=== PATIENT | female | born 1945 | race Caucasian/White ===

== ENCOUNTER → 2020-01-23 07:47 | Outpatient (BNVA) | payer MEDICARE, BC, SELFPAY | PROVIDERS: Family Provider Nurse Practitioner; PCP Nurse Practitioner; Visit Provider Nurse Practitioner | DX: I48.91 Unspecified atrial fibrillation (principal); E11.42 Type 2 diabetes mellitus with diabetic polyneuropathy; I10 Essential (primary) hypertension | CPT/HCPCS: 80053; 80061; 84443; 85025 ==

== ENCOUNTER 2020-01-29 22:34 | Emergency (ER) | payer MEDICARE, BC, SELFPAY ==
--- NOTE | 2020-01-29 22:38 | XRR_ITS ---
PROCEDURE INFORMATION: Exam: XR Chest, 1 View Exam date and time: 01/29/2020 11:06 PM Age: 74 years old Clinical indication: Fever and shortness of breath; Prior surgery; Surgery type: Heart; Additional info: Shortness of breath x3 days/fever x 1 day TECHNIQUE: Imaging protocol: XR of the chest Views: 1 view. COMPARISON: CR Chest 1 [place] [id number] 09/05/2018 11:00 AM FINDINGS: Lungs: No lung consolidation or pulmonary edema. Pleural space: No pleural effusion or pneumothorax. Heart/Mediastinum: The cardiac silhouette is not enlarged. The mediastinal contours are normal. Bones/joints: Prior left rotator cuff surgery with humeral anchors present. XR/XR chest 1V portable [id number] IMPRESSION: No acute abnormality.
[2020-01-29 22:41] VITALS: BP 145/70; PULSE 113; RESP 21; TEMP 37.8; O2SAT 98; BMI 44.6
--- NOTE | 2020-01-29 22:47 | ECG_ITS ---
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 Measurements Intervals [place] Rate: 106 P: 39 MT: 204 QRS: -24 QRSD: 96 T: 66 QT: 342 QTc: 456 Interpretive Statements SINUS TACHYCARDIA BORDERLINE LEFT AXIS DEVIATION [QRS AXIS < -20] NONSPECIFIC T-WAVE ABNORMALITY Compared to ECG 09/05/2018 10:36:27 T-wave abnormality now present Sinus rhythm no longer present Incomplete right bundle-branch block no longer present Electronically Signed On 01-30-2020 13:20:17 CDT by Gurwinder Higgins M.D. [id number]
--- NOTE | 2020-01-29 22:48 | ED_ITS ---
HPI - SOB/Dyspnea General: Chief Complaint: Shortness of Breath/Dyspnea Stated Complaint: SOB/FEVER Time Seen by Provider: 01/29/20 22:42 Source: patient Mode of arrival: ambulatory Limitations: no limitations History of Present Illness: HPI Narrative: Pauline is a nice 74-year-old female who comes in with a 3-day history of fever, cough, congestion and malaise. She states any type of exertion makes her symptoms worse. Rest does seem to make them better but they are present even at rest. Patient has nauseousness and vomiting but denies any diarrhea. Her temperature at home is been 101.1. She does not describe any urinary symptoms. Patient has no known ill exposures but COVID-19 is pandemic in the area currently. Patient states that she feels like she just cannot get enough air and that is why she is presented here to the ER. Associated symptoms: Reports fever(s); Deny abdominal pain, chest congestion, chest pain, diaphoresis, dizziness, extremity pain, hemoptysis, lightheadedness, orthopnea, palpitations or syncope Review of Systems Const: Reports: fever(s), chills, body aches, fatigue and malaise; Denies: diaphoresis Eyes: Denies: change in vision, blurry vision, photophobia, eye discomfort, eye discharge, eye redness or yellow eyes ENMT: Denies: throat pain, odynophagia, hoarseness, swelling of lips/tongue, ear or mastoid pain, ear discharge, change in hearing or nasal discharge Card: Denies: chest pain, palpitations, irregular heart rhythm, edema, lightheadedness, syncope, pre-syncope, dyspnea on exertion or orthopnea Resp: Denies: productive cough, wheezing, hemoptysis or chest congestion GI: Denies: abdominal pain, hematemesis, coffee ground emesis, heartburn, diarrhea, constipation, GI cramping, hematochezia or melena : Denies: flank pain, dysuria, urinary frequency, urinary urgency or hematuria Musc: Denies: neck pain, back pain, extremity pain, extremity swelling, joint pain, joint swelling, joint redness, joint warmth or joint stiffness Skin/Breast: Denies: rash, pruritus, erythema, skin pain or skin tenderness Neuro: Denies: headache(s), numbness in extremities, weakness in extremities, sensory changes, lack of coordination, difficulty walking, dizziness, vertigo, confusion, Slurred speech present or seizure-like activity Ruben/Lymph: Denies: easy bruising, easy bleeding, petechiae, purpura or enlarged lymph nodes All/Imm: Denies: urticaria, throat swelling, tongue swelling, facial swelling or acute wheezing PFSH ED PFSH: Medical History Asthma Atrial fibrillation Chronic kidney disease (CKD), stage II (mild) Controlled type 2 diabetes mellitus with hyperglycemia, with long-term current use of insulin History of CVA in adulthood HTN (hypertension) Type 2 diabetes mellitus with diabetic polyneuropathy Surgical History H/O angioplasty 5 stents H/O arthroscopic knee surgery Bilateral H/O parathyroidectomy H/O: hysterectomy History of appendectomy History of arthroscopic surgery of shoulder LEFT History of cholecystectomy History of tonsillectomy and adenoidectomy Family History Father Cancer Family/Other Cancer Mother Heart disease Stroke Dementia Denies family history of Diabetes CAD (coronary artery disease) Clotting disorder Hyperlipidemia Psychiatric illness Chronic kidney disease (CKD) Suicide Anesthesia complication Bleeding disorder Family history of premature coronary artery disease Lung disease Hypertension Social History Smoking and tobacco status: never smoked Second hand smoke exposure: No Smoking risk assessment/counseling performed?: No Alcohol intake: never Desire information about alcohol rehabilitation?: No Counseling given: No Desire information about substance/drug rehabilitation?: No Counseling given: No Adopted: No Caregiver/support person: Yes Lives independently: No Household members: family Housing: House Marital status: Single service: No Current occupational status: retired and disabled Pets and animals: Yes History of recent travel: No Current gender identity: Female Physical Exam Const: COMMON NORMALS: no acute distress, patient oriented x3, no limitations and alert GENERAL APPEARANCE: cooperative HENMT: COMMON NORMALS: normocephalic, atraumatic, external ears normal, EAC's normal and Normal external nose present HEAD & SCALP: normal to inspection, normocephalic and atraumatic FACE & SINUS: normal facial exam and face symmetric NOSE: Normal external nose present and Normal nares present EXTERNAL EAR: Yes external ears normal EXTERNAL AUDITORY CANAL: EAC's normal MOUTH: Normal oral and palatal mucosa present, lip normal and tongue normal Eye: COMMON NORMALS: Equal, round and reactive pupils present and conjunctivae normal GENERAL EYE: appearance normal, both eyes and all related structures ALIGNMENT: Yes alignment normal PERIORBITAL: periorbital findings normal EYELID: eyelids normal CONJUNCTIVA: Yes conjunctivae normal SCLERA: sclerae normal PUPIL: Yes Equal, round and reactive pupils present Neck/C-Spine: COMMON NORMALS: full ROM, no lymphadenopathy, supple, no meningeal signs and no JVD GENERAL: Yes normal visual inspection and Yes trachea midline Chest: COMMONS NORMALS: normal inspection of the chest and normal palpation of entire chest wall Resp: COMMON NORMALS: normal respiratory effort, No retractions, No use of accessory muscles and clear to auscultation bilaterally EFFORT & INSPECTION: Yes able to speak in complete sentences and Yes symmetric chest movement AUSCULTATION: clear to auscultation bilaterally, no crackles, no rales, no rhonchi and no wheezes Cardio: COMMON NORMALS: no JVD, regular rate, regular rhythm, S1 normal heart sound present and S2 normal heart sound present RATE: regular rate RHYTHM: regular rhythm HEART SOUNDS: S1 normal heart sound present, S2 normal heart sound present, no click, no gallops, no murmurs and no rubs GI: COMMON NORMALS: Soft to palpation and No hepatosplenomegaly present PALPATION: Yes Soft to palpation, No Tenderness to palpation present (GI), No Guarding due to palpation present (GI), No Rigid due to palpation, Yes No hepatosplenomegaly present, No Hernia present, No Palpable mass present and No Pulsatile mass present : COMMON NORMALS: Yes no CVA tenderness BLADDER/KIDNEY EXAM: Yes no CVA t enderness EXTERNAL FEMALE EXAM: No Hernia present Back/Pelvis: COMMON NORMALS: no CVA tenderness, thoracic and lumbar spine normal to inspection, no thoracic nor lumbar tenderness and thoraco-lumbar ROM normal Extremity: COMMON NORMALS: normal to inspection, full ROM, capillary refill normal, no joint enlargement, no clubbing, cyanosis or edema and no calf tenderness Neuro: COMMON NORMALS: patient oriented x3, CN's II-XII intact bilaterally, moves all extremities, no focal motor deficits and no sensory deficits noted SENSORIUM/ORIENTATION: Yes alert MENINGEAL SIGNS: Yes no meningeal signs SPEECH: speech normal Psych: COMMON NORMALS: mental status grossly normal, Normal thought process present, cooperative, normal affect, speech normal and activity/motor behavior normal SPEECH: Yes normal speech THOUGHT PROCESS: Normal thought process present Skin: COMMON NORMALS: no rashes or lesions noted, turgor normal, no jaundice, no petechiae and no mottling GENERAL SKIN EXAM: no rashes or lesions noted and turgor normal Course Vital Signs: Vital signs: Vital Signs Temperature 100.1 F H 01/29/20 22:41 Pulse Rate 68 01/30/20 05:00 Respiratory Rate 16 01/30/20 05:00 Blood Pressure 132/50 01/30/20 05:00 Pulse Oximetry 97 01/30/20 05:00 MDM - SOB/Dyspnea MDM Narrative: Medical decision making narrative: 0543 -patient is high risk now that she is requiring oxygen and is COVID positive. We will given looking for a inpatient bed for her. Lab Data: Labs: Lab Results 01/29/20 01/29/20 01/29/20 Range/Units 23:30 23:40 23:45 WBC 8.0 (4.0-10.0) 10^3/ uL RBC 4.09 L (4.1-5.3) 10^6/u L Hgb 12.5 (11.5-15.3) g/dL Hct 40.0 (37.0-47.0) % MCV 97.8 (81-99) fL MCH 30.6 (28.0-34.0) pg MCHC 31.3 (30.0-36.0) g/dL RDW 13.5 (12.1-15.1) % Plt Count 183 (130-400) 10^3/c mm MPV 12.1 H (7.4-10.4) fL Neut % (Auto) 79.7 % Lymph % (Auto) 10.0 % [place] % (Auto) 9.4 % Eos % (Auto) 0.1 % Baso % (Auto) 0.4 % Neut # (Auto) 6.35 (1.8-7.7) 10^3/u L Lymph # (Auto) 0.8 (0.8-4.8) 10^3/u L [place] # (Auto) 0.8 (0.2-0.9) 10^3/u L Eos # (Auto) 0.0 (0.0-0.8) 10^3/u L Baso # (Auto) 0.0 (0.0-0.1) 10^3/u L Nucleated RBC % (a uto) 0 % Nucleated RBCs # 0.0 /100WBC PT (12.1-14.9) SECO NDS INR (0.8-1.2) APTT (23.9-36.7) SECO NDS Fibrinogen (174-498) mg/dL D-Dimer (0-0.59) ug/mIFE U Specimen Type Arterial Sample Site Radial, left ABG pH 7.36 (7.35-7.45) ABG pCO2 48.0 H (35-45) mmHg ABG pO2 105.0 H (80.0-100.0) mmH g ABG HCO3 27.2 H (22-26) mmol/L ABG O2 Saturation 97.1 ABG Base Excess 1.1 (-2.0-2.0) mmol/ L Malachi Test Pos Hematocrit 38.1 (37-47) % Hgb O2 Saturation 95.8 (95-100) % Carboxyhemoglobin 0.4 (0.4-20.1) %THgb Methemoglobin 0.9 (0.4-1.5) % Total Hemoglobin 12.4 (12-16) g/dL Sodium 135.0 (131-143) mmol/L Potassium 4.6 (3.5-5.0) mmol/L Glucose 279.0 H (70-115) mg/dL Ionized Calcium 1.2 (1.1-1.4) mmol/L Margin Analyst ID ellpe Chloride (98-107) mmol/L Carbon Dioxide (22-29) mmol/L Anion Gap (5-19) BUN (8-23) mg/dL Creatinine (0.5-0.9) mg/dL GFR Calculation Calculated Osmolal ity (285-295) mOsm/k g Lactic Acid (0.5-2.2) mmol/L Calcium (8.5-10.5) mg/dL Magnesium (1.7-2.3) mg/dL Ferritin (15-150) ng/mL Total Bilirubin (0.15-1.2) mg/dL AST (0-32) U/L ALT (0-33) U/L Alkaline Phosphata se (35-105) IU/L Lactate Dehydrogen ase (135-214) U/L Troponin T Baselin e (0-10) ng/L Troponin T [address] [place] (0-10) ng/L Delta Troponin T (0-10) ABS# C-Reactive Protein (0.0-4.9) mg/L NT-Pro-B Natriuret Pep (0-125) pg/mL Total Protein (6.6-8.7) g/dL Albumin (3.5-5.2) g/dL Globulin (1.3-4.6) g/dL Lipase (13-60) U/L Procalcitonin (0-0.5) ng/mL Amorphous Sediment Influenza Type A A g Negative (Negative) Influenza Type B A g Negative (Negative) SARS-CoV-2 Ag (Rap id) (Negative) 01/29/20 01/29/20 01/29/20 Range/Units 23:45 23:45 23:45 WBC (4.0-10.0) 10^3/ uL RBC (4.1-5.3) 10^6/u L Hgb (11.5-15.3) g/dL Hct (37.0-47.0) % MCV (81-99) fL MCH (28.0-34.0) pg MCHC (30.0-36.0) g/dL RDW (12.1-15.1) % Plt Count (130-400) 10^3/c mm MPV (7.4-10.4) fL Neut % (Auto) % Lymph % (Auto) % [place] % (Auto) % Eos % (Auto) % Baso % (Auto) % Neut # (Auto) (1.8-7.7) 10^3/u L Lymph # (Auto) (0.8-4.8) 10^3/u L [place] # (Auto) (0.2-0.9) 10^3/u L Eos # (Auto) (0.0-0.8) 10^3/u L Baso # (Auto) (0.0-0.1) 10^3/u L Nucleated RBC % (a uto) % Nucleated RBCs # /100WBC PT 16.40 H (12.1-14.9) SECO NDS INR 1.28 H (0.8-1.2) APTT (23.9-36.7) SECO NDS Fibrinogen (174-498) mg/dL D-Dimer 3.06 H (0-0.59) ug/mIFE U Specimen Type Sample Site ABG pH (7.35-7.45) ABG pCO2 (35-45) mmHg ABG pO2 (80.0-100.0) mmH g ABG HCO3 (22-26) mmol/L ABG O2 Saturation ABG Base Excess (-2.0-2.0) mmol/ L Malachi Test Hematocrit (37-47) % Hgb O2 Saturation (95-100) % Carboxyhemoglobin (0.4-20.1) %THgb Methemoglobin (0.4-1.5) % Total Hemoglobin (12-16) g/dL Sodium 137 (131-143) mmol/L Potassium 4.9 (3.5-5.0) mmol/L Glucose 293 H (70-115) mg/dL Ionized Calcium (1.1-1.4) mmol/L Margin Analyst ID Chloride 99 (98-107) mmol/L Carbon Dioxide 25 (22-29) mmol/L Anion Gap 17.9 (5-19) BUN 25 H (8-23) mg/dL Creatinine 1.1 H (0.5-0.9) mg/dL GFR Calculation Not Reportable Calculated Osmolal ity 299 H (285-295) mOsm/k g Lactic Acid 1.4 (0.5-2.2) mmol/L Calcium 9.1 (8.5-10.5) mg/dL Magnesium 1.4 L (1.7-2.3) mg/dL Ferritin (15-150) ng/mL Total Bilirubin 0.3 (0.15-1.2) mg/dL AST 24 (0-32) U/L ALT 24 (0-33) U/L Alkaline Phosphata se 95 (35-105) IU/L Lactate Dehydrogen ase (135-214) U/L Troponin T Baselin e (0-10) ng/L Troponin T 120 Min [place] (0-10) ng/L Delta Troponin T (0-10) ABS# C-Reactive Protein (0.0-4.9) mg/L NT-Pro-B Natriuret Pep 424 H (0-125) pg/mL Total Protein 6.1 L (6.6-8.7) g/dL Albumin 3.8 (3.5-5.2) g/dL Globulin 2.3 (1.3-4.6) g/dL Lipase 45 (13-60) U/L Procalcitonin (0-0.5) ng/mL Amorphous Sediment Influenza Type A A g (Negative) Influenza Type B A g (Negative) SARS-CoV-2 Ag (Rap id) (Negative) 01/29/20 01/29/20 01/29/20 Range/Units 23:45 23:45 23:45 WBC (4.0-10.0) 10^3/ uL RBC (4.1-5.3) 10^6/u L Hgb (11.5-15.3) g/dL Hct (37.0-47.0) % MCV (81-99) fL MCH (28.0-34.0) pg MCHC (30.0-36.0) g/dL RDW (12.1-15.1) % Plt Count (130-400) 10^3/c mm MPV (7.4-10.4) fL Neut % (Auto) % Lymph % (Auto) % [place] % (Auto) % Eos % (Auto) % Baso % (Auto) % Neut # (Auto) (1.8-7.7) 10^3/u L Lymph # (Auto) (0.8-4.8) 10^3/u L [place] # (Auto) (0.2-0.9) 10^3/u L Eos # (Auto) (0.0-0.8) 10^3/u L Baso # (Auto) (0.0-0.1) 10^3/u L Nucleated RBC % (a uto) % Nucleated RBCs # /100WBC PT (12.1-14.9) SECO NDS INR (0.8-1.2) APTT (23.9-36.7) SECO NDS Fibrinogen (174-498) mg/dL D-Dimer (0-0.59) ug/mIFE U Specimen Type Sample Site ABG pH (7.35-7.45) ABG pCO2 (35-45) mmHg ABG pO2 (80.0-100.0) mmH g ABG HCO3 (22-26) mmol/L ABG O2 Saturation ABG Base Excess (-2.0-2.0) mmol/ L Malachi Test Hematocrit (37-47) % Hgb O2 Saturation (95-100) % Carboxyhemoglobin (0.4-20.1) %THgb Methemoglobin (0.4-1.5) % Total Hemoglobin (12-16) g/dL Sodium (131-143) mmol/L Potassium (3.5-5.0) mmol/L Glucose (70-115) mg/dL Ionized Calcium (1.1-1.4) mmol/L Margin Analyst ID Chloride (98-107) mmol/L Carbon Dioxide (22-29) mmol/L Anion Gap (5-19) BUN (8-23) mg/dL Creatinine (0.5-0.9) mg/dL GFR Calculation Calculated Osmolal ity (285-295) mOsm/k g Lactic Acid (0.5-2.2) mmol/L Calcium (8.5-10.5) mg/dL Magnesium (1.7-2.3) mg/dL Ferritin 179 H (15-150) ng/mL Total Bilirubin (0.15-1.2) mg/dL AST (0-32) U/L ALT (0-33) U/L Alkaline Phosphata se (35-105) IU/L Lactate Dehydrogen ase 184 (135-214) U/L Troponin T Baselin e 25 H (0-10) ng/L Troponin T [address] [place] (0-10) ng/L Delta Troponin T (0-10) ABS# C-Reactive Protein 22.6 H (0.0-4.9) mg/L NT-Pro-B Natriuret Pep (0-125) pg/mL Total Protein (6.6-8.7) g/dL Albumin (3.5-5.2) g/dL Globulin (1.3-4.6) g/dL Lipase (13-60) U/L Procalcitonin 0.15 (0-0.5) ng/mL Amorphous Sediment Influenza Type A A g (Negative) Influenza Type B A g (Negative) SARS-CoV-2 Ag (Rap id) Positive H (Negative) 01/30/20 01/30/20 01/30/20 Range/Units 02:00 02:00 05:00 WBC (4.0-10.0) 10^3/ uL RBC (4.1-5.3) 10^6/u L Hgb (11.5-15.3) g/dL Hct (37.0-47.0) % MCV (81-99) fL MCH (28.0-34.0) pg MCHC (30.0-36.0) g/dL RDW (12.1-15.1) % Plt Count (130-400) 10^3/c mm MPV (7.4-10.4) fL Neut % (Auto) % Lymph % (Auto) % [place] % (Auto) % Eos % (Auto) % Baso % (Auto) % Neut # (Auto) (1.8-7.7) 10^3/u L Lymph # (Auto) (0.8-4.8) 10^3/u L [place] # (Auto) (0.2-0.9) 10^3/u L Eos # (Auto) (0.0-0.8) 10^3/u L Baso # (Auto) (0.0-0.1) 10^3/u L Nucleated RBC % (a uto) % Nucleated RBCs # /100WBC PT 16.10 H (12.1-14.9) SECO NDS INR 1.25 H (0.8-1.2) APTT 36.6 (23.9-36.7) SECO NDS Fibrinogen 507 H (174-498) mg/dL D-Dimer (0-0.59) ug/mIFE U Specimen Type Sample Site ABG pH (7.35-7.45) ABG pCO2 (35-45) mmHg ABG pO2 (80.0-100.0) mmH g ABG HCO3 (22-26) mmol/L ABG O2 Saturation ABG Base Excess (-2.0-2.0) mmol/ L Malachi Test Hematocrit (37-47) % Hgb O2 Saturation (95-100) % Carboxyhemoglobin (0.4-20.1) %THgb Methemoglobin (0.4-1.5) % Total Hemoglobin (12-16) g/dL Sodium (131-143) mmol/L Potassium (3.5-5.0) mmol/L Glucose (70-115) mg/dL Ionized Calcium (1.1-1.4) mmol/L Margin Analyst ID Chloride (98-107) mmol/L Carbon Dioxide (22-29) mmol/L Anion Gap (5-19) BUN (8-23) mg/dL Creatinine (0.5-0.9) mg/dL GFR Calculation Calculated Osmolal ity (285-295) mOsm/k g Lactic Acid (0.5-2.2) mmol/L Calcium (8.5-10.5) mg/dL Magnesium (1.7-2.3) mg/dL Ferritin (15-150) ng/mL Total Bilirubin (0.15-1.2) mg/dL AST (0-32) U/L ALT (0-33) U/L Alkaline Phosphata se (35-105) IU/L Lactate Dehydrogen ase (135-214) U/L Troponin T Baselin e (0-10) ng/L Troponin T [address] [place] 23.54 H (0-10) ng/L Delta Troponin T -1.46 L (0-10) ABS# C-Reactive Protein (0.0-4.9) mg/L NT-Pro-B Natriuret Pep (0-125) pg/mL Total Protein (6.6-8.7) g/dL Albumin (3.5-5.2) g/dL Globulin (1.3-4.6) g/dL Lipase (13-60) U/L Procalcitonin (0-0.5) ng/mL Amorphous Sediment Not Reportable Influenza Type A A g (Negative) Influenza Type B A g (Negative) SARS-CoV-2 Ag (Rap id) (Negative) Imaging Data^: CXR: Attestation: I personally reviewed and interpreted this imaging study as follows: My impression: No acute cardiopulmonary findings. CT Chest: Radiologist's impression: [address] [address] [address] Scan Report Signed Patient: RamiroPauline wray Unit #: [id number] : 1945 Age/Sex: 74 / F ADM Date: 01/29/20 Loc: ER Room/Bed: Attending Dr: Ordering Provider/Ordering MD: Ashlyn Calvin DO Date of Service: 01/30/20 Procedure(s): CT angio chest PE protcl [id number] Accession Number(s): [id number] Report Number: [id number] PROCEDURE INFORMATION: Exam: CT Angiography Chest With Contrast Exam date and time: 01/30/2020 1:13 AM Age: 74 years old Clinical indication: Abnormal findings; Abnormal diagnostic tests; Elevated d-dimer; Dyspnea; Additional info: Dyspnea, tachycardia, positive d-dimer TECHNIQUE: Imaging protocol: Computed tomographic angiography of the chest with intravenous contrast. 3D rendering (Not supervised by radiologist): MIP and/or 3D reconstructed images were created by the technologist. Radiation optimization: All CT scans at this facility use at least one of these dose optimization techniques: automated exposure control; mA and/or kV adjustment per patient size (includes targeted exams where dose is matched to clinical indication); or iterative reconstruction. Contrast material: VISI; Contrast volume: 95 ml; Contrast route: INTRAVENOUS (IV); COMPARISON: CR XR chest 1V portable [id number] 01/29/2020 10:52 PM RADIATION DOSE METRICS: Total DLP (mGy-cm): 626.97 FINDINGS: Pulmonary arteries: Normal. No pulmonary emboli. Aorta: Unremarkable. No aortic aneurysm. No aortic dissection. Lungs: Unremarkable. No consolidation. No masses. Pleural space: Unremarkable. No pneumothorax. No pleural effusion. Heart: Unremarkable. No cardiomegaly. No pericardial effusion. Lymph nodes: Unremarkable. No enlarged lymph nodes. Bones/joints: Unremarkable. No acute fracture. Soft tissues: Unremarkable. CT/CT angio chest PE protcl [id number] IMPRESSION: No acute findings. Specifically negative for pulmonary embolism. Negative for aortic aneurysm or dissection. Radiation Dose CTDIVOL = (mGy): DLP = 626.97 (mGy-cm) Dictated By: Dominic Schmitz Signed By: Dominic Schmitz Signed Date/Time: 01/30/20422 DD/ 2 EKG Data^: EKG 1: Attestation: I personally reviewed and interpreted this EKG as follows: EKG Interpretation Date: 01/29/20 EKG interpretation time: 22:46 Interpretation: Normal sinus rhythm 106 beats a minute, left axis deviation, no blocks, normal intervals, nonspecific ST-T wave changes. EKG 2: Attestation: I personally reviewed and interpreted this EKG as follows: EKG Interpretation Date: 01/30/20 EKG interpretation time: 01:24 Interpretation: Normal sinus rhythm at 83 beats a minute, no blocks, normal intervals, left axis deviation, no acute ST-T wave changes. EKG 3: Attestation: I personally reviewed and interpreted this EKG as follows: EKG Interpretation Date: 01/30/20 EKG interpretation time: 05:22 Interpretation: Normal sinus rhythm at 76 beats a minute, no blocks, normal intervals, nonspecific ST-T wave changes. Discharge Plan Discharge Prescriptions: No Action insulin lispro SUBCUT RF: 0 Lantus Solostar U-100 Insulin 100 unit/mL (3 mL) insulin pen 32 unit SUBCUT BID RF: 0 guaifenesin [Mucinex] 600 mg tablet extended release 12hr 600 mg PO BID RF: 0 (DME) helium-oxygen 80-20 % kit See Rx Instructions .ROUTE .MEDSUPPLY Qty: 1 RF: 0 Symbicort 80-4.5 mcg/actuation HFA aerosol inhaler 2 puff INHALATION BID RF: 0 ascorbic acid (vitamin C) 500 mg capsule PO RF: 0 B Complex Plus Vitamin C [id number] mg capsule 1 cap PO QDAY RF: 0 acetaminophen PO RF: 0 metformin 500 mg tablet 500 mg PO BID RF: 0 albuterol sulfate 1.25 mg/3 mL solution for nebulization 1.25 mg INHALATION QID PRNRF: 0 albuterol sulfate [ProAir HFA] 90 mcg/actuation HFA aerosol inhaler 2 puff INHALATION Q6H PRNRF: 0 Eliquis 5 mg tablet 5 mg PO BID RF: 0 isosorbide dinitrate 30 mg tablet 30 mg PO DAILY RF: 0 duloxetine [Cymbalta] 30 mg capsule,delayed release(DR/EC) 30 mg PO BID Qty: 60 RF: 5 montelukast [Singulair] 10 mg tablet 10 mg PO QDAY Qty: 30 RF: 5 rosuvastatin [Crestor] 40 mg tablet 40 mg PO QDAY Qty: 30 RF: 5 prednisone 10 mg tablet 10 mg PO DAILY Qty: 10 RF: 0 sotalol 120 mg tablet 120 mg PO DAILY Qty: 30 RF: 5 Coding Level of Care Code 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
[2020-01-29 23:15] VITALS: BP 156/78; PULSE 78; RESP 20; O2SAT 94
[2020-01-29 23:30] VITALS: BP 146/72; PULSE 94; RESP 18; O2SAT 94
[2020-01-29] MEDS: ondansetron 2 mg/ML SDV 2 mL 4 MG IVP (23:30)
[2020-01-29] MEDS: acetaminophen 500 mg Tablet 1000 MG PO (23:30)
[2020-01-29 23:38] LABS: ABG PH Result 7.36 (7.35-7.45); Arterial Blood Gas Hematocrit 38.1 % (37-47); Base Excess ABG 1.1 mmol/L (-2.0-2.0); Blood Gas Allen Test Pos; Blood Gas Sample Site Radial, left; Blood Gas Sample Type Arterial; Carboxyhemoglobin 0.4 %THgb (0.4-20.1); HCO3 ABG 27.2 mmol/L (22-26); HGB O2 Sat 95.8 % (95-100); Ionized Calcium Level - ABG 1.2 mmol/L (1.1-1.4); Methemoglobin 0.9 % (0.4-1.5); Oxygen Saturation ABG 97.1; Potassium Level - ABG 4.6 mmol/L (3.5-5.0); Total Hemoglobin 12.4 g/dL (12-16)
[2020-01-30] VITALS (8 sets, daily range): BP systolic 116–169; BP diastolic 50–80; PULSE 68–99; RESP 16–18; O2SAT 93–99
[2020-01-30 00:14] LABS: Basophils % 0.4 %; Eosinophils % 0.1 %; Hemoglobin 12.5 g/dL (11.5-15.3); Lymphocytes # 0.8 10^3/uL (0.8-4.8); Mean Corpuscular HGB Conc 31.3 g/dL (30.0-36.0); Mean Corpuscular Hemoglobin 30.6 pg (28.0-34.0); Mean Corpuscular Volume 97.8 fL (81-99); Mean Platelet Volume 12.1 fL (7.4-10.4); Monocytes # 0.8 10^3/uL (0.2-0.9); Monocytes % 9.4 %; Neutrophils # 6.35 10^3/uL (1.8-7.7); Neutrophils % 79.7 %; Nucleated Red Blood Cells % 0 %; Platelet Count 183 10^3/cmm (130-400); Red Blood Count 4.09 10^6/uL (4.1-5.3); Red Cell Distribution Width 13.5 % (12.1-15.1)
[2020-01-30 00:17] LABS: INR 1.28 (0.8-1.2)
[2020-01-30 00:20] LABS: D Dimer 3.06 ug/mIFEU (0-0.59)
[2020-01-30 00:21] LABS: Lactic Sepsis W/Reflex 1.4 mmol/L (0.5-2.2)
[2020-01-30 00:23] LABS: Troponin(5th) Baseline 25 ng/L (0-10)
[2020-01-30 00:32] LABS: Alanine Aminotransferase 24 U/L (0-33); Albumin Level 3.8 g/dL (3.5-5.2); Alkaline Phosphatase 95 IU/L (35-105); Anion Gap 17.9 (5-19); Aspartate Amino Transferase 24 U/L (0-32); Blood Urea Nitrogen 25 mg/dL (8-23); Calcium 9.1 mg/dL (8.5-10.5); Carbon Dioxide 25 mmol/L (22-29); Chloride 99 mmol/L (98-107); Globulin 2.3 g/dL (1.3-4.6); Glucose 293 mg/dL (65-115); Lipase 45 U/L (13-60); Magnesium 1.4 mg/dL (1.7-2.3); NT Pro B Type Natriuretic Pept 424 pg/mL (0-125); Osmolality Calculated 299 mOsm/kg (285-295); Potassium 4.9 mmol/L (3.5-5.1); Sodium 137 mmol/L (136-145); Total Bilirubin 0.3 mg/dL (0.15-1.2); Total Protein 6.1 g/dL (6.6-8.7)
[2020-01-30] MEDS: sodium chloride 0.9% 1,000 ML 999 ML IV (00:40)
[2020-01-30 00:41] LABS: SARS Covid-2 Antigen Positive (Negative)
--- NOTE | 2020-01-30 00:53 | CTR_ITS ---
PROCEDURE INFORMATION: Exam: CT Angiography Chest With Contrast Exam date and time: 01/30/2020 1:13 AM Age: 74 years old Clinical indication: Abnormal findings; Abnormal diagnostic tests; Elevated d-dimer; Dyspnea; Additional info: Dyspnea, tachycardia, positive d-dimer TECHNIQUE: Imaging protocol: Computed tomographic angiography of the chest with intravenous contrast. 3D rendering (Not supervised by radiologist): MIP and/or 3D reconstructed images were created by the technologist. Radiation optimization: All CT scans at this facility use at least one of these dose optimization techniques: automated exposure control; mA and/or kV adjustment per patient size (includes targeted exams where dose is matched to clinical indication); or iterative reconstruction. Contrast material: VISI; Contrast volume: 95 ml; Contrast route: INTRAVENOUS (IV); COMPARISON: CR XR chest 1V portable [id number] 01/29/2020 10:52 PM RADIATION DOSE METRICS: Total DLP (mGy-cm): 626.97 FINDINGS: Pulmonary arteries: Normal. No pulmonary emboli. Aorta: Unremarkable. No aortic aneurysm. No aortic dissection. Lungs: Unremarkable. No consolidation. No masses. Pleural space: Unremarkable. No pneumothorax. No pleural effusion. Heart: Unremarkable. No cardiomegaly. No pericardial effusion. Lymph nodes: Unremarkable. No enlarged lymph nodes. Bones/joints: Unremarkable. No acute fracture. Soft tissues: Unremarkable. CT/CT angio chest PE protcl [id number] IMPRESSION: No acute findings. Specifically negative for pulmonary embolism. Negative for aortic aneurysm or dissection. Radiation Dose CTDIVOL = (mGy): DLP = 626.97 (mGy-cm)
[2020-01-30 00:58] LABS: Influenza A by IFA Negative (Negative); Influenza B by IFA Negative (Negative)
--- NOTE | 2020-01-30 02:16 | PC.NURSE ---
0200 assisted patient to [facility]- she became wedged in commode other Nurse Solomon came to assist pt assisted up to stand then she sat down on floor with assistance of 2 nurses- assist of 4 staff members patient lifted into bed positioned on back O2 at 2 L NC- UA to lab
[2020-01-30 02:37] LABS: Troponin 5 2HR 23.54 ng/L (0-10)
[2020-01-30 02:40] LABS: Troponin 5 2HR Delta -1.46 ABS# (0-10)
[2020-01-30] MEDS: magnesium sulfate premix 2 GM/50 ML PIGGYBACK IV (03:04)
[2020-01-30] MEDS: dexamethasone 10 mg/mL INJ IVP (03:04)
[2020-01-30] MEDS: iodixanol 320 mg/mL 100mL Btl IV (04:00)
[2020-01-30 05:21] LABS: Procalcitonin 0.15 ng/mL (0-0.5)
[2020-01-30 05:31] LABS: C Reactive Protein 22.6 mg/L (0.0-4.9); Ferritin 179 ng/mL (15-150); Lactate Dehydrogenase 184 U/L (135-214)
[2020-01-30 05:36] LABS: INR 1.25 (0.8-1.2)
[2020-01-30 05:37] LABS: Fibrinogen 507 mg/dL (174-498); Partial Thromboplastin Time 36.6 SECONDS (23.9-36.7)
[2020-01-30 05:43] LABS: Troponin 5 6HR 20.05 ng/L (0-10)
[2020-01-30 05:49] LABS: Troponin 5 6HR Delta -4.95 ng/L (0-12)
--- NOTE | 2020-01-30 06:46 | PC.NURSE ---
BERKLEY Warren started explained to patient with plan of care
--- NOTE | 2020-01-30 07:52 | PC.NURSE ---
Report called to [facility] at [phone] and given to Molina DAWSON
== END 2020-01-30 08:29 | disposition other institution (70) ==
PROVIDERS: Emergency Provider Emergency Medicine; Family Provider Nurse Practitioner; PCP Nurse Practitioner
DX: U07.1 COVID-19 (principal); Z79.01 Long term (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 of anticoagulants; Z79.4 Long term (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 of insulin; I48.91 Unspecified atrial fibrillation; I12.9 Hypertensive chronic kidney disease with stage 1 through stage 4 chronic kidney disease, or unspecified chronic kidney disease; E11.22 Type 2 diabetes mellitus with diabetic chronic kidney disease; N18.2 Chronic kidney disease, stage 2 (mild); E11.42 Type 2 diabetes mellitus with diabetic polyneuropathy; Z86.73 Personal history of transient ischemic attack (TIA), and cerebral infarction without residual deficits
CPT/HCPCS: 12345; 36600; 71045; 71275; 80051; 80053; 82728; 82810; 83605; 83615; 83690; 83735; 83880; 83986; 84145; 84484; 85025; 85378; 85384; 85610; 85730; 86140; 87040; 87426; 87635; 87804; 93005; 96365; 96367; 96375; 99284; J1100; J2405; J3475; J7030; Q9967

== ENCOUNTER → 2020-02-07 12:11 | Outpatient (BNVA) | payer MEDICARE, BC, SELFPAY | PROVIDERS: Family Provider Nurse Practitioner; PCP Nurse Practitioner; Visit Provider Nurse Practitioner | DX: E11.65 Type 2 diabetes mellitus with hyperglycemia (principal); Z79.4 Long term (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 of insulin | CPT/HCPCS: 85025 ==

== ENCOUNTER → 2020-02-29 07:53 | Outpatient (BNVA) | payer MEDICARE, BC, SELFPAY | PROVIDERS: Family Provider Nurse Practitioner; PCP Nurse Practitioner; Visit Provider Nurse Practitioner | DX: R30.0 Dysuria (principal) | CPT/HCPCS: 80053; 81003; 87077; 87086; 87184 ==

== ENCOUNTER → 2020-07-12 08:16 | Outpatient (BNVA) | payer MEDICARE, BC, SELFPAY | PROVIDERS: Family Provider Nurse Practitioner; PCP Nurse Practitioner; Visit Provider Nurse Practitioner | DX: E11.65 Type 2 diabetes mellitus with hyperglycemia (principal); I10 Essential (primary) hypertension; Z79.4 Long term (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 of insulin; E11.42 Type 2 diabetes mellitus with diabetic polyneuropathy | CPT/HCPCS: 80053; 80061; 81000; 83036; 84443; 85025 ==

== ENCOUNTER 2020-07-30 21:59 | Inpatient (IN) | payer MEDICARE, BC, SELFPAY ==
[2020-07-30 22:04] VITALS: BP 137/69; PULSE 118; RESP 19; TEMP 37.4; O2SAT 97; BMI 44.1
[2020-07-30 22:09] VITALS: BP 137/69; PULSE 131; RESP 23; O2SAT 97
--- NOTE | 2020-07-30 22:11 | XR_ITS ---
WS: [id number] Portable AP upright chest, 07/30/2020 Clinical Data: n/v Comparison: Portable chest, 01/29/2020. Findings: No nodules, masses or effusions are seen. The heart is normal. The aortic arch and descendi ng aorta show minimal calcification and tortuosity. The pulmonary vascularity is not increased. No pn eumonia or pneumothorax is seen. The right diaphragm is moderately elevated. There are monitor leads on the chest wall. There are orthopedic anchors in the left humeral head. XR/XR chest 1V portable [id number] Impression: Atherosclerosis.
--- NOTE | 2020-07-30 22:13 | ED_ITS ---
Documented by User: GABRIELLA Bianchi 07/30/20 23:05 HPI - Abdominal Pain General: Chief Complaint: Abdominal Pain Stated Complaint: N/V Time Seen by Provider: 07/30/20 22:08 History of Present Illness: HPI narrative: Patient is a 75-year-old female comes to the ED via EMS for nausea/vomiting, generalized weakness and near syncope. Past medical history of A. fib, type 2 diabetes, hypertension, asthma. Patient also has had Covid-19 in the past. Patient ambulates at home with a walker and wears 2 L of oxygen at home. Patient said approximately 2 days ago she started developing diarrhea, nausea and vomiting. She also endorses having low-grade fever for the past 2 days as well. She also endorses having some abdominal pain that is centrally located. She says today she has had increased generalized weakness. Patient endorses a very mild cough that is dry and nonproductive. Patient denies any current chest pain, shortness of breath, UTI symptoms. Patient did say that she has had some chest pain multiple times over the past week. One of patient's family members is present and she also lives with patient and helps take care of her. She says that tonight patient was complaining of being more weak than usual. She says that she got patient up out of bed to try to help her ambulate to the bathroom and patient had a near syncopal event and she was able to slowly lowered her down to the ground. She denies any head trauma or that patient lost consciousness. She noted that patient just seemed very lethargic at that time. She also says that patient has been having some on and off and chest pain for the past week and has been taking her nitro and it resolves. Patient has not been seen in any medical facility for chest pain for the past week since the nitro resolves that. Associated Symptoms: Reports diarrhea, fever(s), nausea and vomiting; Denies chills, constipation, dysuria, hematochezia and hematuria Review of Systems Const: Reports: fever(s); Denies: chills or fatigue Eyes: Denies: change in vision or eye discomfort ENMT: Denies: throat pain, odynophagia, nasal discharge or nasal congestion Card: Denies: chest pain, palpitations, edema, swelling of feet/ankles, dyspnea on exertion or orthopnea Resp: Reports: non-productive cough; Denies: dyspnea or productive cough GI: Reports: abdominal pain, nausea, vomiting and diarrhea; Denies: constipation or hematochezia : Denies: flank pain, dysuria or hematuria Musc: Denies: neck pain, back pain or extremity swelling Skin/Breast: Denies: rash or new lesions Neuro: Denies: headache(s), numbness in extremities or weakness in extremities PFSH ED 2 PFSH: Medical History Asthma Atrial fibrillation Chronic kidney disease (CKD), stage II (mild) Controlled type 2 diabetes mellitus with hyperglycemia, with long-term current use of insulin History of CVA in adulthood HTN (hypertension) Type 2 diabetes mellitus with diabetic polyneuropathy Surgical History H/O angioplasty 5 stents H/O arthroscopic knee surgery Bilateral H/O parathyroidectomy H/O: hysterectomy History of appendectomy History of arthroscopic surgery of shoulder LEFT History of cholecystectomy History of tonsillectomy and adenoidectomy Family History Father Cancer Family/Other Cancer Mother Heart disease Stroke Dementia Denies family history of Diabetes CAD (coronary artery disease) Clotting disorder Hyperlipidemia Psychiatric illness Chronic kidney disease (CKD) Suicide Anesthesia complication Bleeding disorder Family history of premature coronary artery disease Lung disease Hypertension Social History Smoking and tobacco status: never smoked Second hand smoke exposure: No Smoking risk assessment/counseling performed?: No Alcohol intake: never Desire information about alcohol rehabilitation?: No Counseling given: No Desire information about substance/drug rehabilitation?: No Counseling given: No Adopted: No Caregiver/support person: Yes Lives independently: No Household members: family Housing: House Marital status: Single service: No Current occupational status: retired and disabled Pets and animals: Yes History of recent travel: No Current gender identity: Female Physical Exam Const: COMMON NORMALS: patient oriented x3 and alert GENERAL APPEARANCE: cooperative, comfortable and diaphoretic NUTRITIONAL APPEARANCE: obese HENMT: COMMON NORMALS: normocephalic HEAD & SCALP: normocephalic MOUTH: moist mucous membranes abnormal Details: parched THROAT: posterior oropharynx normal and uvula midline Neck/C-Spine: COMMON NORMALS: supple GENERAL: Yes normal visual inspection Resp: COMMON NORMALS: normal respiratory effort, No retractions, No use of accessory muscles and clear to auscultation bilaterally EFFORT & INSPECTION: Yes able to speak in complete sentences and Yes tachypneic AUSCULTATION: clear to auscultation bilaterally Cardio: COMMON NORMALS: regular rhythm, S1 normal heart sound present, S2 normal heart sound present, No gallops present (Cardio), No clicks present (Cardio), No murmurs present (Cardio) and Peripheral pulses 2+ throughout RATE: tachycardic (Around 120 bpm) RHYTHM: regular rhythm HEART SOUNDS: S1 normal heart sound present and S2 normal heart sound present PERIPHERAL PULSES: Peripheral pulses 2+ throughout GI: COMMON NORMALS: Normal to inspection, nondistended, normoactive bowel sounds present, Soft to palpation, non-tender and no masses INSPECTION: Yes central obesity PALPATION: Yes Soft to palpation OTHER: Patient had no abdominal tenderness to light and deep palpation in all 4 quadrants of abdomen. : COMMON NORMALS: Yes no CVA tenderness BLADDER/KIDNEY EXAM: Yes no CVA tenderness Back/Pelvis: COMMON NORMALS: no CVA tenderness Extremity: GENERAL: Yes normal exam except as noted and Yes edema (Bilateral lower extremities trace edema present.) Neuro: COMMON NORMALS: patient oriented x3 SENSORIUM/ORIENTATION: Yes alert GAIT: Yes Normal gait present Skin: GENERAL SKIN EXAM: dry skin Course Vital Signs: Vital signs: Vital Signs Temperature 99.4 F 07/30/20 22:04 Pulse Rate 100 07/31/20 00:12 Respiratory Rate 16 07/31/20 00:12 Blood Pressure 155/88 07/31/20 00:12 Pulse Oximetry 99 07/31/20 00:12 MDM - Abdominal Pain MDM Narrative: Medical decision making narrative: Patient is a 75-year-old female comes to the ED with nausea/vomiting, diarrhea, generalized weakness and near syncope. Patient has past medical history of A. fib, hypertension, type 2 diabetes, asthma and is on 2 L O2 at home. Vitals BP 137/69, pulse 131, respirations 23, temp 99.4 and O2 97% on 2 L NC. Patient's first troponin level was 1088. I went discussed patient case with Dr. Chow and he will be taking over patient care. I performed the initial history, physical exam and work-up of patient. Due to patient's acuity I handed patient care off to Dr. Chow to further manage patient's care. Lab Data: Attestation: I reviewed the patient's lab results. Labs: Lab Results 07/30/20 07/30/20 07/30/20 Range/Units 22:20 22:20 22:20 WBC 12.8 H (4.0-10.0) 10^3/ uL RBC 4.07 L (4.1-5.3) 10^6/u L Hgb 12.5 (11.5-15.3) g/dL Hct 39.3 (37.0-47.0) % MCV 96.6 (81-99) fL MCH 30.7 (28.0-34.0) pg MCHC 31.8 (30.0-36.0) g/dL RDW 13.4 (12.1-15.1) % Plt Count 215 (130-400) 10^3/c mm MPV 12.2 H (7.4-10.4) fL Neut % (Auto) 75.5 % Lymph % (Auto) 11.4 % [place] % (Auto) 12.3 % Eos % (Auto) 0.3 % Baso % (Auto) 0.3 % Neut # (Auto) 9.68 H (1.8-7.7) 10^3/u L Lymph # (Auto) 1.5 (0.8-4.8) 10^3/u L [place] # (Auto) 1.6 H (0.2-0.9) 10^3/u L Eos # (Auto) 0.0 (0.0-0.8) 10^3/u L Baso # (Auto) 0.0 (0.0-0.1) 10^3/u L Nucleated RBC % (a uto) 0 % Nucleated RBCs # 0.0 /100WBC Sodium 139 (136-145) mmol/L Potassium 4.3 (3.5-5.1) mmol/L Chloride 99 (98-107) mmol/L Carbon Dioxide 28 (22-29) mmol/L Anion Gap 16.3 (5-19) BUN 20 (8-23) mg/dL Creatinine 0.8 (0.5-0.9) mg/dL GFR Calculation Not Reportable Glucose 190 H (65-115) mg/dL Calculated Osmolal ity 296 H (285-295) mOsm/k g Lactic Acid 2.6 H (0.5-2.2) mmol/L Calcium 8.5 (8.5-10.5) mg/dL Total Bilirubin 0.3 (0.15-1.2) mg/dL AST 83 H (0-32) U/L ALT 32 (0-33) U/L Alkaline Phosphata se 132 H (35-105) IU/L Troponin T Baselin e (0-10) ng/L NT-Pro-B Natriuret Pep (0-125) pg/mL Total Protein 6.9 (6.6-8.7) g/dL Albumin 3.8 (3.5-5.2) g/dL Globulin 3.1 (1.3-4.6) g/dL Lipase 7 L (13-60) U/L Urine Color (Yellow) Urine Appearance (CLEAR) Urine pH (5-7) Ur Specific Gravit y (1.005-1.030) Urine Protein (Negative) Urine Glucose (UA) (Normal) Urine Ketones (Negative) Urine Blood (Negative) Urine Nitrate (Negative) Urine Bilirubin (Negative) Urine Urobilinogen (Negative) mg/dL Ur Leukocyte Amanda ase (Negative) Urine RBC (0-2) /hpf Urine WBC (0-5) /hpf Ur Squamous Epith Cells (0-5) /hpf Amorphous Sediment /hpf Urine Bacteria (NONE) /hpf 07/30/20 07/30/20 07/30/20 Range/Units 22:20 22:20 22:54 WBC (4.0-10.0) 10^3/ uL RBC (4.1-5.3) 10^6/u L Hgb (11.5-15.3) g/dL Hct (37.0-47.0) % MCV (81-99) fL MCH (28.0-34.0) pg MCHC (30.0-36.0) g/dL RDW (12.1-15.1) % Plt Count (130-400) 10^3/c mm MPV (7.4-10.4) fL Neut % (Auto) % Lymph % (Auto) % [place] % (Auto) % Eos % (Auto) % Baso % (Auto) % Neut # (Auto) (1.8-7.7) 10^3/u L Lymph # (Auto) (0.8-4.8) 10^3/u L [place] # (Auto) (0.2-0.9) 10^3/u L Eos # (Auto) (0.0-0.8) 10^3/u L Baso # (Auto) (0.0-0.1) 10^3/u L Nucleated RBC % (a uto) % Nucleated RBCs # /100WBC Sodium (136-145) mmol/L Potassium (3.5-5.1) mmol/L Chloride (98-107) mmol/L Carbon Dioxide (22-29) mmol/L Anion Gap (5-19) BUN (8-23) mg/dL Creatinine (0.5-0.9) mg/dL GFR Calculation Glucose (65-115) mg/dL Calculated Osmolal ity (285-295) mOsm/k g Lactic Acid (0.5-2.2) mmol/L Calcium (8.5-10.5) mg/dL Total Bilirubin (0.15-1.2) mg/dL AST (0-32) U/L ALT (0-33) U/L Alkaline Phosphata se (35-105) IU/L Troponin T Baselin e 1088 H* (0-10) ng/L NT-Pro-B Natriuret Pep 9719 H (0-125) pg/mL Total Protein (6.6-8.7) g/dL Albumin (3.5-5.2) g/dL Globulin (1.3-4.6) g/dL Lipase (13-60) U/L Urine Color Yellow (Yellow) Urine Appearance Clear (CLEAR) Urine pH 5 (5-7) Ur Specific Gravit y 1.020 (1.005-1.030) Urine Protein 1+ H (Negative) Urine Glucose (UA) Norm (Normal) Urine Ketones 1+ H (Negative) Urine Blood Neg (Negative) Urine Nitrate Negative (Negative) Urine Bilirubin Neg (Negative) Urine Urobilinogen 1 H (Negative) mg/dL Ur Leukocyte Amanda ase Negative (Negative) Urine RBC 0-4 H (0-2) /hpf Urine WBC 0-4 H (0-5) /hpf Ur Squamous Epith Cells 0-4 H (0-5) /hpf Amorphous Sediment 4+ /hpf Urine Bacteria None (NONE) /hpf EKG Data ^: EKG 1: Attestation: I personally reviewed and interpreted this EKG as follows: EKG interpretation date: 07/30/20 Interpretation: Sinus tachycardia, [address] depression in lead V2. I informed Dr. Chow of patient and he looked at EKG as well. Discharge Plan Discharge Patient Disposition: Admitted As Inpatient Clinical Impression: Non-ST elevation PA (NSTEMI) Condition: Stable Coding Level of Care Code ED Audiology Assistant for Chg Fwd Exam Comprehensive Documented by User: Todd Chow MD 07/31/20 00:18 HPI - Abdominal Pain General: Chief Complaint: Abdominal Pain Stated Complaint: N/V Time Seen by Provider: 07/30/20 22:08 PFSH ED PFSH: Medical History Asthma Atrial fibrillation Chronic kidney disease (CKD), stage II (mild) Controlled type 2 diabetes mellitus with hyperglycemia, with long-term current use of insulin History of CVA in adulthood HTN (hypertension) Type 2 diabetes mellitus with diabetic polyneuropathy Surgical History H/O angioplasty 5 stents H/O arthroscopic knee surgery Bilateral H/O parathyroidectomy H/O: hysterectomy History of appendectomy History of arthroscopic surgery of shoulder LEFT History of cholecystectomy History of tonsillectomy and adenoidectomy Family History Father Cancer Family/Other Cancer Mother Heart disease Stroke Dementia Denies family history of Diabetes CAD (coronary artery disease) Clotting disorder Hyperlipidemia Psychiatric illness Chronic kidney disease (CKD) Suicide Anesthesia complication Bleeding disorder Family history of premature coronary artery disease Lung disease Hypertension Social History Smoking and tobacco status: never smoked Second hand smoke exposure: No Smoking risk assessment/counseling performed?: No Alcohol intake: never Desire information about alcohol rehabilitation?: No Counseling given: No Desire information about substance/drug rehabilitation?: No Counseling given: No Adopted: No Caregiver/support person: Yes Lives independently: No Household members: family Housing: House Marital status: Single service: No Current occupational status: retired and disabled Pets and animals: Yes History of recent travel: No Current gender identity: Female Physical Exam Const: COMMON NORMALS: no acute distress, patient oriented x3 and healthy appearing HENMT: COMMON NORMALS: normocephalic and atraumatic HEAD & SCALP: normocephalic and atraumatic Eye: COMMON NORMALS: Equal, round and reactive pupils present and EOMs intact bilaterally PUPIL: Yes Equal, round and reactive pupils present Neck/C-Spine: COMMON NORMALS: full ROM and supple Chest: COMMONS NORMALS: normal inspection of the chest and normal palpation of entire chest wall Resp: COMMON NORMALS: normal respiratory effort, No retractions, No use of accessory muscles and clear to auscultation bilaterally AUSCULTATION: clear to auscultation bilaterally Cardio: COMMON NORMALS: regular rate, regular rhythm and No murmurs present (Cardio) RATE: regular rate RHYTHM: regular rhythm GI: COMMON NORMALS: Normal to inspection, nondistended, normoactive bowel sounds present, Soft to palpation, non-tender and no masses PALPATION: Yes Soft to palpation Extremity: COMMON NORMALS: normal to inspection and full ROM Neuro: COMMON NORMALS: patient oriented x3, moves all extremities and no focal motor deficits Psych: COMMON NORMALS: mental status grossly normal, Normal thought process present and cooperative THOUGHT PROCESS: Normal thought process present Skin: COMMON NORMALS: no rashes or lesions noted and no wounds GENERAL SKIN EXAM: no rashes or lesions noted Course Vital Signs: Vital signs: Vital Signs Temperature 99.4 F 07/30/20 22:04 Pulse Rate 100 07/31/20 00:12 Respiratory Rate 16 07/31/20 00:12 Blood Pressure 155/88 07/31/20 00:12 Pulse Oximetry 99 07/31/20 00:12 MDM - Abdominal Pain MDM Narrative: Medical decision making narrative: Patient presents here with chest pain and abdominal pain over the last 2 days. States she has had intermittent pains and has been taking nitros. Patient is completely pain-free here and initial repeat EKGs did show sinus tachycardia. Her troponin is quite elevated consistent with an NSTEMI. CTA showed no signs of PE. I spoke to hospitalist will admit. I also spoke to [employer] Dr. Akhtar who is consulted. Lab Data: Labs: Lab Results 07/30/20 07/30/20 07/30/20 Range/Units 22:20 22:20 22:20 WBC 12.8 H (4.0-10.0) 10^3/ uL RBC 4.07 L (4.1-5.3) 10^6/u L Hgb 12.5 (11.5-15.3) g/dL Hct 39.3 (37.0-47.0) % MCV 96.6 (81-99) fL MCH 30.7 (28.0-34.0) pg MCHC 31.8 (30.0-36.0) g/dL RDW 13.4 (12.1-15.1) % Plt Count 215 (130-400) 10^3/c mm MPV 12.2 H (7.4-10.4) fL Neut % (Auto) 75.5 % Lymph % (Auto) 11.4 % [place] % (Auto) 12.3 % Eos % (Auto) 0.3 % Baso % (Auto) 0.3 % Neut # (Auto) 9.68 H (1.8-7.7) 10^3/u L Lymph # (Auto) 1.5 (0.8-4.8) 10^3/u L [place] # (Auto) 1.6 H (0.2-0.9) 10^3/u L Eos # (Auto) 0.0 (0.0-0.8) 10^3/u L Baso # (Auto) 0.0 (0.0-0.1) 10^3/u L Nucleated RBC % (a uto) 0 % Nucleated RBCs # 0.0 /100WBC Sodium 139 (136-145) mmol/L Potassium 4.3 (3.5-5.1) mmol/L Chloride 99 (98-107) mmol/L Carbon Dioxide 28 (22-29) mmol/L Anion Gap 16.3 (5-19) BUN 20 (8-23) mg/dL Creatinine 0.8 (0.5-0.9) mg/dL GFR Calculation Not Reportable Glucose 190 H (65-115) mg/dL Calculated Osmolal ity 296 H (285-295) mOsm/k g Lactic Acid 2.6 H (0.5-2.2) mmol/L Calcium 8.5 (8.5-10.5) mg/dL Total Bilirubin 0.3 (0.15-1.2) mg/dL AST 83 H (0-32) U/L ALT 32 (0-33) U/L Alkaline Phosphata se 132 H (35-105) IU/L Troponin T Baselin e (0-10) ng/L NT-Pro-B Natriuret Pep (0-125) pg/mL Total Protein 6.9 (6.6-8.7) g/dL Albumin 3.8 (3.5-5.2) g/dL Globulin 3.1 (1.3-4.6) g/dL Lipase 7 L (13-60) U/L Urine Color (Yellow) Urine Appearance (CLEAR) Urine pH (5-7) Ur Specific Gravit y (1.005-1.030) Urine Protein (Negative) Urine Glucose (UA) (Normal) Urine Ketones (Negative) Urine Blood (Negative) Urine Nitrate (Negative) Urine Bilirubin (Negative) Urine Urobilinogen (Negative) mg/dL Ur Leukocyte Amanda ase (Negative) Urine RBC (0-2) /hpf Urine WBC (0-5) /hpf Ur Squamous Epith Cells (0-5) /hpf Amorphous Sediment /hpf Urine Bacteria (NONE) /hpf 07/30/20 07/30/20 07/30/20 Range/Units 22:20 22:20 22:54 WBC (4.0-10.0) 10^3/ uL RBC (4.1-5.3) 10^6/u L Hgb (11.5-15.3) g/dL Hct (37.0-47.0) % MCV (81-99) fL MCH (28.0-34.0) pg MCHC (30.0-36.0) g/dL RDW (12.1-15.1) % Plt Count (130-400) 10^3/c mm MPV (7.4-10.4) fL Neut % (Auto) % Lymph % (Auto) % [place] % (Auto) % Eos % (Auto) % Baso % (Auto) % Neut # (Auto) (1.8-7.7) 10^3/u L Lymph # (Auto) (0.8-4.8) 10^3/u L [place] # (Auto) (0.2-0.9) 10^3/u L Eos # (Auto) (0.0-0.8) 10^3/u L Baso # (Auto) (0.0-0.1) 10^3/u L Nucleated RBC % (a uto) % Nucleated RBCs # /100WBC Sodium (136-145) mmol/L Potassium (3.5-5.1) mmol/L Chloride (98-107) mmol/L Carbon Dioxide (22-29) mmol/L Anion Gap (5-19) BUN (8-23) mg/dL Creatinine (0.5-0.9) mg/dL GFR Calculation Glucose (65-115) mg/dL Calculated Osmolal ity (285-295) mOsm/k g Lactic Acid (0.5-2.2) mmol/L Calcium (8.5-10.5) mg/dL Total Bilirubin (0.15-1.2) mg/dL AST (0-32) U/L ALT (0-33) U/L Alkaline Phosphata se (35-105) IU/L Troponin T Baselin e 1088 H* (0-10) ng/L NT-Pro-B Natriuret Pep 9719 H (0-125) pg/mL Total Protein (6.6-8.7) g/dL Albumin (3.5-5.2) g/dL Globulin (1.3-4.6) g/dL Lipase (13-60) U/L Urine Color Yellow (Yellow) Urine Appearance Clear (CLEAR) Urine pH 5 (5-7) Ur Specific Gravit y 1.020 (1.005-1.030) Urine Protein 1+ H (Negative) Urine Glucose (UA) Norm (Normal) Urine Ketones 1+ H (Negative) Urine Blood Neg (Negative) Urine Nitrate Negative (Negative) Urine Bilirubin Neg (Negative) Urine Urobilinogen 1 H (Negative) mg/dL Ur Leukocyte Amanda ase Negative (Negative) Urine RBC 0-4 H (0-2) /hpf Urine WBC 0-4 H (0-5) /hpf Ur Squamous Epith Cells 0-4 H (0-5) /hpf Amorphous Sediment 4+ /hpf Urine Bacteria None (NONE) /hpf Imaging Data ^: CT Chest: Attestation: I personally reviewed and interpreted this imaging study as follows: Radiologist's impression: [email or web address] [address] [address] Scan Report Signed Patient: Pauline Rubio Unit #: [id number] : 1945 Age/Sex: 75 / F ADM Date: 07/30/20 Loc: ER Room/Bed: Attending Dr: Ordering Provider/Ordering MD: Todd Chow MD Date of Service: 07/30/20 Procedure(s): CT angio chest w abd pel w con Accession Number(s): [id number] Report Number: [id number] PROCEDURE INFORMATION: Exam: CTA Chest With Contrast Exam date and time: 07/30/2020 10:50 PM Age: 75 years old Clinical indication: Nausea and vomiting; Other: High troponin; Prior surgery; Surgery type: Cardiac stents. Appy. Hysterectomy. Parathyroidectomy. ; Patient HX: N/v x 2 days. High baseline troponin with elevated lactic acid and wbc. ; Additional info: R/O pe TECHNIQUE: Imaging protocol: Computed tomographic angiography of the chest with contrast. 3D rendering (Not supervised by radiologist): MIP and/or 3D reconstructed images were created by the technologist. Radiation optimization: All CT scans at this facility use at least one of these dose optimization techniques: automated exposure control; mA and/or kV adjustment per patient size (includes targeted exams where dose is matched to clinical indication); or iterative reconstruction. Contrast material: OMNI 350; Contrast volume: 95 ml; Contrast route: INTRAVENOUS (IV); COMPARISON: CT angio chest PE protcl [id number] 01/30/2020 3:55 AM RADIATION DOSE METRICS: Total DLP (mGy-cm): 2548.21 FINDINGS: Pulmonary arteries: There is no evidence of filling defects within the pulmonary arterial circulation to suggest pulmonary embolism. Aorta: There is some mild atherosclerotic calcifications in the aortic arch and descending aorta.There is no thoracic aortic aneurysm or dissection. Lungs: There is minimal dependent atelectasis at the lung bases. Pleural spaces: Unremarkable. No pneumothorax. No pleural effusion. Heart: Coronary stents are noted. Lymph nodes: There is no evidence of lymphadenopathy. Bones/joints: Unremarkable. No acute fracture. Soft tissues: Unremarkable. IMPRESSION: 1. No evidence of pulmonary embolism. 2. No acute findings in the chest. PROCEDURE INFORMATION: Exam: CT Abdomen And Pelvis With Contrast Exam date and time: 07/30/2020 10:50 PM Age: 75 years old Clinical indication: Nausea and vomiting; Other: High troponin; Prior surgery; Surgery type: Cardiac stents. Appy. Hysterectomy. Parathyroidectomy. ; Patient HX: N/v x 2 days. High baseline troponin with elevated lactic acid and wbc. ; Additional info: R/O pe TECHNIQUE: Imaging protocol: Computed tomography of the abdomen and pelvis with contrast. Radiation optimization: All CT scans at this facility use at least one of these dose optimization techniques: automated exposure control; mA and/or kV adjustment per patient size (includes targeted exams where dose is matched to clinical indication); or iterative reconstruction. Contrast material: OMNI 350; Contrast volume: 95 ml; Contrast route: INTRAVENOUS (IV); COMPARISON: 1. CT angio chest PE protcl [id number] 01/30/2020 3:[address] abdomen pelvis w con* [id number] 06/18/2015 4:03:01 PM RADIATION DOSE METRICS: Total DLP (mGy-cm): 2548.21 FINDINGS: Liver: There is a diffuse decrease in hepatic parenchymal density, consistent with mild fatty infiltration. There is no focal abnormality within the liver. Gallbladder and bile ducts: There has been a cholecystectomy. Pancreas: The pancreas is normal. Spleen: The spleen is normal. Adrenal glands: The adrenal glands are normal. Kidneys and ureters: There are 2 small simple cysts in the left kidney. The right kidney is normal. There is no evidence of hydronephrosis. There is no evidence of renal or ureteral calcifications. Stomach and bowel: There is no evidence of colitis/diverticulitis. Appendix: Not identified Intraperitoneal space: Unremarkable. No free air. No significant fluid collection. Vasculature: The aorta demonstrates moderate atherosclerotic calcification. There is no evidence of an abdominal aortic aneurysm. Lymph nodes: There is no evidence of lymphadenopathy. Urinary bladder: Unremarkable as visualized. Reproductive: There has been a hysterectomy. Bones/joints: The lumbar spine demonstrates moderate degenerative changes at multiple levels. Soft tissues: Unremarkable. CT/CT angio chest w abd pel w con IMPRESSION: 1. No acute findings in the abdomen or pelvis. 2. Atherosclerotic vascular disease not significantly changed compared with 06/18/2015. COMMENTS: EKG Data ^: EKG 1: Attestation: I personally reviewed and interpreted this EKG as follows: EKG interpretation date: 07/31/20 EKG interpretation time: 00:06 Interpretation: sinus tach hr [address] or t wave abnormalities qrs 91 qtc 372 Discharge Plan Discharge Patient Disposition: Admitted As Inpatient Clinical Impression: Non-ST elevation PA (NSTEMI) Condition: Stable Coding Level of Care Code ED Audiology Assistant for Chg Fwd Exam Comprehensive
--- NOTE | 2020-07-30 22:26 | ECG_ITS ---
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 Measurements Intervals [place] Rate: 117 P: 95 [place]: 188 QRS: -12 QRSD: 99 T: 92 QT: 323 QTc: 451 Interpretive Statements SINUS TACHYCARDIA ST changes, suggestive of possible recent inferior wall MS NONSPECIFIC ST & T-WAVE ABNORMALITY Compared to ECG 01/29/2020 22:46:06 No significant changes Electronically Signed On 07-31-2020 7:42:09 CDT by Em Akhtar M.D. [email or web address]/[id number]
[2020-07-30 22:37] LABS: Basophils % 0.3 %; Eosinophils % 0.3 %; Hematocrit 39.3 % (37.0-47.0); Hemoglobin 12.5 g/dL (11.5-15.3); Lymphocytes # 1.5 10^3/uL (0.8-4.8); Lymphocytes % 11.4 %; Mean Corpuscular HGB Conc 31.8 g/dL (30.0-36.0); Mean Corpuscular Hemoglobin 30.7 pg (28.0-34.0); Mean Corpuscular Volume 96.6 fL (81-99); Mean Platelet Volume 12.2 fL (7.4-10.4); Monocytes # 1.6 10^3/uL (0.2-0.9); Monocytes % 12.3 %; Neutrophils # 9.68 10^3/uL (1.8-7.7); Neutrophils % 75.5 %; Nucleated Red Blood Cells % 0 %; Platelet Count 215 10^3/cmm (130-400); Red Blood Count 4.07 10^6/uL (4.1-5.3); Red Cell Distribution Width 13.4 % (12.1-15.1); White Blood Count 12.8 10^3/uL (4.0-10.0)
--- NOTE | 2020-07-30 22:43 | CTR_ITS ---
PROCEDURE INFORMATION: Exam: CTA Chest With Contrast Exam date and time: 07/30/2020 10:50 PM Age: 75 years old Clinical indication: Nausea and vomiting; Other: High troponin; Prior surgery; Surgery type: Cardiac stents. Appy. Hysterectomy. Parathyroidectomy. ; Patient HX: N/v x 2 days. High baseline troponin with elevated lactic acid and wbc. ; Additional info: R/O pe TECHNIQUE: Imaging protocol: Computed tomographic angiography of the chest with contrast. 3D rendering (Not supervised by radiologist): MIP and/or 3D reconstructed images were created by the technologist. Radiation optimization: All CT scans at this facility use at least one of these dose optimization techniques: automated exposure control; mA and/or kV adjustment per patient size (includes targeted exams where dose is matched to clinical indication); or iterative reconstruction. Contrast material: OMNI 350; Contrast volume: 95 ml; Contrast route: INTRAVENOUS (IV); COMPARISON: CT angio chest PE protcl [id number] 01/30/2020 3:55 AM RADIATION DOSE METRICS: Total DLP (mGy-cm): 2548.21 FINDINGS: Pulmonary arteries: There is no evidence of filling defects within the pulmonary arterial circulation to suggest pulmonary embolism. Aorta: There is some mild atherosclerotic calcifications in the aortic arch and descending aorta.There is no thoracic aortic aneurysm or dissection. Lungs: There is minimal dependent atelectasis at the lung bases. Pleural spaces: Unremarkable. No pneumothorax. No pleural effusion. Heart: Coronary stents are noted. Lymph nodes: There is no evidence of lymphadenopathy. Bones/joints: Unremarkable. No acute fracture. Soft tissues: Unremarkable. IMPRESSION: 1. No evidence of pulmonary embolism. 2. No acute findings in the chest. PROCEDURE INFORMATION: Exam: CT Abdomen And Pelvis With Contrast Exam date and time: 07/30/2020 10:50 PM Age: 75 years old Clinical indication: Nausea and vomiting; Other: High troponin; Prior surgery; Surgery type: Cardiac stents. Appy. Hysterectomy. Parathyroidectomy. ; Patient HX: N/v x 2 days. High baseline troponin with elevated lactic acid and wbc. ; Additional info: R/O pe TECHNIQUE: Imaging protocol: Computed tomography of the abdomen and pelvis with contrast. Radiation optimization: All CT scans at this facility use at least one of these dose optimization techniques: automated exposure control; mA and/or kV adjustment per patient size (includes targeted exams where dose is matched to clinical indication); or iterative reconstruction. Contrast material: OMNI 350; Contrast volume: 95 ml; Contrast route: INTRAVENOUS (IV); COMPARISON: 1. CT angio chest PE protcl [id number] 01/30/2020 3:[address] abdomen pelvis w con* [id number] 06/18/2015 4:03:01 PM RADIATION DOSE METRICS: Total DLP (mGy-cm): 2548.21 FINDINGS: Liver: There is a diffuse decrease in hepatic parenchymal density, consistent with mild fatty infiltration. There is no focal abnormality within the liver. Gallbladder and bile ducts: There has been a cholecystectomy. Pancreas: The pancreas is normal. Spleen: The spleen is normal. Adrenal glands: The adrenal glands are normal. Kidneys and ureters: There are 2 small simple cysts in the left kidney. The right kidney is normal. There is no evidence of hydronephrosis. There is no evidence of renal or ureteral calcifications. Stomach and bowel: There is no evidence of colitis/diverticulitis. Appendix: Not identified Intraperitoneal space: Unremarkable. No free air. No significant fluid collection. Vasculature: The aorta demonstrates moderate atherosclerotic calcification. There is no evidence of an abdominal aortic aneurysm. Lymph nodes: There is no evidence of lymphadenopathy. Urinary bladder: Unremarkable as visualized. Reproductive: There has been a hysterectomy. Bones/joints: The lumbar spine demonstrates moderate degenerative changes at multiple levels. Soft tissues: Unremarkable. CT/CT angio chest w abd pel w con IMPRESSION: 1. No acute findings in the abdomen or pelvis. 2. Atherosclerotic vascular disease not significantly changed compared with 06/18/2015. COMMENTS: Consistent with the [employer]'s Incidental Findings Committee white paper (J Am Perez Radiol 2018): Any incidental renal lesion less than 1 cm or classified as too small to characterize, or any incidental cystic renal lesion characterized as simple-appearing, is likely benign. No follow-up imaging is recommended for these lesions per consensus recommendations based on imaging criteria. Radiation Dose CTDIVOL = (mGy): DLP = 2548.21~2548.21 (mGy-cm)
[2020-07-30 22:45] LABS: Lactic Sepsis W/Reflex 2.6 mmol/L (0.5-2.2)
[2020-07-30 22:49] LABS: Troponin(5th) Baseline 1088 ng/L (0-10)
[2020-07-30 22:57] LABS: Albumin Level 3.8 g/dL (3.5-5.2); Chloride 99 mmol/L (98-107); Potassium 4.3 mmol/L (3.5-5.1); Sodium 139 mmol/L (136-145)
[2020-07-30] MEDS: iohexol 350 mg/mL 100 mL Btl IV (23:07)
[2020-07-30 23:11] LABS: Alanine Aminotransferase 32 U/L (0-33); Anion Gap 16.3 (5-19); Aspartate Amino Transferase 83 U/L (0-32); Blood Urea Nitrogen 20 mg/dL (8-23); Calcium 8.5 mg/dL (8.5-10.5); Carbon Dioxide 28 mmol/L (22-29); Globulin 3.1 g/dL (1.3-4.6); Glucose 190 mg/dL (65-115); Lipase 7 U/L (13-60); Osmolality Calculated 296 mOsm/kg (285-295); Total Bilirubin 0.3 mg/dL (0.15-1.2); Total Protein 6.9 g/dL (6.6-8.7)
[2020-07-30] MEDS: ondansetron 2 mg/ML SDV 2 mL 4 MG IVP (23:16)
[2020-07-30] MEDS: sodium chloride 0.9% 1,000 ML 999 ML IV (23:16)
[2020-07-30 23:18] LABS: Bilirubin Urine Neg (Negative); Blood Urine Neg (Negative); Glucose Urine UA Norm (Normal); Ketones Urine 1+ (Negative); Leukocyte Esterase Urine Negative (Negative); Nitrate Urine Negative (Negative); Protein Urine 1+ (Negative); Urine Appearance Clear (CLEAR); Urine Color Yellow (Yellow); Urobilinogen Urine 1 mg/dL (Negative); pH Urine 5 (5-7)
[2020-07-30 23:19] LABS: RBC Urine 0-4 /hpf (0-2); Squamous Epithelial Cell Urine 0-4 /hpf (0-5); WBC Urine 0-4 /hpf (0-5)
[2020-07-30 23:20] LABS: Add Urine Culture? No; Amorphous Sediment Urine 4+ /hpf
[2020-07-30] MEDS: enoxaparin 100 mg/mL Syringe SUBCUT (23:20)
[2020-07-30 23:25] LABS: NT Pro B Type Natriuretic Pept 9719 pg/mL (0-125)
[2020-07-30 23:37] LABS: Alkaline Phosphatase 132 IU/L (35-105)
[2020-07-30 23:40] VITALS: BP 137/66; PULSE 127; RESP 20; O2SAT 98
[2020-07-31] VITALS (39 sets, daily range): BP systolic 98–182; BP diastolic 54–96; PULSE 64–124; RESP 16–29; TEMP 36.4–36.9; O2SAT 92–100
[2020-07-31 00:11] LABS: Reflex Lactate Order REFLEX LACTIC ORDERD
--- NOTE | 2020-07-31 00:26 | ECG_ITS ---
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 Measurements Intervals [place] Rate: 101 P: 69 ND: 171 QRS: 11 QRSD: 91 T: 80 QT: 314 QTc: 409 Interpretive Statements SINUS TACHYCARDIA SEPTAL MYOCARDIAL INFARCTION , PROBABLY OLD [40+ ms Q WAVE IN V1/V2] Compared to ECG 07/30/2020 22:38:33 Myocardial infarct finding now present T-wave abnormality no longer present Electronically Signed On 07-31-2020 7:45:26 CDT by Em Akhtar M.D. [id number]
--- NOTE | 2020-07-31 00:37 | PC.NURSE ---
pt report called to Pato JOVEL in SBAR format.
[2020-07-31] MEDS: acetaminophen 500 mg Tablet 1000 MG PO (00:43)
[2020-07-31] MEDS: metoprolol tartrate 25 mg Tablet PO (00:44)
[2020-07-31] MEDS: aspirin 81 mg Chew Tablet 324 MG PO (00:45)
[2020-07-31 00:47] LABS: Lactic Acid level (Lactate) 2.1 mmol/L (0.5-2.2)
[2020-07-31 00:50] LABS: Troponin 5 2HR 994.4 ng/L (0-10)
--- NOTE | 2020-07-31 00:50 | P.HP_ITS ---
Providers/Chief Complaint Admitting Physician: Jerilyn Milligan MD Primary Care Provider: Anthony Mathew, ASH WORKER-Stacey Chief Complaint: N/V History of Present Illness Pauline Rubio is a 75 year old female who has extensive history of coronary disease, 5 stents, recent stent was placed in August [address] Quinn at [facility] presenting today with chief complaint of abdominal pain and emesis. Patient is stating that for last 1 week she has been having on and off chest discomfort with minimal exertion walking from one room to another, she would also get short of breath. She contracted COVID-04 February last year and recovered well. She uses 2 L of oxygen at baseline. 24 hours before her presentation to the hospital she started having emesis, she experienced 3 episodes of emesis associated nausea and chest discomfort. Her chest pain lasted until she took nitroglycerin, she describing the pain as pressure, it is similar to the previous chest pain when she had stent placement. She has not noticed any fever, dysuria or diarrhea. She takes Eliquis and last dose was l ast night along sotalol for atrial fibrillation. Diagnosis in the ER revealed troponin greater than 1000, she was hypertensive and tachycardic she was given metoprolol 25 mg p.o. 1 L normal saline th erapeutic dose of Lovenox and aspirin Patient was chest pain-free at the time my evaluation CT rule out PE CT abdomen unremarkable Dr. Akhtar reviewed EKG which was showing some concerning changes inferior and septal leads however he did not call STEMI alert Review of Systems Const: Reports: chills, body aches, change in appetite and fatigue; Denies: fever(s) Eyes: Denies: change in vision ENMT: Denies: throat pain Card: Reports: chest pain and dyspnea on exertion Resp: Reports: dyspnea GI: Reports: abdominal pain, nausea and vomiting : Denies: flank pain Musc: Reports: muscle cramps; Denies: neck pain Skin/Breast: Reports: lesions Neuro: Denies: headache(s) Psych: Denies: anxiety Endo: Denies: polyuria Ruben/Lymph: Denies: easy bruising All/Imm: Denies: urticaria Medications/Allergies Home Medications Medication Instructions Recorded Confirmed Last Taken Type acetaminophen PO 05/16/19 07/17/20 Unknown History albuterol sulfate 1.25 mg/3 mL 1.25 mg INHALATION QID PRN 05/16/19 07/17/20 Unknown History solution for nebulization albuterol sulfate 90 mcg/actuation 2 puff INHALATION Q6H PRN 05/16/19 07/17/20 Unknown History aerosol inhaler budesonide-formoterol HFA 80 2 puff INHALATION BID 05/16/19 07/17/20 Unknown History mcg-4.5 mcg/actuation aerosol inhaler helium-oxygen 80 %-20 % inhalation #1 05/16/19 07/17/20 Unknown History kit insulin glargine 100 unit/mL (3 32 unit SUBCUT BID ml 05/16/19 07/17/20 Unknown History mL) subcutaneous pen insulin lispro SUBCUT 05/16/19 07/17/20 Unknown History isosorbide dinitrate 30 mg tablet 30 mg PO DAILY tab 05/16/19 07/17/20 Unknown History metformin 500 mg tablet 500 mg PO BID 05/16/19 07/17/20 Unknown History vitamin B comp and C no.3 15 mg-10 1 cap PO QDAY 05/16/19 07/17/20 Unknown History mg-50 mg-5 mg-300 mg capsule guaifenesin 600 mg tablet, 600 mg PO BID #60 tab 02/26/20 07/17/20 Unknown Rx extended release 12 hr Lactobacillus 1 cap PO DAILY #60 cap 03/04/20 07/17/20 Unknown Rx acidophilus-Bifidobac.animalis 10 billion cell capsule montelukast 10 mg tablet 10 mg PO QDAY #30 tab 07/03/20 07/17/20 Unknown Rx rosuvastatin 40 mg tablet 40 mg PO QDAY #30 tab 07/03/20 07/17/20 Unknown Rx apixaban 5 mg tablet 5 mg PO BID #60 tab 07/12/20 07/17/20 Unknown Rx duloxetine 30 mg capsule,delayed 30 mg PO BID #60 cap 07/12/20 07/17/20 Unknown Rx release furosemide 40 mg tablet 40 mg PO .am tab 07/12/20 07/17/20 Unknown History nitrofurantoin 100 mg PO Q12H 7 Days #14 cap 07/12/20 07/17/20 Unknown Rx monohydrate/macrocrystals 100 mg capsule nitroglycerin 0.4 mg sublingual 0.4 mg SUBLINGUAL Q5M PRN tab 07/12/20 07/17/20 Unknown History tablet potassium chloride 20 mEq 20 meq PO DAILY tab 07/12/20 07/17/20 Unknown History tablet,extended release(part/cryst) sotalol 120 mg tablet 120 mg PO DAILY #30 tab 07/12/20 07/17/20 Unknown Rx Allergies Allergy/AdvReac Type Severity Reaction Status Date / Time hydrocodone Allergy Vomitting Verified 07/30/20 22:09 PFSH Acute PFSH: Medical History Asthma Atrial fibrillation Chronic kidney disease (CKD), stage II (mild) Controlled type 2 diabetes mellitus with hyperglycemia, with long-term current use of insulin History of CVA in adulthood HTN (hypertension) Type 2 diabetes mellitus with diabetic polyneuropathy Surgical History H/O angioplasty 5 stents H/O arthroscopic knee surgery Bilateral H/O parathyroidectomy H/O: hysterectomy History of appendectomy History of arthroscopic surgery of shoulder LEFT History of cholecystectomy History of tonsillectomy and adenoidectomy Family History Father Cancer Family/Other Cancer Mother Heart disease Stroke Dementia Denies family history of Diabetes CAD (coronary artery disease) Clotting disorder Hyperlipidemia Psychiatric illness Chronic kidney disease (CKD) Suicide Anesthesia complication Bleeding disorder Family history of premature coronary artery disease Lung disease Hypertension Social History Smoking and tobacco status: never smoked Second hand smoke exposure: No Smoking risk assessment/counseling performed?: No Alcohol intake: never Desire information about alcohol rehabilitation?: No Counseling given: No Desire information about substance/drug rehabilitation?: No Counseling given: No Adopted: No Caregiver/support person: Yes Lives independently: No Household members: family Housing: House Marital status: Single service: No Current occupational status: retired and disabled Pets and animals: Yes History of recent travel: No Current gender identity: Female Vitals/I&O/Wt Last Vital Signs Temp 99.4 F 07/30/20 22:04 Pulse 122 H 07/31/20 00:46 Resp 18 07/31/20 00:46 BP 155/88 07/31/20 00:46 Pulse Ox 97 07/31/20 00:46 07/30/20 07/30/20 07/31/20 14:59 22:59 06:59 Intake Total 1000 / 1000 Balance 1000 / 1000 Weight last 48 hrs Weight 139.706 kg Physical Exam Narrative: EXAM NARRATIVE: female currently in supine with 2 L nasal cannula saturating well, morbidly obese No active chest pain or shortness of breath, she saturating well on 2 L nasal cannula no abdominal pain Abdomen, distended, central obesity bowel sounds hyperactive nontender S1, S2 no murmur appreciated, heart rhythm is variable, mild signs of fluid overload Lower 71+ pitting edema with lacerations and dog scratch alicea No active sign of cellulitis Appropriate mood and affect EOMI, PERRLA no neurological deficits awake alert oriented x3 GCS 15 Bilateral breath sounds without adventitious rhonchi or crackles No joint swelling or signs of cellulitis Appropriate mood and affect Data : 07/30/20 22:20 07/30/20 22:20 Micro: Microbiology 07/31/20 00:24 Blood Culture - Preliminary Blood SPECIMEN COLLECTED 07/30/20 22:38 Blood Culture - Preliminary Blood SPECIMEN COLLECTED A&P Assessment and plan (1) Non-ST elevation [place] (NSTEMI): Status: Acute (2) HTN (hypertension): Status: Chronic (3) Atrial fibrillation: Status: Acute Additional A&P Information NSTEMI No active chest pain EKG showing Q waves in inferior lead with ST depression T wave inversion in septal leads, troponin greater than 1000, Dr. Akhtar reviewed EKG as well, did not call STEMI alert, We will manage her as NSTEMI for now start therapeutic dose of Lovenox hold Eliquis and sotalol, add Toprol lisinopril along aspirin Plavix Echo in the morning, She will need an angiogram, we will keep her n.p.o. overnight CTA rule out PE Requested records from [facility] Jackie reynoso RVR Patient takes Eliquis and sotalol last dose was last night Hold sotalol as I am initiating Toprol for NSTEMI Hold Eliquis and start therapeutic dose of Lovenox Hypertensive urgency: I will continue her Lasix, add metoprolol, use Imdur If her blood pressure stays above 140 will add Nitropaste Chronic hypoxia without acute exacerbation, currently saturating well on 2 L nasal cannula Chest x-ray unremarkable Fatigue and lethargy Contracted COVID-19 in January 2020, if she needs angiogram I would request COVID-19 antigen Type 2 diabetes: Hold Lantus and keep her on sliding scale for now Currently add Lantus if she is not going for angiogram today Grade 1 diastolic dysfunction heart failure without acute exacerbation: EF 70%, I will keep her on Lasix 40 mg mild signs of fluid overload N.p.o. DVT prophylaxis not needed currently on therapeutic anticoagulation Full code Attestations Medical Necessity Statement*: Anticipating stay in the hospital cross more than 2 midnights for management of NSTEMI Time Spent in Patient Care: (>than 50% of time spent in counselling and/or direct pt care on unit) . 40mins Coding Level of Care Code Acute Watch Dial Printer for Griselda Gomez Diagnoses Non-ST elevation [place] (NSTEMI) I21.4 HTN (hypertension) I10 Atrial fibrillation I48.91
--- NOTE | 2020-07-31 00:52 | PC.NURSE ---
report received from BECKA MOTLEY and care transferred to BECKA LEE
--- NOTE | 2020-07-31 01:27 | PC.NURSE ---
patient chux replaced and patient helped onto bedpan
--- NOTE | 2020-07-31 03:46 | PC.NURSE ---
Pt to room 111-1 via ed stretcher. Pt denies any acute complaints at this time. Pt placed on locomotive electrician and patient rolled off of her own home lift sling. Pt appears to have some darkened areas of non-blanchable erythema to the entire buttocks region. Pt is turned off of her buttocks using the hover mat and pillows. Pt continues to deny any complaints at this time.
--- NOTE | 2020-07-31 04:26 | ECG_ITS ---
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 Measurements Intervals [place] Rate: 74 P: 54 [place]: 180 QRS: -8 QRSD: 99 T: 77 QT: 400 QTc: 445 Interpretive Statements SINUS RHYTHM NONSPECIFIC T-WAVE ABNORMALITY Compared to ECG 07/31/2020 00:06:21 T-wave abnormality now present Sinus tachycardia no longer present Myocardial infarct finding no longer present Electronically Signed On 07-31-2020 7:45:36 CDT by Em Akhtar M.D. [id number]
[2020-07-31 05:00] LABS: SARS Covid-2 Antigen Negative (Negative)
[2020-07-31 05:10] LABS: Anion Gap 13.8 (5-19); Blood Urea Nitrogen 19 mg/dL (8-23); Calcium 7.8 mg/dL (8.5-10.5); Carbon Dioxide 27 mmol/L (22-29); Chloride 100 mmol/L (98-107); Glucose 154 mg/dL (65-115); Osmolality Calculated 289 mOsm/kg (285-295); Potassium 3.8 mmol/L (3.5-5.1); Sodium 137 mmol/L (136-145)
[2020-07-31 05:16] LABS: Troponin 5 6HR 1375 ng/L (0-10); Troponin 5 6HR Delta 287 ng/L (0-12)
--- NOTE | 2020-07-31 06:16 | USCV_ITS ---
Pauline Rubio Age: 75 Gender: F : 1945 Exam Date: 07/31/2020 06:13 Ordering Phys: Todd Chow MD Technologist: Paul Prabhakar Exam Location: [facility] [place] Indication: CP BP: 115 / 58 HR: 79 Rhythm: Sinus Technical Quality: Technically difficult study MEASUREMENTS (Male / Female) Normal Values 2D ECHO LVOT Diameter 2.0 cm LV Ejection Fraction MOD 2C 62.4 % LV Ejection Fraction 2C AL 62.2 % LA Diameter 3.9 cm LA Width 3.7 cm LA Height 3.5 cm RA Width 3.4 cm RA Height 3.8 cm Aorta at Sinotubular Diameter 2.8 cm M-MODE Aortic Annulus Diameter 4.2 cm LA Ao Ratio MM 1.0 MV E Point Septal Separation 2.1 cm DOPPLER AV Peak Velocity 162.0 cm/s LVOT Peak Velocity 96.0 cm/s AV Area Cont Eq vti 2.0 cm squared AV Area Cont Eq pk 2.0 cm squared MV Area PHT 5.0 cm squared Mitral E to A Ratio 0.9 MV E' Velocity 64.0 cm/s TR Peak Velocity 81.0 cm/s TR Peak Gradient 2.6 mmHg TV Peak E Velocity 63.0 cm/s Right Atrial Pressure 3.0 mmHg Pulmonary Artery Systolic Pressu 5.6 mmHg PV Peak Velocity 76.0 cm/s FINDINGS Left Ventricle Dyskinetic basal inferior wall segment. Normal LV size ejection fraction of 60%. Right Ventricle The right ventricle is normal in size and function. Right Atrium The right atrium is normal in size. Left Atrium The left atrium is normal in size. Mitral Valve Thickened mitral valve. Mild mitral valve regurgitation. Aortic Valve Thickened aortic valve. Tricuspid Valve No gross abnormalities noted Pulmonic Valve Not seen well Pericardium Normal pericardium without effusion. Aorta Normal ascending aorta dimension. CONCLUSIONS Normal LV size ejection fraction of 60%. Wall motion normalities as mentioned above. Second aortic and mitral valves. Mild mitral valve regurgitation. There is no pericardial effusion. There are no intracardiac masses. Technically difficult study because of the poor ultrasonic window. Dr Em Akhtar MD [facility] (Electronically Signed) Final Date: 31 July 2020 13:55 S
[2020-07-31] MEDS: FUROsemide 40 mg Tablet PO (06:34)
[2020-07-31 06:44] LABS: Glucose Point of Care 142 mg/dL (70-110)
[2020-07-31] MEDS: metoprolol succinate ER (24 HR) 50 mg Tablet PO (08:19)
[2020-07-31] MEDS: isosorbide dinitrate 20 mg Tablet 30 MG PO (08:19)
[2020-07-31] MEDS: lisinopril 10 mg Tablet PO (08:19)
[2020-07-31] MEDS: clopidogrel 75 mg Tablet PO (08:20)
[2020-07-31] MEDS: aspirin 81 mg EC Tablet PO (08:21)
--- NOTE | 2020-07-31 08:49 | P.CONIM_ITS ---
Providers/Reason For Consult Consulting Physican/Specialty*: Jackie Akhtar MD/cardiology Reason for Consult*: Patient with elevated troponin T and features of congestive heart failure Attending Physician: Mayra Jackson MD Primary Care Provider: PORTER Lindsay History of Present Illness History of Present Illness Pauline Rubio is a 75 year old female with a history of coronary disease, status post multiple PCI's, high blood pressure, type 2 diabetes and dyslipidemia, presenting with complaints of nausea vomiting and diarrhea for couple of days. She was found to have elevated troponin I. Cardiology consult is requested for further cardiac evaluation recommendations. Patient is known to have coronary disease and had a total of 5 stent placement. The last coronary intervention was in 2019 in [place]. Since then, patient has been doing okay for a while. For the last several months, she been having episodes of chest pain possibly once a week or so. For the last 5 to 10 days, she been having several episodes of chest pain per day. The chest pain subsided spontaneously or with the Tylenol and at times with the sublingual nitro. Usually these pains last for 2 to 5 minutes. She may end up in taking 1 or 2 sublingual nitro today. Wednesday morning she woke up with the nausea vomiting and diarrhea. It lasted for the whole day. Yesterday morning when she woke up, she was feeling nauseous and then weak. Had a weakness persisted and got worse to wards the evening. It was to the extent that she was unable to get up from bed. At that point, she decided to come to the hospital. She did not have any fever or chills. No cough. No other specific complaints. Has no orthopnea PND. No fever or chills. She may have some abdominal discomfort. No other specific complaints. She has been compliant with medications. She has a history of chronic intermittent atrial fibrillation. She is on long-term oral anticoagulation. Review of Systems Narrative: CONSTITUTIONAL: No fever or chills. EYES: No blurring of vision or other visual disturbances lately. ENT: No hoarseness of voice, auditory disturbances or sore throat. CARDIOVASCULAR: As mentioned above. RESPIRATORY: Progressive shortness of breath as mentioned above. GASTROINTESTINAL: Nausea, vomiting and diarrhea as mentioned above. GENITOURINARY: No dysuria or hematuria. INTEGUMENTARY: No skin rashes or history of skin cancer. NEURO: No transient ischemic attacks or amaurosis. PSYCHIATRIC: No history of psychosis or major depression. HEMATOLOGIC: No bleeding disorders or significant anemia. ENDOCRINE: No history of polyuria or polydipsia. MUSCULOSKELETAL: No recent joint pain or swelling. ALLERGY/IMMUNOLOGY: As mentioned above. Meds/Allergies Home Medications and Allergies Home Medications Medication Instructions Recorded Confirmed Last Taken Type albuterol sulfate 90 mcg/actuation 2 puff INHALATION Q6H PRN 05/16/19 07/31/20 Unknown History aerosol inhaler metformin 500 mg tablet 500 mg PO BID 05/16/19 07/31/20 Unknown History apixaban 5 mg tablet 5 mg PO BID #60 tab 07/12/20 07/31/20 Unknown Rx duloxetine 30 mg capsule,delayed 30 mg PO BID #60 cap 07/12/20 07/31/20 Unknown Rx release furosemide 40 mg tablet 40 mg PO QAM tab 07/12/20 07/31/20 Unknown History nitroglycerin 0.4 mg sublingual 0.4 mg SUBLINGUAL Q5M PRN tab 07/12/20 07/31/20 Unknown History tablet acetaminophen [Tylenol Arthritis 1,300 mg PO Q8H 07/31/20 07/31/20 Unknown Hist ory Pain] albuterol sulfate 2.5 mg INHALATION PRN 07/31/20 07/31/20 Unknown History aspirin [Aspir-81] 81 mg PO QAM 07/31/20 07/31/20 Unknown History budesonide-formoterol [Symbicort] 2 puff INHALATION BID 07/31/20 07/31/20 Unknown History guaifenesin 400 mg PO QAM 07/31/20 07/31/20 Unknown History insulin glargine [Lantus U-100 32 unit SUBCUT BID 07/31/20 07/31/20 Unknown History Insulin] insulin lispro [Humalog KwikPen See Rx Instructions .ROUTE .COMPLEX 07/31/20 07/31/20 Unknown History Insulin] isosorbide mononitrate 30 mg PO DAILY@12 07/31/20 07/31/20 Unknown History montelukast 10 mg PO BEDTIME 07/31/20 07/31/20 Unknown History rosuvastatin 40 mg PO BEDTIME 07/31/20 07/31/20 Unknown History sotalol 120 mg PO QAM 07/31/20 07/31/20 Unknown History Allergies Allergy/AdvReac Type Severity Reaction Status Date / Time hydrocodone Allergy Vomitting Verified 07/31/20 08:46 Current Medications Current Medications Generic Name Dose Route Start Last Admin Trade Name Freq PRN Reason Stop Dose Admin Aspirin 81 mg 07/31/20 09:00 07/31/20 08:21 Aspirin 81 Mg Ec Tablet PO 81 mg DAILY DIANA Administration Clopidogrel Bisulfate 75 mg 07/31/20 09:00 07/31/20 08:20 Clopidogrel 75 Mg Tablet PO 75 mg DAILY DIANA Administration Furosemide 40 mg 07/31/20 06:00 07/31/20 06:34 Furosemide 40 Mg Tablet PO 40 mg QAM DIANA Administration Insulin Aspart 0 unit 07/31/20 08:00 07/31/20 08:10 Insulin Aspart 100 Unit/1 Ml SUBCUT Not Given WM&BEDTIME [facility] Protocol Insulin Glargine 32 unit 07/31/20 09:00 07/31/20 08:11 Insulin Glargine 100 Units/1 Ml SUBCUT Not Given BID DIANA Isosorbide Dinitrate 30 mg 07/31/20 09:00 07/31/20 08:19 Isosorbide Dinitrate 20 Mg Tablet PO 30 mg DAILY DIANA Administration Lisinopril 10 mg 07/31/20 09:00 07/31/20 08:19 Lisinopril 10 Mg Tablet PO 10 mg DAILY DIANA Administration Metoprolol Succinate 50 mg 07/31/20 09:00 07/31/20 08:19 Metoprolol Succinate Er (24 Hr) 50 Mg Tablet PO 50 mg DAILY DIANA Administration PFSH Acute PFSH: Medical History (Updated 07/31/20 @ 22:09 by Mayra Jackson MD) Asthma Atrial fibrillation CAD (coronary artery disease) Chronic kidney disease (CKD), stage II (mild) Controlled type 2 diabetes mellitus with hyperglycemia, with long-term current use of insulin Diabetic peripheral neuropathy associated with type 2 diabetes mellitus Dyslipidemia History of CVA in adulthood History of severe acute respiratory syndrome coronavirus 2 (SARS-CoV-2) disease (~01/2020) February 05 HTN (hypertension) Surgical History H/O angioplasty 5 stents, last stent August 2019 H/O arthroscopic knee surgery Bilateral H/O parathyroidectomy H/O: hysterectomy History of appendectomy History of arthroscopic surgery of shoulder LEFT History of cholecystectomy History of tonsillectomy and adenoidectomy Family History Father Cancer Family/Other Cancer Mother Heart disease Stroke Dementia Denies family history of Diabetes CAD (coronary artery disease) Clotting disorder Hyperlipidemia Psychiatric illness Chronic kidney disease (CKD) Suicide Anesthesia complication Bleeding disorder Family history of premature coronary artery disease Lung disease Hypertension Social History Smoking and tobacco status: never smoked Second hand smoke exposure: No Smoking risk assessment/counseling performed?: No Alcohol intake: never Desire information about alcohol rehabilitation?: No Counseling given: No Desire information about substance/drug rehabilitation?: No Counseling given: No Adopted: No Caregiver/support person: Yes Lives independently: No Household members: family Housing: House Marital status: Single service: No Current occupational status: retired and disabled Pets and animals: Yes History of recent travel: No Current gender identity: Female Vitals/I&O/Wt Last Vital Signs Temp 97.5 F L 07/31/20 07:55 Pulse 82 07/31/20 07:55 Resp 18 07/31/20 07:55 BP 110/82 07/31/20 07:55 Pulse Ox 99 07/31/20 07:55 07/30/20 07/31/20 07/31/20 22:59 06:59 14:59 Intake Total 1000 / 1000 Output Total 150 / 150 Balance 1000 / 1000 -150 / -150 Weight last 48 hrs Weight 308 lb Physical Exam Narrative: EXAM NARRATIVE: GENERAL: The patient is alert and oriented times three. Not in any acute distress. Morbidly obese HEENT: No significant pallor, icterus or lymphadenopathy. The pupils are reactant to light. Oral cavity: There are no mucous membrane lesions. Fun duscopic examination: The fundus is not visualized NECK: Trachea appears to be central. No masses noted. No JVD or thyromegaly appreciated. No carotid bruit. RESPIRATORY: Chest is symmetrical. No intercostals muscle retraction or any accessory muscle activation. There is no chest wall tenderness. Breath sounds are heard bilaterally. No rales or rhonchi heard. No evidence of any consolidation. BREASTS: Deferred. HEART: The PMI could not be palpated. No other palpable precordial events. S1 and S2 are normal. No S3 or S4 heard. No pericardial rub or any click heard. ABDOMEN: Abdomen is obese. No vessel pulsations or distention. No tenderness. No organomegaly appreciated. No abdominal bruit. Bowel sounds are normally heard. : Deferred. RECTAL: Deferred. LYMPHATIC: No lymphadenopathy noted in the neck or groin. EXTREMITIES: 1-2+ edema both lower extremities. No cyanosis. Peripheral pulses are palpable but weak bilaterally. MUSCULOSKELETAL: No acute joint deformities or swelling. SKIN: There are no significant scars or skin rash noted. NEUROPSYCHIATRIC: The patient is alert and oriented x3. Appears to be in a good mood. The higher functions are grossly within normal limits. No tremors or rigidity noted. Data Labs: Other Labs: Laboratory Last Values WBC 12.8 10^3/uL (4.0 -10.0) H 07/30/20 22:20 RBC 4.07 10^6/uL (4.1 -5.3) L 07/30/20 22:20 Hgb 12.5 g/dL (11.5-1 5.3) 07/30/20 22:20 Hct 39.3 % (37.0-47.0 ) 07/30/20 22:20 MCV 96.6 fL (81-99) 07/30/20 22:20 MCH 30.7 pg (28.0-34. 0) 07/30/20 22:20 MCHC 31.8 g/dL (30.0-3 6.0) 07/30/20: RDW 13.4 % (12.1-15.1 ) 07/30/20 22:20 Plt Count 215 10^3/cmm (130 -400) 07/30/20 22:20 MPV 12.2 fL (7.4-10.4 ) H 07/30/20 22:20 Neut % (Auto) 75.5 % 07/30/20 22:20 Lymph % (Auto) 11.4 % 07/30/20 22:20 Pike % (Auto) 12.3 % 07/30/20 22:20 Eos % (Auto) 0.3 % 07/30/20 22:20 Baso % (Auto) 0.3 % 04/13/21 22:20 Neut # (Auto) 9.68 10^3/uL (1.8 -7.7) H 07/30/20 22:20 Lymph # (Auto) 1.5 10^3/uL (0.8- 4.8) 07/30/20 22:20 Pike # (Auto) 1.6 10^3/uL (0.2- 0.9) H 07/30/20 22:20 Eos # (Auto) 0.0 10^3/uL (0.0- 0.8) 07/30/20 22:20 Baso # (Auto) 0.0 10^3/uL (0.0- 0.1) 07/30/20 22:20 Nucleated RBC % (a uto) 0 % 07/30/20 22:20 Nucleated RBCs # 0.0 /100WBC 07/30/20 22:20 Sodium 137 mmol/L (136-1 45) 07/31/20 04:31 Potassium 3.8 mmol/L (3.5-5 .1) 07/31/20 04:31 Chloride 100 mmol/L (98-10 7) 07/31/20 04:31 Carbon Dioxide 27 mmol/L (22-29) 07/31/20 04:31 Anion Gap 13.8 (5-19) 07/31/20 04:31 BUN 19 mg/dL (8-23) 07/31/20 04:31 Creatinine 0.9 mg/dL (0.5-0. 9) 07/31/20 04:31 GFR Calculation Not Reportable 07/31/20 04:31 Glucose 154 mg/dL (65-115 ) H 07/31/20 04:31 POC Glucose 142 mg/dL (70-110 ) H 07/31/20 06:40 Calculated Osmolal ity 289 mOsm/kg (285- 295) 07/31/20 04:31 Lactic Acid 2.6 mmol/L (0.5-2 .2) H 07/30/20 22:20 Lactic Acid (Sepsi s) 2.1 mmol/L (0.5-2 .2) 07/31/20 00:24 Calcium 7.8 mg/dL (8.5-10 .5) L 07/31/20 04:31 Total Bilirubin 0.3 mg/dL (0.15-1 .2) 07/30/20 22:20 AST 83 U/L (0-32) H 07/30/20 22:20 ALT 32 U/L (0-33) 07/30/20 22:20 Alkaline Phosphata se 132 IU/L (35-105) H 07/30/20 22:20 Troponin T Baselin e 1088 ng/L (0-10) H* 07/30/20 22:20 Troponin T 120 Min [place] band 994.4 ng/L (0-10) H 07/31/20 00:24 Delta Troponin T -93.6 ABS# (0-10) L 07/31/20 00:24 Troponin T Hi Sens 6Hr 1375 ng/L (0-10) H 07/31/20 04:31 Troponin T Hi Sens 6Hr Delta 287 ng/L (0-12) H* 07/31/20 04:31 NT-Pro-B Natriuret Pep 9719 pg/mL (0-125 ) H 07/30/20 22:20 Total Protein 6.9 g/dL (6.6-8.7 ) 07/30/20 22:20 Albumin 3.8 g/dL (3.5-5.2 ) 07/30/20 22:20 Globulin 3.1 g/dL (1.3-4.6 ) 07/30/20 22:20 Lipase 7 U/L (13-60) L 07/30/20 22:20 Urine Color Yellow (Yellow) 07/30/20 22:54 Urine Appearance Clear (CLEAR) 07/30/20 22:54 Urine pH 5 (5-7) 07/30/20 22:54 Ur Specific Gravit y 1.020 (1.005-1.0 30) 07/30/20 22:54 Urine Protein 1+ (Negative) H 07/30/20 22:54 Urine Glucose (UA) Norm (Normal) 07/30/20 22:54 Urine Ketones 1+ (Negative) H 07/30/20 22:54 Urine Blood Neg (Negative) 07/30/20 22:54 Urine Nitrate Negative (Negati ve) 07/30/20 22:54 Urine Bilirubin Neg (Negative) 07/30/20 22:54 Urine Urobilinogen 1 mg/dL (Negative ) H 07/30/20 22:54 Ur Leukocyte Amanda ase Negative (Negati ve) 07/30/20 22:54 Urine RBC 0-4 /hpf (0-2) H 07/30/20 22:54 Urine WBC 0-4 /hpf (0-5) H 07/30/20 22:54 Ur Squamous Epith Cells 0-4 /hpf (0-5) H 07/30/20 22:54 Amorphous Sediment 4+ /hpf 07/30/20 22:54 Urine Bacteria None /hpf (NONE) 07/30/20 22:54 SARS-CoV-2 Ag (Rap id) Negative (Negati ve) 07/31/20 04:34 Micro: Micro: Microbiology 07/31/20 00:24 Blood Culture - Pr eliminary Blood [facility] 07/30/20 22:38 Blood Culture - Pr eliminary Blood [facility] A&P Assessment and plan (1) Non-ST elevation [place] (NSTEMI): Patient is currently stable. Clinically appears to be stable. She may be treated with a subcu Lovenox, p.o. aspirin, beta-angel and p.o. Plavix. An echocardiogram would be helpful to evaluate LV function and rule out any other pathology. Patient requires a cardiac catheterization to further evaluate the coronary status and decide on further management. Since she has been taking Eliquis, we may need to wait at least 48 hours after stopping the drug, to go ahead with the angiogram. Status: Acute (2) Controlled type 2 diabetes mellitus with hyperglycemia, with long-term current use of insulin: Aggressive management of the diabetes would be appropriate. Status: Chronic (3) Atrial fibrillation: Patient has been on Eliquis. This may be held at this point. She may continue on the subcu Lovenox. Currently she is in sinus rhythm. Status: Chronic Qualifiers: Atrial fibrillation type: persistent (not longstanding) Qualified Code(s): I48.19 - Other persistent atrial fibrillation (4) HTN (hypertension): The antihypertensive medication may be optimized. Status: Chronic Qualifiers: Hypertension type: essential hypertension Qualified Code(s): I10 - Essential (primary) hypertension (5) Dyslipidemia: May continue on the current statin drug. Status: Chronic Additional A&P Information After reviewing the above and also based on the patient's clinical progress, further recommendations will be made. Thank you for the opportunity to eval this patient make these recommendations Consult Attestations Medical Necessity Statement: Patient requires continued hospital stay for close monitoring and further management Coding Level of Care Code Acute Operations Research Analyst for [facility] Fwd History Detailed Exam Detailed Medical Decision Making High Complexity Diagnoses Non-ST elevation [place] (NSTEMI) I21.4 Controlled type 2 diabetes mellitus with hyperglycemia, with long-term current use of insulin E11.65; Z79.4 Atrial fibrillation I48.19 Atrial fibrillation type: persistent (not longstanding) HTN (hypertension) I10 Hypertension type: essential hypertension Dyslipidemia E78.5 Time Spent (min) 65
--- NOTE | 2020-07-31 09:28 | PC.CHAP ---
Pastoral Care Encounter/Spiritual Assessment Type of Contact [] Declined manager unit visit [] Patient/Family/Request visit [] Outpatient visit [] Follow-up visit [] Physician referral [] Code/Alert [x] Routine visit [] Staff referral [] Actively dying [] Patient sleeping [] Family support [] [] Out of room [] Palliative care [] [] Receiving care in room [] Pre-surgical visit [] Trauma [] Long length of stay [] ICU visit [] Other: Relational/Emotional Strength [] Patient feels connected with others/family/visitors/staff [] Distress [] Loneliness/isolation [] Abandonment Spirituality of Patient [] Person of Mariela [] Attends Buddhism of their Mariela [] Believes in Prayer [] Reads Bible or Restorationism materials [] There are Spiritual issues to be addressed Marine Services Technician Interventions [x] Prayer [x] Active listening [x] Non-anxious presence [x] Spiritual/emotional support [] Crisis/trauma care [] Spiritual counseling [] Bereavement support [] Provided bereavement packet [] Provided Bible/devotional materials [] Provided toy/stuffed animal, coloring book to patient or family member [] Provided Communion [] Anointing/[facility] [] Salvation [x] Completed spiritual assessment [] Other: Impact on Illness or Injury [] Angry [] Fearful [] Anxious [] Often cries [] Exhaustion [] Unable to work [] Unable to attend cheondoism [] Unable to walk/stand [] Unable to read [] Unable to drive [] Unable to eat/drink [] Unable to sleep [] Unable to be with family [] Patient intubated [] Other: Summary good spirits...looking for improved health Time spent with patient 10 min
--- NOTE | 2020-07-31 09:45 | PC.NURSE ---
Lovenox order clarified with Dr. Jackson. Order for Lovenox 40 mg q12 starting today and 100 mg q12 starting tomorrow. Physician instructed nurse to hold medication at this time for her review. No new orders received at this time. Nurse to continue to monitor.
--- NOTE | 2020-07-31 10:57 | PC.NUTR ---
NUTRITION WEIGHT ASSESSMENT: Ht. 70 inches. Wt. 308 pounds. BMI of 44.2 kg/m2 indicates Morbid Obesity.
[2020-07-31 11:24] LABS: Glucose Point of Care 151 mg/dL (70-110)
--- NOTE | 2020-07-31 12:10 | PC.NURSE ---
Plan of care discussed with Dr. Akhtar. Keep patient NPO at this time, plan for possible cath. Start 0.45NS @75 ml/hr. RBTO. Nurse to continue to monitor.
[2020-07-31] MEDS: sodium chloride 0.45% 1,000 ML 75 ML IV (12:18)
[2020-07-31] MEDS: morphine 4 mg/mL SDV 1 mL 2 MG IVP ×2 (12:25→23:00)
--- NOTE | 2020-07-31 15:20 | PC.NURSE ---
Telephone order from Dr. Akhtar to hold lovenox at this time for angiogram this afternoon. RBTO.
[2020-07-31 16:56] LABS: Glucose Point of Care 174 mg/dL (70-110)
[2020-07-31] MEDS: insulin glargine 100 units/1 mL 32 UNIT SUBCUT (17:32)
[2020-07-31] MEDS: nitroglycerin 0.4 mg sublingual Tablet SUBLINGUAL ×2 (18:57→19:21)
--- NOTE | 2020-07-31 18:58 | PC.NURSE ---
Patient reports chest pain to medial chest described as pressure, rating 6/10. Radiates to neck. Patient tachypniec. VS assessed, nitro administered. Nurse to continue to monitor.
--- NOTE | 2020-07-31 19:04 | PC.NURSE ---
CP reassessed. Patient reports pain at 4/10. Refuses second nitro at this time. VSS. Nurse to continue to monitor.
--- NOTE | 2020-07-31 19:21 | PC.NURSE ---
Patient reports CP is still 07/27. Requests nitro at this time. Medication administered. VSS. Nurse to continue to monitor.
[2020-07-31 20:15] LABS: Glucose Point of Care 245 mg/dL (70-110)
[2020-07-31] MEDS: acetaminophen 325 mg Tablet 650 MG PO (21:11)
[2020-07-31] MEDS: enoxaparin 40 mg/0.4 mL Syringe SUBCUT (21:32)
[2020-07-31] MEDS: atorvastatin 40 mg Tablet 80 MG PO (21:32)
--- NOTE | 2020-07-31 21:49 | PM.PN ---
Subjective Subjective: Interval history: Patient doing okay, denies acute chest pain or shortness of breath at rest, complains of some joint pains which are normal for her. Vitals/I&O/Wt Last Vital Signs Temp 98 F 07/31/20 20:00 Pulse 90 07/31/20 20:00 Resp 29 H 07/31/20 20:00 BP 109/56 07/31/20 20:00 Pulse Ox 97 07/31/20 20:00 07/31/20 07/31/20 07/31/20 06:59 14:59 22:59 Intake Total 1000 / 1000 673.75 / 673.75 Output Total 250 / 250 300 / 550 Balance 1000 / 1000 -250 / -250 373.75 / 123.75 Weight last 48 hrs Weight 139.706 kg Physical Exam Narrative: EXAM NARRATIVE: Awake, alert, lungs are currently clear, regular rhythm, abdomen is soft but obese, extremities Urinary Catheter Management^: Arzate Latex: Cath Placed During This Visit: yes Reason for Continuing Indwelling Catheter: Required Immobilization for Trauma or Surgery or Anesthesia Urinary Catheter Date of Insertion: 07/31/20 Urinary Catheter Time of Insertion: 10:30 Data : 07/30/20 22:20 07/31/20 04:31 Micro: Microbiology 07/31/20 00:24 Blood Culture - Preliminary Blood SPECIMEN COLLECTED 07/30/20 22:38 Blood Culture - Preliminary Blood SPECIMEN COLLECTED A&P Assessment and plan (1) Non-ST elevation [place] (NSTEMI): Status: Acute (2) Dyslipidemia: Status: Chronic (3) Type 2 diabetes mellitus with diabetic polyneuropathy: Status: Chronic Qualifiers: Diabetes mellitus predatory animal exterminator insulin use: with predatory animal exterminator use Qualified Code(s): E11.42 - Type 2 diabetes mellitus with diabetic polyneuropathy; Z79.4 - exterminator termite (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 of insulin (4) Atrial fibrillation: Status: Chronic Qualifiers: Atrial fibrillation type: persistent (not longstanding) Qualified Code(s): I48.19 - Other persistent atrial fibrillation (5) HTN (hypertension): Status: Chronic Qualifiers: Hypertension type: essential hypertension Qualified Code(s): I10 - Essential (primary) hypertension (6) Asthma: Status: Chronic (7) BMI 40.0-44.9, adult: Status: Chronic Additional A&P Information Appreciate Dr. Akhtar's assistance Plan is for cardiac catheterization on Wednesday Covid antigen is negative Romi has been held On treatment dose Lovenox Check hemoglobin A1c and lipid panel Was placed on metoprolol, aspirin, Plavix, statin and an NIRAJ inhibitor Continue on home isosorbide and diuretic therapy Need to clarify with cardiology tomorrow about sotalol which has been held Monitor need for potassium Currently on home insulin therapy, monitor blood sugars, anticipate need to make adjustments when n.p.o. for cardiac catheterization Add albuterol, formulary substitution for Symbicort, singular and guaifenesin Add Tylenol for pain control which she normally takes at home Arzate catheter was placed in the emergency room. Given extent of acute [place] and plan for cardiac catheterization, will continue for now to decrease risk of unnecessary cardiac strain and to be able to monitor renal function more closely under the circumstances Supportive care otherwise Currently treatment dose Lovenox provides VTE prophylaxis Plans were discussed with patient and she was given opportunity to ask questions Full code Attestations Medical Necessity Statement*: Requires ongoing inpatient stay secondary to acute non-ST elevation [place] necessitating further cardiac evaluation. Plans are as noted Coding Level of Care Code Acute High School Industrial Arts Teacher for [facility] Fwd Diagnoses Non-ST elevation [place] (NSTEMI) I21.4 Dyslipidemia E78.5 Type 2 diabetes mellitus with diabetic polyneuropathy E11.42; Z79.4 Diabetes mellitus predatory animal exterminator insulin use: with retirement use Atrial fibrillation I48.19 Atrial fibrillation type: persistent (not longstanding) HTN (hypertension) I10 Hypertension type: essential hypertension Asthma J45.909 BMI 40.0-44.9, adult Z68.41
[2020-07-31 22:33] LABS: Glucose Point of Care 217 mg/dL (70-110)
[2020-08-01] VITALS (14 sets, daily range): BP systolic 104–137; BP diastolic 52–71; PULSE 75–96; RESP 17–26; TEMP 36.6–37.3; O2SAT 93–98
[2020-08-01 05:38] LABS: Basophils % 0.2 %; Eosinophils # 0.1 10^3/uL (0.0-0.8); Eosinophils % 0.8 %; Hematocrit 36.8 % (37.0-47.0); Hemoglobin 11.1 g/dL (11.5-15.3); Lymphocytes # 2.2 10^3/uL (0.8-4.8); Lymphocytes % 15.2 %; Mean Corpuscular HGB Conc 30.2 g/dL (30.0-36.0); Mean Corpuscular Hemoglobin 29.9 pg (28.0-34.0); Mean Corpuscular Volume 99.2 fL (81-99); Mean Platelet Volume 12.5 fL (7.4-10.4); Monocytes # 2.1 10^3/uL (0.2-0.9); Monocytes % 14.5 %; Neutrophils # 9.72 10^3/uL (1.8-7.7); Neutrophils % 68.7 %; Nucleated Red Blood Cells % 0 %; Platelet Count 195 10^3/cmm (130-400); Red Blood Count 3.71 10^6/uL (4.1-5.3); Red Cell Distribution Width 13.6 % (12.1-15.1); White Blood Count 14.2 10^3/uL (4.0-10.0)
[2020-08-01 06:01] LABS: Alanine Aminotransferase 81 U/L (0-33); Albumin Level 3.1 g/dL (3.5-5.2); Alkaline Phosphatase 263 IU/L (35-105); Aspartate Amino Transferase 157 U/L (0-32); Blood Urea Nitrogen 24 mg/dL (8-23); Calcium 8.1 mg/dL (8.5-10.5); Carbon Dioxide 30 mmol/L (22-29); Chloride 97 mmol/L (98-107); Globulin 2.9 g/dL (1.3-4.6); Glucose 136 mg/dL (65-115); Magnesium 1.5 mg/dL (1.7-2.3); Osmolality Calculated 290 mOsm/kg (285-295); Sodium 137 mmol/L (136-145); Total Bilirubin 0.5 mg/dL (0.15-1.2)
[2020-08-01 06:02] LABS: Cholesterol 77 mg/dL (0-200); HDL Cholesterol 35 mg/dL (60-100); LDL Cholesterol Calculated 19 mg/dL (50-129); LDL HDL Ratio 0.54 RATIO (0.00-3.22); Triglycerides 114 mg/dL (0-150)
[2020-08-01 06:17] LABS: Estmated Average Glucose 197; Hemoglobin A1C 8.5 % (4.0-6.0)
[2020-08-01] MEDS: FUROsemide 40 mg Tablet PO (06:42)
[2020-08-01 07:02] LABS: Glucose Point of Care 179 mg/dL (70-110)
[2020-08-01] MEDS: clopidogrel 75 mg Tablet PO (08:37)
[2020-08-01] MEDS: metoprolol succinate ER (24 HR) 50 mg Tablet PO (08:38)
[2020-08-01] MEDS: duloxetine 30 mg Capsule PO ×2 (08:38→18:17)
[2020-08-01] MEDS: lisinopril 10 mg Tablet PO (08:38)
[2020-08-01] MEDS: aspirin 81 mg EC Tablet PO (08:38)
[2020-08-01] MEDS: isosorbide dinitrate 20 mg Tablet 30 MG PO (08:38)
[2020-08-01] MEDS: acetaminophen 325 mg Tablet 650 MG PO ×3 (08:39→20:57)
[2020-08-01] MEDS: enoxaparin 40 mg/0.4 mL Syringe SUBCUT ×2 (08:40→20:57)
[2020-08-01] MEDS: enoxaparin 100 mg/mL Syringe SUBCUT ×2 (08:40→20:57)
[2020-08-01] MEDS: insulin glargine 100 units/1 mL 32 UNIT SUBCUT ×2 (08:40→18:17)
--- NOTE | 2020-08-01 08:43 | ECG_ITS ---
[facility] Test Date: 2020-08-01 Pat Name: Pauline Rubio Department: Room: 111 Gender: Female Cutting Department Supervisor: : [id number] Requested By: Em Akhtar Order Number: [id number] Reading MD: NOHEMI GARNETT Measurements Intervals [place] Rate: 88 P: 41 DE: 184 QRS: -4 QRSD: 104 T: -44 QT: 392 QTc: 475 Interpretive Statements SINUS RHYTHM NONSPECIFIC ST & T-WAVE ABNORMALITY Compared to ECG 07/31/2020 05:38:05 No significant changes Electronically Signed On 08-01-2020 20:43:55 CDT by NOHEMI GARNETT [id number]
--- NOTE | 2020-08-01 10:56 | PC.CHAP ---
Pastoral Care Encounter/Spiritual Assessment Type of Contact [] Declined conference services manager visit [] Patient/Family/Request visit [] Outpatient visit [] Follow-up visit [] Physician referral [] Code/Alert [x] Routine visit [] Staff referral [] Actively dying [] Patient sleeping [] Family support [] [] Out of room [] Palliative care [] [] Receiving care in room [] Pre-surgical visit [] Trauma [x] Long length of stay [] ICU visit [] Other: Relational/Emotional Strength [x] Patient feels connected with others/family/visitors/staff [] Distress [] Loneliness/isolation [] Abandonment Spirituality of Patient [x] Person of Mariela [] Attends Nondenominational of their Mariela [x] Believes in Prayer [] Reads Bible or Christianity materials [] There are Spiritual issues to be addressed Bookseamer Blindstitch Interventions [x] Prayer [x] Active listening [x] Non-anxious presence [x] Spiritual/emotional support [] Crisis/trauma care [x] Spiritual counseling [] Bereavement support [] Provided bereavement packet [] Provided Bible/devotional materials [] Provided toy/stuffed animal, coloring book to patient or family member [] Provided Communion [] Anointing/[place] [] Salvation [x] Completed spiritual assessment [] Other: Impact on Illness or Injury [] Angry [] Fearful [x] Anxious [] Often cries [] Exhaustion [] Unable to work [] Unable to attend mandaen [] Unable to walk/stand [] Unable to read [] Unable to drive [] Unable to eat/drink [] Unable to sleep [] Unable to be with family [] Patient intubated [] Other: Summary Has tests and get a catsen tommorwaiting doctors reprot, hernández a good attitude, not sure when she can go home' Time spent with patient 10 mins
[2020-08-01 11:28] LABS: Glucose Point of Care 257 mg/dL (70-110)
--- NOTE | 2020-08-01 14:41 | P.PN_ITS ---
Subjective Subjective: Interval history: Required some nitroglycerin for chest pain overnight no new complaints. Medications: Reviewed: Yes Vitals/I&O/Wt Last Vital Signs Temp 98.4 F 08/01/20 10:54 Pulse 82 08/01/20 10:54 Resp 26 H 08/01/20 10:54 BP 109/55 08/01/20 10:54 Pulse Ox 97 08/01/20 10:54 07/31/20 08/01/20 08/01/20 22:59 06:59 14:59 Intake Total 673.75 / 673.75 120 / 793.75 600 / 600 Output Total 300 / 550 600 / 1150 Balance 373.75 / 123.75 -480 / -356.25 600 / 600 Weight last 48 hrs Weight 139.706 kg Physical Exam Narrative: EXAM NARRATIVE: Patient remains in bed. Awake and alert. Mild ill appearance. No accessory muscle use noted. Urinary Catheter Management^: Arzate Latex: Cath Placed During This Visit: yes Reason for Continuing Indwelling Catheter: Other Urinary Catheter Date of Insertion: 07/31/20 Urinary Catheter Time of Insertion: 10:30 Data : 08/01/20 04:27 08/01/20 04:27 Micro: Microbiology 07/31/20 00:24 Blood Culture - Preliminary Blood NEGATIVE TO DATE 07/30/20 22:38 Blood Culture - Preliminary Blood NEGATIVE TO DATE A&P Assessment and plan (1) Non-ST elevation VT (NSTEMI): With significant elevation in troponin Status: Acute (2) Dyslipidemia: Status: Chronic (3) Type 2 diabetes mellitus with diabetic polyneuropathy: Status: Chronic Qualifiers: Diabetes mellitus fpc insulin use: with fpc use Qualified Code(s): E11.42 - Type 2 diabetes mellitus with diabetic polyneuropathy; Z79.4 - lobsterman (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 of 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 (4) Atrial fibrillation: Status: Chronic Qualifiers: Atrial fibrillation type: persistent (not longstanding) Qualified Code(s): I48.19 - Other persistent atrial fibrillation (5) HTN (hypertension): Status: Chronic Qualifiers: Hypertension type: essential hypertension Qualified Code(s): I10 - Essential (primary) hypertension (6) Asthma: Status: Chronic (7) BMI 40.0-44.9, adult: Status: Chronic Additional A&P Information Plan for cardiac catheterization in the morning IV fluids were ordered for after midnight Covid antigen is negative Romi has been held On treatment dose Lovenox Check hemoglobin A1c and lipid panel On metoprolol, aspirin, Plavix, statin and an NIRAJ inhibitor Continue on home isosorbide and diuretic therapy As needed nitroglycerin sublingual Currently her home sotalol is held Long-acting and and sliding scale insulin Has albuterol, formulary substitution for Symbicort, singular and guaifenesin Tylenol for pain control which she normally takes at home Given extent of acute VT and plan for cardiac catheterization, will continue Arzate catheter presently to decrease risk of unnecessary cardiac strain and for monitoring of urine output Supportive care otherwise Currently treatment dose Lovenox provides VTE prophylaxis Full code Attestations Medical Necessity Statement*: Requires ongoing inpatient management for non-ST elevation VT with significant elevation in catheterization tomorrow and antici pated to have significant disease plans are as noted. 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
[2020-08-01 16:48] LABS: Glucose Point of Care 262 mg/dL (70-110)
--- NOTE | 2020-08-01 19:00 | PC.NURSE ---
Bedside report received from Sharri JOVEL. Patient is resting in bed. Patient has no C/O of pain or other needs at this time. Nurse will continue to monitor.
--- NOTE | 2020-08-01 20:33 | PM.PN ---
Subjective Subjective: Interval history: Patient is feeling okay. She has some amount of shortness of breath with activities. Also had an episode of chest pain early this morning. She responded to sublingual nitro. No fever or chills. No cough. Medications: Reviewed: Yes Medication Review Details: Current Medications Acetaminophen (Acetaminophen 325 Mg Tablet) 650 mg PO Q4H PRN PRN Reason: MILD PAIN Last Admin: 08/01/20 15:33 Dose: 650 mg Documented by: Albuterol Sulfate (Albuterol 2.5 Mg/0.5 Ml Neb) 2.5 mg INHALATION Q4H.RESPIRATORY PRN PRN Reason: SHORTNESS OF BREATH Aspirin (Aspirin 81 Mg Ec Tablet) 81 mg PO DAILY [facility] Last Admin: 08/01/20 08:38 Dose: 81 mg Documented by: Atorvastatin Calcium (Atorvastatin 40 Mg Tablet) 80 mg PO BEDTIME [facility] Last Admin: 07/31/20 21:32 Dose: 80 mg Documented by: Clopidogrel Bisulfate (Clopidogrel 75 Mg Tablet) 75 mg PO DAILY [facility] Last Admin: 08/01/20 08:37 Dose: 75 mg Documented by: Dextrose (Dextrose 50% Syringe 50 Ml) 25 ml IVP ONCE PRN; Protocol PRN Reason: hypoglycemia protocol Dextrose (Dextrose 50% Syringe 50 Ml) 50 ml IVP PRN PRN; Protocol PRN Reason: hypoglycemia protocol Diphenhydramine HCl (Diphenhydramine 50 Mg Capsule) 50 mg PO ONCE ONE Stop: 08/02/20 05:01 Duloxetine HCl (Duloxetine 30 Mg Capsule) 30 mg PO BID [facility] Last Admin: 08/01/20 18:17 Dose: 30 mg Documented by: Enoxaparin Sodium (Enoxaparin 100 Mg/Ml Syringe) 100 mg SUBCUT Q12H [facility] Last Admin: 08/01/20 08:40 Dose: 100 mg Documented by: Enoxaparin Sodium (Enoxaparin 40 Mg/0.4 Ml Syringe) 40 mg SUBCUT Q12H [facility] Last Admin: 08/01/20 08:40 Dose: 40 mg Documented by: Furosemide (Furosemide 40 Mg Tablet) 40 mg PO QAM [facility] Last Admin: 08/01/20 06:42 Dose: 40 mg Documented by: Glucagon (Glucagon 1 Mg/Ml Inj 1 Ml) 1 mg IM ONCE PRN; Protocol PRN Reason: Adult Acute Hypoglycemia Prot. Guaifenesin (Guaifenesin 100 Mg/5 Ml Udc 10 Ml) 400 mg PO Q4H PRN PRN Reason: COUGH Dextrose (D5w) 500 mls @ 100 mls/hr IV ONCE PRN; Protocol PRN Reason: Adult Acute Hypoglycemia Prot Sodium Chloride (Sodium Chloride 0.9%) 1,000 mls @ 50 mls/hr IV .Q20H ONE Stop: 08/03/20 00:59 Insulin Aspart (Insulin Aspart 100 Unit/1 Ml) 0 unit SUBCUT WM&BEDTIME [facility]IANA; Protocol Last Admin: 08/01/20 18:18 Dose: 10 unit Documented by: Insulin Glargine (Insulin Glargine 100 Units/1 Ml) 32 unit SUBCUT BID [facility]IA[facility] Last Admin: 08/01/20 18:17 Dose: 32 unit Documented by: Isosorbide Dinitrate (Isosorbide Dinitrate 20 Mg Tablet) 30 mg PO DAILY [facility] Last Admin: 08/01/20 08:38 Dose: 30 mg Documented by: Lisinopril (Lisinopril 10 Mg Tablet) 10 mg PO DAILY [facility] Last Admin: 08/01/20 08:38 Dose: 10 mg Documented by: Metoprolol Succinate (Metoprolol Succinate Er (24 Hr) 50 Mg Tablet) 50 mg PO DAILY [facility] Last Admin: 08/01/20 08:38 Dose: 50 mg Documented by: Montelukast Sodium (Montelukast Sodium 10 Mg Tablet) 10 mg PO BEDTIME [facility] Morphine Sulfate (Morphine 4 Mg/Ml Sdv 1 Ml) 2 mg IVP Q4H PRN PRN Reason: SEVERE PAIN Last Admin: 07/31/20 23:00 Dose: 2 mg Documented by: Nitroglycerin (Nitroglycerin 0.4 Mg Sublingual Tablet) 0.4 mg SUBLINGUAL Q5M PRN PRN Reason: CHEST PAIN Last Admin: 07/31/20 19:21 Dose: 0.4 mg Documented by: Fluticasone/Salmeterol (Fluticasone-Salmeterol 250-50 Diskus) 1 puff INHALATION BID.RESPIRATORY DIANA Last Admin: 08/01/20 09:52 Dose: 1 puff Documented by: Vitals/I&O/Wt Last Vital Signs Temp 99.0 F 08/01/20 19:07 Pulse 85 08/01/20 19:07 Resp 20 H 08/01/20 19:07 BP 112/57 08/01/20 19:07 Pulse Ox 95 08/01/20 19:07 08/01/20 08/01/20 08/01/20 06:59 14:59 22:59 Intake Total 120 / 793.75 600 / 600 240 / 840 Output Total 600 / 1150 700 / 700 Balance -480 / -356.25 600 / 600 -460 / 140 Weight last 48 hrs Weight 308 lb Physical Exam Narrative: EXAM NARRATIVE: GENERAL: The patient is alert and oriented times three. Not in any acute distress. Morbidly obese HEENT: No significant pallor, icterus or lymphadenopathy. The pupils are reactant to light. Oral cavity: There are no mucous membrane lesions. Funduscopic examination: The fundus is not visualized NECK: Trachea appears to be central. No masses noted. No JVD or thyromegaly appreciated. No carotid bruit. RESPIRATORY: Chest is symmetrical. No intercostals muscle retraction or any accessory muscle activation. There is no chest wall tenderness. Breath sounds are heard bilaterally. No rales or rhonchi heard. No evidence of any consolidation. BREASTS: Deferred. HEART: The PMI could not be palpated. No other palpable precordial events. S1 and S2 are normal. No S3 or S4 heard. No pericardial rub or any click heard. ABDOMEN: Abdomen is obese. No vessel pulsations or distention. No tenderness. No organomegaly appreciated. No abdominal bruit. Bowel sounds are normally heard. : Deferred. RECTAL: Deferred. LYMPHATIC: No lymphadenopathy noted in the neck or groin. EXTREMITIES: 1-2+ edema both lower extremities. No cyanosis. Peripheral pulses are palpable but weak bilaterally. MUSCULOSKELETAL: No acute joint deformities or swelling. SKIN: There are no significant scars or skin rash noted. NEUROPSYCHIATRIC: The patient is alert and oriented x3. Appears to be in a good mood. The higher functions are grossly within normal limits. No tremors or rigidity noted. Urinary Catheter Management^: Arzate Latex: Cath Placed During This Visit: yes Reason for Continuing Indwelling Catheter: Required Immobilization for Trauma or Surgery or Anesthesia Urinary Catheter Date of Insertion: 07/31/20 Urinary Catheter Time of Insertion: 10:30 Data : 08/01/20 04:27 08/01/20 04:27 Other Labs: Laboratory Last Values WBC 14.2 10^3/uL (4.0-10.0) H 08/01/20 04:27 RBC 3.71 10^6/uL (4.1-5.3) L 08/01/20 04:27 Hgb 11.1 g/dL (11.5-15.3) L 08/01/20 04:27 Hct 36.8 % (37.0-47.0) L 08/01/20 04:27 MCV 99.2 fL (81-99) H 08/01/20 04:27 MCH 29.9 pg (28.0-34.0) 08/01/20 04:27 MCHC 30.2 g/dL (30.0-36.0) 08/01/20 04:27 RDW 13.6 % (12.1-15.1) 08/01/20 04:27 Plt Count 195 10^3/cmm (130-400) 08/01/20 04:27 MPV 12.5 fL (7.4-10.4) H 08/01/20 04:27 Neut % (Auto) 68.7 % 08/01/20 04:27 Lymph % (Auto) 15.2 % 08/01/20 04:27 [place] % (Auto) 14.5 % 08/01/20 04:27 Eos % (Auto) 0.8 % 08/01/20 04:27 Baso % (Auto) 0.2 % 08/01/20 04:27 Neut # (Auto) 9.72 10^3/uL (1.8-7.7) H 08/01/20 04:27 Lymph # (Auto) 2.2 10^3/uL (0.8-4.8) 08/01/20 04:27 [place] # (Auto) 2.1 10^3/uL (0.2-0.9) H 08/01/20 04:27 Eos # (Auto) 0.1 10^3/uL (0.0-0.8) 08/01/20 04:27 Baso # (Auto) 0.0 10^3/uL (0.0-0.1) 08/01/20 04:27 Nucleated RBC % (auto) 0 % 08/01/20 04:27 Nucleated RBCs # 0.0 /100WBC 08/01/20 04:27 Sodium 137 mmol/L (136-145) 08/01/20 04:27 Potassium 4.0 mmol/L (3.5-5.1) 08/01/20 04:27 Chloride 97 mmol/L (98-107) L 08/01/20 04:27 Carbon Dioxide 30 mmol/L (22-29) H 08/01/20 04:27 Anion Gap 14.0 (5-19) 08/01/20 04:27 BUN 24 mg/dL (8-23) H 08/01/20 04:27 Creatinine 1.0 mg/dL (0.5-0.9) H 08/01/20 04:27 GFR Calculation Not Reportable 08/01/20 04:27 Glucose 136 mg/dL (65-115) H 08/01/20 04:27 POC Glucose 309 mg/dL (70-110) H 08/01/20 20:22 Estimat Average Glucose 197 08/01/20 04:27 Hemoglobin A1c 8.5 % (4.0-6.0) H 08/01/20 04:27 Calculated Osmolality 290 mOsm/kg (285-295) 08/01/20 04:27 Lactic Acid 2.6 mmol/L (0.5-2.2) H 07/30/20 22:20 Lactic Acid (Sepsis) 2.1 mmol/L (0.5-2.2) 07/31/20 00:24 Calcium 8.1 mg/dL (8.5-10.5) L 08/01/20 04:27 Magnesium 1.5 mg/dL (1.7-2.3) L 08/01/20 04:27 Total Bilirubin 0.5 mg/dL (0.15-1.2) 08/01/20 04:27 AST 157 U/L (0-32) H 08/01/20 04:27 ALT 81 U/L (0-33) H 08/01/20 04:27 Alkaline Phosphatase 263 IU/L (35-105) H 08/01/20 04:27 Troponin T Baseline 1088 ng/L (0-10) H* 07/30/20 22:20 Troponin T 120 Minute 994.4 ng/L (0-10) H 07/31/20 00:24 Delta Troponin T -93.6 ABS# (0-10) L 07/31/20 00:24 Troponin T Hi Sens 6Hr 1375 ng/L (0-10) H 07/31/20 04:31 Troponin T Hi Sens 6Hr Delta 287 ng/L (0-12) H* 07/31/20 04:31 NT-Pro-B Natriuret Pep 9719 pg/mL (0-125) H 07/30/20 22:20 Total Protein 6.0 g/dL (6.6-8.7) L 08/01/20 04:27 Albumin 3.1 g/dL (3.5-5.2) L 08/01/20 04:27 Globulin 2.9 g/dL (1.3-4.6) 08/01/20 04:27 Triglycerides 114 mg/dL (0-150) 08/01/20 04:27 Cholesterol 77 mg/dL (0-200) 08/01/20 04:27 LDL Cholesterol, Calc 19 mg/dL (50-129) L 08/01/20 04:27 HDL Cholesterol 35 mg/dL (60-100) L 08/01/20 04:27 LDL/HDL Ratio 0.54 RATIO (0.00-3.22) 08/01/20 04:27 Cholesterol/HDL Ratio 2.20 mg/dL (0.0-4.40) 08/01/20 04:27 Lipase 7 U/L (13-60) L 07/30/20 22:20 Urine Color Yellow (Yellow) 07/30/20 22:54 Urine Appearance Clear (CLEAR) 07/30/20 22:54 Urine pH 5 (5-7) 07/30/20 22:54 Ur Specific [place] 1.020 (1.005-1.030) 07/30/20 22:54 Urine Protein 1+ (Negative) H 07/30/20 22:54 Urine Glucose (UA) Norm (Normal) 07/30/20 22:54 Urine Ketones 1+ (Negative) H 07/30/20 22:54 Urine Blood Neg (Negative) 07/30/20 22:54 Urine Nitrate Negative (Negative) 07/30/20 22:54 Urine Bilirubin Neg (Negative) 07/30/20 22:54 Urine Urobilinogen 1 mg/dL (Negative) H 07/30/20 22:54 Ur Leukocyte Esterase Negative (Negative) 07/30/20 22:54 Urine RBC 0-4 /hpf (0-2) H 07/30/20 22:54 Urine WBC 0-4 /hpf (0-5) H 07/30/20 22:54 Ur Squamous Epith Cells 0-4 /hpf (0-5) H 07/30/20 22:54 Amorphous Sediment 4+ /hpf 07/30/20 22:54 Urine Bacteria None /hpf (NONE) 07/30/20 22:54 SARS-CoV-2 Ag (Rapid) Negative (Negative) 07/31/20 04:34 Micro: Microbiology 07/31/20 00:24 Blood Culture - Preliminary Blood NEGATIVE TO DATE 07/30/20 22:38 Blood Culture - Preliminary Blood NEGATIVE TO DATE Echo: My impression: Echocardiogram revealed Normal LV size ejection fraction of 60%. Wall motion normalities as mentioned above. Thickened aortic and mitral valves. Mild mitral valve regurgitation. There is no pericardial effusion. There are no intracardiac masses. Technically difficult study because of the poor ultrasonic window. EKG 2: My Interpretation: Sinus rhythm with diffuse nonspecific T wave changes. Features of recent inferior wall myocardial infarction. No new changes. A&P Assessment and plan (1) Non-ST elevation CA (NSTEMI): Patient is currently stable. Clinically appears to be stable. She may be treated with a subcu Lovenox, p.o. aspirin, beta-angel and p.o. Plavix. An echocardiogram would be helpful to evaluate LV function and rule out any other pathology. Patient requires a cardiac catheterization to further evaluate the coronary status and decide on further management. Since she has been taking Eliquis, we may need to wait at least 48 hours after stopping the drug, to go ahead with the angiogram. Patient is scheduled for the cardiac catheterization in the morning. She will be kept n.p.o. after midnight. Start IV hydration around midnight. Status: Acute (2) Acute diastolic heart failure: Heart failure is currently compensated. May continue the p.o. Lasix. Status: Acute (3) Controlled type 2 diabetes mellitus with hyperglycemia, with long-term current use of insulin: Aggressive management of the diabetes would be appropriate. Status: Chronic (4) Atrial fibrillation: The Eliquis is on hold. Status: Chronic Qualifiers: Atrial fibrillation type: persistent (not longstanding) Qualified Code(s): I48.19 - Other persistent atrial fibrillation (5) HTN (hypertension): Blood pressure is under control. We will continue on the current medications. Status: Chronic Qualifiers: Hypertension type: essential hypertension Qualified Code(s): I10 - Essential (primary) hypertension (6) Dyslipidemia: May continue on the current statin drug. Status: Chronic Additional A&P Information The need for the cardiac catheterization was discussed in detail with the patient. The risk of bleeding, hematoma, vascular injury, myocardial infarction, CVA, renal failure and other concomitant complications were explained in detail. She understood this well and consented to proceed. Based on the clinical progress and the results of the above, further recommendations will be made. 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
[2020-08-01 20:36] LABS: Glucose Point of Care 309 mg/dL (70-110)
[2020-08-01] MEDS: montelukast sodium 10 mg Tablet PO (20:56)
[2020-08-01] MEDS: atorvastatin 40 mg Tablet 80 MG PO (20:57)
[2020-08-02] VITALS (59 sets, daily range): BP systolic 82–131; BP diastolic 45–80; PULSE 78–115; RESP 15–27; TEMP 36.9–37.1; O2SAT 97–100
[2020-08-02 04:56] LABS: Basophils % 0.3 %; Eosinophils # 0.2 10^3/uL (0.0-0.8); Eosinophils % 1.4 %; Hemoglobin 10.8 g/dL (11.5-15.3); Lymphocytes % 15.8 %; Mean Corpuscular HGB Conc 30.9 g/dL (30.0-36.0); Mean Corpuscular Hemoglobin 30.2 pg (28.0-34.0); Mean Corpuscular Volume 97.8 fL (81-99); Mean Platelet Volume 12.4 fL (7.4-10.4); Monocytes # 1.7 10^3/uL (0.2-0.9); Monocytes % 13.3 %; Neutrophils # 8.57 10^3/uL (1.8-7.7); Nucleated Red Blood Cells % 0 %; Platelet Count 189 10^3/cmm (130-400); Red Blood Count 3.58 10^6/uL (4.1-5.3); Red Cell Distribution Width 13.4 % (12.1-15.1); White Blood Count 12.4 10^3/uL (4.0-10.0)
[2020-08-02] MEDS: sodium chloride 0.9% 1,000 ML 50 ML IV (05:12)
[2020-08-02] MEDS: FUROsemide 40 mg Tablet PO (05:18)
[2020-08-02] MEDS: diphenhydrAMINE 50 mg Capsule PO (05:19)
--- NOTE | 2020-08-02 05:58 | XACV_ITS ---
Exam Room: [facility] Ht: 178 cm Wt: 140 kg BSA: 2.69 m2 Gender: Female : 1945 Any Known Allergies: Other Exam Priority: Routine Procedure(s): Procedure Description: Diagnostic procedure Procedure Description: PCI procedure Procedure Description: Drug Eluting Coronary Stent Procedure Description: PTCA Procedure Description: Miscellaneous Procedure Description: ACT Procedure Description: Coronary Angiography Diagnostic Cath Status: Urgent Diagnostic Findings * No significant disease noted in the Left Main, LAD, Circumflex, or RCA coronary arteries. * Mid Left Anterior Descending Coronary Artery: has lesion. * Mid Right Coronary Artery: has lesion. * Coronary angiography shows right dominance. * The left main is a medium caliber vessel. The distal stented segment of the left main appears to be patent with around 20% in-stent narrowing. * The left anterior descending artery is a medium caliber vessel which was found to have long stented segment starting from the proximal to the mid LAD. Right after the first septal career specialist, the stented segment was found to have a high-grade in-stent stenosis of around 80 to 90%. The ostium of the first septal career specialist was found to have around 50% narrowing. The first 2 diagonal branches the likely large vessel which was found to have around 50 to 60% ostial narrowing. Mild diffuse disease was noted in the distal segment of the artery.. * The left circumflex artery appears to be totally occluded near the ostium. This is a chronic occlusion. Grade 2 left to left collaterals noted filling of the obtuse marginal branches. * The right coronary artery is the dominant vessel. The proximal stented segment appears to be widely patent. Right after the first RV branch, there was a high-grade lesion of around 80%. The PDA branch was found to be occluded. The PLV branches found to have mild to moderate diffuse disease.. Interventional Findings * Mid Left Anterior Descending Coronary Artery: treated with AB MINI TREK 1.50X6 RX BALLOON, AB MINI TREK 2.00X12 RX BALLOON, and MDT R DAVID 2.75X15 TRANG. * Mid Right Coronary Artery: treated with AB TREK 2.50X12 RX BALLOON, MDT R DAVID 3.0X34 TRANG, and MDT NC EUPHORA RX 3.78H93OD BALLOON. Conclusions 1. 75-year-old white female with history of atherosclerotic heart disease, diabetes, high blood pressure and dyslipidemia presents with features of non-ST elevation myocardial infarction and congestive heart failure. She had a previous stent placement in the left main ,left anterior descending artery and right coronary artery. In view of her complicated acute coronary syndrome, in order to further evaluate her coronary status, a cardiac catheterization was recommended. Patient underwent left heart catheterization with left and right coronary angiogram. The findings are as follows.. 2. Patent stent in the left main. High-grade in-stent stenosis in the mid LAD. 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 High-grade lesion in the right coronary artery. Elevated LVEDP of 27 mmHg. I reviewed and discussed the cardiac conization data with Dr. Stone. The study be appropriate to consider PCI of the LAD and the RCA lesions. Dr. Stone took over further management of this patient at this point .. Recommendations * Continue current medical management and risk factor modification. Diagnostic RX Recommendation: PCI w/o planned CABG LV EDP: 27 mmHg Left Ventriculography Findings: * LV gram was not performed because of the same about dye overload. The LVEDP was 27 mmHg. Pressures Phase:Rest AO : 118 / 56 ( 80 ) @ 1:29:00 AM 118 / 57 ( 81 ) @ 1:29:00 AM LV : 111 / 5 / @ 1:28:00 AM 112 / 1 / @ 1:28:00 AM 112 / 2 / @ 1:29:00 AM Valves Phase:DefaultPhase AV : 0.0 @ 8:03:06 AM AV Mean Gradient: 0.0 @ 8:03:06 AM Clinical Evaluation EBL: 5mL-10mL Procedural Details Pre-Procedure Time Out. Identified patient by full name and date of as verbalized by the patient/guarantor. Does the consent match the physician's order: Yes. Accurate & Complete Informed Consent: Yes. If H&P is completed, is and addenduem needed: N/A; If yes, is the addendum complete: N/A. Visualize and Verify Site with Patient/Guarantor: N/A. The risks, benefits, and alternatives of sedation and/or procedure were discussed by physician. The patient agrees to continue. Procedure started. Baseline sample Acquired. HR: 88 BPM. Physician notified. bilateral groins was prepped with chloroprep then draped in the usual sterile fashion. Oxygen started at 2liters/min via nasal canula. Physician arrived. Correct patient, site and procedure confirmed by cath team. Current diagnosis: NSTEMI. Procedure Consent Obtained. Physician scrubbed in. Immediate Pre-Procedure Time Out. Correct Patient: Yes; Correct Procedure: Yes; Correct Site: Yes; Correct Patient Position: Yes; Correct Supplies: Yes; Dried Flammable Prep: Yes; Blood Products Available: N/A. Lidocaine 1% infiltrated to the right groin. Arterial access obtained with micropuncture set. A 5 nauruan JL4 catheter in over wire. Multiple views taken of left coronary artery. Catheter out. A CRD 5F JR4 Diagnostic Catheter was advanced over the wire and used for Left coronary angiography. Dr. Stone arrived. Multiple views taken of right coronary artery. Catheter out. A 5 nauruan Angled Pig catheter in over wire. EDP Sample taken: LV 111/5,27; HR: 105 BPM; SpO2: 97%. Pullback taken: LV 112/2,26; AO 118/56(80); Mean: 0mmHg, Peak to Peak: 0mmHg, SEP: 22sec/min; HR: 106 BPM; SpO2: 96%. Dr. Akhtar scrubbed out. Attempted to call Dr. Ko, no answer and no voicemail set up. Physician scrubbed in. 6 nauruan JR 4 SH guide catheter was inserted over the wire. Clinton guidewire was advanced through the guide catheter to lesion in the mid RCA. Inflation number : 1 A AB TREK 2.50X12 RX BALLOON was prepped and advanced across the Mid RCA , then inflated to 18 KATYA for 0:20 seconds. Balloon out. Taj Henriquez was relieved by JENN Ramsey as monitoring person. Inflation Number : 2 A MDT R DAVID 3.0X34 TRANG -Lot Number# [id number] was prepped and advanced across the Mid RCA. The stent was deployed at 14 KATYA for 0:39 seconds. Stent expiration date: 12/23/2021. Inflation number : 3 A MDT NC EUPHORA RX [id number] BALLOON was prepped and advanced across the Mid RCA , then inflated to 18 KATYA for 0:07 seconds. Inflation number: 6 The MDT NC EUPHORA RX 3.52W99RY BALLOON was reinflated across the Mid RCA, to 18 KATYA for 0:09 seconds. Balloon and wire out. Guide catheter out. 6 nauruan XB 3.5 guide catheter was inserted over the wire. ACT drawn. Results 198 seconds. Therapeutic limits - pre-heparin administration 90-150 seconds and monitoring heparin during a vascular procedure >250 seconds. Guide catheter out. 6 nauruan JL 4 SH guide catheter was inserted over the wire. Clinton guidewire was advanced through the guide catheter to lesion in the mid LAD. Wire out. Runthrough guidewire was advanced through the guide catheter to lesion in the mid LAD. Inflation number : 1 A AB MINI TREK 1.50X6 RX BALLOON was prepped and advanced across the Mid LAD , then inflated to 18 KATYA for 0:05 seconds. Inflation number: 2 The AB MINI TREK 1.50X6 RX BALLOON was reinflated across the Mid LAD, to 18 KATYA for 0:10 seconds. Inflation number: 3 The AB MINI TREK 1.50X6 RX BALLOON was reinflated across the Mid LAD, to 18 KATYA for 0:14 seconds. Balloon out. Inflation number : 4 A AB MINI TREK 2.00X12 RX BALLOON was prepped and advanced across the Mid LAD , then inflated to 12 KATYA for 0:37 seconds. Inflation number: 5 The AB MINI TREK 2.00X12 RX BALLOON was reinflated across the Mid LAD, to 8 KATYA for 0:15 seconds. Inflation number: 6 The AB MINI TREK 2.00X12 RX BALLOON was reinflated across the Mid LAD, to 18 KATYA for 0:23 seconds. Inflation number: 7 The AB MINI TREK 2.00X12 RX BALLOON was reinflated across the Mid LAD, to 18 KATYA for 0:14 seconds. Balloon out. Inflation Number : 8 A MDT R DAVID 2.75X15 TRANG -Lot Number# [id number] was prepped and advanced across the Mid LAD. The stent was deployed at 12 KATYA for 0:25 seconds. Stent expiration date: 03/18/2022. Inflation number: 9 The AB MINI TREK 2.00X12 RX BALLOON was reinflated across the Mid LAD, to 4 KATYA for 0:18 seconds. Inflation number: 10 The AB MINI TREK 2.00X12 RX BALLOON was reinflated across the Mid LAD, to 4 KATYA for 0:28 seconds. Inflation number: 11 The AB MINI TREK 2.00X12 RX BALLOON was reinflated across the Mid LAD, to 6 KATYA for 0:23 seconds. Balloon out. Wire out. Guide catheter out. Groin shot taken. ACT drawn. Results 232 seconds. Therapeutic limits - pre-heparin administration 90-150 seconds and monitoring heparin during a vascular procedure >250 seconds. A Suture was successful obtaining hemostatsis at the Right Femoral artery insertion site. Sheath(s) sutured into position with 2-0 silk and sterile 4x4's and Op-site applied over the site. No oozing or signs and symptoms of hematoma noted. Arterial sheath flushed and connected to tranducer and pressure bag with heparinized saline. Post Procedure: Pulses reassessed and unchanged. PERRLA. Strong, equal hand price checker bilaterally. No VTE prophylaxis required. Medication's Wasted: Heparin = 3500 units. Medication's Wasted: Other = Cardene 24.5 mg. Medication's Wasted: Other = Fentanyl 25 mcg. Medication's Wasted: Nitro = 49.8 mg. Total IV fluids: 370 mL. Contrast type used: Omnipaque 300 mgI/mL, 500 mL bottle. PCI Indication: NSTE. Post-op diagnosis: Multivessel CAD. Complications: None. Estimated blood loss: 5mL-10mL. Procedure completed. Vital chart was stopped. Patient transferred by bed to 1st floor. Access Site Site: Right Femoral artery Sheath Size: 6 Fr Hemostasis Method: Suture Hemostasis Success: Successful Procedure Medications Start: 6:05 AM Stop: 6:05 AM Medication: Versed Amount: 1 mg Route: I.V. Start: 6:05 AM Stop: 6:05 AM Medication: Fentanyl Amount: 50 mcg Route: I.V. Start: 6:19 AM Stop: 6:19 AM Medication: Versed Amount: 1 mg Route: I.V. Start: 6:20 AM Stop: 6:20 AM Medication: 0.9% Saline Amount: 250 ml Route: I.V. bolus Start: 6:22 AM Stop: 6:22 AM Medication: Heparin Amount: 1500 units Route: I.V. Start: 6:29 AM Stop: 6:29 AM Medication: Fentanyl Amount: 25 mcg Route: I.V. Start: 6:32 AM Stop: 6:32 AM Medication: Versed Amount: 1 mg Route: I.V. Start: 6:39 AM Stop: 6:39 AM Medication: Fentanyl Amount: 25 mcg Route: I.V. Start: 6:46 AM Stop: 6:46 AM Medication: Versed Amount: 1 mg Route: I.V. Start: 6:50 AM Stop: 6:50 AM Medication: Heparin Amount: 7000 units Route: I.V. Start: 6:54 AM Stop: 6:54 AM Medication: Fentanyl Amount: 25 mcg Route: I.V. Start: 7:10 AM Stop: 7:10 AM Medication: Heparin Amount: 2000 units Route: I.V. Start: 7:10 AM Stop: 7:10 AM Medication: Versed Amount: 1 mg Route: I.V. Start: 7:12 AM Stop: 7:12 AM Medication: Fentanyl Amount: 25 mcg Route: I.V. Start: 7:24 AM Stop: 7:24 AM Medication: Fentanyl Amount: 25 mcg Route: I.V. Start: 7:27 AM Stop: 7:27 AM Medication: Nitrogylcerin Amount: 200 mcg Route: I.C. Start: 7:46 AM Stop: 7:46 AM Medication: Cardene Amount: 500 mcg Start: 7:53 AM Stop: 7:53 AM Medication: Plavix Amount: 300 mg Route: P.O. I, the attending physician, have reviewed and verified all procedure medications. Yes, all medications given per verbal order History/Risk Factors Hypertension: Yes Dyslipidemia: Yes Peripheral Arterial Disease (PAD): No Myocardial Infarction (AR): Yes Obesity: No Renal Disease: No Prior Interventions PCI: No CABG: No Valve Surgery: No Report Signatures Finalized by Dr Em Akhtar MD [facility] on 08/02/2020 03:44 PM
[2020-08-02 06:04] LABS: Anion Gap 10.7 (5-19); Blood Urea Nitrogen 23 mg/dL (8-23); Calcium 8.3 mg/dL (8.5-10.5); Carbon Dioxide 33 mmol/L (22-29); Chloride 98 mmol/L (98-107); Glucose 135 mg/dL (65-115); Osmolality Calculated 292 mOsm/kg (285-295); Potassium 3.7 mmol/L (3.5-5.1); Sodium 138 mmol/L (136-145)
--- NOTE | 2020-08-02 06:04 | W.PM.OPSUD ---
Surgery/Procedure H&P Update DATE OF PROCEDURE: August 02, 2020 DATE H&P PERFORMED: 07/31/20 H&P UPDATE INFORMATION: I have reviewed H&P completed within last 30 days, I have examined patient prior to procedure and No changes to prior documentation PREOP DIAGNOSIS: NSTEMI PRIMARY INDICATION FOR PROCEDURE: NSTEMI PLANNED PROCEDURE: Operation Date: 08/01/20 11:30 Proposed Procedures p Left Cardiac Catheterization(Left) - Em Akhtar MD Operation Date: 08/02/20 06:00 Proposed Procedures p Left Cardiac Catheterization(Left) - Em Akhtar MD PATIENT REASSESSED PRIOR TO SEDATION, WITH NO CHANGE NOTED: Yes PHYSICAL EXAM: alert, oriented x 3, clear to auscultation bilaterally and regular rate & rhythm AIRWAY EVAL/ANESTHESIA PLAN: normal airway, see other exam findings, ASA III, Monitored Anesthesia, Local Anesthesia, Risks, benefits & alternatives of sedation and/or procedure discussed and Patient agrees to continue as planned
--- NOTE | 2020-08-02 07:12 | PC.NURSE ---
off unitpr computer lab para professional
--- NOTE | 2020-08-02 07:30 | PC.NURSE ---
From lab scientist Back from lab scientist. 6 Fr sheath on right groin is attached to pressure bag. no hematoma, swelling or bleeding. Neurivascular checks and normal. Pt denies any pain. Pt stated she has chronic left knee pain. Activity restrictions discuss to pt on her right hip and right leg. Skin is warm. lower extr pulses are doppled and good flow. IVF running at 100 ml/hr as ordered. Call light provided to pt and within her reach. Will keep monitoring.
--- NOTE | 2020-08-02 08:15 | PC.NURSE ---
From carpenter labor supervisor via bed. asleep post sedation. Right groin 6 FR arterial sheath is attached to pressure bag. No bleeding, hematoma or swelling. Pulses are doppled. Acitivity restrictions discussed to pt. Pt verbalizes understanding. Call light provided to pt.
[2020-08-02] MEDS: sodium chloride 0.9% 1,000 ML 100 ML IV (10:22)
[2020-08-02] MEDS: isosorbide dinitrate 20 mg Tablet 30 MG PO (10:22)
[2020-08-02] MEDS: aspirin 81 mg EC Tablet PO (10:23)
[2020-08-02] MEDS: metoprolol succinate ER (24 HR) 50 mg Tablet PO (10:23)
[2020-08-02] MEDS: clopidogrel 75 mg Tablet PO (10:23)
[2020-08-02] MEDS: duloxetine 30 mg Capsule PO ×2 (10:23→18:12)
[2020-08-02] MEDS: lisinopril 10 mg Tablet PO (10:23)
[2020-08-02] MEDS: insulin glargine 100 units/1 mL 32 UNIT SUBCUT ×2 (10:24→18:13)
[2020-08-02] MEDS: acetaminophen 325 mg Tablet 650 MG PO ×2 (10:28→21:26)
[2020-08-02 10:43] LABS: Partial Thromboplastin Time 134.1 SECONDS (23.9-36.7)
[2020-08-02 12:02] LABS: Glucose Point of Care 199 mg/dL (70-110)
[2020-08-02 12:21] LABS: Partial Thromboplastin Time 82.7 SECONDS (23.9-36.7)
--- NOTE | 2020-08-02 13:57 | P.PN_ITS ---
Subjective Subjective: Interval history: Status post arteriogram today. Total mid LAD lesion and an ostial lesion both of which were stented. Doing well post procedure scurrently. Vitals/I&O/Wt Last Vital Signs Temp 98.8 F 08/02/20 04:35 Pulse 86 08/02/20 10:00 Resp 20 H 08/02/20 10:00 BP 107/64 08/02/20 10:00 Pulse Ox 98 08/02/20 10:00 08/01/20 08/02/20 08/02/20 22:59 06:59 14:59 Intake Total 240 / 840 360 / 360 Output Total 700 / 700 575 / 1275 1000 / 1000 Balance -460 / 140 -575 / -435 -640 / -640 Physical Exam Narrative: EXAM NARRATIVE: Patient sleeping, arouses but quick to go back to sleep. Color is improved. Lungs are clear to auscultation. No snoring is noted. Regular rate and rhythm. Abdomen is obese but soft. Right groin with sheath in place, dressing is currently clean dry and intact except for one small scant bit of bright red blood that actually looks like it is from original dressing placement rather than recent due to the location in the periphery of the dressing rather than near the puncture site. 1+ dorsalis pedis pulse with brisk capillary refill on the right Urinary Catheter Management^: Arzate Latex: Cath Placed During This Visit: yes Reason for Continuing Indwelling Catheter: Required Immobilization for Trauma or Surgery or Anesthesia Urinary Catheter Date of Insertion: 07/31/20 Urinary Catheter Time of Insertion: 10:30 Data : 08/02/20 04:17 08/02/20 04:17 A&P Assessment and plan (1) Non-ST elevation MD (NSTEMI): With significant elevation in troponin. Known history of coronary artery disease with notable prior interventions. Status: Acute (2) Dyslipidemia: Low HDL Status: Chronic (3) Type 2 diabetes mellitus with diabetic polyneuropathy: Hemoglobin A1c 8.5 Status: Chronic Qualifiers: Diabetes mellitus residential insulin use: with predatory animal exterminator use Qualified Code(s): E11.42 - Type 2 diabetes mellitus with diabetic polyneuropathy; Z79.4 - USP (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 of insulin (4) Atrial fibrillation: Status: Chronic Qualifiers: Atrial fibrillation type: persistent (not longstanding) Qualified Code(s): I48.19 - Other persistent atrial fibrillation (5) HTN (hypertension): Status: Chronic Qualifiers: Hypertension type: essential hypertension Qualified Code(s): I10 - Essential (primary) hypertension (6) Asthma: Status: Chronic (7) BMI 40.0-44.9, adult: Status: Chronic Additional A&P Information Anemia stable, may be due to delusional secondary to volume received periprocedure Leukocytosis improved felt to be reactive currently Routine post stent placement management Resume diet and medications Monitor need for diuresis Covid antigen is negative Plavix has been added to intended home medication regimen Remains on treatment dose Lovenox Anticipate eventual transition back to [facility] which was a home medication On metoprolol, statin, an NIRAJ inhibitor, isosorbide and diuretic therapy As needed nitroglycerin sublingual Currently her home sotalol is held -will need to address resumption with cardiology Long-acting and and sliding scale insulin Has albuterol, formulary substitution for Symbicort, singular and guaifenesin Tylenol for pain control which is what she normally takes at home Plan to discontinue Arzate catheter once getting up and around with cardiac rehab Supportive care otherwise Current tentative Full code Attestations Medical Necessity Statement*: Requires ongoing inpatient stay for usual post cardiac catheterization and stent placement management Coding Level of Care Code Acute Safety Manager for Griselda Gomez Diagnoses Non-ST elevation MD (NSTEMI) I21.4 Dyslipidemia E78.5 Type 2 diabetes mellitus with diabetic polyneuropathy E11.42; Z79.4 Diabetes mellitus predatory animal exterminator insulin use: with residential use Atrial fibrillation I48.19 Atrial fibrillation type: persistent (not longstanding) HTN (hypertension) I10 Hypertension type: essential hypertension Asthma J45.909 BMI 40.0-44.9, adult Z68.41
[2020-08-02 15:22] LABS: Partial Thromboplastin Time 53.1 SECONDS (23.9-36.7)
[2020-08-02 16:47] LABS: Partial Thromboplastin Time 43.8 SECONDS (23.9-36.7)
[2020-08-02] MEDS: fentaNYL 50 mcg/mL INJ 2mL 25 MCG IVP (17:00)
[2020-08-02 17:04] LABS: Glucose Point of Care 194 mg/dL (70-110)
[2020-08-02 20:15] LABS: Glucose Point of Care 205 mg/dL (70-110)
--- NOTE | 2020-08-02 20:54 | PC.NURSE ---
Sheath removal Explained procedure to pt. Pre-medicated pt with Fentanyl IVP as ordered. Right femoral artery felt palpable +3. 6 Fr sheath removed to right groin. Sheath catheter is intact. Firm Manual pressure held for 20 mins. Hemostasis achieved. No hematoma, swelling or bleeding noted. DP and PT pulses are diminished but dopplerable. right lower extr skin is warm. VS remain stable. Pt denies any pain on groin area. Pt does have a chronic left knee pain. Pt tolerated the procedure well. Activity restrictions discuss to pt such as bedrest 6 hrs and to let nurse know for any unusual pain, numbness or pressure and wetness to right groin area. Pt verbalizes understanding. Call light provided and within her reach.
[2020-08-02] MEDS: montelukast sodium 10 mg Tablet PO (21:19)
[2020-08-02] MEDS: atorvastatin 40 mg Tablet 80 MG PO (21:19)
[2020-08-02] MEDS: enoxaparin 100 mg/mL Syringe SUBCUT (21:19)
--- NOTE | 2020-08-02 22:15 | PC.NURSE ---
Bedside report received from Leo RN. Pt is resting in bed, A & O x4. Cath site has no redness, pain or hematoma present. Patient has no C/O of pain or other needs at this time. Nurse will continue to monitor.
[2020-08-03] VITALS (24 sets, daily range): BP systolic 100–140; BP diastolic 49–77; PULSE 77–122; RESP 17–30; TEMP 36.7–37.1; O2SAT 90–98
[2020-08-03] MEDS: FUROsemide 40 mg Tablet PO (05:35)
[2020-08-03] MEDS: acetaminophen 325 mg Tablet 650 MG PO ×3 (05:35→23:32)
[2020-08-03 06:09] LABS: Basophils % 0.2 %; Eosinophils # 0.2 10^3/uL (0.0-0.8); Eosinophils % 1.7 %; Hematocrit 32.9 % (37.0-47.0); Hemoglobin 9.9 g/dL (11.5-15.3); Lymphocytes # 1.9 10^3/uL (0.8-4.8); Lymphocytes % 16.8 %; Mean Corpuscular HGB Conc 30.1 g/dL (30.0-36.0); Mean Corpuscular Hemoglobin 30.3 pg (28.0-34.0); Mean Corpuscular Volume 100.6 fL (81-99); Mean Platelet Volume 12.9 fL (7.4-10.4); Monocytes # 1.5 10^3/uL (0.2-0.9); Neutrophils # 7.77 10^3/uL (1.8-7.7); Neutrophils % 67.9 %; Nucleated Red Blood Cells % 0 %; Platelet Count 203 10^3/cmm (130-400); Red Blood Count 3.27 10^6/uL (4.1-5.3); Red Cell Distribution Width 13.4 % (12.1-15.1); White Blood Count 11.4 10^3/uL (4.0-10.0)
[2020-08-03 06:28] LABS: Glucose Point of Care 125 mg/dL (70-110)
[2020-08-03 06:29] LABS: Anion Gap 11.2 (5-19); Blood Urea Nitrogen 21 mg/dL (8-23); Calcium 8.1 mg/dL (8.5-10.5); Carbon Dioxide 32 mmol/L (22-29); Chloride 101 mmol/L (98-107); Glucose 134 mg/dL (65-115); Osmolality Calculated 295 mOsm/kg (285-295); Potassium 4.2 mmol/L (3.5-5.1); Sodium 140 mmol/L (136-145)
--- NOTE | 2020-08-03 08:55 | PM.PN ---
Subjective Subjective: Interval history: s/p Mid Left Anterior Descending Coronary Artery and Mid Right Coronary Artery stents Medications: Reviewed: Yes Medication Review Details: Current Medications Acetaminophen (Acetaminophen 325 Mg Tablet) 650 mg PO Q4H PRN PRN Reason: MILD PAIN Last Admin: 08/03/20 05:35 Dose: 650 mg Documented by: Al Hydrox/Mg Hydrox/Simethicone (Nssc-Usi-Jydcgvzta-Brian 30 Ml Udc) 30 ml PO Q15M PRN PRN Reason: INDIGESTION Albuterol Sulfate (Albuterol 2.5 Mg/0.5 Ml Neb) 2.5 mg INHALATION Q4H.RESPIRATORY PRN PRN Reason: SHORTNESS OF BREATH Alprazolam (Alprazolam 0.25 Mg Tablet) 0.25 mg PO TID PRN PRN Reason: ANXIETY Aspirin (Aspirin 81 Mg Ec Tablet) 81 mg PO DAILY [facility] Last Admin: 08/02/20 10:23 Dose: 81 mg Documented by: Atorvastatin Calcium (Atorvastatin 40 Mg Tablet) 80 mg PO BEDTIME [facility] Last Admin: 08/02/20 21:19 Dose: 80 mg Documented by: Atropine Sulfate (Atropine 1 Mg/Ml Sdv 1 Ml) 0.5 mg IVP PRN PRN PRN Reason: Symptomatic bradycardia Clopidogrel Bisulfate (Clopidogrel 75 Mg Tablet) 75 mg PO DAILY [facility] Last Admin: 08/02/20 10:23 Dose: 75 mg Documented by: Dextrose (Dextrose 50% Syringe 50 Ml) 25 ml IVP ONCE PRN; Protocol PRN Reason: hypoglycemia protocol Dextrose (Dextrose 50% Syringe 50 Ml) 50 ml IVP PRN PRN; Protocol PRN Reason: hypoglycemia protocol Duloxetine HCl (Duloxetine 30 Mg Capsule) 30 mg PO BID [facility] Last Admin: 08/02/20 18:12 Dose: 30 mg Documented by: Enoxaparin Sodium (Enoxaparin 100 Mg/Ml Syringe) 100 mg SUBCUT Q12H [facility] Last Admin: 08/02/20 21:19 Dose: 100 mg Documented by: Furosemide (Furosemide 40 Mg Tablet) 40 mg PO QAM [facility] Last Admin: 08/03/20 05:35 Dose: 40 mg Documented by: Glucagon (Glucagon 1 Mg/Ml Inj 1 Ml) 1 mg IM ONCE PRN; Protocol PRN Reason: Adult Acute Hypoglycemia Prot. Guaifenesin (Guaifenesin 100 Mg/5 Ml Udc 10 Ml) 400 mg PO Q4H PRN PRN Reason: COUGH Dextrose (D5w) 500 mls @ 100 mls/hr IV ONCE PRN; Protocol PRN Reason: Adult Acute Hypoglycemia Prot Insulin Aspart (Insulin Aspart 100 Unit/1 Ml) 0 unit SUBCUT WM&BEDTIME [facility]; Protocol Last Admin: 08/03/20 07:13 Dose: Not Given Documented by: Insulin Glargine (Insulin Glargine 100 Units/1 Ml) 32 unit SUBCUT BID [facility] Last Admin: 08/02/20 18:13 Dose: 32 unit Documented by: Isosorbide Dinitrate (Isosorbide Dinitrate 20 Mg Tablet) 30 mg PO DAILY [facility] Last Admin: 08/02/20 10:22 Dose: 30 mg Documented by: Lisinopril (Lisinopril 10 Mg Tablet) 10 mg PO DAILY [facility] Last Admin: 08/02/20 10:23 Dose: 10 mg Documented by: Magnesium Hydroxide (Magnesium Hydroxide 30 Ml Udc) 30 ml PO DAILY PRN PRN Reason: CONSTIPATION Metoprolol Succinate (Metoprolol Succinate Er (24 Hr) 50 Mg Tablet) 50 mg PO DAILY [facility] Last Admin: 08/02/20 10:23 Dose: 50 mg Documented by: Montelukast Sodium (Montelukast Sodium 10 Mg Tablet) 10 mg PO BEDTIME [facility] Last Admin: 08/02/20 21:19 Dose: 10 mg Documented by: Morphine Sulfate (Morphine 4 Mg/Ml Sdv 1 Ml) 2 mg IVP Q4H PRN PRN Reason: SEVERE PAIN Last Admin: 07/31/20 23:00 Dose: 2 mg Documented by: Naloxone HCl (Naloxone 0.4 Mg/Ml Sdv) 0.1 mg IVP Q2M PRN PRN Reason: RESPIRATORY RATE < 8/MIN Nitroglycerin (Nitroglycerin 0.4 Mg Sublingual Tablet) 0.4 mg SUBLINGUAL Q5M PRN PRN Reason: CHEST PAIN Last Admin: 07/31/20 19:21 Dose: 0.4 mg Documented by: Fluticasone/Salmeterol (Fluticasone-Salmeterol 250-50 Diskus) 1 puff INHALATION BID.RESPIRATORY DIANA Last Admin: 08/02/20 19:16 Dose: 1 puff Documented by: Temazepam (Temazepam 15 Mg Capsule) 15 mg PO BEDTIME PRN PRN Reason: INSOMNIA Vitals/I&O/Wt Last Vital Signs Temp 98.2 F 08/03/20 07:19 Pulse 82 08/03/20 07:19 Resp 20 H 08/03/20 07:19 BP 106/56 08/03/20 07:19 Pulse Ox 95 08/03/20 07:19 08/02/20 08/03/20 08/03/20 22:59 06:59 14:59 Intake Total 1969.167 / 2329.167 120 / 120 Output Total 1000 / 1999 600 / 2600 Balance -1000 / -1640 1369.167 / -270.833 120 / 120 Physical Exam Narrative: EXAM NARRATIVE: Gen: obese woman laying in bed NAD Neck: No JVD HEENT:PEERL, No pallor, no cyanosis RS: CTAB/L anteriorly, No wheezing or rales CVS: S1, S2, intermittent tachycardia, No wheezing or rales. PA: soft, obese, NT, ND CARE SUPPORT REPRESENTATIVE: AAOx 3, No FND Ext: No edema, left knee pain Urinary Catheter Management^: Arzate Latex: Cath Placed During This Visit: yes Reason for Continuing Indwelling Catheter: Acute Urinary Retention or Obstruction Urinary Catheter Date of Insertion: 07/31/20 Urinary Catheter Time of Insertion: 10:30 Data : 08/03/20 04:30 08/03/20 04:31 Other data: Cardiac cathetarization (08/02/20) Diagnostic Cath Status: Urgent Diagnostic Findings * No significant disease noted in the Left Main, LAD, Circumflex, or RCA coronary arteries. * Mid Left Anterior Descending Coronary Artery: has lesion. * Mid Right Coronary Artery: has lesion. * Coronary angiography shows right dominance. * The left main is a medium caliber vessel. The distal stented segment of the left main appears to be patent with around 20% in-stent narrowing. * The left anterior descending artery is a medium caliber vessel which was found to have long stented segment starting from the proximal to the mid LAD. Right after the first septal purchasing officer, the stented segment was found to have a high-grade in-stent stenosis of around 80 to 90%. The ostium of the first septal purchasing officer was found to have around 50% narrowing. The first 2 diagonal branches the likely large vessel which was found to have around 50 to 60% ostial narrowing. Mild diffuse disease was noted in the distal segment of the artery.. * The left circumflex artery appears to be totally occluded near the ostium. This is a chronic occlusion. Grade 2 left to left collaterals noted filling of the obtuse marginal branches. * The right coronary artery is the dominant vessel. The proximal stented segment appears to be widely patent. Right after the first RV branch, there was a high-grade lesion of around 80%. The PDA branch was found to be occluded. The PLV branches found to have mild to moderate diffuse disease.. Interventional Findings * Mid Left Anterior Descending Coronary Artery: treated with AB MINI TREK 1.50X6 RX BALLOON, AB MINI TREK 2.00X12 RX BALLOON, and MDT R DAVID 2.75X15 TRANG. * Mid Right Coronary Artery: treated with AB TREK 2.50X12 RX BALLOON, MDT R DAVID 3.0X34 TRANG, and MDT NC EUPHORA RX 3.30C46NO BALLOON. Conclusions 1. 75-year-old white female with history of atherosclerotic heart disease, diabetes, high blood pressure and dyslipidemia presents with features of non-ST elevation myocardial infarction and congestive heart failure. She had a previous stent placement in the left main ,left anterior descending artery and right coronary artery. In view of her complicated acute coronary syndrome, in order to further evaluate her coronary status, a cardiac catheterization was recommended. Patient underwent left heart catheterization with left and right coronary angiogram. The findings are as follows.. 2. Patent stent in the left main. High-grade in-stent stenosis in the mid LAD. 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 High-grade lesion in the right coronary artery. Elevated LVEDP of 27 mmHg. I reviewed and discussed the cardiac conization data with Dr. Stone. The study be appropriate to consider PCI of the LAD and the RCA lesions. Dr. Stone took over further management of this patient at this point .. Recommendations * Continue current medical management and risk factor modification. LV EDP: 27 mmHg Left Ventriculography Findings: * LV gram was not performed because of the same about dye overload. The LVEDP was 27 mmHg. # TTE (07/31/20) CONCLUSIONS Normal LV size ejection fraction of 60%. Wall motion normalities as mentioned above. Second aortic and mitral valves. Mild mitral valve regurgitation. There is no pericardial effusion. There are no intracardiac masses. Technically difficult study because of the poor ultrasonic window. A&P Assessment and plan (1) Non-ST elevation MN (NSTEMI): s/p TRANG to mid LAD and mid RCA yesterday -continue ASA, plavix, statin and beta blockers. Status: Acute (2) Atrial fibrillation: Paroxysmal A. fib, no prior CV. -did not tolerate sotalol 120 BID and denies being on 80 mg BID. -was taking sotalol 120 mg daily. -stop metoprolol and restart sotalol 80 mg PO BID Status: Chronic Qualifiers: Atrial fibrillation type: persistent (not longstanding) Qualified Code(s): I48.19 - Other persistent atrial fibrillation (3) Acute diastolic heart failure: Heart failure is currently compensated. May continue the p.o. Lasix. Status: Acute (4) Controlled type 2 diabetes mellitus with hyperglycemia, with long-term current use of insulin: Status: Chronic (5) HTN (hypertension): Blood pressure is under control. We will continue on the current medications. Status: Chronic Qualifiers: Hypertension type: essential hypertension Qualified Code(s): I10 - Essential (primary) hypertension (6) Dyslipidemia: Status: Chronic Additional A&P Information s/p fall B/L osteoarthritis Anemia Obesity DM-2 Attestations Medical Necessity Statement*: Hospital stay for medication titration for A. fib Time Spent in Patient Care: 16 - 35 minutes (>than 50% of time spent in counselling and/or direct pt care on unit). Coding Level of Care Code Acute Junior Linux Systems Administrator for [facility] Fwd Diagnoses Non-ST elevation MN (NSTEMI) I21.4 Atrial fibrillation I48.19 Atrial fibrillation type: persistent (not longstanding) Acute diastolic heart failure I50.31 Controlled type 2 diabetes mellitus with hyperglycemia, with long-term current use of insulin E11.65; Z79.4 HTN (hypertension) I10 Hypertension type: essential hypertension Dyslipidemia E78.5
--- NOTE | 2020-08-03 08:59 | PC.SOCIAL ---
Pg 2 IMM Explained to pt Pg 2 IMM. No questions voiced. Provided pt a copy. Signed, dated, & timed a copy & placed in chart.
--- NOTE | 2020-08-03 09:14 | PC.CHAP ---
Pastoral Care Encounter/Spiritual Assessment Type of Contact [] Declined immigration attorney visit [] Patient/Family/Request visit [] Outpatient visit [] Follow-up visit [] Physician referral [] Code/Alert [x] Routine visit [] Staff referral [] Actively dying [] Patient sleeping [] Family support [] [] Out of room [] Palliative care [] [] Receiving care in room [] Pre-surgical visit [] Trauma [] Long length of stay [] ICU visit [] Other: Relational/Emotional Strength [x] Patient feels connected with others/family/visitors/staff [] Distress [] Loneliness/isolation [] Abandonment Spirituality of Patient [x] Person of Mariela [x] Attends Judaism of their Mariela [x] Believes in Prayer [] Reads Bible or Advent materials [] There are Spiritual issues to be addressed Weld Engineer Interventions [x] Prayer [x] Active listening [x] Non-anxious presence [x] Spiritual/emotional support [] Crisis/trauma care [] Spiritual counseling [] Bereavement support [] Provided bereavement packet [] Provided Bible/devotional materials [] Provided toy/stuffed animal, coloring book to patient or family member [] Provided Communion [] Anointing/[place] [] Salvation [x] Completed spiritual assessment [] Other: Impact on Illness or Injury [] Angry [] Fearful [] Anxious [] Often cries [] Exhaustion [] Unable to work [] Unable to attend jewish [] Unable to walk/stand [] Unable to read [] Unable to drive [] Unable to eat/drink [] Unable to sleep [] Unable to be with family [] Patient intubated [] Other: Summary Pt has had her procedure and is waiting to be discharged to go home. Hoping that will happen today. She had cell phone and is able to keep connected with family and friends outside the hospital. Pt. stated she was raised in alevism but due to health has not been able to attend services for some time. She continues to have a strong sense of mariela and trust. We concluded our visit with prayer. Time spent with patient 15 m
[2020-08-03] MEDS: aspirin 81 mg EC Tablet PO (09:19)
[2020-08-03] MEDS: lisinopril 10 mg Tablet PO (09:19)
[2020-08-03] MEDS: metoprolol succinate ER (24 HR) 50 mg Tablet PO (09:20)
[2020-08-03] MEDS: clopidogrel 75 mg Tablet PO (09:22)
[2020-08-03] MEDS: duloxetine 30 mg Capsule PO ×2 (09:22→17:39)
[2020-08-03] MEDS: insulin glargine 100 units/1 mL 32 UNIT SUBCUT ×2 (09:22→17:41)
[2020-08-03] MEDS: isosorbide mononitrate ER 30 mg Tablet PO (09:28)
[2020-08-03 11:01] LABS: Glucose Point of Care 280 mg/dL (70-110)
[2020-08-03] MEDS: enoxaparin 100 mg/mL Syringe SUBCUT ×2 (11:21→23:27)
--- NOTE | 2020-08-03 14:44 | PHA.FALL ---
A Pharmacy Consult Was Conducted For Pauline Rubio Due To: Aponte Fall Scale Risk Level: High Fall Risk On 08/03/20 08:00 And A Medication Fall Risk Score Greater Than 10. The Recommendations Are As Follows: The following meds have adverse effects that, in theory, could increase risk of a fall, combinations increase this risk, no assumption of length or stability of home meds was taken into consideration, only the meds and their potential effects are included below. Side effects and percentages supplied by [facility] Alprazolam: Beers List: Cognitive disorder (28.8% ), Confusion (1.5% to 10.4% ), Dysarthria (10.9% to 23.3% ), Incoordination (9.4% to 40.1% ), Lightheadedness (20.8% ), Memory impairment (15.4% to 33.1% ), Sedated (45.2% ), Somnolence (23% to 76.8% ) Cymbalta: Hypersomnia, Sedated (Pediatric, 9% ), Somnolence Morphine: izziness (6% ), Lightheadedness, Somnolence (3% or greater ) Nitroglycerin SL: Dizziness (SL, 2% or more), Lightheadedness Imdur: Dizziness (Extended-release, 8% to 11%) Singulair: Serious side effect (not common): Neurologic: Disorientated Lisinopril: Dizziness (12% to 19% ) Sotalol: Disturbance of consciousness (4% ), Dizziness (13.1% to 20% ) Temazepam: Beers List: Somnolence (9.1% ), Blurred vision (1.3% )
--- NOTE | 2020-08-03 15:31 | XRR_ITS ---
PROCEDURE INFORMATION: Exam: XR Left Knee Exam date and time: 08/03/2020 3:34 PM Age: 75 years old Clinical indication: Injury or trauma; Fall; Blunt trauma; Knee; Left; Additional info: Left knee pain from fall, edema, warmth TECHNIQUE: Imaging protocol: XR Left knee. Views: 3 views. COMPARISON: No relevant prior studies available. FINDINGS: Bones/joints: Moderate to severe primary tricompartmental osteoarthritis. Moderate to severe lateral knee compartment primary osteoarthritis. Moderate medial knee compartment primary osteoarthritis. Moderate to severe patellofemoral primary osteoarthritis. Small joint effusion. There may be one or more intra-articular loose bodies. Soft tissues: Normal. XR/XR knee LT 3V* [id number] IMPRESSION: 1. Moderate to severe primary tricompartmental osteoarthritis. 2. Small joint effusion. 3. There may be one or more intra-articular loose bodies.
[2020-08-03 17:19] LABS: Glucose Point of Care 269 mg/dL (70-110)
--- NOTE | 2020-08-03 17:19 | CTR_ITS ---
PROCEDURE INFORMATION: Exam: CT Left Lower Extremity Without Contrast, Knee Exam date and time: 08/03/2020 7:10 PM Age: 75 years old Clinical indication: Injury or trauma; Blunt trauma; Left; Patient HX: C/O L knee pain and swelling after a fall - unable to bear weight; Additional info: Fall, pain, swelling, warmth, unable to bear weight L knee TECHNIQUE: Imaging protocol: CT of the Left lower extremity without contrast was performed. Exam focused on the knee. Radiation optimization: All CT scans at this facility use at least one of these dose optimization techniques: automated exposure control; mA and/or kV adjustment per patient size (includes targeted exams where dose is matched to clinical indication); or iterative reconstruction. COMPARISON: CR (LOW EXM, ) 08/03/2020 4:07 PM RADIATION DOSE METRICS: Total DLP (mGy-cm): 1016.85 FINDINGS: Bones/joints: Moderate patellofemoral compartment primary osteoarthritis. Moderate to severe medial knee compartment primary osteoarthritis. Moderate lateral knee compartment primary osteoarthritis. Moderate high density joint fluid with probable blood clots consistent with hemarthrosis. Posttraumatic versus septic. Moderate to severe primary tricompartmental osteoarthritis. Soft tissues: Normal. Vasculature: Moderate calcified peripheral vascular disease. CT/CT knee LT wo con* [id number] IMPRESSION: 1. Moderate high density joint fluid with probable blood clots consistent with hemarthrosis. Posttraumatic versus septic. 2. Moderate to severe primary tricompartmental osteoarthritis. Radiation Dose CTDIVOL = (mGy): DLP = 1016.85 (mGy-cm)
--- NOTE | 2020-08-03 17:22 | P.PN_ITS ---
Subjective Subjective: Interval history: When nursing staff went to remove the Arzate catheter today, patient was unable to bear weight on her left lower extremity. She had not previously complained of pain in her knee at least to me but now states that the event that led her to come to the hospital was one in which she was standing up and both of her knees gave out. She landed on her left knee. She has had pain in the knee since that time. She is currently unable to bend the knee. She was initially maintained bed rest with bedside commode due to the significant troponin elevation and then yesterday status post procedure. Plan had been to ambulate her today with potential discharge. She has had prior knee arthroscopies and is known to have bilateral osteoarthritis of the knees. She was able to ambulate prior to this event. Vitals/I&O/Wt Last Vital Signs Temp 98.7 F 08/03/20 14:51 Pulse 107 H 08/03/20 14:51 Resp 24 H 08/03/20 14:51 BP 110/57 08/03/20 14:51 Pulse Ox 90 08/03/20 14:51 08/03/20 08/03/20 08/03/20 06:59 14:59 22:59 Intake Total 1969.167 / 2329.167 360 / 360 Output Total 600 / 2600 Balance 1369.167 / -270.833 360 / 360 Physical Exam Narrative: EXAM NARRATIVE: Awake and alert, lungs are clear to auscultation bilaterally, regular rhythm, no murmurs, abdomen is soft, obese but nontender. There is no pitting edema to the distal extremities. Left knee is swollen compared to the right with some warmth to palpation but no erythema or bruising. Patella is ballotable. Pain with palpation of the joint. Pain with attempted minimal movement of the joint. No palpable cystic mass in the popliteal fossa. Speech clear. Urinary Catheter Management^: Arzate Latex: Cath Placed During This Visit: yes Reason for Continuing Indwelling Catheter: Acute Urinary Retention or Obstruction Urinary Catheter Date of Insertion: 07/31/20 Urinary Catheter Time of Insertion: 10:30 Data : 08/03/20 04:30 08/03/20 04:31 A&P Assessment and plan (1) Pain of left knee after injury: Status post fall at home prior to admission landing on her left knee. Decreased mobility currently. With anticoagulation and during the hospital stay have to keep in mind possibility of hemarthrosis. Fracture is a concern as is a ligamental injury. Status: Acute (2) Non-ST elevation GA (NSTEMI): With significant elevation in troponin. Known history of coronary artery disease with notable prior interventions. Status post stent to the mid LAD and right coronary artery 08/02/2020 Status: Acute (3) Acute diastolic heart failure: Oral Lasix Status: Acute (4) Atrial fibrillation: Beginning to have intermittent tachycardia. Cardiology is transition back to sotalol on 08/03/2020 but change dosing from 120 daily to 80 twice daily to s ee how she does. Eliquis. Status: Chronic Qualifiers: Atrial fibrillation type: persistent (not longstanding) Qualified Code(s): I48.19 - Other persistent atrial fibrillation (5) Dyslipidemia: Low HDL, chronically on a statin Status: Chronic (6) Type 2 diabetes mellitus with diabetic polyneuropathy: Hemoglobin A1c 8.5, chronically on insulin and metformin Status: Chronic Qualifiers: Diabetes mellitus senior living insulin use: with terminal operator use Qualified Code(s): E11.42 - Type 2 diabetes mellitus with diabetic polyneuropathy; Z79.4 - extermination supervisor (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 of insulin (7) HTN (hypertension): Chronically on isosorbide, Lasix Status: Chronic Qualifiers: Hypertension type: essential hypertension Qualified Code(s): I10 - Essential (primary) hypertension (8) Asthma: Not acute Status: Chronic (9) BMI 40.0-44.9, adult: Status: Chronic Additional A&P Information Anemia slight drop noted, may be due to delutional secondary to volume received versus occult blood loss Leukocytosis improving felt to be reactive presently Continue post stent placement management Plain films of the left knee were done any fracture Discussed the case with Dr. Fay who recommended CT of the knee to facilitate determination of weightbearing status (i.e. rule out a fracture). Not currently a candidate for any operative intervention secondary to cardiac issues. Maintain Arzate catheter until can determine weightbearing status Has morphine for pain control On aspirin, new Plavix and Lovenox On statin, Lasix, new lisinopril and isosorbide Metoprolol has been discontinued with resumption of sotalol Anticipate eventual transition back to Eliquis which was a home medication As needed nitroglycerin sublingual Long-acting and sliding scale insulin Has albuterol, formulary substitution for Symbicort, singular and guaifenesin Tylenol and morphine also for pain control Plan to discontinue Arzate catheter once we get a better idea of what is going on with her knee PT and OT evaluation pending further evaluation of the knee Supportive care otherwise Initial plan of been discharged home but with the increasing pain to the left knee, depending on how she does may have to consider alternative options such as skilled placement short-term Plans were discussed with patient and she was given an opportunity to ask questions And review with Dr. Richard as well Full code Attestations Medical Necessity Statement*: Requires ongoing inpatient stay due to continued management for cardiac issues -management status post stent placement and control of atrial fibrillation -as well as further evaluation of newly realized immobility of the left knee after a fall that occurred prior to admission. There is noted. Coding Level of Care Code Acute Keyliner for [facility] Diagnoses Pain of left knee after injury M25.562 Non-ST elevation GA (NSTEMI) I21.4 Acute diastolic heart failure I50.31 Atrial fibrillation I48.19 Atrial fibrillation type: persistent (not longstanding) Dyslipidemia E78.5 Type 2 diabetes mellitus with diabetic polyneuropathy E11.42; Z79.4 Diabetes mellitus senior living insulin use: with senior living use HTN (hypertension) I10 Hypertension type: essential hypertension Asthma J45.909 BMI 40.0-44.9, adult Z68.41
[2020-08-03] MEDS: atorvastatin 40 mg Tablet 80 MG PO (20:52)
[2020-08-03] MEDS: montelukast sodium 10 mg Tablet PO (20:52)
[2020-08-03] MEDS: sotalol 80 mg Tablet PO (20:52)
[2020-08-03 20:58] LABS: Glucose Point of Care 272 mg/dL (70-110)
--- NOTE | 2020-08-03 23:16 | ECG_ITS ---
[facility] Test Date: 2020-08-03 Pat Name: Pauline Rubio Department: Room: 106 Gender: Female Telegraph Operator: susanna JIN: [id number] Requested By: Em Akhtar Order Number: [id number] Juan MD: Apurva Richard M.D. Measurements Intervals [place] Rate: 101 P: 96 VT: 208 QRS: -6 QRSD: 113 T: 78 QT: 367 QTc: 476 Interpretive Statements SINUS TACHYCARDIA MODERATE INTRAVENTRICULAR CONDUCTION DELAY [110+ ms QRS DURATION] MODERATE ST DEPRESSION [0.05+ mV ST DEPRESSION] Compared to ECG 08/01/2020 10:29:26 Intraventricular conduction delay now present ST (T wave) deviation now present Sinus rhythm no longer present T-wave abnormality no longer present Electronically Signed On 08-06-2020 12:26:20 CDT by Apurva Richard M.D. [email or web address]
[2020-08-04] VITALS (13 sets, daily range): BP systolic 118–139; BP diastolic 62–81; PULSE 72–112; RESP 18–29; TEMP 36.4–36.8; O2SAT 92–98
[2020-08-04 05:45] LABS: Basophils % 0.2 %; Eosinophils # 0.2 10^3/uL (0.0-0.8); Eosinophils % 1.4 %; Hematocrit 32.4 % (37.0-47.0); Lymphocytes # 2.2 10^3/uL (0.8-4.8); Lymphocytes % 17.7 %; Mean Corpuscular HGB Conc 30.9 g/dL (30.0-36.0); Mean Corpuscular Hemoglobin 30.6 pg (28.0-34.0); Mean Corpuscular Volume 99.1 fL (81-99); Mean Platelet Volume 12.1 fL (7.4-10.4); Monocytes # 1.7 10^3/uL (0.2-0.9); Monocytes % 13.8 %; Neutrophils # 8.31 10^3/uL (1.8-7.7); Neutrophils % 66.4 %; Nucleated Red Blood Cells % 0 %; Platelet Count 255 10^3/cmm (130-400); Red Blood Count 3.27 10^6/uL (4.1-5.3); Red Cell Distribution Width 13.3 % (12.1-15.1); White Blood Count 12.5 10^3/uL (4.0-10.0)
[2020-08-04] MEDS: FUROsemide 40 mg Tablet PO (06:00)
[2020-08-04 06:11] LABS: Anion Gap 11.7 (5-19); Blood Urea Nitrogen 20 mg/dL (8-23); Calcium 8.1 mg/dL (8.5-10.5); Carbon Dioxide 33 mmol/L (22-29); Chloride 98 mmol/L (98-107); Glucose 91 mg/dL (65-115); Osmolality Calculated 290 mOsm/kg (285-295); Potassium 3.7 mmol/L (3.5-5.1); Sodium 139 mmol/L (136-145)
[2020-08-04 06:58] LABS: Glucose Point of Care 103 mg/dL (70-110)
[2020-08-04] MEDS: clopidogrel 75 mg Tablet PO (07:59)
[2020-08-04] MEDS: aspirin 81 mg EC Tablet PO (07:59)
[2020-08-04] MEDS: duloxetine 30 mg Capsule PO ×2 (07:59→17:20)
[2020-08-04] MEDS: lisinopril 10 mg Tablet PO (07:59)
[2020-08-04] MEDS: sotalol 80 mg Tablet PO ×2 (07:59→20:22)
[2020-08-04] MEDS: isosorbide mononitrate ER 30 mg Tablet PO (07:59)
[2020-08-04] MEDS: magnesium hydroxide 30 mL UDC PO (08:00)
[2020-08-04] MEDS: insulin glargine 100 units/1 mL 32 UNIT SUBCUT ×2 (08:00→17:20)
--- NOTE | 2020-08-04 09:11 | PM.PN ---
Subjective Subjective: Interval history: CT of the left lower extremity yesterday came back demonstrating evidence of hemarthrosis with some clot formation. No increase and left knee pain reported since yesterday. I talked with Mrs. Rubio a bit more about what happened when she came in. Although the focus by the time hospitalist were contacted for admission was non-ST elevation NH, Mrs. Rubio actually came into the emergency room because of the knee pain. She had had an event at home where she was trying to get somewhere and both of her legs gave out and she landed on her left knee. Although she was having nausea, vomiting and abdominal pain and other discomforts, she would not have come to the emergency room if it was not for the pain in her left knee by her report. She admits that she had not complained specifically about the acute left knee pain until yesterday in part because of being so surprised about what was going on with her heart. Asked me for her Tylenol for her arthritis pain, referencing both knees the day after admission. She indicates she had no idea her GI symptoms more that of a heart attack. She has been on anticoagulation the entire time that she has been here with treatment dose Lovenox. She states that the pain in her left knee is actually better than it was when she first came into the emergency room. The swelling in the knee is not increased. The inability to move it is not changed much. I discussed the case with Dr. Fay regarding anticoagulation. Given lack of worsening pain and swelling and already apparent clot formation, at this time okay to continue anticoagulation in light of her acute cardiac issues. Dr. Fay will see her in consultation. Also spoke with Dr. Richard to update her. Plavix cannot be stopped. She needs full anticoagulation presently. Ideally she should also stay on aspirin but if she starts to have worsening, aspirin would be the first thing that we could hold. Vitals/I&O/Wt Last Vital Signs Temp 98.7 F 08/03/20 14:51 Pulse 89 08/04/20 08:15 Resp 20 H 08/04/20 08:15 BP 139/71 08/04/20 07:05 Pulse Ox 98 08/04/20 08:15 08/03/20 08/04/20 08/04/20 22:59 06:59 14:59 Intake Total 240 / 600 240 / 240 Output Total 1240 / 1240 550 / 1790 Balance -1000 / -640 -550 / -1190 240 / 240 Physical Exam Narrative: EXAM NARRATIVE: Awake and alert. Lungs are clear to auscultation bilaterally. Cardiovascular exam with distant heart sounds but regular rhythm. Right groin is intact without significant bruising. Abdomen is soft. Left knee remains tender to palpation. Still with evidence of effusion. Has not enlarged since yesterday. Not quite as warm as yesterday. No erythema. No external bruising noted. I have not visualized the posterior part of her knee due to pain with movement. Arzate catheter remains in place. Urinary Catheter Management^: Arzate Latex: Cath Placed During This Visit: yes Reason for Continuing Indwelling Catheter: Accurate Measurement of Urinary Output in Critically Ill Patients Urinary Catheter Date of Insertion: 07/31/20 Urinary Catheter Time of Insertion: 10:30 Data : 08/04/20 04:48 08/04/20 04:48 A&P Assessment and plan (1) Hemarthrosis involving knee joint: In a patient on chronic anticoagulation. Stems from a fall prior to admission and by patient's account has been present since prior to admission. Pain has lessened in severity despite being on full anticoagulation while here. Status: Acute Qualifiers: Laterality: left Qualified Code(s): M25.062 - Hemarthrosis, left knee (2) Non-ST elevation NH (NSTEMI): With significant elevation in troponin to a peak of 1088. Known history of coronary artery disease with notable prior interventions. Status post stent to the mid LAD and right coronary artery 08/02/2020. Status: Acute (3) Acute diastolic heart failure: Oral Lasix Status: Acute (4) Atrial fibrillation: Sotalol held at admission and difference to metoprolol given the acute NH. She subsequently developed some tachycardia. Cardiology transitioned back to sotalol on 08/03/2020 but change dosing from 120 daily to 80 twice daily to see how she does. She has previously not tolerated 120 mg twice daily. Was on Eliquis prior to admission for history of atrial fibrillation though that is currently held. Status: Chronic Qualifiers: Atrial fibrillation type: persistent (not longstanding) Qualified Code(s): I48.19 - Other persistent atrial fibrillation (5) Dyslipidemia: Low HDL, chronically on a statin Status: Chronic (6) Type 2 diabetes mellitus with diabetic polyneuropathy: Hemoglobin A1c 8.5, chronically on insulin and metformin Status: Chronic Qualifiers: Diabetes mellitus terminal computer operator insulin use: with fdc use Qualified Code(s): E11.42 - Type 2 diabetes mellitus with diabetic polyneuropathy; Z79.4 - shelter (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 of insulin (7) HTN (hypertension): Chronically on isosorbide, Lasix Status: Chronic Qualifiers: Hypertension type: essential hypertension Qualified Code(s): I10 - Essential (primary) hypertension (8) Asthma: Not acute Status: Chronic (9) BMI 40.0-44.9, adult: Status: Chronic Additional A&P Information Anemia secondary to acute blood loss from hemarthrosis, stable Leukocytosis improving felt to be reactive at this time Consult Dr Fay, discussed with her Cardiology following, discussed with Dr Hilary Cristobal to continue current anticoagulation and antiplatelet therapy - lovenox, aspirin and plavix- per discussion with orthopedics and cardiology given significant recent acute cardiac event and intervention as long as patient clinically not having increasing pain and swelling of the left knee. Recheck CBC in the morning PT evaluation Will need toe touch weight bearing, immobilization, discussed with passenger solicitor placement will be needed in light of immobility combined with acute cardiac issues and need for close monitoring while on treatment Monitor closely for increasing left knee swelling and pain and confer with both cardiology and orthopedics regarding adjustments to anticoagulation and antiplatelet therapy Per cardiology, if have too, can hold aspirin but have to continue plavix given acute stent placements; continuing both for now given circumstances Pain control, avoiding anti-inflammatory agents presently Have maintained Arzate catheter presently secondary to limited mobility and impact of body habitus on situation and we need to ensure cath site and other skin areas stay dry; discussed with patient the risk of infection with catheter and she is aware that we need to try to get it out once she is improved and have to be able to physically get on a bedpan or manage alternative options feasibly Continue statin, oral Lasix, isosorbide, lisinopril and sotalol Continue home doses of insulin for diabetes, home Metformin is held Has albuterol, formulary substitution for Symbicort, singular and guaifenesin Supportive care otherwise Plans were discussed with patient and she was given an opportunity to ask questions Full code Attestations Medical Necessity Statement*: Requires ongoing inpatient stay for continued management post NH with stent placement as well as management for hemarthrosis in a patient for whom anticoagulation and antiplatelet therapy have to be continued currently. Coding Level of Care Code Acute Airconditioning Plant Operator for g Fwd Diagnoses Hemarthrosis involving knee joint M25.062 Laterality: left Non-ST elevation NH (NSTEMI) I21.4 Acute diastolic heart failure I50.31 Atrial fibrillation I48.19 Atrial fibrillation type: persistent (not longstanding) Dyslipidemia E78.5 Type 2 diabetes mellitus with diabetic polyneuropathy E11.42; Z79.4 Diabetes mellitus terminal computer operator insulin use: with fdc use HTN (hypertension) I10 Hypertension type: essential hypertension Asthma J45.909 BMI 40.0-44.9, adult Z68.41
--- NOTE | 2020-08-04 10:13 | ECG_ITS ---
[facility] Test Date: 2020-08-04 Pat Name: Pauline Rubio Department: Room: 106 Gender: Female Settlement Processor: : 1945 Requested By: Juan Daily Order Number: [id number] Juan MD: Apurva Richard M.D. Measurements Intervals [place] Rate: 101 P: 50 RI: 203 QRS: -11 QRSD: 105 T: -14 QT: 366 QTc: 476 Interpretive Statements SINUS TACHYCARDIA LOW QRS VOLTAGE IN PRECORDIAL LEADS [QRS DEFLECTION < 1.0 mV IN CHEST LEADS] MODERATE ST DEPRESSION [0.05+ mV ST DEPRESSION] Compared to ECG 08/03/2020 23:24:53 Low QRS voltage now present Intraventricular conduction delay no longer present ST (T wave) deviation still present Electronically Signed On 08-06-2020 12:41:32 CDT by Apurva Richard M.D. [id number]
[2020-08-04 11:18] LABS: Glucose Point of Care 173 mg/dL (70-110)
[2020-08-04] MEDS: enoxaparin 100 mg/mL Syringe SUBCUT ×2 (11:47→23:11)
--- NOTE | 2020-08-04 16:29 | P.CONIM_ITS ---
Providers/Reason For Consult Consulting Physican/Specialty*: Dr. Dionne Fay - Orthopedics Reason for Consult*: Inability to weight-bear left lower extremity following a fall prior to admission Requesting Physcian: Dr. Mayra Jackson Attending Physician: Mayra Jackson MD Primary Care Provider: PORTER Lindsay History of Present Illness History of Present Illness Pauline Rubio is a 75 year old female Review of Systems Const: Reports: chills, body aches, change in appetite and fatigue; Denies: fever(s) Eyes: Denies: change in vision or eye discomfort ENMT: Denies: throat pain, odynophagia, nasal discharge or nasal congestion Card: Reports: chest pain and dyspnea on exertion; Denies: palpitations, edema, swelling of feet/ankles or orthopnea Resp: Reports: dyspnea and non-productive cough; Denies: productive cough GI: Reports: abdominal pain, nausea, vomiting and diarrhea; Denies: constipation or hematochezia : Denies: flank pain, dysuria or hematuria Musc: Reports: muscle cramps; Denies: neck pain, back pain, extremity swelling or joint warmth Skin/Breast: Reports: lesions; Denies: rash or new lesions Neuro: Denies: headache(s), numbness in extremities or weakness in extremities Psych: Denies: anxiety Endo: Denies: polyuria Ruben/Lymph: Denies: easy bruising All/Imm: Denies: urticaria or acute wheezing Meds/Allergies Home Medications and Allergies Home Medications Medication Instructions Recorded Confirmed Last Taken Type albuterol sulfate 90 mcg/actuation 2 puff INHALATION Q6H PRN 05/16/19 07/31/20 Unknown History aerosol inhaler metformin 500 mg tablet 500 mg PO BID 05/16/19 07/31/20 Unknown History apixaban 5 mg tablet 5 mg PO BID #60 tab 07/12/20 07/31/20 Unknown Rx duloxetine 30 mg capsule,delayed 30 mg PO BID #60 cap 07/12/20 07/31/20 Unknown Rx release furosemide 40 mg tablet 40 mg PO QAM tab 07/12/20 07/31/20 Unknown History nitroglycerin 0.4 mg sublingual 0.4 mg SUBLINGUAL Q5M PRN tab 07/12/20 07/31/20 Unknown History tablet acetaminophen [Tylenol Arthritis 1,300 mg PO Q8H 07/31/20 07/31/20 Unknown History Pain] albuterol sulfate 2.5 mg INHALATION PRN 07/31/20 07/31/20 Unknown History aspirin [Aspir-81] 81 mg PO QAM 07/31/20 07/31/20 Unknown History budesonide-formoterol [Symbicort] 2 puff INHALATION BID 07/31/20 07/31/20 Unknown History guaifenesin 400 mg PO QAM 07/31/20 07/31/20 Unknown History insulin glargine [Lantus U-100 32 unit SUBCUT BID 07/31/20 07/31/20 Unknown History Insulin] insulin lispro [Humalog KwikPen See Rx Instructions .ROUTE .COMPLEX 07/31/20 07/31/20 Unknown History Insulin] isosorbide mononitrate 30 mg PO DAILY@12 07/31/20 07/31/20 Unknown History montelukast 10 mg PO BEDTIME 07/31/20 07/31/20 Unknown History rosuvastatin 40 mg PO BEDTIME 07/31/20 07/31/20 Unknown History sotalol 120 mg PO QAM 07/31/20 07/31/20 Unknown History Allergies Allergy/AdvReac Type Severity Reaction Status Date / Time hydrocodone Allergy Vomitting Verified 07/31/20 08:46 Current Medications Current Medications Generic Name Dose Route Start Last Admin Trade Name Freq PRN Reason Stop Dose Admin Acetaminophen 650 mg 07/31/20 20:36 08/03/20 23:32 Acetaminophen 325 Mg Tablet PO 650 mg Q4H PRN Administration MILD PAIN Aspirin 81 mg 07/31/20 09:00 08/04/20 07:59 Aspirin 81 Mg Ec Tablet PO 81 mg DAILY DIANA Administration Atorvastatin Calcium 80 mg 07/31/20 21:00 08/03/20 20:52 Atorvastatin 40 Mg Tablet PO 80 mg BEDTIME DIANA Administration Clopidogrel Bisulfate 75 mg 07/31/20 09:00 08/04/20 07:59 Clopidogrel 75 Mg Tablet PO 75 mg DAILY DIANA Administration Duloxetine HCl 30 mg 08/01/20 09:00 08/04/20 07:59 Duloxetine 30 Mg Capsule PO 30 mg BID DIANA Administration Enoxaparin Sodium 100 mg 08/03/20 11:00 08/04/20 11:47 Enoxaparin 100 Mg/Ml Syringe SUBCUT 100 mg Q12H DIANA Administration Furosemide 40 mg 07/31/20 06:00 08/04/20 06:00 Furosemide 40 Mg Tablet PO 40 mg QAM DIANA Administration Insulin Aspart 0 unit 07/31/20 08:00 08/04/20 11:46 Insulin Aspart 100 Unit/1 Ml SUBCUT 4 unit WM&BEDTIME DIANA Administration Protocol Insulin Glargine 32 unit 07/31/20 09:00 08/04/20 08:00 Insulin Glargine 100 Units/1 Ml SUBCUT 32 unit BID DIANA Administration Isosorbide Mononitrate 30 mg 08/03/20 09:10 08/04/20 07:59 Isosorbide Mononitrate Er 30 Mg Tablet PO 30 mg DAILY DIANA Administration Lisinopril 10 mg 07/31/20 09:00 08/04/20 07:59 Lisinopril 10 Mg Tablet PO 10 mg DAILY DIANA Administration Magnesium Hydroxide 30 ml 08/02/20 08:02 08/04/20 08:00 Magnesium Hydroxide 30 Ml Udc PO 30 ml DAILY PRN Administration CONSTIPATION Montelukast Sodium 10 mg 08/01/20 21:00 08/03/20 20:52 Montelukast Sodium 10 Mg Tablet PO 10 mg BEDTIME DIANA Administration Morphine Sulfate 2 mg 07/31/20 02:14 07/31/20 23:00 Morphine 4 Mg/Ml Sdv 1 Ml IVP 2 mg Q4H PRN Administration SEVERE PAIN Nitroglycerin 0.4 mg 07/31/20 02:14 07/31/20 19:21 Nitroglycerin 0.4 Mg Sublingual Tablet SUBLINGUAL 0.4 mg Q5M PRN Administration CHEST PAIN Fluticasone/Salmeterol 1 puff 08/01/20 08:00 08/04/20 08:14 Fluticasone-Salmeterol 250-50 Diskus INHALATION 1 puff BID.RESPIRATORY DIANA Administration Sotalol HCl 80 mg 08/03/20 21:00 08/04/20 07:59 Sotalol 80 Mg Tablet PO 80 mg BID@0900,2100 DIANA Administration Additional Medication Information Current Medications Acetaminophen (Acetaminophen 325 Mg Tablet) 650 mg PO Q4H PRN PRN Reason: MILD PAIN Last Admin: 08/03/20 05:35 Dose: 650 mg Documented by: Al Hydrox/Mg Hydrox/Simethicone (Sohv-Yrg-Kaznhyrwy-Brian 30 Ml Udc) 30 ml PO Q15M PRN PRN Reason: INDIGESTION Albuterol Sulfate (Albuterol 2.5 Mg/0.5 Ml Neb) 2.5 mg INHALATION Q4H.RESPIRATORY PRN PRN Reason: SHORTNESS OF BREATH Alprazolam (Alprazolam 0.25 Mg Tablet) 0.25 mg PO TID PRN PRN Reason: ANXIETY Aspirin (Aspirin 81 Mg Ec Tablet) 81 mg PO DAILY [facility] Last Admin: 08/02/20 10:23 Dose: 81 mg Documented by: Atorvastatin Calcium (Atorvastatin 40 Mg Tablet) 80 mg PO BEDTIME [facility] Last Admin: 08/02/20 21:19 Dose: 80 mg Documented by: Atropine Sulfate (Atropine 1 Mg/Ml Sdv 1 Ml) 0.5 mg IVP PRN PRN PRN Reason: Symptomatic bradycardia Clopidogrel Bisulfate (Clopidogrel 75 Mg Tablet) 75 mg PO DAILY [facility] Last Admin: 08/02/20 10:23 Dose: 75 mg Documented by: Dextrose (Dextrose 50% Syringe 50 Ml) 25 ml IVP ONCE PRN; Protocol PRN Reason: hypoglycemia protocol Dextrose (Dextrose 50% Syringe 50 Ml) 50 ml IVP PRN PRN; Protocol PRN Reason: hypoglycemia protocol Duloxetine HCl (Duloxetine 30 Mg Capsule) 30 mg PO BID [facility] Last Admin: 08/02/20 18:12 Dose: 30 mg Documented by: Enoxaparin Sodium (Enoxaparin 100 Mg/Ml Syringe) 100 mg SUBCUT Q12H [facility] Last Admin: 08/02/20 21:19 Dose: 100 mg Documented by: Furosemide (Furosemide 40 Mg Tablet) 40 mg PO QAM [facility] Last Admin: 08/03/20 05:35 Dose: 40 mg Documented by: Glucagon (Glucagon 1 Mg/Ml Inj 1 Ml) 1 mg IM ONCE PRN; Protocol PRN Reason: Adult Acute Hypoglycemia Prot. Guaifenesin (Guaifenesin 100 Mg/5 Ml Udc 10 Ml) 400 mg PO Q4H PRN PRN Reason: COUGH Dextrose (D5w) 500 mls @ 100 mls/hr IV ONCE PRN; Protocol PRN Reason: Adult Acute Hypoglycemia Prot Insulin Aspart (Insulin Aspart 100 Unit/1 Ml) 0 unit SUBCUT WM&BEDTIME [facility]; Protocol Last Admin: 08/03/20 07:13 Dose: Not Given Documented by: Insulin Glargine (Insulin Glargine 100 Units/1 Ml) 32 unit SUBCUT BID [facility] Last Admin: 08/02/20 18:13 Dose: 32 unit Documented by: Isosorbide Dinitrate (Isosorbide Dinitrate 20 Mg Tablet) 30 mg PO DAILY [facility] Last Admin: 08/02/20 10:22 Dose: 30 mg Documented by: Lisinopril (Lisinopril 10 Mg Tablet) 10 mg PO DAILY [facility] Last Admin: 08/02/20 10:23 Dose: 10 mg Documented by: Magnesium Hydroxide (Magnesium Hydroxide 30 Ml Udc) 30 ml PO DAILY PRN PRN Reason: CONSTIPATION Metoprolol Succinate (Metoprolol Succinate Er (24 Hr) 50 Mg Tablet) 50 mg PO DAILY [facility] Last Admin: 08/02/20 10:23 Dose: 50 mg Documented by: Montelukast Sodium (Montelukast Sodium 10 Mg Tablet) 10 mg PO BEDTIME [facility] Last Admin: 08/02/20 21:19 Dose: 10 mg Documented by: Morphine Sulfate (Morphine 4 Mg/Ml Sdv 1 Ml) 2 mg IVP Q4H PRN PRN Reason: SEVERE PAIN Last Admin: 07/31/20 23:00 Dose: 2 mg Documented by: Naloxone HCl (Naloxone 0.4 Mg/Ml Sdv) 0.1 mg IVP Q2M PRN PRN Reason: RESPIRATORY RATE < 8/MIN Nitroglycerin (Nitroglycerin 0.4 Mg Sublingual Tablet) 0.4 mg SUBLINGUAL Q5M PRN PRN Reason: CHEST PAIN Last Admin: 07/31/20 19:21 Dose: 0.4 mg Documented by: Fluticasone/Salmeterol (Fluticasone-Salmeterol 250-50 Diskus) 1 puff INHALATION BID.RESPIRATORY [facility] Last Admin: 08/02/20 19:16 Dose: 1 puff Documented by: Temazepam (Temazepam 15 Mg Capsule) 15 mg PO BEDTIME PRN PRN Reason: INSOMNIA PFSH Acute PFSH: Medical History Asthma Atrial fibrillation CAD (coronary artery disease) Chronic kidney disease (CKD), stage II (mild) Controlled type 2 diabetes mellitus with hyperglycemia, with long-term current use of insulin Diabetic peripheral neuropathy associated with type 2 diabetes mellitus Diastolic CHF Dyslipidemia History of CVA in adulthood History of severe acute respiratory syndrome coronavirus 2 (SARS-CoV-2) disease (~01/2020) February 05 HTN (hypertension) Pain of left knee after injury Surgical History H/O angioplasty 7 stents, last stents 07/2020 H/O arthroscopic knee surgery Bilateral H/O parathyroidectomy H/O: hysterectomy History of appendectomy History of arthroscopic surgery of shoulder LEFT History of cholecystectomy History of tonsillectomy and adenoidectomy Family History Father Cancer Family/Other Cancer Mother Heart disease Stroke Dementia Denies family history of Diabetes CAD (coronary artery disease) Clotting disorder Hyperlipidemia Psychiatric illness Chronic kidney disease (CKD) Suicide Anesthesia complication Bleeding disorder Family history of premature coronary artery disease Lung disease Hypertension Social History Smoking and tobacco status: never smoked Second hand smoke exposure: No Smoking risk assessment/counseling performed?: No Alcohol intake: never Desire information about alcohol rehabilitation?: No Counseling given: No Desire information about substance/drug rehabilitation?: No Counseling given: No Adopted: No Caregiver/support person: Yes Lives independently: No Household members: family Housing: House Marital status: Single service: No Current occupational status: retired and disabled Pets and animals: Yes History of recent travel: No Current gender identity: Female Dietary Habits: Current diet type/program: diabetic (69 am) Caffeine: Yes Safety: Seatbelt use: always Helmet use: No Drive intoxicated or ride with intoxicated hazardous materials driver?: never Vitals/I&O/Wt Last Vital Signs Temp 97.6 F 08/04/20 14:53 Pulse 104 H 08/04/20 14:53 Resp 26 H 08/04/20 14:53 BP 118/64 08/04/20 14:53 Pulse Ox 95 08/04/20 14:53 08/04/20 08/04/20 08/04/20 06:59 14:59 22:59 Intake Total 360 / 360 Output Total 550 / 1790 1350 / 1350 Balance -550 / -1190 -990 / -990 Physical Exam Const: COMMON NORMALS: no acute distress, patient oriented x3 and alert GENERAL APPEARANCE: cooperative, comfortable and well kempt NUTRITIONAL APPEARANCE: obese ORIENTATION/CONSCIOUSNESS: Yes awake HENMT: COMMON NORMALS: normocephalic and atraumatic HEAD & SCALP: normocephalic and atraumatic Eye: GENERAL EYE: appearance normal, both eyes and all related structures Chest: COMMONS NORMALS: normal inspection of the chest Resp: COMMON NORMALS: normal respiratory effort EFFORT & INSPECTION: Yes able to speak in complete sentences and Yes symmetric chest movement Extremity: RIGHT LOWER EXTREMITY: Yes knee joint (The right lower extremity does not have effusion) Right knee: Yes inspection (No bruising or erythema) and Yes neurovascular exam (Calf is soft no evidence of DVT) LEFT LOWER EXTREMITY: Yes knee joint (The patient lives with both knees flexed) Left knee: Yes inspection (There is effusion to the knee), Yes palpation (Tender throughout), Yes ROM (Not evaluated secondary to pain) and Yes neurovascular exam (Intact distally no evidence of DVT) Neuro: COMMON NORMALS: patient oriented x3 SENSORIUM/ORIENTATION: Yes alert Psych: COMMON NORMALS: mental status grossly normal APPEARANCE: Yes grossly normal and Yes well kempt ATTITUDE: Yes calm and Yes engaged ATTENTION/CONCENTRATION: Yes attention grossly intact Skin: COMMON NORMALS: no rashes or lesions noted GENERAL SKIN EXAM: no rashes or lesions noted Urinary Catheter Management^: Arzate Latex: Cath Placed During This Visit: yes Reason for Continuing Indwelling Catheter: Accurate Measurement of Urinary Output in Critically Ill Patients Urinary Catheter Date of Insertion: 07/31/20 Urinary Catheter Time of Insertion: 10:30 Data Imaging^: Xray Ortho: I personally reviewed and interpreted this imaging study as follows: My impression: The patient had a plain film of her left knee. This is 3 views. There is significant degenerative osteoarthritic change with significant osteophyte formation as well. There is no evidence of acute fracture or dislocation. CT scan was recommended for follow-up evaluation. Other CT: I personally reviewed and interpreted this imaging study as follows: My impression: I have personally reviewed the CT scan which demonstrates a hemarthrosis with clotting. There is no evidence of acute fracture, but there i s severe degenerative osteoarthritic change. This is consistent with the patient's pre-CT imaging in the form of a plain film. There appears to be no acute fracture. A&P Assessment and plan (1) Hemarthrosis involving knee joint: This 75-year-old woman was admitted after a fall at home, and at the time of presentation to the emergency department, she was found to have significant cardiac changes consistent with TX. The patient did not complain of pain in the knee to the hospitalist team, and she was placed on a full anticoagulation schedule to address her cardiac issues. The patient had chronic longstanding left knee issues. She states this dates back to the age of 60 when she became disabled. Today, she was preparing for discharge, but she was unable to weight- bear on her left lower extremity. Upon further discussion and evaluation, the patient states that she actually came to the emergency department with knee pain after her fall. This complaint of pain was not documented or related to the emergency department or to the hospitalist team at the time of admission. It appears this fall was the result of a very significant myocardial infarction. Full anticoagulation was appropriately given. Interestingly, the patient notes that her knee has improved since her hospitalization, and certainly, it has not worsened or become more swollen in spite of full anticoagulation therapy. I discussed this case with Dr. Jackson both last evening and today. We discussed the possibility of fully anticoagulating the patient, and we also discussed weightbearing status. I would advise that the patient remain limited weightbearing secondary to her hemarthrosis and contusion to the knee. Given that she has not worsened significantly with aggressive anticoagulation to treat her TX, I would be comfortable with her continuing on full dose anticoagulation provided that her knee does not worsen. At this point, she is not a surgical candidate. Additionally, it is not felt that aspiration of the knee would be appropriate. The patient was given a knee immobilizer. She notes that this makes it feel more comfortable for a while, and that it makes it painful. I have advised her to limit her weightbearing. She may wear the knee immobilizer in or out of bed as necessary to improve comfort. I have also advised her that when she is transferring or attempting to ambulate or get out of bed, the knee immobilizer would likely give her the support she needs. Status: Acute Qualifiers: Laterality: left Qualified Code(s): M25.062 - Hemarthrosis, left knee (2) Pain of left knee after injury: Status: Acute (3) BMI 40.0-44.9, adult: Status: Chronic (4) Non-ST elevation TX (NSTEMI): Status: Acute Consult Attestations Medical Necessity Statement: Patient will likely require mcc secondary to her significant cardiac issue and inability to ambulate on the left knee. Coding Level of Care Code Acute Card Game Operator for Griselda Gomez Diagnoses Hemarthrosis involving knee joint M25.062 Laterality: left Pain of left knee after injury M25.562 BMI 40.0-44.9, adult Z68.41 Non-ST elevation TX (NSTEMI) I21.4
[2020-08-04 16:35] LABS: Glucose Point of Care 195 mg/dL (70-110)
--- NOTE | 2020-08-04 17:51 | P.PN_ITS ---
Subjective Subjective: Interval history: No arrhythmia on telemetry. CT scan of knee with blood clots consistent with hemarthrosis. Medications: Reviewed: Yes Medication Review Details: Current Medications Acetaminophen (Acetaminophen 325 Mg Tablet) 650 mg PO Q4H PRN PRN Reason: MILD PAIN Last Admin: 08/03/20 23:32 Dose: 650 mg Documented by: Al Hydrox/Mg Hydrox/Simethicone (Qqjn-Vdr-Dwxmjwquy-Brian 30 Ml Udc) 30 ml PO Q15M PRN PRN Reason: INDIGESTION Albuterol Sulfate (Albuterol 2.5 Mg/0.5 Ml Neb) 2.5 mg INHALATION Q4H.RESPIRATORY PRN PRN Reason: SHORTNESS OF BREATH Alprazolam (Alprazolam 0.25 Mg Tablet) 0.25 mg PO TID PRN PRN Reason: ANXIETY Aspirin (Aspirin 81 Mg Ec Tablet) 81 mg PO DAILY [facility] Last Admin: 08/04/20 07:59 Dose: 81 mg Documented by: Atorvastatin Calcium (Atorvastatin 40 Mg Tablet) 80 mg PO BEDTIME [facility] Last Admin: 08/03/20 20:52 Dose: 80 mg Documented by: Atropine Sulfate (Atropine 1 Mg/Ml Sdv 1 Ml) 0.5 mg IVP PRN PRN PRN Reason: Symptomatic bradycardia Clopidogrel Bisulfate (Clopidogrel 75 Mg Tablet) 75 mg PO DAILY [facility] Last Admin: 08/04/20 07:59 Dose: 75 mg Documented by: Dextrose (Dextrose 50% Syringe 50 Ml) 25 ml IVP ONCE PRN; Protocol PRN Reason: hypoglycemia protocol Dextrose (Dextrose 50% Syringe 50 Ml) 50 ml IVP PRN PRN; Protocol PRN Reason: hypoglycemia protocol Duloxetine HCl (Duloxetine 30 Mg Capsule) 30 mg PO BID [facility] Last Admin: 08/04/20 17:20 Dose: 30 mg Documented by: Enoxaparin Sodium (Enoxaparin 100 Mg/Ml Syringe) 100 mg SUBCUT Q12H [facility] Last Admin: 08/04/20 11:47 Dose: 100 mg Documented by: Furosemide (Furosemide 40 Mg Tablet) 40 mg PO QAM [facility] Last Admin: 08/04/20 06:00 Dose: 40 mg Documented by: Glucagon (Glucagon 1 Mg/Ml Inj 1 Ml) 1 mg IM ONCE PRN; Protocol PRN Reason: Adult Acute Hypoglycemia Prot. Guaifenesin (Guaifenesin 100 Mg/5 Ml Udc 10 Ml) 400 mg PO Q4H PRN PRN Reason: COUGH Dextrose (D5w) 500 mls @ 100 mls/hr IV ONCE PRN; Protocol PRN Reason: Adult Acute Hypoglycemia Prot Insulin Aspart (Insulin Aspart 100 Unit/1 Ml) 0 unit SUBCUT WM&BEDTIME [facility]; Protocol Last Admin: 08/04/20 17:21 Dose: 6 unit Documented by: Insulin Glargine (Insulin Glargine 100 Units/1 Ml) 32 unit SUBCUT BID [facility] Last Admin: 08/04/20 17:20 Dose: 32 unit Documented by: Isosorbide Mononitrate (Isosorbide Mononitrate Er 30 Mg Tablet) 30 mg PO DAILY [facility] Last Admin: 08/04/20 07:59 Dose: 30 mg Documented by: Lisinopril (Lisinopril 10 Mg Tablet) 10 mg PO DAILY [facility] Last Admin: 08/04/20 07:59 Dose: 10 mg Documented by: Magnesium Hydroxide (Magnesium Hydroxide 30 Ml Udc) 30 ml PO DAILY PRN PRN Reason: CONSTIPATION Last Admin: 08/04/20 08:00 Dose: 30 ml Documented by: Montelukast Sodium (Montelukast Sodium 10 Mg Tablet) 10 mg PO BEDTIME [facility] Last Admin: 08/03/20 20:52 Dose: 10 mg Documented by: Morphine Sulfate (Morphine 4 Mg/Ml Sdv 1 Ml) 2 mg IVP Q4H PRN PRN Reason: SEVERE PAIN Last Admin: 07/31/20 23:00 Dose: 2 mg Documented by: Naloxone HCl (Naloxone 0.4 Mg/Ml Sdv) 0.1 mg IVP Q2M PRN PRN Reason: RESPIRATORY RATE < 8/MIN Nitroglycerin (Nitroglycerin 0.4 Mg Sublingual Tablet) 0.4 mg SUBLINGUAL Q5M PRN PRN Reason: CHEST PAIN Last Admin: 07/31/20 19:21 Dose: 0.4 mg Documented by: Fluticasone/Salmeterol (Fluticasone-Salmeterol 250-50 Diskus) 1 puff INHALATION BID.RESPIRATORY [facility] Last Admin: 08/04/20 08:14 Dose: 1 puff Documented by: Sotalol HCl (Sotalol 80 Mg Tablet) 80 mg PO BID@0900,2100 [facility] Last Admin: 08/04/20 07:59 Dose: 80 mg Documented by: Temazepam (Temazepam 15 Mg Capsule) 15 mg PO BEDTIME PRN PRN Reason: INSOMNIA Vitals/I&O/Wt Last Vital Signs Temp 97.6 F 08/04/20 14:53 Pulse 104 H 08/04/20 14:53 Resp 26 H 08/04/20 14:53 BP 118/64 08/04/20 14:53 Pulse Ox 95 08/04/20 14:53 08/04/20 08/04/20 08/04/20 06:59 14:59 22:59 Intake Total 360 / 360 120 / 480 Output Total 550 / 1790 1350 / 1350 400 / 1750 Balance -550 / -1190 -990 / -990 -280 / -1270 Physical Exam Narrative: EXAM NARRATIVE: Gen: obese woman laying in bed NAD Neck: No JVD HEENT:PEERL, No pallor, no cyanosis RS: CTAB/L anteriorly, No wheezing or rales CVS: S1, S2, intermittent tachycardia, No wheezing or rales. PA: soft, obese, NT, ND LUSTER REPAIRER: AAOx 3, No FND Ext: No edema, left knee pain Urinary Catheter Management^: Arzate Latex: Cath Placed During This Visit: yes Reason for Continuing Indwelling Catheter: Accurate Measurement of Urinary Output in Critically Ill Patients Urinary Catheter Date of Insertion: 07/31/20 Urinary Catheter Time of Insertion: 10:30 Data : 08/04/20 04:48 08/04/20 04:48 A&P Assessment and plan (1) Non-ST elevation ME (NSTEMI): s/p TRANG to mid LAD and mid RCA on Wednesday -continue ASA, plavix, statin and beta blockers. -May be discharged on Plavix and Eliquis. Status: Acute (2) Atrial fibrillation: Paroxysmal A. fib, no prior CV. -did not tolerate sotalol 120 BID and denies being on 80 mg BID. -was taking sotalol 120 mg daily. -stop metoprolol and restarted sotalol 80 mg PO BID Status: Chronic Qualifiers: Atrial fibrillation type: persistent (not longstanding) Qualified Cod e(s): I48.19 - Other persistent atrial fibrillation (3) Acute diastolic heart failure: Heart failure is currently compensated. May continue the p.o. Lasix. Status: Acute (4) Controlled type 2 diabetes mellitus with hyperglycemia, with long-term current use of insulin: Status: Chronic (5) HTN (hypertension): Blood pressure is under control. We will continue on the current medications. Status: Chronic Qualifiers: Hypertension type: essential hypertension Qualified Code(s): I10 - Essential (primary) hypertension (6) Dyslipidemia: Status: Chronic Additional A&P Information s/p fall Left knee hemarthrosis B/L osteoarthritis Anemia Obesity DM-2 Prolonged participate in patient's care. Please feel free to call with questions or concerns Attestations Medical Necessity Statement*: As per primary team. Time Spent in Patient Care: 16 - 35 minutes (>than 50% of time spent in counselling and/or direct pt care on unit) . Coding Level of Care Code Acute Outbound Sales Executive for g Fwd Diagnoses Non-ST elevation ME (NSTEMI) I21.4 Atrial fibrillation I48.19 Atrial fibrillation type: persistent (not longstanding) Acute diastolic heart failure I50.31 Controlled type 2 diabetes mellitus with hyperglycemia, with long-term current use of insulin E11.65; Z79.4 HTN (hypertension) I10 Hypertension type: essential hypertension Dyslipidemia E78.5
--- NOTE | 2020-08-04 17:57 | ECG_ITS ---
[facility] Test Date: 2020-08-04 Pat Name: Pauline Rubio Department: Room: 106 Gender: Female Gastroenterology Professor: : 1945 Requested By: Apurva Richard Order Number: [id number] Juan MD: Apurva Richard M.D. Measurements Intervals [place] Rate: 99 P: 102 [place]: 217 QRS: -15 QRSD: 105 T: 43 QT: 367 QTc: 472 Interpretive Statements SINUS RHYTHM WITH FIRST DEGREE AV BLOCK NONSPECIFIC T-WAVE ABNORMALITY Compared to ECG 08/04/2020 10:22:38 First degree AV block now present T-wave abnormality now present Sinus tachycardia no longer present ST (T wave) deviation no longer present Electronically Signed On 08-06-2020 12:39:57 CDT by Apurva Richard M.D. [id number]
[2020-08-04] MEDS: montelukast sodium 10 mg Tablet PO (20:22)
[2020-08-04] MEDS: atorvastatin 40 mg Tablet 80 MG PO (20:22)
[2020-08-04 20:31] LABS: Glucose Point of Care 238 mg/dL (70-110)
[2020-08-05] VITALS (12 sets, daily range): BP systolic 112–120; BP diastolic 57–76; PULSE 74–97; RESP 16–33; TEMP 36.4–36.9; O2SAT 90–98
[2020-08-05 04:20] LABS: Basophils # 0.1 10^3/uL (0.0-0.1); Basophils % 0.4 %; Eosinophils # 0.2 10^3/uL (0.0-0.8); Eosinophils % 1.2 %; Hematocrit 32.9 % (37.0-47.0); Hemoglobin 10.1 g/dL (11.5-15.3); Lymphocytes # 2.8 10^3/uL (0.8-4.8); Lymphocytes % 20.4 %; Mean Corpuscular HGB Conc 30.7 g/dL (30.0-36.0); Mean Corpuscular Hemoglobin 29.7 pg (28.0-34.0); Mean Corpuscular Volume 96.8 fL (81-99); Mean Platelet Volume 12.3 fL (7.4-10.4); Monocytes # 1.7 10^3/uL (0.2-0.9); Monocytes % 12.2 %; Neutrophils # 8.94 10^3/uL (1.8-7.7); Neutrophils % 65.5 %; Nucleated Red Blood Cells % 0 %; Platelet Count 304 10^3/cmm (130-400); Red Cell Distribution Width 13.1 % (12.1-15.1); White Blood Count 13.7 10^3/uL (4.0-10.0)
[2020-08-05] MEDS: acetaminophen 325 mg Tablet 650 MG PO ×3 (04:25→21:08)
[2020-08-05] MEDS: FUROsemide 40 mg Tablet PO (06:02)
[2020-08-05 06:52] LABS: Glucose Point of Care 97 mg/dL (70-110)
[2020-08-05] MEDS: sotalol 80 mg Tablet PO ×2 (08:22→21:08)
[2020-08-05] MEDS: aspirin 81 mg EC Tablet PO (08:23)
[2020-08-05] MEDS: clopidogrel 75 mg Tablet PO (08:23)
[2020-08-05] MEDS: lisinopril 10 mg Tablet PO (08:23)
[2020-08-05] MEDS: isosorbide mononitrate ER 30 mg Tablet PO (08:23)
[2020-08-05] MEDS: duloxetine 30 mg Capsule PO ×2 (08:23→17:45)
[2020-08-05] MEDS: insulin glargine 100 units/1 mL 32 UNIT SUBCUT ×2 (08:24→17:45)
--- NOTE | 2020-08-05 10:26 | ECG_ITS ---
[facility] Test Date: 2020-08-05 Pat Name: Pauline Rubio Department: Room: 106 Gender: Female Merchandise Presentation Manager: : 1945 Requested By: Apurva Richard Order Number: [id number] Juan MD: Apurva Richard M.D. Measurements Intervals [place] Rate: 76 P: 36 [place]: 188 QRS: -31 QRSD: 118 T: -63 QT: 418 QTc: 472 Interpretive Statements SINUS RHYTHM MARKED LEFT AXIS DEVIATION [QRS AXIS < -30] MODERATE INTRAVENTRICULAR CONDUCTION DELAY [110+ ms QRS DURATION] NONSPECIFIC ST & T-WAVE ABNORMALITY Compared to ECG 08/04/2020 22:28:40 Left-axis deviation now present Intraventricular conduction delay now present First degree AV block no longer present T-wave abnormality still present Electronically Signed On 08-06-2020 12:36:56 CDT by Apurva Richard M.D. [id number]
[2020-08-05 11:28] LABS: Glucose Point of Care 304 mg/dL (70-110)
[2020-08-05] MEDS: polyethylene glycol 3350 Pkt 17 gm PO (11:57)
[2020-08-05] MEDS: enoxaparin 100 mg/mL Syringe SUBCUT ×2 (11:57→23:14)
--- NOTE | 2020-08-05 12:40 | P.PN_ITS ---
Subjective Subjective: Interval history: Intermittent A. fib/flutter with RVR noted on tele. CT scan of knee with blood clots consistent with hemarthrosis. Doing well with improved pain and swelling. Medications: Reviewed: Yes Medication Review Details: Current Medications Acetaminophen (Acetaminophen 325 Mg Tablet) 650 mg PO Q4H PRN PRN Reason: MILD PAIN Last Admin: 08/03/20 23:32 Dose: 650 mg Documented by: Al Hydrox/Mg Hydrox/Simethicone (Kibj-Tpx-Lnyribzcd-Brian 30 Ml Udc) 30 ml PO Q15M PRN PRN Reason: INDIGESTION Albuterol Sulfate (Albuterol 2.5 Mg/0.5 Ml Neb) 2.5 mg INHALATION Q4H.RESPIRATORY PRN PRN Reason: SHORTNESS OF BREATH Alprazolam (Alprazolam 0.25 Mg Tablet) 0.25 mg PO TID PRN PRN Reason: ANXIETY Aspirin (Aspirin 81 Mg Ec Tablet) 81 mg PO DAILY [facility] Last Admin: 08/04/20 07:59 Dose: 81 mg Documented by: Atorvastatin Calcium (Atorvastatin 40 Mg Tablet) 80 mg PO BEDTIME [facility] Last Admin: 08/03/20 20:52 Dose: 80 mg Documented by: Atropine Sulfate (Atropine 1 Mg/Ml Sdv 1 Ml) 0.5 mg IVP PRN PRN PRN Reason: Symptomatic bradycardia Clopidogrel Bisulfate (Clopidogrel 75 Mg Tablet) 75 mg PO DAILY [facility] Last Admin: 08/04/20 07:59 Dose: 75 mg Documented by: Dextrose (Dextrose 50% Syringe 50 Ml) 25 ml IVP ONCE PRN; Protocol PRN Reason: hypoglycemia protocol Dextrose (Dextrose 50% Syringe 50 Ml) 50 ml IVP PRN PRN; Protocol PRN Reason: hypoglycemia protocol Duloxetine HCl (Duloxetine 30 Mg Capsule) 30 mg PO BID [facility] Last Admin: 08/04/20 17:20 Dose: 30 mg Documented by: Enoxaparin Sodium (Enoxaparin 100 Mg/Ml Syringe) 100 mg SUBCUT Q12H [facility] Last Admin: 08/04/20 11:47 Dose: 100 mg Documented by: Furosemide (Furosemide 40 Mg Tablet) 40 mg PO QAM [facility] Last Admin: 08/04/20 06:00 Dose: 40 mg Documented by: Glucagon (Glucagon 1 Mg/Ml Inj 1 Ml) 1 mg IM ONCE PRN; Protocol PRN Reason: Adult Acute Hypoglycemia Prot. Guaifenesin (Guaifenesin 100 Mg/5 Ml Udc 10 Ml) 400 mg PO Q4H PRN PRN Reason: COUGH Dextrose (D5w) 500 mls @ 100 mls/hr IV ONCE PRN; Protocol PRN Reason: Adult Acute Hypoglycemia Prot Insulin Aspart (Insulin Aspart 100 Unit/1 Ml) 0 unit SUBCUT WM&BEDTIME [facility]; Protocol Last Admin: 08/04/20 17:21 Dose: 6 unit Documented by: Insulin Glargine (Insulin Glargine 100 Units/1 Ml) 32 unit SUBCUT BID [facility] Last Admin: 08/04/20 17:20 Dose: 32 unit Documented by: Isosorbide Mononitrate (Isosorbide Mononitrate Er 30 Mg Tablet) 30 mg PO DAILY [facility] Last Admin: 08/04/20 07:59 Dose: 30 mg Documented by: Lisinopril (Lisinopril 10 Mg Tablet) 10 mg PO DAILY [facility] Last Admin: 08/04/20 07:59 Dose: 10 mg Documented by: Magnesium Hydroxide (Magnesium Hydroxide 30 Ml Udc) 30 ml PO DAILY PRN PRN Reason: CONSTIPATION Last Admin: 08/04/20 08:00 Dose: 30 ml Documented by: Montelukast Sodium (Montelukast Sodium 10 Mg Tablet) 10 mg PO BEDTIME [facility] Last Admin: 08/03/20 20:52 Dose: 10 mg Documented by: Morphine Sulfate (Morphine 4 Mg/Ml Sdv 1 Ml) 2 mg IVP Q4H PRN PRN Reason: SEVERE PAIN Last Admin: 07/31/20 23:00 Dose: 2 mg Documented by: Naloxone HCl (Naloxone 0.4 Mg/Ml Sdv) 0.1 mg IVP Q2M PRN PRN Reason: RESPIRATORY RATE < 8/MIN Nitroglycerin (Nitroglycerin 0.4 Mg Sublingual Tablet) 0.4 mg SUBLINGUAL Q5M PRN PRN Reason: CHEST PAIN Last Admin: 07/31/20 19:21 Dose: 0.4 mg Documented by: Fluticasone/Salmeterol (Fluticasone-Salmeterol 250-50 Diskus) 1 puff INHALATION BID.RESPIRATORY [facility] Last Admin: 08/04/20 08:14 Dose: 1 puff Documented by: Sotalol HCl (Sotalol 80 Mg Tablet) 80 mg PO BID@0900,2100 [facility] Last Admin: 08/04/20 07:59 Dose: 80 mg Documented by: Temazepam (Temazepam 15 Mg Capsule) 15 mg PO BEDTIME PRN PRN Reason: INSOMNIA Vitals/I&O/Wt Last Vital Signs Temp 98.5 F 08/05/20 07:27 Pulse 80 08/05/20 07:50 Resp 18 08/05/20 07:48 BP 120/76 08/05/20 07:27 Pulse Ox 94 08/05/20 07:48 08/04/20 08/05/20 08/05/20 22:59 06:59 14:59 Intake Total 120 / 480 150 / 630 120 / 120 Output Total 400 / 1750 650 / 2400 Balance -280 / -1270 -500 / -1770 120 / 120 Physical Exam Narrative: EXAM NARRATIVE: Gen: obese woman laying in bed NAD Neck: No JVD HEENT:PEERL, No pallor, no cyanosis RS: CTAB/L anteriorly, No wheezing or rales CVS: S1, S2, intermittent tachycardia, No wheezing or rales. PA: soft, obese, NT, ND RING CONDUCTOR: AAOx 3, No FND Ext: No edema, left knee pain Urinary Catheter Management^: Arzate Latex: Cath Placed During This Visit: yes Reason for Continuing Indwelling Catheter: Accurate Measurement of Urinary Output in Critically Ill Patients Urinary Catheter Date of Insertion: 07/31/20 Urinary Catheter Time of Insertion: 10:30 Data : 08/05/20 03:59 08/04/20 04:48 Micro: Microbiology 07/31/20 00:24 Blood Culture - Final Blood NO GROWTH AFTER 5 DAYS 07/30/20 22:38 Blood Culture - Final Blood NO GROWTH AFTER 5 DAYS A&P Assessment and plan (1) Non-ST elevation IA (NSTEMI): s/p TRANG to mid LAD and mid RCA on Wednesday -continue ASA, plavix, statin and beta blockers. -May be discharged on Plavix and Eliquis. Status: Acute (2) Atrial fibrillation: Paroxysmal A. fib, no prior CV. -did not tolerate sotalol 120 BID and was taking sotalol 120 mg daily. -continue sotalol 80 mg PO BID Status: Chronic Qualifiers: Atrial fibrillation type: persistent (not longstanding) Qualified Code(s): I48.19 - Other persistent atrial fibrillation (3) Acute diastolic heart failure: Heart failure is currently compensated. May continue the p.o. Lasix. Status: Acute (4) Controlled type 2 diabetes mellitus with hyperglycemia, with long-term current use of insulin: Status: Chronic (5) HTN (hypertension): Blood pressure is under control. We will continue on the current medicat ions. Status: Chronic Qualifiers: Hypertension type: essential hypertension Qualified Code(s): I10 - Essential (primary) hypertension (6) Dyslipidemia: Status: Chronic Additional A&P Information s/p fall Left knee hemarthrosis B/L osteoarthritis Anemia Obesity DM-2 Prolonged participate in patient's care. Please feel free to call with questions or concerns Attestations Medical Necessity Statement*: as per primary team Time Spent in Patient Care: 16 - 35 minutes (>than 50% of time spent in counselling and/or direct pt care on unit) . Coding Level of Care Code Acute Videogame Tester for [facility] Fwd Diagnoses Non-ST elevation IA (NSTEMI) I21.4 Atrial fibrillation I48.19 Atrial fibrillation type: persistent (not longstanding) Acute diastolic heart failure I50.31 Controlled type 2 diabetes mellitus with hyperglycemia, with long-term current use of insulin E11.65; Z79.4 HTN (hypertension) I10 Hypertension type: essential hypertension Dyslipidemia E78.5
[2020-08-05 13:18] LABS: Anion Gap 13.3 (5-19); Blood Urea Nitrogen 22 mg/dL (8-23); Calcium 8.4 mg/dL (8.5-10.5); Carbon Dioxide 32 mmol/L (22-29); Chloride 97 mmol/L (98-107); Glucose 70 mg/dL (65-115); Osmolality Calculated 288 mOsm/kg (285-295); Potassium 4.3 mmol/L (3.5-5.1); Sodium 138 mmol/L (136-145)
--- NOTE | 2020-08-05 15:33 | PC.SOCIAL ---
*IMM UPDATE* Auditor Internal gave patient IMM update. Provided copy of pg 2 of IMM. Verbalized understanding. Initialed, dated, timed and placed in chart.
--- NOTE | 2020-08-05 15:39 | P.PN_ITS ---
Subjective Subjective: Interval history: Patient was examined this morning, she is up to the side of the bed with physical therapy, she complains of generalized weakness, no fevers, chills, her left knee swelling has gone down, minimal pain, she is awaiting group home placement Medications: Medication Review Details: Current Medications Acetaminophen (Acetaminophen 325 Mg Tablet) 650 mg PO Q4H PRN PRN Reason: MILD PAIN Last Admin: 08/03/20 23:32 Dose: 650 mg Documented by: Al Hydrox/Mg Hydrox/Simethicone (Evrb-Yhe-Ukraiaqwp-Brian 30 Ml Udc) 30 ml PO Q15M PRN PRN Reason: INDIGESTION Albuterol Sulfate (Albuterol 2.5 Mg/0.5 Ml Neb) 2.5 mg INHALATION Q4H.RESPIRATORY PRN PRN Reason: SHORTNESS OF BREATH Alprazolam (Alprazolam 0.25 Mg Tablet) 0.25 mg PO TID PRN PRN Reason: ANXIETY Aspirin (Aspirin 81 Mg Ec Tablet) 81 mg PO DAILY [facility] Last Admin: 08/04/20 07:59 Dose: 81 mg Documented by: Atorvastatin Calcium (Atorvastatin 40 Mg Tablet) 80 mg PO BEDTIME [facility] Last Admin: 08/03/20 20:52 Dose: 80 mg Documented by: Atropine Sulfate (Atropine 1 Mg/Ml Sdv 1 Ml) 0.5 mg IVP PRN PRN PRN Reason: Symptomatic bradycardia Clopidogrel Bisulfate (Clopidogrel 75 Mg Tablet) 75 mg PO DAILY [facility] Last Admin: 08/04/20 07:59 Dose: 75 mg Documented by: Dextrose (Dextrose 50% Syringe 50 Ml) 25 ml IVP ONCE PRN; Protocol PRN Reason: hypoglycemia protocol Dextrose (Dextrose 50% Syringe 50 Ml) 50 ml IVP PRN PRN; Protocol PRN Reason: hypoglycemia protocol Duloxetine HCl (Duloxetine 30 Mg Capsule) 30 mg PO BID [facility] Last Admin: 08/04/20 17:20 Dose: 30 mg Documented by: Enoxaparin Sodium (Enoxaparin 100 Mg/Ml Syringe) 100 mg SUBCUT Q12H [facility] Last Admin: 08/04/20 11:47 Dose: 100 mg Documented by: Furosemide (Furosemide 40 Mg Tablet) 40 mg PO QAM [facility] Last Admin: 08/04/20 06:00 Dose: 40 mg Documented by: Glucagon (Glucagon 1 Mg/Ml Inj 1 Ml) 1 mg IM ONCE PRN; Protocol PRN Reason: Adult Acute Hypoglycemia Prot. Guaifenesin (Guaifenesin 100 Mg/5 Ml Udc 10 Ml) 400 mg PO Q4H PRN PRN Reason: COUGH Dextrose (D5w) 500 mls @ 100 mls/hr IV ONCE PRN; Protocol PRN Reason: Adult Acute Hypoglycemia Prot Insulin Aspart (Insulin Aspart 100 Unit/1 Ml) 0 unit SUBCUT WM&BEDTIME [facility]; Protocol Last Admin: 08/04/20 17:21 Dose: 6 unit Documented by: Insulin Glargine (Insulin Glargine 100 Units/1 Ml) 32 unit SUBCUT BID [facility] Last Admin: 08/04/20 17:20 Dose: 32 unit Documented by: Isosorbide Mononitrate (Isosorbide Mononitrate Er 30 Mg Tablet) 30 mg PO DAILY [facility] Last Admin: 08/04/20 07:59 Dose: 30 mg Documented by: Lisinopril (Lisinopril 10 Mg Tablet) 10 mg PO DAILY [facility] Last Admin: 08/04/20 07:59 Dose: 10 mg Documented by: Magnesium Hydroxide (Magnesium Hydroxide 30 Ml Udc) 30 ml PO DAILY PRN PRN Reason: CONSTIPATION Last Admin: 08/04/20 08:00 Dose: 30 ml Documented by: Montelukast Sodium (Montelukast Sodium 10 Mg Tablet) 10 mg PO BEDTIME [facility] Last Admin: 08/03/20 20:52 Dose: 10 mg Documented by: Morphine Sulfate (Morphine 4 Mg/Ml Sdv 1 Ml) 2 mg IVP Q4H PRN PRN Reason: SEVERE PAIN Last Admin: 07/31/20 23:00 Dose: 2 mg Documented by: Naloxone HCl (Naloxone 0.4 Mg/Ml Sdv) 0.1 mg IVP Q2M PRN PRN Reason: RESPIRATORY RATE < 8/MIN Nitroglycerin (Nitroglycerin 0.4 Mg Sublingual Tablet) 0.4 mg SUBLINGUAL Q5M PRN PRN Reason: CHEST PAIN Last Admin: 07/31/20 19:21 Dose: 0.4 mg Documented by: Fluticasone/Salmeterol (Fluticasone-Salmeterol 250-50 Diskus) 1 puff INHALATION BID.RESPIRATORY [facility] Last Admin: 08/04/20 08:14 Dose: 1 puff Documented by: Sotalol HCl (Sotalol 80 Mg Tablet) 80 mg PO BID@0900,2100 [facility] Last Admin: 08/04/20 07:59 Dose: 80 mg Documented by: Temazepam (Temazepam 15 Mg Capsule) 15 mg PO BEDTIME PRN PRN Reason: INSOMNIA Vitals/I&O/Wt Last Vital Signs Temp 97.8 F 08/05/20 14:52 Pulse 77 08/05/20 14:52 Resp 20 H 08/05/20 14:52 BP 112/57 08/05/20 14:52 Pulse Ox 90 08/05/20 14:52 08/05/20 08/05/20 08/05/20 06:59 14:59 22:59 Intake Total 150 / 630 120 / 120 Output Total 650 / 2400 800 / 800 Balance -500 / -1770 -680 / -680 Physical Exam Const: COMMON NORMALS: no acute distress and patient oriented x3 HENMT: COMMON NORMALS: normocephalic HEAD & SCALP: normocephalic Neck/C-Spine: COMMON NORMALS: no JVD Resp: COMMON NORMALS: normal respiratory effort, No retractions, No use of accessory muscles and clear to auscultation bilaterally AUSCULTATION: clear to auscultation bilaterally Cardio: COMMON NORMALS: no JVD, regular rate, regular rhythm, S1 normal heart sound present and S2 normal heart sound present RATE: regular rate RHYTHM: regular rhythm HEART SOUNDS: S1 normal heart sound present and S2 normal heart sound present GI: COMMON NORMALS: Normal to inspection, nondistended, normoactive bowel sounds present, Soft to palpation, non-tender, No hepatosplenomegaly present, no masses and no bruits PALPATION: Yes Soft to palpation and Yes No hepatosplenomegaly present Extremity: COMMON NORMALS: no pedal edema NARRATIVE EXTREMITY EXAM: Left knee, and a binder Neuro: COMMON NORMALS: patient oriented x3 Psych: COMMON NORMALS: mental status grossly normal Urinary Catheter Management^: Arzate Latex: Cath Placed During This Visit: yes Reason for Continuing Indwelling Catheter: Accurate Measurement of Urinary Output in Critically Ill Patients Urinary Catheter Date of Insertion: 07/31/20 Urinary Catheter Time of Insertion: 10:30 Data : 08/05/20 03:59 08/05/20 03:59 Micro: Microbiology 07/31/20 00:24 Blood Culture - Final Blood NO GROWTH AFTER 5 DAYS 07/30/20 22:38 Blood Culture - Final Blood NO GROWTH AFTER 5 DAYS A&P Assessment and plan (1) Hemarthrosis involving knee joint: In a patient on chronic anticoagulation. Stems from a fall prior to admission and by patient's account has been present since prior to admission. Pain has lessened in severity despite being on full anticoagulation while here. Status: Acute Qualifiers: Laterality: left Qualified Code(s): M25.062 - Hemarthrosis, left knee (2) Non-ST elevation CO (NSTEMI): With significant elevation in troponin to a peak of 1088. Known history of coronary artery disease with notable prior interventions. Status post stent to the mid LAD and right coronary artery 08/02/2020. Status: Acute (3) Acute diastolic heart failure: Oral Lasix Status: Acute (4) Atrial fibrillation: Sotalol held at admission and difference to metoprolol given the acute CO. She subsequently developed some tachycardia. Cardiology transitioned back to sotalol on 08/03/2020 but change dosing from 120 daily to 80 twice daily to see how she does. She has previously not tolerated 120 mg twice daily. Was on Eliquis prior to admission for history of atrial fibrillation though that is currently held. Status: Chronic Qualifiers: Atrial fibrillation type: persistent (not longstanding) Qualified Code(s): I48.19 - Other persistent atrial fibrillation (5) Dyslipidemia: Low HDL, chronically on a statin Status: Chronic (6) Type 2 diabetes mellitus with diabetic polyneuropathy: Hemoglobin A1c 8.5, chronically on insulin and metformin Status: Chronic Qualifiers: Diabetes mellitus termite control technician insulin use: with prison use Qualified Code(s): E11.42 - Type 2 diabetes mellitus with diabetic polyneuropathy; Z79.4 - FDC (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 of insulin (7) HTN (hypertension): Chronically on isosorbide, Lasix Status: Chronic Qualifiers: Hypertension type: essential hypertension Qualified Code(s): I10 - Essential (primary) hypertension (8) Asthma: Not acute Status: Chronic (9) BMI 40.0-44.9, adult: Status: Chronic Additional A&P Information Anemia secondary to acute blood loss from hemarthrosis, stable Leukocytosis improving felt to be reactive at this time Dr. Fay on consult, knee in immobilizer, limit her weightbearing, remains on antiplatelet and anticoagulant therapy Cardiology following, discussed with Dr Hilary Cristobal to continue current anticoagulation and antiplatelet therapy - lovenox, aspirin and plavix- per discussion with orthopedics and cardiology given significant recent acute cardiac event and intervention as long as patient clinically not having increasing pain and swelling of the left knee. Hemoglobin stable at 10.1 PT evaluation Will need toe touch weight bearing, immobilization, discussed with acid leveler placement will be needed in light of immobility combined with acute cardiac issues and need for close monitoring while on treatment Monitor closely for increasing left knee swelling and pain and confer with both cardiology and orthopedics regarding adjustments to anticoagulation and antiplatelet therapy Per cardiology, if have too, can hold aspirin but have to continue plavix given acute stent placements; continuing both for now given circumstances Pain control, avoiding anti-inflammatory agents presently Have maintained Arzate catheter presently secondary to limited mobility and impact of body habitus on situation and we need to ensure cath site and other skin areas stay dry; discussed with patient the risk of infection with catheter and she is aware that we need to try to get it out once she is improved and have to be able to physically get on a bedpan or manage alternative options feasibly Continue statin, oral Lasix, isosorbide, lisinopril and sotalol Continue home doses of insulin for diabetes, home Metformin is held Has albuterol, formulary substitution for Symbicort, singular and guaifenesin Supportive care otherwise Plans were discussed with patient and she was given an opportunity to ask questions Full code Plan for today continue physical therapy, monitor left knee, monitor hemoglobin, awaiting group home placement Attestations Medical Necessity Statement*: Patient requires hospitalization for CAD status post stent placement, hemarthrosis of left knee, generalized deconditioning, awaiting group home placement Coding Level of Care Code Acute Pack Puller for [facility] Fwd Diagnoses Hemarthrosis involving knee joint M25.062 Laterality: left Non-ST elevation CO (NSTEMI) I21.4 Acute diastolic heart failure I50.31 Atrial fibrillation I48.19 Atrial fibrillation type: persistent (not longstanding) Dyslipidemia E78.5 Type 2 diabetes mellitus with diabetic polyneuropathy E11.42; Z79.4 Diabetes mellitus termite control technician insulin use: with termite control technician use HTN (hypertension) I10 Hypertension type: essential hypertension Asthma J45.909 BMI 40.0-44.9, adult Z68.41
[2020-08-05 16:27] LABS: Glucose Point of Care 183 mg/dL (70-110)
--- NOTE | 2020-08-05 19:08 | P.PN_ITS ---
Subjective Subjective: Interval history: Patient underwent a cardiac catheterization followed by PCI. Denies any chest pain or shortness of breath at this point. No fever or chills. Medications: Reviewed: Yes Medication Review Details: Current Medications Acetaminophen (Acetaminophen 325 Mg Tablet) 650 mg PO Q4H PRN PRN Reason: MILD PAIN Last Admin: 08/05/20 12:57 Dose: 650 mg Documented by: Al Hydrox/Mg Hydrox/Simethicone (Edee-Fvn-Gkqepujnb-Brian 30 Ml Udc) 30 ml PO Q15M PRN PRN Reason: INDIGESTION Albuterol Sulfate (Albuterol 2.5 Mg/0.5 Ml Neb) 2.5 mg INHALATION Q4H.RESPI RATORY PRN PRN Reason: SHORTNESS OF BREATH Alprazolam (Alprazolam 0.25 Mg Tablet) 0.25 mg PO TID PRN PRN Reason: ANXIETY Aspirin (Aspirin 81 Mg Ec Tablet) 81 mg PO DAILY [facility] Last Admin: 08/05/20 08:23 Dose: 81 mg Documented by: Atorvastatin Calcium (Atorvastatin 40 Mg Tablet) 80 mg PO BEDTIME [facility] Last Admin: 08/04/20 20:22 Dose: 80 mg Documented by: Atropine Sulfate (Atropine 1 Mg/Ml Sdv 1 Ml) 0.5 mg IVP PRN PRN PRN Reason: Symptomatic bradycardia Clopidogrel Bisulfate (Clopidogrel 75 Mg Tablet) 75 mg PO DAILY [facility] Last Admin: 08/05/20 08:23 Dose: 75 mg Documented by: Dextrose (Dextrose 50% Syringe 50 Ml) 25 ml IVP ONCE PRN; Protocol PRN Reason: hypoglycemia protocol Dextrose (Dextrose 50% Syringe 50 Ml) 50 ml IVP PRN PRN; Protocol PRN Reason: hypoglycemia protocol Duloxetine HCl (Duloxetine 30 Mg Capsule) 30 mg PO BID [facility] Last Admin: 08/05/20 17:45 Dose: 30 mg Documented by: Enoxaparin Sodium (Enoxaparin 100 Mg/Ml Syringe) 100 mg SUBCUT Q12H [facility] Last Admin: 08/05/20 11:57 Dose: 100 mg Documented by: Furosemide (Furosemide 40 Mg Tablet) 40 mg PO QAM [facility] Last Admin: 08/05/20 06:02 Dose: 40 mg Documented by: Glucagon (Glucagon 1 Mg/Ml Inj 1 Ml) 1 mg IM ONCE PRN; Protocol PRN Reason: Adult Acute Hypoglycemia Prot. Guaifenesin (Guaifenesin 100 Mg/5 Ml Udc 10 Ml) 400 mg PO Q4H PRN PRN Reason: COUGH Dextrose (D5w) 500 mls @ 100 mls/hr IV ONCE PRN; Protocol PRN Reason: Adult Acute Hypoglycemia Prot Insulin Aspart (Insulin Aspart 100 Unit/1 Ml) 0 unit SUBCUT WM&BEDTIME [facility]IA[facility]; Protocol Last Admin: 08/05/20 17:45 Dose: 6 unit Documented by: Insulin Glargine (Insulin Glargine 100 Units/1 Ml) 32 unit SUBCUT BID [facility] Last Admin: 08/05/20 17:45 Dose: 32 unit Documented by: Isosorbide Mononitrate (Isosorbide Mononitrate Er 30 Mg Tablet) 30 mg PO DAILY [facility] Last Admin: 08/05/20 08:23 Dose: 30 mg Documented by: Lisinopril (Lisinopril 10 Mg Tablet) 10 mg PO DAILY [facility] Last Admin: 08/05/20 08:23 Dose: 10 mg Documented by: Magnesium Hydroxide (Magnesium Hydroxide 30 Ml Udc) 30 ml PO DAILY PRN PRN Reason: CONSTIPATION Last Admin: 08/04/20 08:00 Dose: 30 ml Documented by: Montelukast Sodium (Montelukast Sodium 10 Mg Tablet) 10 mg PO BEDTIME [facility] Last Admin: 08/04/20 20:22 Dose: 10 mg Documented by: Morphine Sulfate (Morphine 4 Mg/Ml Sdv 1 Ml) 2 mg IVP Q4H PRN PRN Reason: SEVERE PAIN Last Admin: 07/31/20 23:00 Dose: 2 mg Documented by: Naloxone HCl (Naloxone 0.4 Mg/Ml Sdv) 0.1 mg IVP Q2M PRN PRN Reason: RESPIRATORY RATE < 8/MIN Nitroglycerin (Nitroglycerin 0.4 Mg Sublingual Tablet) 0.4 mg SUBLINGUAL Q5M PRN PRN Reason: CHEST PAIN Last Admin: 07/31/20 19:21 Dose: 0.4 mg Documented by: Polyethylene Glycol (Polyethylene Glycol 3350 Pkt 17 Gm) 17 gm PO DAILY [facility] Last Admin: 08/05/20 11:57 Dose: 17 gm Documented by: Fluticasone/Salmeterol (Fluticasone-Salmeterol 250-50 Diskus) 1 puff INHALATION BID.RESPIRATORY [facility] Last Admin: 08/05/20 07:48 Dose: 1 puff Documented by: Sotalol HCl (Sotalol 80 Mg Tablet) 80 mg PO BID@0900,2100 [facility] Last Admin: 08/05/20 08:22 Dose: 80 mg Documented by: Temazepam (Temazepam 15 Mg Capsule) 15 mg PO BEDTIME PRN PRN Reason: INSOMNIA Vitals/I&O/Wt Last Vital Signs Temp 97.8 F 08/05/20 14:52 Pulse 77 08/05/20 14:52 Resp 20 H 08/05/20 14:52 BP 112/57 08/05/20 14:52 Pulse Ox 90 08/05/20 14:52 08/05/20 08/05/20 08/05/20 06:59 14:59 22:59 Intake Total 150 / 630 120 / 120 240 / 360 Output Total 650 / 2400 800 / 800 Balance -500 / -1770 -680 / -680 240 / -440 Physical Exam Narrative: EXAM NARRATIVE: GENERAL: The patient is alert and oriented times three. Not in any acute distress. Morbidly obese HEENT: No significant pallor, icterus or lymphadenopathy. The pupils are reactan t to light. Oral cavity: There are no mucous membrane lesions. Funduscopic examination: The fundus is not visualized NECK: Trachea appears to be central. No masses noted. No JVD or thyromegaly appreciated. No carotid bruit. RESPIRATORY: Chest is symmetrical. No intercostals muscle retraction or any accessory muscle activation. There is no chest wall tenderness. Breath sounds are heard bilaterally. No rales or rhonchi heard. No evidence of any consolidation. BREASTS: Deferred. HEART: The PMI could not be palpated. No other palpable precordial events. S1 and S2 are normal. No S3 or S4 heard. No pericardial rub or any click heard. ABDOMEN: Abdomen is obese. No vessel pulsations or distention. No tenderness. No organomegaly appreciated. No abdominal bruit. Bowel sounds are normally heard. : Deferred. RECTAL: Deferred. LYMPHATIC: No lymphadenopathy noted in the neck or groin. EXTREMITIES: 1-2+ edema both lower extremities. No cyanosis. No hematoma bleeding from the right groin MUSCULOSKELETAL: No acute joint deformities or swelling. SKIN: There are no significant scars or skin rash noted. NEUROPSYCHIATRIC: The patient is alert and oriented x3. Appears to be in a good mood. The higher functions are grossly within normal limits. No tremors or rigidity noted. Const: COMMON NORMALS: alert Resp: COMMON NORMALS: clear to auscultation bilaterally AUSCULTATION: clear to auscultation bilaterally Neuro: SENSORIUM/ORIENTATION: Yes alert Urinary Catheter Management^: Arzate Latex: Cath Placed During This Visit: yes Reason for Continuing Indwelling Catheter: Required Immobilization for Trauma or Surgery or Anesthesia Urinary Catheter Date of Insertion: 07/31/20 Urinary Catheter Time of Insertion: 10:30 Data : 08/06/20 04:38 08/06/20 04:38 Micro: Microbiology 07/31/20 00:24 Blood Culture - Final Blood NO GROWTH AFTER 5 DAYS 07/30/20 22:38 Blood Culture - Final Blood NO GROWTH AFTER 5 DAYS A&P Assessment and plan (1) Non-ST elevation [place] (NSTEMI): He underwent a cardiac catheterization followed by PCI of the mid LAD and right coronary artery. Stable Status: Resolved (2) Acute diastolic heart failure: Heart failure is currently compensated. May continue the p.o. Lasix. Status: Acute (3) Controlled type 2 diabetes mellitus with hyperglycemia, with long-term current use of insulin: The blood sugar seems to be getting under control. May continue with the current management. Status: Chronic (4) Atrial fibrillation: May restart the Eliquis if it is appropriate, because of the hemarthrosis. Because of the left main stenting and the extensive stenting of the LAD, she needs to be on Plavix, aspirin and Eliquis for a month and then continue Plavix and Eliquis Status: Chronic Qualifiers: Atrial fibrillation type: persistent (not longstanding) Qualified Code(s): I48.19 - Other persistent atrial fibrillation (5) HTN (hypertension): Blood pressure is under control. We will continue on the current medications. Status: Chronic Qualifiers: Hypertension type: essential hypertension Qualified Code(s): I10 - Essential (primary) hypertension (6) Dyslipidemia: May continue on the current statin drug. Status: Chronic Attestations Medical Necessity Statement*: Disposition as per the primary Coding Level of Care Code Acute Huc Ob for [facility] Fwd Exam Expanded Problem Focused Diagnoses Non-ST elevation [place] (NSTEMI) I21.4 Acute diastolic heart failure I50.31 Controlled type 2 diabetes mellitus with hyperglycemia, with long-term current use of insulin E11.65; Z79.4 Atrial fibrillation I48.19 Atrial fibrillation type: persistent (not longstanding) HTN (hypertension) I10 Hypertension type: essential hypertension Dyslipidemia E78.5
[2020-08-05 20:30] LABS: Glucose Point of Care 226 mg/dL (70-110)
[2020-08-05] MEDS: atorvastatin 40 mg Tablet 80 MG PO (21:08)
[2020-08-05] MEDS: montelukast sodium 10 mg Tablet PO (21:08)
[2020-08-05] MEDS: temazepam 15 mg Capsule PO (21:08)
--- NOTE | 2020-08-05 23:10 | ECG_ITS ---
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1945 Requested By: Apurva Richard Order Number: [id number] Reading MD: NOHEMI GARNETT Measurements Intervals [place] Rate: 97 P: 78 [place]: 227 QRS: -23 QRSD: 99 T: 11 QT: 362 QTc: 460 Interpretive Statements SINUS RHYTHM WITH FIRST DEGREE AV BLOCK BORDERLINE LEFT AXIS DEVIATION [QRS AXIS < -20] LOW QRS VOLTAGE IN PRECORDIAL LEADS [QRS DEFLECTION < 1.0 mV IN CHEST LEADS] PATTERN CONSISTENT WITH PULMONARY DISEASE NONSPECIFIC T-WAVE ABNORMALITY Compared to ECG 08/05/2020 10:45:44 First degree AV block now present Low QRS voltage now present Intraventricular conduction delay no longer present T-wave abnormality still present Electronically Signed On 08-07-2020 19:24:41 CDT by NOHEMI GARNETT [email or web address]
[2020-08-06] VITALS (7 sets, daily range): BP systolic 117–128; BP diastolic 62–66; PULSE 73–95; RESP 16–29; TEMP 36.4–36.7; O2SAT 90–99
[2020-08-06 05:07] LABS: Basophils # 0.1 10^3/uL (0.0-0.1); Basophils % 0.4 %; Eosinophils # 0.2 10^3/uL (0.0-0.8); Eosinophils % 1.5 %; Hematocrit 33.4 % (37.0-47.0); Hemoglobin 10.4 g/dL (11.5-15.3); Lymphocytes # 2.5 10^3/uL (0.8-4.8); Lymphocytes % 18.8 %; Mean Corpuscular HGB Conc 31.1 g/dL (30.0-36.0); Mean Corpuscular Hemoglobin 30.6 pg (28.0-34.0); Mean Corpuscular Volume 98.2 fL (81-99); Mean Platelet Volume 11.6 fL (7.4-10.4); Monocytes # 1.6 10^3/uL (0.2-0.9); Monocytes % 11.9 %; Neutrophils # 8.79 10^3/uL (1.8-7.7); Neutrophils % 66.9 %; Nucleated Red Blood Cells % 0 %; Platelet Count 340 10^3/cmm (130-400); Red Cell Distribution Width 13.1 % (12.1-15.1); White Blood Count 13.1 10^3/uL (4.0-10.0)
[2020-08-06 05:32] LABS: Alanine Aminotransferase 29 U/L (0-33); Albumin Level 2.4 g/dL (3.5-5.2); Alkaline Phosphatase 202 IU/L (35-105); Aspartate Amino Transferase 27 U/L (0-32); Blood Urea Nitrogen 24 mg/dL (8-23); Calcium 8.7 mg/dL (8.5-10.5); Carbon Dioxide 32 mmol/L (22-29); Chloride 97 mmol/L (98-107); Globulin 3.8 g/dL (1.3-4.6); Glucose 67 mg/dL (65-115); Magnesium 1.7 mg/dL (1.7-2.3); Osmolality Calculated 286 mOsm/kg (285-295); Phosphorus 4.2 mg/dL (2.5-4.5); Sodium 137 mmol/L (136-145); Total Bilirubin 0.3 mg/dL (0.15-1.2); Total Protein 6.2 g/dL (6.6-8.7)
[2020-08-06] MEDS: FUROsemide 40 mg Tablet PO (06:20)
[2020-08-06 06:50] LABS: Glucose Point of Care 86 mg/dL (70-110)
[2020-08-06] MEDS: sotalol 80 mg Tablet 120 MG PO (09:10)
[2020-08-06] MEDS: clopidogrel 75 mg Tablet PO (09:11)
[2020-08-06] MEDS: duloxetine 30 mg Capsule PO (09:11)
[2020-08-06] MEDS: aspirin 81 mg EC Tablet PO (09:11)
[2020-08-06] MEDS: lisinopril 10 mg Tablet PO (09:12)
[2020-08-06] MEDS: polyethylene glycol 3350 Pkt 17 gm PO (09:12)
[2020-08-06] MEDS: insulin glargine 100 units/1 mL 32 UNIT SUBCUT (09:13)
[2020-08-06] MEDS: enoxaparin 100 mg/mL Syringe SUBCUT (10:17)
--- NOTE | 2020-08-06 10:42 | P.DS_ITS ---
Discharge Providers Date of Admission: 07/31/20 00:04 Date of Discharge: August 06, 2020 Attending Provider at Admission: Jerilyn Milligan MD Attending Provider at Discharge: Kyle Huynh MD Primary Care Provider: PORTER Lindsay Diagnoses at Discharge Discharge Diagnosis (1) Non-ST elevation [place] (NSTEMI): Status: Acute (2) Acute diastolic heart failure: Status: Acute (3) Controlled type 2 diabetes mellitus with hyperglycemia, with long-term current use of insulin: Status: Chronic (4) Atrial fibrillation: Status: Chronic Qualifiers: Atrial fibrillation type: persistent (not longstanding) Qualified Code(s): I48.19 - Other persistent atrial fibrillation (5) HTN (hypertension): Status: Chronic Qualifiers: Hypertension type: essential hypertension Qualified Code(s): I10 - Essential (primary) hypertension (6) Dyslipidemia: Status: Chronic Reason for Visit Reason for Visit: N/V Hospital Course Hospital Course This is a 75-year-old female with past medical history of CAD, atrial fibrillation on Eliquis, CKD stage II, insulin-dependent type 2 diabetes mellitus, hypertension, diabetic peripheral neuropathy, asthma who presents to [facility] due to abdominal pain and nausea Patient was admitted to [facility] for NSTEMI, with EKG changes concerning in the inferior and septal leads, patient underwent cardiac catheterization, status post mid left anterior descending coronary artery and mid right coronary artery stents. Discharged to [facility] on Plavix, statin, Eliquis, lisinopril with close follow-up with cardiology in 1 to 2 weeks For her paroxysmal atrial fibrillation, she was managed with sotalol 120 mg in the morning, 80 mg in the evening Patient developed hemarthrosis of the left knee during her hospitalization, her hemoglobin remained stable, hemarthrosis remained stable, Dr. Fay recommended left knee binder, limited weightbearing, discharged to [facility] due to deconditioning and PT OT, follow-up with Dr. Fay as outpatient. [facility] was advised to monitor for worsening hemarthrosis left knee, monitor hemoglobin as outpatient. Physical Exam Const: COMMON NORMALS: no acute distress and patient oriented x3 HENMT: COMMON NORMALS: normocephalic HEAD & SCALP: normocephalic Neck/C-Spine: COMMON NORMALS: no JVD Resp: COMMON NORMALS: normal respiratory effort, No retractions, No use of accessory muscles and clear to auscultation bilaterally AUSCULTATION: clear to auscultation bilaterally Cardio: COMMON NORMALS: no JVD, regular rate, regular rhythm, S1 normal heart sound present and S2 normal heart sound present RATE: regular rate RHYTHM: regular rhythm HEART SOUNDS: S1 normal heart sound present and S2 normal heart sound present GI: COMMON NORMALS: Normal to inspection, nondistended, normoactive bowel sounds present, Soft to palpation, non-tender, No hepatosplenomegaly present, no masses and no bruits PALPATION: Yes Soft to palpation and Yes No hepatosplenomegaly present Extremity: COMMON NORMALS: no pedal edema NARRATIVE EXTREMITY EXAM: Left knee in a binder Neuro: COMMON NORMALS: patient oriented x3 Psych: COMMON NORMALS: mental status grossly normal Urinary Catheter Management^: Arzate Latex: Cath Placed During This Visit: yes Reason for Continuing Indwelling Catheter: Required Immobilization for Trauma or Surgery or Anesthesia Urinary Catheter Date of Insertion: 07/31/20 Urinary Catheter Time of Insertion: 10:30 Discharge Data Data Completed and Pending: Completed Studies During Hospitalization Category Date Time Status CT angio chest w abd pel w con Urge nt Cat Scan 07/30/20 22:[address] knee LT wo con * [id number] Routine Cat Scan 08/03/20 17:19 Completed [employer] request for service Routin e Exams 08/02/20 05:58 Completed XR chest 1V lori ble [id number] Stat Exams 07/30/20 22:11 Completed XR knee LT 3V* [id number] Routine Exams 08/03/20 15:31 Completed CV echo complete* [id number] Urgent Ultrasound 07/31/20 06:16 Completed Pending at discharge Category Date Time Status COVID [SARS Covid -2 Antigen] Stat Lab 08/06/20 10:15 Received Complete Blood Co unt w/Auto AM LABS Lab 08/07/20 04:00 Ordered Complete Blood Co unt w/Auto AM LABS Lab 08/08/20 04:00 Ordered Comprehensive Met abolic Panel AM LA BS Lab 08/07/20 04:00 Ordered Comprehensive Met abolic Panel AM LA BS Lab 08/08/20 04:00 Ordered Magnesium AM LABS Lab 08/07/20 04:00 Ordered Magnesium AM LABS Lab 08/08/20 04:00 Ordered Phosphorus AM LAB S Lab 08/07/20 04:00 Ordered Phosphorus AM LAB S Lab 08/08/20 04:00 Ordered Labs from last 24 hours 08/06/20 08/06/20 08/06/20 10:15 06:39 04:38 WBC RBC Hgb Hct MCV MCH MCHC RDW Plt Count MPV Neut % (Auto) Lymph % (Auto) [place] % (Auto) Eos % (Auto) Baso % (Auto) Neut # (Auto) Lymph # (Auto) [place] # (Auto) Eos # (Auto) Baso # (Auto) Nucleated RBC % (a uto) Nucleated RBCs # Sodium 137 Potassium 4.0 Chloride 97 L Carbon Dioxide 32 H Anion Gap 12.0 BUN 24 H Creatinine 0.9 GFR Calculation Not Reportable Glucose 67 POC Glucose 86 Calculated Osmolal ity 286 Calcium 8.7 Phosphorus 4.2 Magnesium 1.7 Total Bilirubin 0.3 AST 27 ALT 29 Alkaline Phosphata se 202 H Total Protein 6.2 L Albumin 2.4 L Globulin 3.8 SARS-CoV-2 Ag (Rap id) Pending 08/06/20 08/05/20 08/05/20 04:38 20:13 16:11 WBC 13.1 H RBC 3.40 L Hgb 10.4 L Hct 33.4 L MCV 98.2 MCH 30.6 MCHC 31.1 RDW 13.1 Plt Count 340 MPV 11.6 H Neut % (Auto) 66.9 Lymph % (Auto) 18.8 [place] % (Auto) 11.9 Eos % (Auto) 1.5 Baso % (Auto) 0.4 Neut # (Auto) 8.79 H Lymph # (Auto) 2.5 [place] # (Auto) 1.6 H Eos # (Auto) 0.2 Baso # (Auto) 0.1 Nucleated RBC % (a uto) 0 Nucleated RBCs # 0.0 Sodium Potassium Chloride Carbon Dioxide Anion Gap BUN Creatinine GFR Calculation Glucose POC Glucose 226 H 183 H Calculated Osmolal ity Calcium Phosphorus Magnesium Total Bilirubin AST ALT Alkaline Phosphata se Total Protein Albumin Globulin SARS-CoV-2 Ag (Rap id) 08/05/20 08/05/20 11:10 03:59 WBC RBC Hgb Hct MCV MCH MCHC RDW Plt Count MPV Neut % (Auto) Lymph % (Auto) [place] % (Auto) Eos % (Auto) Baso % (Auto) Neut # (Auto) Lymph # (Auto) [place] # (Auto) Eos # (Auto) Baso # (Auto) Nucleated RBC % (a uto) Nucleated RBCs # Sodium 138 Potassium 4.3 Chloride 97 L Carbon Dioxide 32 H Anion Gap 13.3 BUN 22 Creatinine 0.8 GFR Calculation Not Reportable Glucose 70 POC Glucose 304 H Calculated Osmolal ity 288 Calcium 8.4 L Phosphorus Magnesium Total Bilirubin AST ALT Alkaline Phosphata se Total Protein Albumin Globulin SARS-CoV-2 Ag (Rap id) Vitals: Last Vital Signs Temp 98.1 F 08/06/20 07:36 Pulse 95 08/06/20 08:13 Resp 16 08/06/20 08:09 BP 117/62 08/06/20 07:36 Pulse Ox 94 08/06/20 08:09 Discharge Plan Discharge Patient Disposition: er [facility] Condition: Stable Prescriptions: New lisinopril 10 mg Tablet 10 mg PO DAILY 30 Days Qty: 30 RF: 0 nitroglycerin 0.4 mg Tablet, Sublingual 0.4 mg sublingual Q5M PRN (Reason: Chest Pain) 30 Days Qty: 30 RF: 0 polyethylene glycol 3350 17 gram Powder In Packet 17 g PO DAILY 30 Days Qty: 30 RF: 0 sotalol 80 mg Tablet 80 mg PO 2100 30 Days Qty: 30 RF: 0 atorvastatin 40 mg Tablet 80 mg PO BEDTIME 30 Days Qty: 30 RF: 0 clopidogrel 75 mg Tablet 75 mg PO DAILY 30 Days Qty: 30 RF: 0 sotalol 80 mg Tablet 120 mg PO 0900 30 Days Qty: 45 RF: 0 docusate sodium [Colace] 100 mg capsule 100 mg PO BID 30 Days Qty: 60 RF: 0 Continued metformin 500 mg tablet 500 mg PO BID RF: 0 albuterol sulfate [ProAir HFA] 90 mcg/actuation HFA aerosol inhaler 2 puff INHALATION Q6H PRN (Reason: Shortness Of Breath) RF: 0 furosemide 40 mg tablet 40 mg PO QAM RF: 0 duloxetine [Cymbalta] 30 mg capsule,delayed release(DR/EC) 30 mg PO BID Qty: 60 RF: 5 Lantus U-100 Insulin 100 unit/mL solution 32 unit SUBCUT BID RF: 0 albuterol sulfate 2.5 mg /3 mL (0.083 %) Solution For Nebulization 2.5 mg inhalation PRN RF: 0 montelukast 10 mg tablet 10 mg PO BEDTIME RF: 0 insulin lispro [Humalog KwikPen Insulin] 100 unit/mL Insulin Pen See Rx Instructions .ROUTE .COMPLEX RF: 0 guaifenesin 400 mg Tablet 400 mg PO QAM RF: 0 Symbicort 160-4.5 mcg/actuation Hfa Aerosol Inhaler 2 puff INHALATION BID RF: 0 Tylenol Arthritis Pain 650 mg Tablet Extended Release 1,300 mg PO Q8H RF: 0 Eliquis 5 mg tablet 5 mg PO BID Qty: 60 RF: 2 Discontinued nitroglycerin 0.4 mg tablet, sublingual 0.4 mg sublingual Q5M PRN (Reason: chest pain) RF: 0 isosorbide mononitrate 30 mg tablet extended release 24 hr 30 mg PO DAILY@12 RF: 0 sotalol 120 mg tablet 120 mg PO QAM RF: 0 rosuvastatin 40 mg tablet 40 mg PO BEDTIME RF: 0 Aspir-81 81 mg Tablet,Delayed Release (Dr/Ec) 81 mg PO QAM RF: 0 Discharge Orders: Discharge Order (Routine); Ordered 08/06/20 Ordered By: Kyle Huynh Referrals: Em Akhtar MD [Physician] - 2 weeks Anthony Mathew, [employer] [Primary Care Provider] - Dionne Fay MD [Physician] - 6 Weeks Discharge Diet: Cardiac Discharge Activity: Increase activity as tolerated, Limit activity as instructed, Use walker/crutches as instructed, Wheelchair as instructed and As per PT/OT instructions Activity Restrictions/Additional Instructions: The patient may wear her knee immobilizer for routine activities. She is cautioned to limit weightbearing as much as possible. Gentle range of motion to the knee and progressive ambulation will be necessary through physical therapy at the longterm facility. -Resume Eliquis tonight, 5 mg twice daily, starting 11 PM -Please monitor for left knee worsening hemarthrosis -Repeat CBC in 2 to 3 days -Follow-up with cardiology in 1 to 2 weeks Discharge Attestations Time Spent in Discharge Care*: less than 30 min Quality Metrics Clinical Quality Measures During this hospital stay, did patient experience: AMI Clinical Trial Participant: No Contraindication to aspirin (AMI): Aspirin given Contraindication to statin: Statin prescribed Contraindication to PCI: PCI performed and None Coding Level of Care Code Acute Chg FW DC note Diagnoses Non-ST elevation [place] (NSTEMI) I21.4 Acute diastolic heart failure I50.31 Controlled type 2 diabetes mellitus with hyperglycemia, with long-term current use of insulin E11.65; Z79.4 Atrial fibrillation I48.19 Atrial fibrillation type: persistent (not longstanding) HTN (hypertension) I10 Hypertension type: essential hypertension Dyslipidemia E78.5
[2020-08-06 11:00] LABS: SARS Covid-2 Antigen Negative (Negative)
--- NOTE | 2020-08-06 11:15 | ECG_ITS ---
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 Measurements Intervals [place] Rate: 81 P: 37 [place]: 179 QRS: -25 QRSD: 95 T: -27 QT: 373 QTc: 434 Interpretive Statements SINUS RHYTHM BORDERLINE LEFT AXIS DEVIATION [QRS AXIS < -20] NONSPECIFIC T-WAVE ABNORMALITY Compared to ECG 08/05/2020 23:44:35 First degree AV block no longer present T-wave abnormality still present Electronically Signed On 08-06-2020 12:33:31 CDT by Apurva Richard M.D. [email or web address]
[2020-08-06 11:29] LABS: Glucose Point of Care 240 mg/dL (70-110)
[2020-08-06] MEDS: acetaminophen 325 mg Tablet 650 MG PO (11:59)
--- NOTE | 2020-08-06 12:30 | PC.NURSE ---
Report called to Qian JOVEL at [facility]. Nurse verbalized understanding of information and did not have any additional questions at this time. Call back number provided.
--- NOTE | 2020-08-06 19:42 | PM.PN ---
Subjective Subjective: Interval history: 75 yo lady well known to me from her last visit in 08/2018 for NSTEMI. Cath in 08/2018 with critical distal left main and ostial LAD lesion. Occluded circumflex with virtually no collateral flow. Distal right coronary artery stenosis of the posterior left ventricular branch. She was transfered to [facility] for possible mini thoracotomy CABG. It appears she underwent multivessel PCI instead. She came in again this time s/p fall and with chest pain. Troponin T [id number]. s/p mid RCA and mid LAD TRANG last Wednesday after cardiac cathetarization. Intermittent paroxysms of A. flutter/tach with RVR Medications: Reviewed: Yes Vitals/I&O/Wt Last Vital Signs Temp 97.6 F 08/06/20 13:31 Pulse 93 08/06/20 13:31 Resp 28 H 08/06/20 13:31 BP 128/62 08/06/20 13:31 Pulse Ox 90 08/06/20 13:31 08/06/20 08/06/20 08/06/20 06:59 14:59 22:59 Intake Total 200 / 600 300 / 300 Output Total 650 / 1450 450 / 450 Balance -450 / -850 -150 / -150 Physical Exam Narrative: EXAM NARRATIVE: Gen: obese woman laying in bed NAD Neck: No JVD HEENT:PEERL, No pallor, no cyanosis RS: CTAB/L anteriorly, No wheezing or rales CVS: S1, S2, intermittent tachycardia, No wheezing or rales. PA: soft, obese, NT, ND TOURIST CABIN KEEPER: AAOx 3, No FND Ext: No edema, left knee pain and swelling (improved). still not weight bearing Urinary Catheter Management^: Arzate Latex: Cath Placed During This Visit: yes, but has since been removed by the nurse Reason for Continuing Indwelling Catheter: Required Immobilization for Trauma or Surgery or Anesthesia Urinary Catheter Date of Insertion: 07/31/20 Urinary Catheter Time of Insertion: 10:30 Date Urinary Catheter Removed: 08/06/20 Time Urinary Catheter Discontinued: 12:07 Data : 08/06/20 04:38 08/06/20 04:38 Attestation for Other Data: I personally reviewed and interpreted the following: Other data: Cardiac cathetarization Diagnostic Cath Status: Urgent Diagnostic Findings . * Mid Left Anterior Descending Coronary Artery: has lesion. * Mid Right Coronary Artery: has lesion. * Coronary angiography shows right dominance. * The left main is a medium caliber vessel. The distal stented segment of the left main appears to be patent with around 20% in-stent narrowing. * The left anterior descending artery is a medium caliber vessel which was found to have long stented segment starting from the proximal to the mid LAD. Right after the first septal building materials sales attendant, the stented segment was found to have a high-grade in-stent stenosis of around 80 to 90%. The ostium of the first septal building materials sales attendant was found to have around 50% narrowing. The first 2 diagonal branches the likely large vessel which was found to have around 50 to 60% ostial narrowing. Mild diffuse disease was noted in the distal segment of the artery.. * The left circumflex artery appears to be totally occluded near the ostium. This is a chronic occlusion. Grade 2 left to left collaterals noted filling of the obtuse marginal branches. * The right coronary artery is the dominant vessel. The proximal stented segment appears to be widely patent. Right after the first RV branch, there was a high-grade lesion of around 80%. The PDA branch was found to be occluded. The PLV branches found to have mild to moderate diffuse disease.. Interventional Findings * Mid Left Anterior Descending Coronary Artery: treated with AB MINI TREK 1.50X6 RX BALLOON, AB MINI TREK 2.00X12 RX BALLOON, and MDT R DAVID 2.75X15 TRANG. * Mid Right Coronary Artery: treated with AB TREK 2.50X12 RX BALLOON, MDT R DAVID 3.0X34 TRANG, and MDT NC EUPHORA RX 3.66Y43CY BALLOON. Conclusions 1. 75-year-old white female with history of atherosclerotic heart disease, diabetes, high blood pressure and dyslipidemia presents with features of non-ST elevation myocardial infarction and congestive heart failure. She had a previous stent placement in the left main ,left anterior descending artery and right coronary artery. In view of her complicated acute coronary syndrome, in order to further evaluate her coronary status, a cardiac catheterization was recommended. Patient underwent left heart catheterization with left and right coronary angiogram. The findings are as follows.. 2. Patent stent in the left main. High-grade in-stent stenosis in the mid LAD. 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 High-grade lesion in the right coronary artery. Elevated LVEDP of 27 mmHg. A&P Assessment and plan (1) Non-ST elevation ND (NSTEMI): s/p TRANG to mid LAD and mid RCA on Wednesday -patent prior stents -continue ASA, plavix, statin. NTG SL and beta blockers. -May be discharged on Plavix and Eliquis given concerns of hemarthrosis. -Aggressive risk factor modification recommended with strict diabetes and HLD control. Status: Acute (2) Atrial fibrillation: Paroxysmal A. fib, no prior CV. -did not tolerate sotalol 120 BID and was taking sotalol 120 mg daily. -sotalol was increased to 120 mg and and 80 mg pm. -May have to try different antiarrhythmic/ switch to rate control. -It seems like patient is being set up to be discharged to [place] for rehab. [facility] for follow up EKG, labs and site check. -Follow up in 1 month at [facility]. Status: Chronic Qualifiers: Atrial fibrillation type: persistent (not longstanding) Qualified Code(s): I48.19 - Other persistent atrial fibrillation (3) Acute diastolic heart failure: Heart failure is currently compensated. May continue the p.o. Lasix. Status: Acute (4) Controlled type 2 diabetes mellitus with hyperglycemia, with long-term current use of insulin: Status: Chronic (5) HTN (hypertension): Blood pressure is under control. We will continue on the current medications. Status: Chronic Qualifiers: Hypertension type: essential hypertension Qualified Code(s): I10 - Essential (primary) hypertension (6) Dyslipidemia: Status: Chronic Additional A&P Information s/p fall Left knee hemarthrosis: Conservative management and PT as per ortho and primary team. B/L osteoarthritis Anemia Obesity DM-2 Prolonged participate in patient's care. Please feel free to call with questions or concerns Attestations Medical Necessity Statement*: as per primary team Time Spent in Patient Care: Greater than 35 minutes (>than 50% of time spent in counselling and/or direct pt care on unit). Coding Level of Care Code Acute Associate Financial Planner for [facility] Fwd Diagnoses Non-ST elevation ND (NSTEMI) I21.4 Atrial fibrillation I48.19 Atrial fibrillation type: persistent (not longstanding) Acute diastolic heart failure I50.31 Controlled type 2 diabetes mellitus with hyperglycemia, with long-term current use of insulin E11.65; Z79.4 HTN (hypertension) I10 Hypertension type: essential hypertension Dyslipidemia E78.5
== END 2020-08-06 13:33 | disposition skilled nursing facility (03) | DRG 246 ==
LOC: ER 07-31 00:05 → CSU 07-31 00:28
PROVIDERS: Hospitalist; Internal Medicine Cardiovascular Disease; Physician Assistant; Admitting Provider Internal Medicine; Emergency Provider Emergency Medicine; PCP Nurse Practitioner; Visit Provider Family Medicine
PROC: 027135Z Dilation of Coronary Artery, Two Arteries with Two Drug-eluting Intraluminal Devices, Percutaneous Approach (ICD-10-PCS; principal; 2020-08-02 06:00)
DX: I21.4 Non-ST elevation (NSTEMI) myocardial infarction (principal); I50.33 Acute on chronic diastolic (congestive) heart failure; I13.0 Hypertensive heart and chronic kidney disease with heart failure and stage 1 through stage 4 chronic kidney disease, or unspecified chronic kidney disease; Z68.41 Body mass index [BMI] 40.0-44.9, adult; D62 Acute posthemorrhagic anemia; M25.062 Hemarthrosis, left knee; I25.10 Atherosclerotic heart disease of native coronary artery without angina pectoris; Z95.5 Presence of coronary angioplasty implant and graft; Z86.16 Personal history of COVID-19; Z99.81 Dependence on supplemental oxygen; J45.909 Unspecified asthma, uncomplicated; I48.0 Paroxysmal atrial fibrillation; E11.22 Type 2 diabetes mellitus with diabetic chronic kidney disease; N18.2 Chronic kidney disease, stage 2 (mild); Z86.73 Personal history of transient ischemic attack (TIA), and cerebral infarction without residual deficits; E11.65 Type 2 diabetes mellitus with hyperglycemia; E11.42 Type 2 diabetes mellitus with diabetic polyneuropathy; E89.2 Postprocedural hypoparathyroidism; I16.0 Hypertensive urgency; E78.5 Hyperlipidemia, unspecified; E66.9 Obesity, unspecified; M17.12 Unilateral primary osteoarthritis, left knee; W19.XXXA Unspecified fall, initial encounter; Z79.51 Long term (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 of inhaled steroids; Z79.02 Long term (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 of antithrombotics/antiplatelets; Z79.4 Long term (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 of insulin
CPT/HCPCS: 36415; 36416; 51702; 71045; 71275; 73562; 73700; 74177; 80048; 80053; 80061; 81001; 82962; 83036; 83605; 83690; 83735; 83880; 84100; 84484; 85025; 85347; 85730; 87040; 87426; 93005; 93306; 93452; 94640; 96361; 96372; 96374; 97110; 97161; 97165; 97530; 97535; 99291; C1725; C1769; C1874; C1887; C1894; C9600; C9601; J1644; J1650; J1815 ×2; J2250; J2270; J2405; J3010; J3490; J7030; Q0163; Q9967

== ENCOUNTER → 2020-09-18 11:10 | Outpatient (BNVA) | payer OTHER, MEDICARE, BC, SELFPAY | PROVIDERS: PCP Nurse Practitioner; Visit Provider Specialist | DX: M25.562 Pain in left knee (principal); M17.12 Unilateral primary osteoarthritis, left knee | CPT/HCPCS: 73562 ==

== ENCOUNTER → 2020-12-03 07:47 | Outpatient (BNVA) | payer MEDICARE, BC, SELFPAY | PROVIDERS: PCP Nurse Practitioner; Visit Provider Nurse Practitioner | DX: E11.65 Type 2 diabetes mellitus with hyperglycemia (principal); Z79.4 Long term (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 of insulin; I10 Essential (primary) hypertension; R82.90 Unspecified abnormal findings in urine | CPT/HCPCS: 80053; 81000; 85025; 87077; 87086; 87184 ==

== ENCOUNTER 2021-08-23 20:36 | Inpatient (IN) | payer MEDICARE, BC, SELFPAY ==
[2021-08-23 20:46] VITALS: BP 136/77; PULSE 119; RESP 20; TEMP 36.7; O2SAT 94
[2021-08-23 20:48] VITALS: BP 119/67; PULSE 110; RESP 22; TEMP 36.7; O2SAT 93
--- NOTE | 2021-08-23 20:56 | ED_ITS ---
Documented by User: Aisha Mclean MD 08/24/21 13:18 HPI - General Adult General: Chief complaint: Skin/Abscess/Foreign Body Stated complaint: Abscess on groin Time Seen by Provider: 08/23/21 20:55 History of Present Illness: Patient is a 76-year-old female with history of diastolic heart failure, atrial fibrillation on Eliquis, CKD, CAD presenting to the emergency room with concerns for groin abscess. Patient tells me that for the last 2 days, she has had 3 areas of bumps in her groin that is becoming increasingly more painful. Patient decided come to the emergency room for further evaluation. Past, patient was admitted to hospital for IV antibiotics for these lesions and would like to avoid it at this time. Patient denies any fever chills, nausea/vomiting, urinary symptoms. Patient tells me that she has poor groin hygiene and has an ongoing infection there. Patient has no other focal complaints including diarrhea, melena/hematochezia, new vaginal discharge, pelvic chest pain, shortness or palpitation or lightheadedness. Onset: 2 days ago Duration:2 days Location:home Severity:moderate Associated symptoms: Deny chest pain, dyspnea, nausea, rash, palpitations or vomiting Review of Systems Const: Denies: fever(s) or chills Eyes: Denies: change in vision ENMT: Denies: mouth pain Card: Denies: chest pain or palpitations Resp: Denies: dyspnea or non-productive cough GI: Denies: abdominal pain, nausea, vomiting or diarrhea : Reports: other (+groin lesions and pain); Denies: dysuria Musc: Denies: extremity pain Skin/Breast: Denies: rash or new lesions Neuro: Denies: weakness in extremities Psych: Reports: other (Normal mood) Ruben/Lymph: Denies: easy bruising PFS ED PFSH: Medical History Asthma Atrial fibrillation CAD (coronary artery disease) Chronic kidney disease (CKD), stage II (mild) Controlled type 2 diabetes mellitus with hyperglycemia, with long-term current use of insulin Diabetic peripheral neuropathy associated with type 2 diabetes mellitus Diastolic CHF Dyslipidemia History of CVA in adulthood History of severe acute respiratory syndrome coronavirus 2 (SARS-CoV-2) disease (~01/2020) February 05 HTN (hypertension) Pain of left knee after injury Surgical History H/O angioplasty 7 stents, last stents 07/2020 H/O arthroscopic knee surgery Bilateral H/O parathyroidectomy H/O: hysterectomy History of appendectomy History of arthroscopic surgery of shoulder LEFT History of cholecystectomy History of tonsillectomy and adenoidectomy Family History Father Cancer Family/Other Cancer Mother Heart disease Stroke Dementia Denies family history of Diabetes CAD (coronary artery disease) Clotting disorder Hyperlipidemia Psychiatric illness Chronic kidney disease (CKD) Suicide Anesthesia complication Bleeding disorder Family history of premature coronary artery disease Lung disease Hypertension Social History Smoking and tobacco status: never smoked Second hand smoke exposure: No Smoking risk assessment/counseling performed?: No Alcohol intake: never Desire information about alcohol rehabilitation?: No Counseling given: No Desire information about substance/drug rehabilitation?: No Counseling given: No Adopted: No Caregiver/support person: Yes Lives independently: No Household members: family Housing: House Marital status: Single service: No Current occupational status: retired and disabled Pets and animals: Yes History of recent travel: No Current gender identity: Female Physical Exam Const: COMMON NORMALS: alert HENMT: COMMON NORMALS: atraumatic HEAD & SCALP: atraumatic MOUTH: moist mucous membranes not abnormal Eye: COMMON NORMALS: EOMs intact bilaterally and conjunctivae normal CONJUNCTIVA: Yes conjunctivae normal Neck/C-Spine: COMMON NORMALS: full ROM and supple Resp: COMMON NORMALS: normal respiratory effort and clear to auscultation bilaterally AUSCULTATION: clear to auscultation bilaterally Cardio: RATE: tachycardic GI: COMMON NORMALS: Soft to palpation and non-tender PALPATION: Yes Soft to palpation : OTHER: Exam supervised by apartment community assistant manager Latoya Chang: 3 sets of fluctuance and focal tenderness to palpation, no crepitus, no skin maceration, +mild erythema of the groin, no labial fold involvement, Extremity: COMMON NORMALS: full ROM Neuro: SENSORIUM/ORIENTATION: Yes alert MOTOR EXAM: No Abnormal motor strength present and Other motor observations present (no focal motor deficits) Psych: COMMON NORMALS: speech normal SPEECH: Yes normal speech MOOD & AFFECT: Yes euthymic mood Course Vital Signs: Vital signs: Vital Signs Temperature 98.9 F 08/24/21 12:45 Pulse Rate 72 08/24/21 12:45 Respiratory Rate 18 08/24/21 12:45 Blood Pressure 147/84 08/24/21 12:45 Pulse Oximetry 97 08/24/21 12:45 MDM - General Adult Medical Decision Making 76-year-old female with history of diabetes, atrial fibrillation on Eliquis presenting to the emergency room for concerns of possible groin infection. On physical exam, patient is found to have 3 areas of groin abscess with mild underlying erythema. Patient is also noted to have a candidal infection of the groin. White count 15.6. Patient has no findings of crepitus, maceration, pain out of proportion to physical exam. CT abdomen pelvis did not show any signs of gas pattern. Given reassuring physical exam, negative CT study, I do not suspe ct the patient has necrotizing soft tissue infection including Marcos's gangrene at this time. Case was discussed with Dr. Fields. Dr. Fields recommended starting patient on IV antibiotics. Patient received vancomycin and Zosyn. Dr. Fields does not recommend that I perform a bedside I&D presently. Dr. Fields will assess patient for seen the morning to determine if patient will need OR incision drainage. Patient also received diflucan for fungal infection. To be NPO at midnight. Initially on arrival, patient was noted to be mildly tachycardic to the low 100s. Patient received 500 cc of IVF given history of CHF. Patient's heart rate improved. Potassium of 5.6 slightly hemolyzed. EKG did not show any signs of hyperkalemia. Patient received 40 mg Lasix. Will repeat BMP after lasix. Disposition: admission Lab Data : 08/24/21 03:29 08/24/21 03:[address] 08/23/21 21:05 IMPRESSION: 1. 3.7 x 2.4 x 2.4 cm fluid collection at the vaginal introitus, concerning for abscess. 2. Diverticulosis without diverticulitis. 3. 3.6 x 1.5 by 2.8 cm focus of skin and subcutaneous soft tissue edema in the medial aspect of the right thigh. No definite abscess. Laboratory Results WBC 15.6 10^3/uL (4.0-10.0) H 08/23/21 21:40 RBC 3.80 10^6/uL (4.1-5.3) L 08/23/21 21:40 Hgb 12.3 g/dL (11.5-15.3) 08/23/21 21:40 Hct 38.8 % (37.0-47.0) 08/23/21 21:40 MCV 102.1 fl (81-99) H 08/23/21 21:40 MCH 32.4 pg (28.0-34.0) 08/23/21 21:40 MCHC 31.7 g/dL (30.0-36.0) 08/23/21 21:40 RDW 13.0 % (12.1-15.1) 08/23/21 21:40 Plt Count 263 10^3/cmm (130-400) 08/23/21 21:40 MPV 11.8 fL (7.4-10.4) H 08/23/21 21:40 Neut % (Auto) 67.7 % 08/23/21 21:40 Lymph % (Auto) 19.3 % 08/23/21 21:40 Chambers % (Auto) 10.5 % 08/23/21 21:40 Eos % (Auto) 1.7 % 08/23/21 21:40 Baso % (Auto) 0.4 % 08/23/21 21:40 Neut # (Auto) 10.58 10^3/uL (1.8-7.7) H 08/23/21 21:40 Lymph # (Auto) 3.0 10^3/uL (0.8-4.8) 08/23/21 21:40 Chambers # (Auto) 1.6 10^3/uL (0.2-0.9) H 08/23/21 21:40 Eos # (Auto) 0.3 10^3/uL (0.0-0.8) 08/23/21 21:40 Baso # (Auto) 0.1 10^3/uL (0.0-0.1) 08/23/21 21:40 Nucleated RBC % (auto) 0 % 08/23/21 21:40 Nucleated RBCs # 0.0 /100WBC 08/23/21 21:40 ESR 11 mm/hr (0-15) 08/23/21 21:40 Sodium 138 mmol/L (136-145) 08/23/21 21:40 Sodium Cancelled 08/23/21 21:40 Potassium 5.6 mmol/L (3.5-5.1) H 08/23/21 21:40 Potassium Cancelled 08/23/21 21:40 Chloride 99 mmol/L (98-107) 08/23/21 21:40 Chloride Cancelled 08/23/21 21:40 Carbon Dioxide 31 mmol/L (22-29) H 08/23/21 21:40 Carbon Dioxide Cancelled 08/23/21 21:40 Anion Gap 13.6 (5-19) 08/23/21 21:40 Anion Gap Cancelled 08/23/21 21:40 BUN 34 mg/dL (8-23) H 08/23/21 21:40 BUN Cancelled 08/23/21 21:40 Creatinine 1.0 mg/dL (0.5-0.9) H 08/23/21 21:40 Creatinine Cancelled 08/23/21 21:40 GFR Calculation Cancelled 08/23/21 21:40 GFR Calculation Not Reportable 08/23/21 21:40 Glucose 56 mg/dL (65-115) L 08/23/21 21:40 Glucose Cancelled 08/23/21 21:40 Calculated Osmolality 291 mOsm/kg (285-295) 08/23/21 21:40 Calculated Osmolality Cancelled 08/23/21 21:40 Lactate 1.4 mmol/L (0.5-2.2) 08/23/21 21:40 Calcium 9.6 mg/dL (8.5-10.5) 08/23/21 21:40 Calcium Cancelled 08/23/21 21:40 Total Bilirubin 0.2 mg/dL (0.15-1.2) 08/23/21 21:40 AST 39 U/L (0-32) H 08/23/21 21:40 ALT 40 U/L (0-33) H 08/23/21 21:40 Alkaline Phosphatase 177 IU/L (35-105) H 08/23/21 21:40 C-Reactive Protein 41.0 mg/L (0.0-4.9) H 08/23/21 21:40 Total Protein 7.3 g/dL (6.6-8.7) 08/23/21 21:40 Albumin 3.7 g/dL (3.5-5.2) 08/23/21 21:40 Globulin 3.6 g/dL (1.3-4.6) 08/23/21 21:40 Lipase 20 U/L (13-60) 08/23/21 21:40 Procalcitonin 0.06 ng/mL (0-0.5) 08/23/21 21:40 Discharge Plan Discharge Patient Disposition: Admitted As Inpatient Admit Provider: Jerilyn Milligan Clinical Impression: Abscess of groin, Cellulitis of groin, Autumn infection Condition: Stable Coding Level of Care Code ED Bottle Cleaner for Chg Fwd Exam Comprehensive Documented by User: Koko Gonsalves DO 08/24/21 00:00 HPI - General Adult General: Chief complaint: Skin/Abscess/Foreign Body Stated complaint: Abscess on groin Time Seen by Provider: 08/23/21 20:55 [facility] ED PFSH: Medical History Asthma Atrial fibrillation CAD (coronary artery disease) Chronic kidney disease (CKD), stage II (mild) Controlled type 2 diabetes mellitus with hyperglycemia, with long-term current u se of insulin Diabetic peripheral neuropathy associated with type 2 diabetes mellitus Diastolic CHF Dyslipidemia History of CVA in adulthood History of severe acute respiratory syndrome coronavirus 2 (SARS-CoV-2) disease (~01/2020) February 05 HTN (hypertension) Pain of left knee after injury Surgical History H/O angioplasty 7 stents, last stents 07/2020 H/O arthroscopic knee surgery Bilateral H/O parathyroidectomy H/O: hysterectomy History of appendectomy History of arthroscopic surgery of shoulder LEFT History of cholecystectomy History of tonsillectomy and adenoidectomy Family History Father Cancer Family/Other Cancer Mother Heart disease Stroke Dementia Denies family history of Diabetes CAD (coronary artery disease) Clotting disorder Hyperlipidemia Psychiatric illness Chronic kidney disease (CKD) Suicide Anesthesia complication Bleeding disorder Family history of premature coronary artery disease Lung disease Hypertension Social History Smoking and tobacco status: never smoked Second hand smoke exposure: No Smoking risk assessment/counseling performed?: No Alcohol intake: never Desire information about alcohol rehabilitation?: No Counseling given: No Desire information about substance/drug rehabilitation?: No Counseling given: No Adopted: No Caregiver/support person: Yes Lives independently: No Household members: family Housing: House Marital status: Single service: No Current occupational status: retired and disabled Pets and animals: Yes History of recent travel: No Current gender identity: Female Course Vital Signs: Vital signs: Vital Signs Temperature 98.9 F 08/24/21 12:45 Pulse Rate 72 08/24/21 12:45 Respiratory Rate 18 08/24/21 12:45 Blood Pressure 147/84 08/24/21 12:45 Pulse Oximetry 97 08/24/21 12:45 MDM - General Adult Medical Decision Making 76-year-old female with history of diabetes, atrial fibrillation on Eliquis presenting to the emergency room for concerns of possible groin infection. On physical exam, patient is found to have 3 areas of groin abscess with mild underlying erythema. Patient is also noted to have a candidal infection of the groin. White count 15.6. Patient has no findings of crepitus, maceration, pain out of proportion to physical exam. CT abdomen pelvis did not show any signs of gas pattern. Given reassuring physical exam, negative CT study, I do not suspect the patient has necrotizing soft tissue infection including Marcos's gangrene at this time. Case was discussed with Dr. Fields. Dr. Fields recommended starting patient on IV antibiotics. Patient received vancomycin and Zosyn. Dr. Fields does not recommend that I perform a bedside I&D presently. Dr. Fields will assess patient for seen the morning to determine if patient will need OR incision drainage. Patient also received diflucan for fungal infection. To be NPO at midnight. Initially on arrival, patient was noted to be mildly tachycardic to the low 100s. Patient received 500 cc of IVF given history of CHF. Patient's heart rate improved. Potassium of 5.6 slightly hemolyzed. EKG did not show any signs of hyperkalemia. Patient received 40 mg Lasix. Will repeat BMP after lasix. Disposition: admission CT reveals no evidence of significant air that would be indicative of Marcos's gangrene. We will continue with admission. Lab Data : 08/24/21 03:29 08/24/21 03:[address] 08/23/21 21:05
--- NOTE | 2021-08-23 21:05 | CTR_ITS ---
PROCEDURE INFORMATION: Exam: CT Pelvis With Contrast Exam date and time: 08/23/2021 10:29 PM Age: 76 years old Clinical indication: Condition or disease; Abscess; Prior surgery; Surgery date: 6+ months; Surgery type: Hyst, appy; Patient HX: R groin/vulva abcess; Additional info: Eval for groin abscess/cellulitis, HX of dm TECHNIQUE: Imaging protocol: Computed tomography images of the pelvis with intravenous contrast. Radiation optimization: All CT scans at this facility use at least one of these dose optimization techniques: automated exposure control; mA and/or kV adjustment per patient size (includes targeted exams where dose is matched to clinical indication); or iterative reconstruction. Contrast material: VISI 320; Contrast volume: 95 ml; Contrast route: INTRAVENOUS (IV); COMPARISON: CT angio chest w abd pel w con 07/30/2020 11:17 PM RADIATION DOSE METRICS: Total DLP (mGy-cm): 1352.69 FINDINGS: Stomach and bowel: Diverticulosis without diverticulitis. Appendix: No evidence of appendicitis. Intraperitoneal space: Unremarkable. No free air. No significant fluid collection. Lymph nodes: Unremarkable. No enlarged lymph nodes. Urinary bladder: Normal. No mass. Reproductive: There has been a hysterectomy. 3.7 x 2.4 x 2.4 cm fluid collection at the vaginal introitus, concerning for abscess. Bones/joints: Unremarkable. No acute fracture. No dislocation. Soft tissues: 3.6 x 1.5 by 2.8 cm focus of skin and subcutaneous soft tissue edema in the medial aspect of the right thigh. No definite abscess. CT/CT pelvis w con* [id number] IMPRESSION: 1. 3.7 x 2.4 x 2.4 cm fluid collection at the vaginal introitus, concerning for abscess. 2. Diverticulosis without diverticulitis. 3. 3.6 x 1.5 by 2.8 cm focus of skin and subcutaneous soft tissue edema in the medial aspect of the right thigh. No definite abscess.
--- NOTE | 2021-08-23 21:23 | ECG_ITS ---
[facility] Test Date: 2021-08-23 Pat Name: Pauline Rubio Department: Room: Gender: Female Brush Or Broom Cutter: : [id number] Requested By: Aisha Mclean Order Number: [id number] Juan MD: Em Akhtar M.D. Measurements Intervals [place] Rate: 96 P: 1 OR: 161 QRS: -9 QRSD: 77 T: 67 QT: 339 QTc: 429 Interpretive Statements SINUS RHYTHM WITH FREQUENT VENTRICULAR PREMATURE COMPLEXES WITH OCCASIONAL SUPRAVENTRICULAR PREMATURE COMPLEXES ABNORMAL RHYTHM ECG Compared to ECG 08/06/2020 10:50:55 Ventricular premature complex(es) now present T-wave abnormality no longer present Electronically Signed On 08-23-2021 22:00:49 CDT by Em Akhtar M.D. [id number]
[2021-08-23 21:49] LABS: Basophils # 0.1 10^3/uL (0.0-0.1); Basophils % 0.4 %; Eosinophils # 0.3 10^3/uL (0.0-0.8); Eosinophils % 1.7 %; Hematocrit 38.8 % (37.0-47.0); Hemoglobin 12.3 g/dL (11.5-15.3); Lymphocytes % 19.3 %; Mean Corpuscular HGB Conc 31.7 g/dL (30.0-36.0); Mean Corpuscular Hemoglobin 32.4 pg (28.0-34.0); Mean Corpuscular Volume 102.1 fl (81-99); Mean Platelet Volume 11.8 fL (7.4-10.4); Monocytes # 1.6 10^3/uL (0.2-0.9); Monocytes % 10.5 %; Neutrophils # 10.58 10^3/uL (1.8-7.7); Neutrophils % 67.7 %; Nucleated Red Blood Cells % 0 %; Platelet Count 263 10^3/cmm (130-400); White Blood Count 15.6 10^3/uL (4.0-10.0)
[2021-08-23] MEDS: sodium chloride 0.9% 500 ML IV (21:49)
[2021-08-23] MEDS: metoprolol tartrate 1 mg/1 mL SDV 5 mL 5 MG IVP (21:50)
[2021-08-23 22:09] LABS: Alanine Aminotransferase 40 U/L (0-33); Albumin Level 3.7 g/dL (3.5-5.2); Alkaline Phosphatase 177 IU/L (35-105); Blood Urea Nitrogen 34 mg/dL (8-23); Calcium 9.6 mg/dL (8.5-10.5); Carbon Dioxide 31 mmol/L (22-29); Chloride 99 mmol/L (98-107); Globulin 3.6 g/dL (1.3-4.6); Glucose 56 mg/dL (65-115); Lipase 20 U/L (13-60); Osmolality Calculated 291 mOsm/kg (285-295); Sodium 138 mmol/L (136-145); Total Bilirubin 0.2 mg/dL (0.15-1.2); Total Protein 7.3 g/dL (6.6-8.7)
[2021-08-23 22:10] LABS: Anion Gap 13.6 (5-19); Aspartate Amino Transferase 39 U/L (0-32); Lactate (Lactic Acid level) 1.4 mmol/L (0.5-2.2); Potassium 5.6 mmol/L (3.5-5.1)
--- NOTE | 2021-08-23 22:17 | P.HP_ITS ---
Providers/Chief Complaint Primary Care Provider: Anthony Mathew, CHRISTOPHERC Chief Complaint: Abscess on groin History of Present Illness Pauline Rubio is a 76 year old female who carries history of diabetes, A. fib, diastolic heart failure, chronic anticoagulation with Eliquis, presents to the hospital after 2-day history of perineal pain. Patient is stating that she was in her usual state of health until 2 days ago when she started noticing pain especially in her sitting posture around her perineal area. She has not noticed any fever, nausea, vomiting, chest pain, or worsening of shortness of breath. She is consistent with her medications, her last Eliquis dose was at 8 PM on 08/23. 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 She is denying abdominal pain, diarrhea, fever. Diagnostics in the ER revealed purulent cellulitis no signs of necrotizing fas ciitis, CT scan was requested he has leukocytosis, currently afebrile, Dr. Fields has been notified She received broad-spectrum antibiotics No active signs of sepsis CT/CT pelvis w con* [id number] IMPRESSION: 1. 3.7 x 2.4 x 2.4 cm fluid collection at the vaginal introitus, concerning for abscess. 2. Diverticulosis without diverticulitis. 3. 3.6 x 1.5 by 2.8 cm focus of skin and subcutaneous soft tissue edema in the medial aspect of the right thigh. No definite abscess. Review of Systems Const: Denies: fever(s) Eyes: Denies: change in vision ENMT: Denies: throat pain Card: Denies: chest pain Resp: Denies: dyspnea GI: Denies: abdominal pain Musc: Reports: extremity swelling; Denies: neck pain Skin/Breast: Reports: rash, erythema, skin pain, skin tenderness, changing lesions and changes in skin color Neuro: Denies: headache(s) Psych: Denies: anxiety Endo: Denies: polyuria Ruben/Lymph: Denies: easy bruising All/Imm: Denies: urticaria Medications/Allergies Home Medications Medication Instructions Recorded Confirmed Last Taken Type albuterol sulfate 90 mcg/actuation 2 puff INHALATION Q6H PRN 05/16/19 11/26/20 Unknown History aerosol inhaler (ProAir HFA) acetaminophen 650 mg 1,300 mg PO Q8H 07/31/20 11/26/20 Unknown History tablet,extended release (Tylenol Arthritis Pain) albuterol sulfate 2.5 mg INHALATION PRN 07/31/20 11/26/20 Unknown History budesonide-formoterol HFA 160 2 puff INHALATION BID 07/31/20 11/26/20 Unknown History mcg-4.5 mcg/actuation aerosol inhaler (Symbicort) insulin glargine 100 unit/mL 32 unit SUBCUT BID 07/31/20 11/26/20 Unknown History subcutaneous solution (Lantus U-100 Insulin) duloxetine 30 mg capsule,delayed 30 mg PO BID #180 cap 11/26/20 11/26/20 Unknown Rx release (Cymbalta) guaifenesin 400 mg tablet 400 mg PO QAM PRN 11/26/20 11/26/20 Unknown History montelukast 10 mg tablet 10 mg PO BEDTIME #90 tab 04/22/21 Unknown Rx apixaban 5 mg tablet (Eliquis) 5 mg PO BID #180 tab 05/20/21 05/20/21 Unknown Rx atorvastatin 40 mg tablet (Lipitor) 40 mg PO DAILY #90 tab 05/20/21 05/20/21 Unknown Rx clopidogrel 75 mg tablet (Plavix) 75 mg PO DAILY #90 tab 05/20/21 05/20/21 Unknown Rx docusate sodium 100 mg capsule 100 mg PO DAILY PRN 05/20/21 Unknown History (Colace) furosemide 40 mg tablet 40 mg PO QAM #90 tab 05/20/21 05/20/21 Unknown Rx insulin aspart U-100 100 unit/mL 12 unit SUBCUT TID ml 05/20/21 Unknown History subcutaneous solution (Novolog U-100 Insulin aspart) liraglutide 0.6 mg/0.1 mL (18 mg/3 0.6 mg SUBCUT DAILY 05/20/21 Unknown History mL) subcutaneous pen injector (Victoza 2-Jim) lisinopril 10 mg tablet 10 mg PO DAILY #90 tab 05/20/21 05/20/21 Unknown Rx metformin 500 mg tablet 500 mg PO DAILY tab 05/20/21 Unknown History sotalol 80 mg tablet 80 mg PO BID #180 tab 05/20/21 05/20/21 Unknown Rx nitroglycerin 0.4 mg sublingual 0.4 mg SUBLINGUAL Q5M PRN #25 tab 07/15/21 Unknown Rx tablet Allergies Allergy/AdvReac Type Severity Reaction Status Date / Time hydrocodone AdvReac Vomitting Verified 08/23/21 20:49 PFSH Acute PFSH: Medical History Asthma Atrial fibrillation CAD (coronary artery disease) Chronic kidney disease (CKD), stage II (mild) Controlled type 2 diabetes mellitus with hyperglycemia, with long-term current use of insulin Diabetic peripheral neuropathy associated with type 2 diabetes mellitus Diastolic CHF Dyslipidemia History of CVA in adulthood History of severe acute respiratory syndrome coronavirus 2 (SARS-CoV-2) disease (~01/2020) February 05 HTN (hypertension) Pain of left knee after injury Surgical History H/O angioplasty 7 stents, last stents 07/2020 H/O arthroscopic knee surgery Bilateral H/O parathyroidectomy H/O: hysterectomy History of appendectomy History of arthroscopic surgery of shoulder LEFT History of cholecystectomy History of tonsillectomy and adenoidectomy Family History Father Cancer Family/Other Cancer Mother Heart disease Stroke Dementia Denies family history of Diabetes CAD (coronary artery disease) Clotting disorder Hyperlipidemia Psychiatric illness Chronic kidney disease (CKD) Suicide Anesthesia complication Bleeding disorder Family history of premature coronary artery disease Lung disease Hypertension Social History Smoking and tobacco status: never smoked Second hand smoke exposure: No Smoking risk assessment/counseling performed?: No Alcohol intake: never Desire information about alcohol rehabilitation?: No Counseling given: No Desire information about substance/drug rehabilitation?: No Counseling given: No Adopted: No Caregiver/support person: Yes Lives independently: No Household members: family Housing: House Marital status: Single service: No Current occupational status: retired and disabled Pets and animals: Yes History of recent travel: No Current gender identity: Female Vitals/I&O/Wt Last Vital Signs Temp 98.0 F 08/23/21 20:46 Pulse 119 H 08/23/21 20:46 Resp 20 H 08/23/21 20:46 BP 136/77 08/23/21 20:46 Pulse Ox 94 08/23/21 20:46 Weight last 48 hrs Weight 128.367 kg Physical Exam Narrative: Pleasant cooperative elderly female Morbidly obese Patient is laying comfortably in her bed Currently satting well on room air Is hard to assess her volume status Bradycardia with S1-S2 No signs of abdominal guarding rigidity, visceral obesity present Gynecological exam done in presence of a female nurse skin induration noted around vaginal vault right greater than left, skin color varies from ecchymosis to erythema Swelling around medial side of thighs bilaterally Vaginal exam was not done EOMI, PERRLA Nonfocal neuro exam Satting well on room air Data : 08/23/21 21:40 08/23/21 23:20 Micro: Microbiology 08/23/21 21:40 Blood Culture - Preliminary Blood SPECIMEN COLLECTED A&P Assessment and plan (1) Abscess of groin: Status: Acute (2) Cellulitis of groin: Status: Acute (3) Autumn infection: Status: Acute (4) Diastolic CHF: Status: Acute Qualifiers: Heart failure chronicity: chronic Qualified Code(s): I50.32 - Chronic diastolic (congestive) heart failure (5) Chronic anticoagulation: Status: Chronic (6) BMI 40.0-44.9, adult: Status: Chronic (7) Atrial fibrillation: Status: Chronic Qualifiers: Atrial fibrillation type: persistent (not longstanding) Qualified Code(s): I48.19 - Other persistent atrial fibrillation (8) Type 2 diabetes mellitus with diabetic polyneuropathy: Status: Chronic Qualifiers: Diabetes mellitus long-term insulin use: with long-term use Qualified Code(s): E11.42 - Type 2 diabetes mellitus with diabetic polyneuropathy; 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 Fields has been consulted, I will keep her n.p.o. in case she will need intervention in the morning however her last Eliquis dose was at 8 PM on 08/[address]-guided drainage versus general surgery A. fib without RVR, hold Eliquis and Plavix Diastolic heart failure without acute exacerbation Morbid obesity, she might need oxygen for her possible sleep apnea Patient has diabetes with peripheral neuropathy follows up with Dr. Das Patient contracted COVID-19 infection last year N.p.o. Low-dose sliding scale Goals of care discussed with the patient in front of her nurse, patient does not want any chest compressions defibrillation or intubation, she will be treated as DNR/DNI Attestations Medical Necessity Statement*: Anticipating more than 2 midnights for abscess of the vaginal introitus Time Spent in Patient Care: 40mins Coding Level of Care Code Acute Case Management Coordinator for g Fwd Diagnoses Abscess of groin L02.214 Cellulitis of groin L03.314 Autumn infection B37.9 Diastolic CHF I50.32 Heart failure chronicity: chronic Chronic anticoagulation Z79.01 BMI 40.0-44.9, adult Z68.41 Atrial fibrillation I48.19 Atrial fibrillation type: persistent (not longstanding) Type 2 diabetes mellitus with diabetic polyneuropathy E11.42; Z79.4 Diabetes mellitus long-term insulin use: with manager intermediate use
[2021-08-23] MEDS: iodixanol 320 mg/mL 100mL Btl IV (22:38)
[2021-08-23 22:57] LABS: Erythrocyte Sedimentation Rate 11 mm/hr (0-15)
[2021-08-23] MEDS: vancomycin 1,000 MG in sodium chloride 0.9% 250 ML 250 MG IV (23:01)
[2021-08-23] MEDS: fluconazole 100 mg Tablet 150 MG PO (23:03)
[2021-08-23] MEDS: FUROsemide 10 mg/mL SDV 4mL 40 MG IVP (23:04)
[2021-08-23 23:05] LABS: Procalcitonin 0.06 ng/mL (0-0.5)
[2021-08-23 23:45] LABS: INR 1.31 (0.8-1.2)
[2021-08-23 23:46] LABS: Partial Thromboplastin Time 36.6 SECONDS (23.9-36.7)
[2021-08-23 23:48] LABS: Anion Gap 12.4 (5-19); Blood Urea Nitrogen 34 mg/dL (8-23); Calcium 9.4 mg/dL (8.5-10.5); Carbon Dioxide 31 mmol/L (22-29); Chloride 98 mmol/L (98-107); Glucose 52 mg/dL (65-115); Osmolality Calculated 289 mOsm/kg (285-295); Potassium 4.4 mmol/L (3.5-5.1); Sodium 137 mmol/L (136-145)
[2021-08-24] VITALS (20 sets, daily range): BP systolic 94–151; BP diastolic 56–91; PULSE 69–118; RESP 12–19; TEMP 36.2–37.3; O2SAT 90–100; BMI 43.4
[2021-08-24] MEDS: piperacillin-tazobactam 4.5 GM in sodium chloride 0.9% (plus) 50 ML IV (00:14)
[2021-08-24 00:19] LABS: Add Urine Microscopic? NO; Charge for UA Resulting for Rev
[2021-08-24 00:21] LABS: Bilirubin Urine Neg (Negative); Blood Urine Neg (Negative); Glucose Urine UA Norm (Normal); Ketones Urine Negative (Negative); Leukocyte Esterase Urine Negative (Negative); Nitrate Urine Negative (Negative); Protein Urine Neg (Negative); Specific Gravity, Urine 1.015 (1.005-1.030); Urine Appearance Clear (CLEAR); Urine Color Yellow (Yellow); Urobilinogen Urine Norm (Negative); pH Urine 6 (5-7)
--- NOTE | 2021-08-24 00:34 | PC.PHAR ---
Pharmacokinetic dosing service Date: 08/24/21 Time: 29 Objective: Patient: Pauline Rubio Floor: [id number] Age: 76 yo Serum creatinine: 0.9 mg/dL Height: 70.0 Inches Weight (kg): 128.367 Diagnosis: Relevant medical/social history: Cultures and sensitivities: Other labs: Assessment: IBW (kg): 68.50 Dosing wt(kg): 92.4 Estimated Creatinine clearance (ml/min): 58.4 CRCL method: Cockcroft and Gault using ibw(default). Drug selected: Vancomycin Loading dose (mg): 0 Vd (liters): 83.2 (factor used: 0.9 L/kg) Angel (hr-1): 0.053 Half life (hrs): 13.08 Recommended dose: 1250 mg Interval: 12 hrs Infusion time (hrs): 1.5 Predicted peak (mcg/mL): 30.7 Predicted trough (mcg/mL): 17.60 Adjusted body weight was selected for vancomycin dosing. To switch back, select the total body weight option above. Renal function is stable [ ] /unstable [ ] Recommendations: Give Vancomycin 1250 mg q 12 hrs with an expected Cpeak of 30.7 mcg/ml and an expected Ctrough of 17.60 mcg/ml Renal dosing of other antibiotics (review renal dosing of other medications and list guidelines here): Thank you for the consult, will continue to follow. Signature: Amanda Davis [facility]
[2021-08-24] MEDS: sodium chloride 0.9% 1,000 ML 75 ML IV ×2 (00:52→17:19)
[2021-08-24] MEDS: acetaminophen 500 mg Tablet PO (01:36)
[2021-08-24 03:57] LABS: Basophils # 0.1 10^3/uL (0.0-0.1); Basophils % 0.3 %; Eosinophils # 0.2 10^3/uL (0.0-0.8); Eosinophils % 1.5 %; Hematocrit 35.2 % (37.0-47.0); Lymphocytes % 19.7 %; Mean Corpuscular HGB Conc 31.3 g/dL (30.0-36.0); Mean Corpuscular Hemoglobin 31.6 pg (28.0-34.0); Mean Corpuscular Volume 101.1 fl (81-99); Monocytes # 1.7 10^3/uL (0.2-0.9); Monocytes % 11.5 %; Neutrophils # 9.99 10^3/uL (1.8-7.7); Neutrophils % 66.6 %; Nucleated Red Blood Cells % 0 %; Platelet Count 252 10^3/cmm (130-400); Red Blood Count 3.48 10^6/uL (4.1-5.3); Red Cell Distribution Width 12.9 % (12.1-15.1)
[2021-08-24 04:15] LABS: Anion Gap 15.3 (5-19); Blood Urea Nitrogen 34 mg/dL (8-23); C Reactive Protein 34.4 mg/L (0.0-4.9); Calcium 9.1 mg/dL (8.5-10.5); Carbon Dioxide 29 mmol/L (22-29); Chloride 101 mmol/L (98-107); Glucose 116 mg/dL (65-115); Magnesium 1.5 mg/dL (1.7-2.3); Osmolality Calculated 301 mOsm/kg (285-295); Potassium 4.3 mmol/L (3.5-5.1); Sodium 141 mmol/L (136-145)
[2021-08-24] MEDS: HYDROmorphone 1 mg/mL INJ 1 mL 0.4 MG IVP ×2 (06:24→10:01)
[2021-08-24 06:32] LABS: Glucose Point of Care 109 mg/dL (70-110)
--- NOTE | 2021-08-24 06:32 | P.CONIM_ITS ---
Providers/Reason For Consult Consulting Physician/Specialty*: Iván Fields MD Reason for Consult*: Right groin abscess Requesting Physician: Dr. Mclean Attending Physician: Jerilyn Milligan MD Primary Care Provider: PORTER Lindsay History of Present Illness History of Present Illness Ms. Pauline Rubio is a pleasant 76 year old female with history of morbid obesity with a current weight of 293 pounds and a BMI 43.4 and associated multiple medical comorbidities in the form of type 2 diabetes mellitus with polyneuropathy, asthma, chronic artery disease, dyslipidemia, recurrent Autumn infection and cellulitis of the groin with history of hemarthrosis involving knee joint. Patient also has history of atrial fibrillation and on chronic anticoagulation in the form of Plavix and Eliquis therapy. Presented to the emergency department yesterday with purulent discharge from the right labia majora and. Labia majora area. I was contacted by ED physician that the patient has right groin abscess and patient had further work-up and her blood work showed WBC count of 15.6 that went down to 15,000, serum creatinine of 1.0 and glucose of 116. Patient undergone a CT scan of the abdomen pelvis and showed 1. 3.7 x 2.4 x 2.4 cm fluid collection at the vaginal introitus, concerning for abscess. 2. Diverticulosis without diverticulitis. 3. 3.6 x 1.5 by 2.8 cm focus of skin and subcutaneous soft tissue edema in the medial aspect of the right thigh. No definite abscess. The general surgery was consulted before the CT scan was obtained, under the impression that the patient does have a right groin abscess. Patient denies any other constitutional symptoms. Review of Systems General: Reports: 10 or more systems reviewed and unremarkable except in HPI and below Medications/Allergies Home Medications Medication Instructions Recorded Confirmed Last Taken Type albuterol sulfate 90 mcg/actuation 2 puff INHALATION Q6H PRN 05/16/19 08/24/21 08/17/21 15:00 History aerosol inhaler (ProAir HFA) acetaminophen 650 mg 1,300 mg PO Q8H 07/31/20 08/24/21 08/23/21 14:00 History tablet,extended release (Tylenol Arthritis Pain) albuterol sulfate 2.5 mg INHALATION PRN 07/31/20 08/24/21 Unknown History budesonide-formoterol HFA 160 2 puff INHALATION BID 07/31/20 08/24/21 08/23/21 07:30 History mcg-4.5 mcg/actuation aerosol inhaler (Symbicort) insulin glargine 100 unit/mL 32 unit SUBCUT BID 07/31/20 08/24/21 08/23/21 07:30 History subcutaneous solution (Lantus U-100 Insulin) duloxetine 30 mg capsule,delayed 30 mg PO BID #180 cap 11/26/20 08/24/21 08/23/21 20:00 Rx release (Cymbalta) guaifenesin 400 mg tablet 400 mg PO QAM PRN 11/26/20 08/24/21 Unknown History montelukast 10 mg tablet 10 mg PO BEDTIME #90 tab 04/22/21 08/24/21 08/23/21 20:00 Rx apixaban 5 mg tablet (Eliquis) 5 mg PO BID #180 tab 05/20/21 08/24/21 08/23/21 20:00 Rx atorvastatin 40 mg tablet (Lipitor) 40 mg PO DAILY #90 tab 05/20/21 08/24/21 08/23/21 20:00 Rx clopidogrel 75 mg tablet (Plavix) 75 mg PO DAILY #90 tab 05/20/21 08/24/21 08/23/21 07:30 Rx docusate sodium 100 mg capsule 100 mg PO DAILY PRN 05/20/21 08/24/21 08/23/21 07:30 History (Colace) furosemide 40 mg tablet 40 mg PO QAM #90 tab 05/20/21 08/24/21 08/23/21 07:30 Rx insulin aspart U-100 100 unit/mL 12 unit SUBCUT TID ml 05/20/21 08/24/21 Unk nown History subcutaneous solution (Novolog U-100 Insulin aspart) liraglutide 0.6 mg/0.1 mL (18 mg/3 0.6 mg SUBCUT DAILY 05/20/21 08/24/21 08/23/21 07:30 History mL) subcutaneous pen injector (Victoza 2-Jim) lisinopril 10 mg tablet 10 mg PO DAILY #90 tab 05/20/21 08/24/21 08/23/21 07:30 Rx metformin 500 mg tablet 500 mg PO DAILY tab 05/20/21 08/24/21 08/23/21 07:30 H istory sotalol 80 mg tablet 80 mg PO BID #180 tab 05/20/21 08/24/21 08/23/21 20:00 Rx nitroglycerin 0.4 mg sublingual 0.4 mg SUBLINGUAL Q5M PRN #25 tab 07/15/21 08/24/21 08/21/21 20:00 Rx tablet Allergies Allergy/AdvReac Type Severity Reaction Status Date / Time hydrocodone AdvReac Vomitting Verified 08/24/21 06:52 Current Medications Generic Name Dose Route Start Last Admin Trade Name Freq PRN Reason Stop Dose Admin Acetaminophen 500 mg 08/24/21 00:13 08/24/21 01:36 Acetaminophen 500 Mg Tablet PO 500 mg Q4H PRN Administration fever Hydromorphone HCl 0.4 mg 08/24/21 00:13 08/24/21 06:24 Hydromorphone 1 Mg/Ml Inj 1 Ml IVP 0.4 mg Q4H PRN Administration pain Sodium Chloride 1,000 mls @ 75 mls/hr 08/24/21 00:13 08/24/21 00:52 Sodium Chloride 0.9% IV 75 mls/hr .[id number] DIANA Administration PFSH Acute PFSH: Medical History Asthma Atrial fibrillation CAD (coronary artery disease) Chronic kidney disease (CKD), stage II (mild) Controlled type 2 diabetes mellitus with hyperglycemia, with long-term current use of insulin Diabetic peripheral neuropathy associated with type 2 diabetes mellitus Diastolic CHF Dyslipidemia History of CVA in adulthood History of severe acute respiratory syndrome coronavirus 2 (SARS-CoV-2) disease (~01/2020) February 05 HTN (hypertension) Pain of left knee after injury Surgical History H/O angioplasty 7 stents, last stents 07/2020 H/O arthroscopic knee surgery Bilateral H/O parathyroidectomy H/O: hysterectomy History of appendectomy History of arthroscopic surgery of shoulder LEFT History of cholecystectomy History of tonsillectomy and adenoidectomy Family History Father Cancer Family/Other Cancer Mother Heart disease Stroke Dementia Denies family history of Diabetes CAD (coronary artery disease) Clotting disorder Hyperlipidemia Psychiatric illness Chronic kidney disease (CKD) Suicide Anesthesia complication Bleeding disorder Family history of premature coronary artery disease Lung disease Hypertension Social History Smoking and tobacco status: never smoked Second hand smoke exposure: No Smoking risk assessment/counseling performed?: No Alcohol intake: never Desire information about alcohol rehabilitation?: No Counseling given: No Desire information about substance/drug rehabilitation?: No Counseling given: No Adopted: No Caregiver/support person: Yes Lives independently: No Household members: family Housing: House Marital status: Single service: No Current occupational status: retired and disabled Pets and animals: Yes History of recent travel: No Current gender identity: Female Vitals/I&O/Wt Last Vital Signs Temp 97.2 F L 08/24/21 04:00 Pulse 74 08/24/21 04:00 Resp 17 08/24/21 04:00 BP 99/65 08/24/21 04:00 Pulse Ox 97 08/24/21 04:00 08/23/21 08/23/21 08/24/21 14:59 22:59 06:59 Intake Total 800 / 800 Output Total 1450 / 1450 Balance -650 / -650 Weight last 48 hrs Weight 293 lb 12.8 oz Weight 283 lb Physical Exam Narrative: Patient is conscious alert oriented X3 No apparent distress BMI 43.4 Head and neck examination PERRLA no masses no cervical lymphadenopathy no jaundice Cardiac examination audible S1-S2 no murmurs no gallops no arrhythmias Chest is clear bilateral,abscence of Rhonchi or wheezes,no surgical emphysema Abdomen nontender nondistended soft no organomegaly guarding or rigidity/no signs of peritonitis Morbidly obese Extremities no cyanosis no clubbing no edema Examination was done in the presence of female nursing data modeling architect Redga Presence of purulent discharge coming from around the right labia majora there is no evidence of right groin abscesses Urinary Catheter Management: Arzate: Cath Placed During This Visit: yes Reason for Continuing Indwelling Catheter: Other Urinary Catheter Date of Insertion: 08/24/21 Urinary Catheter Time of Insertion: 22:44 Data : 08/24/21 03:29 08/24/21 03:29 Micro: Microbiology 08/23/21 23:20 Blood Culture - Preliminary Blood SPECIMEN COLLECTED 08/23/21 21:40 Blood Culture - Preliminary Blood SPECIMEN COLLECTED A&P Assessment and plan (1) Abscess of labia majora: After thorough history physical examination reviewing the chart and images which appears to be a very poor quality. Meaning the CT of the abdomen and pelvis. Yet clinically the patient definitely have purulent discharge coming around from the right labia majora. I would highly recommend to have gynecology team to examine the patient and likely a pelvic examination with I&D under anesthesia. Not much to be offered from general surgery standpoint of view as the patient has no evidence of clinical or radiological abscess of the right groin. I will make myself available for further questions or concerns Continue broad-spectrum IV antibiotics Keep the patient n.p.o. for now until gynecology team evaluates the patient Assurance and education All questions have been answered and all concerns have been addressed to patient's satisfaction. Status: Acute Consult Attestations Medical Necessity Statement: Per admitting service Coding Level of Care Code Acute Proposal Director for Griselda Gomez Diagnoses Abscess of labia majora N76.4
[2021-08-24 08:01] LABS: Estmated Average Glucose 114; Hemoglobin A1C 5.6 % (4.0-6.0)
[2021-08-24] MEDS: piperacillin-tazobactam 3.375 GM in sodium chloride 0.9% (plus) 100 ML IV ×2 (10:01→17:19)
--- NOTE | 2021-08-24 10:56 | P.CONIM_ITS ---
Providers/Reason for Consult Consulting Physican/Specialty*: Hospitalist Reason for Consult*: perinal abcess Attending Physician: Valerio Salgado MD Primary Care Provider: PORTER Lindsay ACCOUNTING CONSULTANT Consult HPI History of Present Illness Pauline Rubio is a 76 year old female admitted to the emergency room due to pelvic perineal pain and abscess. Mrs. Rubio refers there is pain started to gotten worse for 2 days, but that she has started to feel discomfort for almost 2 months. Her past medical history was significant for diastolic heart failure, atrial fibrillation on Eliquis, CKD, CAD and diabetes. Eliquis has been stopped. She refers her diabetes has been under control but that she does like ice cream and some times she eats ice cream. Review of Systems Const: Denies: fever(s) Eyes: Denies: change in vision ENMT: Denies: throat pain Card: Denies: chest pain Resp: Denies: dyspnea GI: Denies: abdominal pain : Reports: vaginal odor, vaginal bleeding, vaginal discharge and pelvic pain Musc: Reports: extremity swelling; Denies: neck pain Skin/Breast: Reports: rash, erythema, skin pain, skin tenderness, changing lesions and changes in skin color Neuro: Denies: headache(s) Psych: Denies: anxiety Endo: Denies: polyuria Ruben/Lymph: Denies: easy bruising All/Imm: Denies: urticaria Medications/Allergies Home Medications Medication Instructions Recorded Confirmed Last Taken Type albuterol sulfate 90 mcg/actuation 2 puff INHALATION Q6H PRN 05/16/19 08/24/21 08/17/21 15:00 History aerosol inhaler (ProAir HFA) acetaminophen 650 mg 1,300 mg PO Q8H 07/31/20 08/24/21 08/23/21 14:00 History tablet,extended release (Tylenol Arthritis Pain) albuterol sulfate 2.5 mg INHALATION PRN 07/31/20 08/24/21 Unknown History budesonide-formoterol HFA 160 2 puff INHALATION BID 07/31/20 08/24/21 08/23/21 07:30 History mcg-4.5 mcg/actuation aerosol inhaler (Symbicort) insulin glargine 100 unit/mL 32 unit SUBCUT BID 07/31/20 08/24/21 08/23/21 07:30 History subcutaneous solution (Lantus U-100 Insulin) duloxetine 30 mg capsule,delayed 30 mg PO BID #180 cap 11/26/20 08/24/21 05/11/07 20:00 Rx release (Cymbalta) guaifenesin 400 mg tablet 400 mg PO QAM PRN 11/26/20 08/24/21 Unknown History montelukast 10 mg tablet 10 mg PO BEDTIME #90 tab 04/22/21 08/24/21 08/23/21 20 :00 Rx apixaban 5 mg tablet (Eliquis) 5 mg PO BID #180 tab 05/20/21 08/24/21 08/23/21 20:00 Rx atorvastatin 40 mg tablet (Lipitor) 40 mg PO DAILY #90 tab 05/20/21 08/24/21 08/23/21 20:00 Rx clopidogrel 75 mg tablet (Plavix) 75 mg PO DAILY #90 tab 05/20/21 08/24/21 08/23/21 07:30 Rx docusate sodium 100 mg capsule 100 mg PO DAILY PRN 05/20/21 08/24/21 08/23/21 07:30 History (Colace) furosemide 40 mg tablet 40 mg PO QAM #90 tab 05/20/21 08/24/21 08/23/21 07:30 Rx insulin aspart U-100 100 unit/mL 12 unit SUBCUT TID ml 05/20/21 08/24/21 Unknown History subcutaneous solution (Novolog U-100 Insulin aspart) liraglutide 0.6 mg/0.1 mL (18 mg/3 0.6 mg SUBCUT DAILY 05/20/21 08/24/21 08/23/21 07:30 History mL) subcutaneous pen injector (Victoza 2-Jim) lisinopril 10 mg tablet 10 mg PO DAILY #90 tab 05/20/21 08/24/21 08/23/21 07:30 Rx metformin 500 mg tablet 500 mg PO DAILY tab 05/20/21 08/24/21 08/23/21 07:30 History sotalol 80 mg tablet 80 mg PO BID #180 tab 05/20/21 08/24/21 08/23/21 20:00 Rx nitroglycerin 0.4 mg sublingual 0.4 mg SUBLINGUAL Q5M PRN #25 tab 03/29/22 05/08/22 05/05/22 20:00 Rx tablet Allergies Allergy/AdvReac Type Severity Reaction Status Date / Time hydrocodone AdvReac Vomitting Verified 08/24/21 06:52 Current Medications Generic Name Dose Route Start Last Admin Trade Name Freq PRN Reason Stop Dose Admin Acetaminophen 500 mg 08/24/21 00:13 08/24/21 01:36 Acetaminophen 500 Mg Tablet PO 500 mg Q4H PRN Administration fever Hydromorphone HCl 0.4 mg 08/24/21 00:13 08/24/21 10:01 Hydromorphone 1 Mg/Ml Inj 1 Ml IVP 0.4 mg Q4H PRN Administration pain Sodium Chloride 1,000 mls @ 75 mls/hr 08/24/21 00:13 08/24/21 00:52 Sodium Chloride 0.9% IV 75 mls/hr .[id number] DIANA Administration Piperacillin Sod/Tazobactam 100 mls @ 25 mls/hr 08/24/21 09:30 08/24/21 10:01 Sod 3.375 gm/ Sodium Chloride IV 25 mls/hr Q8H DIANA Administration Protocol Insulin Human Lispro 0 unit 08/24/21 08:00 08/24/21 08:15 Insulin Lispro 100 Unit/1 Ml SUBCUT Not Given TIDWM DIANA Protocol PFSH ACCOUNTING CONSULTANT PFSH: Medical History Asthma Atrial fibrillation CAD (coronary artery disease) Chronic kidney disease (CKD), stage II (mild) Controlled type 2 diabetes mellitus with hyperglycemia, with long-term current u se of insulin Diabetic peripheral neuropathy associated with type 2 diabetes mellitus Diastolic CHF Dyslipidemia History of CVA in adulthood History of severe acute respiratory syndrome coronavirus 2 (SARS-CoV-2) disease (~01/2020) February 05 HTN (hypertension) Pain of left knee after injury Surgical History H/O angioplasty 7 stents, last stents 07/2020 H/O arthroscopic knee surgery Bilateral H/O parathyroidectomy H/O: hysterectomy History of appendectomy History of arthroscopic surgery of shoulder LEFT History of cholecystectomy History of tonsillectomy and adenoidectomy Family History Father Cancer Family/Other Cancer Mother Heart disease Stroke Dementia Denies family history of Diabetes CAD (coronary artery disease) Clotting disorder Hyperlipidemia Psychiatric illness Chronic kidney disease (CKD) Suicide Anesthesia complication Bleeding disorder Family history of premature coronary artery disease Lung disease Hypertension Social History Smoking and tobacco status: never smoked Second hand smoke exposure: No Smoking risk assessment/counseling performed?: No Alcohol intake: never Desire information about alcohol rehabilitation?: No Counseling given: No Desire information about substance/drug rehabilitation?: No Counseling given: No Adopted: No Caregiver/support person: Yes Lives independently: No Household members: family Housing: House Marital status: Single service: No Current occupational status: retired and disabled Pets and animals: Yes History of recent travel: No Current gender identity: Female Vitals/I&O/Wt Last Vital Signs Temp 97.2 F L 08/24/21 04:00 Pulse 72 08/24/21 07:52 Resp 18 08/24/21 07:52 BP 128/81 08/24/21 07:52 Pulse Ox 97 08/24/21 07:52 08/23/21 08/24/21 08/24/21 22:59 06:59 14:59 Intake Total 800 / 800 Output Total 1450 / 1450 Balance -650 / -650 Weight last 48 hrs Weight 133.265 kg Weight 128.367 kg Physical Exam Const: COMMON NORMALS: no acute distress, average body habitus and patient oriented x3 GENERAL APPEARANCE: cooperative and well kempt HENMT: COMMON NORMALS: normocephalic and atraumatic HEAD & SCALP: normocephalic and atraumatic Neck/C-Spine: COMMON NORMALS: full ROM Chest: COMMONS NORMALS: normal inspection of the chest Resp: COMMON NORMALS: normal respiratory effort Cardio: COMMON NORMALS: regular rate and regular rhythm RATE: regular rate RHYTHM: regular rhythm GI: INSPECTION: Yes normal to inspection : EXTERNAL FEMALE EXAM: Yes Abnormal introitus (right side edema), Yes externally tender, Yes external swelling and Yes lesion right labial other (abcess) Neuro: COMMON NORMALS: patient oriented x3 Psych: APPEARANCE: Yes well kempt Urinary Catheter Management: Arzate: Cath Placed During This Visit: yes Reason for Continuing Indwelling Catheter: Other Urinary Catheter Date of Insertion: 08/24/21 Urinary Catheter Time of Insertion: 22:44 Data : 08/24/21 03:29 08/24/21 03:29 Micro: Microbiology 08/23/21 23:20 Blood Culture - Preliminary Blood SPECIMEN COLLECTED 08/23/21 21:40 Blood Culture - Preliminary Blood SPECIMEN COLLECTED A&P Assessment and plan (1) Abscess of labia majora: Mrs. Rubio 76-year-old female with in introital labial perineum abscess, exquisitely tender. Due to limitations of exposure during examination due to no exam bed available on the floor I could not differentiate if it was a Bartholin gland abscess versus a perineal abscess. Incision and drainage was recommended. The patient was counseled regarding findings and recommendations. She agreed to incision and drainage in the OR. She was informed of the risks and benefits of incision and drainage. Risks included but were not limited to bleeding, infection, and injury to the vagina, bladder, or urethra, internal organs and incomplete resolution of symptoms. The patient expressed understanding of the risks involved, all questions were answered, and the patient consented to the procedure and signed informed consent and signed the consent. Status: Acute Coding Level of Care Code Acute Scientific Associate for [facility] Fwd Exam Comprehensive Diagnoses Abscess of labia majora N76.4
[2021-08-24] MEDS: sodium chloride 0.9% 1,000 ML 30 ML IV (11:10)
--- NOTE | 2021-08-24 11:10 | ANES.PREANE2 ---
Pre-Anesthetic Assessment Height/Weight: Height 1.75 m Weight 133.265 kg Temp Pulse Resp BP Pulse Ox 99.1 F 80 19 H 151/78 96 08/24/21 11:05 08/24/21 11:05 08/24/21 11:05 08/24/21 11:05 08/24/21 11:05 Preop Diagnosis: perineal abcess Operation Date: 08/24/21 10:25 Proposed Procedures p Incision And Drainage labia(Not Applicable) - Ta Templeton MD Familial anesthetic complications: none Was Beta Vilma taken within 24 hours: N/A Was Clonidine taken within 24 hours: N/A Last intake: 08/23 Social No alcohol and No tobacco Exam alert and oriented x 3 Airway Submandibular: within normal limits Cervical ROM: within normal limits Mallampati: Class II Dentition: full Pulmonary Asthma and Sleep Apnea CV/HEM Atrial Fibrillation, Stable Angina, Arrythmia, Coronary Artery Disease (7 stents, most recent 1 year ago), Hypertension and Myocardial Infarction None reported Hepatic None reported GI Gastroesophageal Reflux Disease Metabolic Diabetes Mellitus, Hyperlipidemia and Morbid Obesity Neuropsych Cerebrovascular Accident (left hand tremor) Anesthetic Plan ASA status: 3 Anesthesia: Anesthesia Evaluation and General Risk of > 500 ml blood loss (7ml/kg in children): No Medications/Allergies Home Medications Medication Instructions Recorded Confirmed Last Taken Type albuterol sulfate 90 mcg/actuation 2 puff INHALATION Q6H PRN 05/16/19 08/24/21 08/17/21 15:00 History aerosol inhaler (ProAir HFA) acetaminophen 650 mg 1,300 mg PO Q8H 07/31/20 08/24/21 08/23/21 14:00 History tablet,extended release (Tylenol Arthritis Pain) albuterol sulfate 2.5 mg INHALATION PRN 07/31/20 08/24/21 Unknown History budesonide-formoterol HFA 160 2 puff INHALATION BID 07/31/20 08/24/21 08/23/21 07:30 History mcg-4.5 mcg/actuation aerosol inhaler (Symbicort) insulin glargine 100 unit/mL 32 unit SUBCUT BID 07/31/20 08/24/21 08/23/21 07:30 History subcutaneous solution (Lantus U-100 Insulin) duloxetine 30 mg capsule,delayed 30 mg PO BID #180 cap 11/26/20 08/24/21 08/23/21 20:00 Rx release (Cymbalta) guaifenesin 400 mg tablet 400 mg PO QAM PRN 11/26/20 08/24/21 Unknown History montelukast 10 mg tablet 10 mg PO BEDTIME #90 tab 04/22/21 08/24/21 08/23/21 20:00 Rx apixaban 5 mg tablet (Eliquis) 5 mg PO BID #180 tab 05/20/21 08/24/21 08/23/21 20:00 Rx atorvastatin 40 mg tablet (Lipitor) 40 mg PO DAILY #90 tab 05/20/21 08/24/21 08/23/21 20:00 Rx clopidogrel 75 mg tablet (Plavix) 75 mg PO DAILY #90 tab 05/20/21 08/24/21 08/23/21 07:30 Rx docusate sodium 100 mg capsule 100 mg PO DAILY PRN 05/20/21 08/24/21 08/23/21 07:30 History (Colace) furosemide 40 mg tablet 40 mg PO QAM #90 tab 05/20/21 08/24/21 08/23/21 07:30 Rx insulin aspart U-100 100 unit/mL 12 unit SUBCUT TID ml 05/20/21 08/24/21 Unknown History subcutaneous solution (Novolog U-100 Insulin aspart) liraglutide 0.6 mg/0.1 mL (18 mg/3 0.6 mg SUBCUT DAILY 05/20/21 08/24/21 08/23/21 07:30 History mL) subcutaneous pen injector (Victoza 2-Jim) lisinopril 10 mg tablet 10 mg PO DAILY #90 tab 05/20/21 08/24/21 08/23/21 07:30 Rx metformin 500 mg tablet 500 mg PO DAILY tab 05/20/21 08/24/21 08/23/21 07:30 History sotalol 80 mg tablet 80 mg PO BID #180 tab 05/20/21 08/24/21 08/23/21 20:00 Rx nitroglycerin 0.4 mg sublingual 0.4 mg SUBLINGUAL Q5M PRN #25 tab 07/15/21 08/24/21 08/21/21 20:00 Rx tablet Allergies Allergy/AdvReac Type Severity Reaction Status Date / Time hydrocodone AdvReac Vomitting Verified 08/24/21 06:52 Current Medications Generic Name Dose Route Start Last Admin Trade Name Freq PRN Reason Stop Dose Admin Acetaminophen 500 mg 08/24/21 00:13 08/24/21 01:36 Acetaminophen 500 Mg Tablet PO 500 mg Q4H PRN Administration fever Hydromorphone HCl 0.4 mg 08/24/21 00:13 08/24/21 10:01 Hydromorphone 1 Mg/Ml Inj 1 Ml IVP 0.4 mg Q4H PRN Administration pain Sodium Chloride 1,000 mls @ 75 mls/hr 08/24/21 00:13 08/24/21 00:52 Sodium Chloride 0.9% IV 75 mls/hr .[id number] DIANA Administration Piperacillin Sod/Tazobactam 100 mls @ 25 mls/hr 08/24/21 09:30 08/24/21 10:01 Sod 3.375 gm/ Sodium Chloride IV 25 mls/hr Q8H DIANA Administration Protocol Insulin Human Lispro 0 unit 08/24/21 08:00 08/24/21 08:15 Insulin Lispro 100 Unit/1 Ml SUBCUT Not Given TIDWM DIANA Protocol PFSH Anesthesia Medical History Asthma Atrial fibrillation CAD (coronary artery disease) Chronic kidney disease (CKD), stage II (mild) Controlled type 2 diabetes mellitus with hyperglycemia, with long-term current use of insulin Diabetic peripheral neuropathy associated with type 2 diabetes mellitus Diastolic CHF Dyslipidemia History of CVA in adulthood History of severe acute respiratory syndrome coronavirus 2 (SARS-CoV-2) disease (~01/2020) February 05 HTN (hypertension) Pain of left knee after injury Surgical History H/O angioplasty 7 stents, last stents 07/2020 H/O arthroscopic knee surgery Bilateral H/O parathyroidectomy H/O: hysterectomy History of appendectomy History of arthroscopic surgery of shoulder LEFT History of cholecystectomy History of tonsillectomy and adenoidectomy Family History Father Cancer Family/Other Cancer Mother Heart disease Stroke Dementia Denies family history of Diabetes CAD (coronary artery disease) Clotting disorder Hyperlipidemia Psychiatric illness Chronic kidney disease (CKD) Suicide Anesthesia complication Bleeding disorder Family history of premature coronary artery disease Lung disease Hypertension Social History Smoking and tobacco status: never smoked Second hand smoke exposure: No Smoking risk assessment/counseling performed?: No Alcohol intake: never Desire information about alcohol rehabilitation?: No Counseling given: No Desire information about substance/drug rehabilitation?: No Counseling given: No Adopted: No Caregiver/support person: Yes Lives independently: No Household members: family Housing: House Marital status: Single service: No Current occupational status: retired and disabled Pets and animals: Yes History of recent travel: No Current gender identity: Female Data Anesthesia : 08/24/21 03:29 08/24/21 03:29 Short CBC 08/23/21 08/24/21 Range/Units 21:40 03:29 WBC 15.6 H 15.0 H (4.0-10.0) 10^3/uL Hgb 12.3 11.0 L (11.5-15.3) g/dL Hct 38.8 35.2 L (37.0-47.0) % MCV 102.1 H 101.1 H (81-99) fl Plt Count 263 252 (130-400) 10^3/cmm Neut % (Auto) 67.7 66.6 % Neut # (Auto) 10.58 H 9.99 H (1.8-7.7) 10^3/uL BMP 08/23/21 08/23/21 08/23/21 21:40 21:40 23:20 Sodium 138 Cancelled 137 Potassium 5.6 H Cancelled 4.4 Chloride 99 Cancelled 98 Carbon Dioxide 31 H Cancelled 31 H BUN 34 H Cancelled 34 H Creatinine 1.0 H Cancelled 0.9 Glucose 56 L Cancelled 52 L Calcium 9.6 Cancelled 9.4 08/24/21 03:29 Sodium 141 Potassium 4.3 Chloride 101 Carbon Dioxide 29 BUN 34 H Creatinine 1.0 H Glucose 116 H Calcium 9.1 Liver Function 08/23/21 Range/Units 21:40 Total Bilirubin 0.2 (0.15-1.2) mg/dL AST 39 H (0-32) U/L ALT 40 H (0-33) U/L Alkaline Phosphatase 177 H (35-105) IU/L Albumin 3.7 (3.5-5.2) g/dL Urine 08/23/21 Range/Units 23:50 Urine Color Yellow (Yellow) Urine Appearance Clear (CLEAR) Urine pH 6 (5-7) Ur Specific [place] 1.015 (1.005-1.030) Urine Protein Neg (Negative) Urine Glucose (UA) Norm (Normal) Urine Ketones Negative (Negative) Urine Nitrate Negative (Negative) Urine Bilirubin Neg (Negative) Ur Leukocyte Esterase Negative (Negative) Coags 08/23/21 08/23/21 08/23/21 21:40 21:40 23:20 ESR 11 PT 16.60 H INR 1.31 H APTT 36.6 C-Reactive Protein 41.0 H 08/24/21 03:29 ESR PT INR APTT C-Reactive Protein 34.4 H Microbiology 08/23/21 23:20 Blood Culture - Preliminary Blood SPECIMEN COLLECTED 08/23/21 21:40 Blood Culture - Preliminary Blood SPECIMEN COLLECTED Cardiac Studies: Echocardiogram Ultrasound 07/31/20
--- NOTE | 2021-08-24 12:10 | PM.OP ---
Operative Report Date of procedure: August 24, 2021 Pre-op diagnosis: Preop Diagnosis perineal abcess Post-op diagnosis: Bilateral Bartholin gland cyst Post-op findings: Enlarged bilateral Bartholin gland. Right inguinal caruncle. Perineal varicose vein Procedure done: Bartholin gland cyst marsupialization of right and left Bartholin gland Specimens removed/disposition: Cultures taken Surgeon: Ta Templeton MD Estimated blood loss (mL): 50 IV fluids (mL): 600 Urine output (mL): 600 Complications: none Procedure: After informed consent, the patient was taken to the operating room where general anesthesia was administered. The patient was placed in dorsal lithothomy position. She was examined under anesthesia and found to have a normal uterus with normal adnexa. After a bimanual examination she was found to have bilateral bartholing gland cysts and was examine to determine the extent of the cysts. She was then prep and draped in normal sterile fashion. The labia were retracted and the introitus of the Vagina was exposed. An incision was made over the mucosa of the vagina at its junction with the introitus down to the wall of the gland on the right side. The wall of the gland was incised and the content of the cyst was evacuated. A culture was taken. The tate of the cyst were grasped with Allis clamps. The wall of the cyst were sutured with interrupted 3-0 Vicril to the skin of introitus laterally and to the vaginal of mucosa medially. The same procedure was carried out on the left side. A midline perineal varicose vein was noted to be bleeding the bleeding point was was grasped with forceps and ligated with 4-0 Vicryl. The patient tolerated the procedure well and instruments and laps count was correct times two.
--- NOTE | 2021-08-24 12:27 | ANE.PACU2 ---
Documented by User: Ninoska Sams CRNA 08/24/21 12:28 Inpatient post-anesthesia follow up: Airway intact: Yes Vital signs: Temperature 99.1 F Pulse Rate 80 Respiratory Rate 19 Blood Pressure 151/78 Pulse Oximetry 96 Oxygen Delivery Me thod Room Air Oxygen Flow Rate 1.5 Fraction of Inspir ed Oxygen Hydration adequate: Yes Nausea and vomiting: No Pain level: 2 Mental status: Baseline
[2021-08-24 12:29] LABS: Glucose Point of Care 116 mg/dL (70-110)
--- NOTE | 2021-08-24 12:34 | SUR.PHASEI ---
1219 PT TO PACU 2 WITH GOOD RESP EFFORT, PT GIVEN WARM BLANKETS X 4 PER PT REQUEST.PT ID BRACELET TO RT WRIST PT ID'D WITH 2 IDENTIFIERS , IV TO RT AC AREA PATENT WITH NS AT KVO RATE PER GRAVITY, 400 ML NS UP. NAT PAD PLACED NO DRAINAGE NOTED TO LABIA AREA STITCHES IN PLACE STATLOCK TO RT INNER THIGH, HYATT WITH YELLOW URINE TO TUBING AND BAG,.
[2021-08-24] MEDS: ketorolac 30 mg/mL INJ IVP ×2 (13:37→19:21)
--- NOTE | 2021-08-24 14:03 | PM.PN ---
Subjective Subjective: Admitted overnight. Patient states she is feeling a lot more comfortable. She is happy that she is going for I&D today.. Discussed with Dr. Templeton from gynecology. Plan for I&D later in the day today. Vitals/I&O/Wt Last Vital Signs Temp 98.9 F 08/24/21 12:45 Pulse 72 08/24/21 12:45 Resp 18 08/24/21 12:45 BP 147/84 08/24/21 12:45 Pulse Ox 97 08/24/21 12:45 08/23/21 08/24/21 08/24/21 22:59 06:59 14:59 Intake Total 800 / 800 600 / 600 Output Total 1450 / 1450 750 / 750 Balance -650 / -650 -150 / -150 Weight last 48 hrs Weight 133.265 kg Weight 128.367 kg Physical Exam Narrative: Pleasant cooperative elderly female Morbidly obese Patient is laying comfortably in her bed Currently satting well on room air Is hard to assess her volume status Bradycardia with S1-S2 No signs of abdominal guarding rigidity, visceral obesity present Gynecological exam done in presence of a female nurse skin induration noted around vaginal vault right greater than left, skin color varies from ecchymosis to erythema Swelling around medial side of thighs bilaterally Vaginal exam was not done EOMI, PERRLA Nonfocal neuro exam Satting well on room air Urinary Catheter Management: Arzate: Cath Placed During This Visit: yes Reason for Continuing Indwelling Catheter: Other Urinary Catheter Date of Insertion: 08/24/21 Urinary Catheter Time of Insertion: 22:44 Data : 08/24/21 03:29 08/24/21 03:29 Micro: Microbiology 08/23/21 23:20 Blood Culture - Preliminary Blood SPECIMEN COLLECTED 08/23/21 21:40 Blood Culture - Preliminary Blood SPECIMEN COLLECTED A&P Assessment and plan (1) Abscess of groin: Status: Acute (2) Cellulitis of groin: Status: Acute (3) Autumn infection: Status: Acute (4) Diastolic CHF: Status: Acute Qualifiers: Heart failure chronicity: chronic Qualified Code(s): I50.32 - Chronic diastolic (congestive) heart failure (5) Chronic anticoagulation: Status: Chronic (6) BMI 40.0-44.9, adult: Status: Chronic (7) Atrial fibrillation: Status: Chronic Qualifiers: Atrial fibrillation type: persistent (not longstanding) Qualified Code(s): I48.19 - Other persistent atrial fibrillation (8) Type 2 diabetes mellitus with diabetic polyneuropathy: Status: Chronic Qualifiers: Diabetes mellitus superintendent container terminal insulin use: with alf use Qualified Code(s): E11.42 - Type 2 diabetes mellitus with diabetic polyneuropathy; Z79.4 - MCFP (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 of insulin Plan Plan for drainage of abscess of labia majora today. Most likely Bartholin cyst. Continue with vancomycin and Zosyn. Send cultures. Follow-up cultures and change antibiotics as per sensitivities. Normal saline at 75 cc/h. Hold off on Plavix and Eliquis for now. Can restart postoperatively. Keep mean arterial pressure over 65. Continue other chronic medication including atorvastatin, duloxetine, Lantus 30 units twice daily, lisinopril, montelukast, sotalol. Cardiac carb consistent diet. Lantus 32 units twice daily, insulin sliding scale at moderate dose protocol. Check for GC chlamydia. Full code. Cardiac carb consistent diet. Protonix for PUD prophylaxis SCDs for DVT prophylaxis, Eliquis will suffice for DVT prophylaxis post I&D. Attestations Medical Necessity Statement*: Requires hospitalization for management of abscess of labia majora Time Spent in Patient Care: Greater than 35 minutes Coding Level of Care Code Acute Aids Social Worker for [facility] Jason Diagnoses Abscess of groin L02.214 Cellulitis of groin L03.314 Autumn infection B37.9 Diastolic CHF I50.32 Heart failure chronicity: chronic Chronic anticoagulation Z79.01 BMI 40.0-44.9, adult Z68.41 Atrial fibrillation I48.19 Atrial fibrillation type: persistent (not longstanding) Type 2 diabetes mellitus with diabetic polyneuropathy E11.42; Z79.4 Diabetes mellitus alf insulin use: with alf use
[2021-08-24] MEDS: oxyCODONE-APAP 10-325 mg Tablet 1 TAB PO (14:46)
[2021-08-24 15:04] LABS: HIV 1 & 2 Antibody Non-Reactive (Non-Reactiv); HIV 1 & 2 Antigen Non-Reactive (Non-Reactiv)
[2021-08-24 15:16] LABS: Hepatitis A Antibody IgM Non-Reactive (Nonreactive); Hepatitis B Core AB, Total Non-Reactive (Nonreactive); Hepatitis B Surface Antigen Non-Reactive (Nonreactive); Hepatitis C Virus Antibody Non-Reactive (Nonreactive)
[2021-08-24 15:52] LABS: Hepatitis B Surface AB < 3.5 (11.5-1000)
[2021-08-24 16:46] LABS: Bacillus cereus group Not Detected (NOT DETECT); Bacillus subtillis group Not Detected (NOT DETECT); Corynebacterium Not Detected (NOT DETECT); Cutibacterium acnes (P.acnes) Not Detected (NOT DETECT); Enterococcus Not Detected (NOT DETECT); Enterococcus faecalis Not Detected (NOT DETECT); Enterococcus faecium Not Detected (NOT DETECT); Lactobacillus species Not Detected (NOT DETECT); Listeria Not Detected (NOT DETECT); Listeria monocytogenes Not Detected (NOT DETECT); Micrococcus Not Detected (NOT DETECT); Pan Candida Not Detected (NOT DETECT); Pan Gram-Negative Not Detected (NOT DETECT); Staphylococcus epidermidis Detected (NOT DETECT); Staphylococcus lugdunensis Not Detected (NOT DETECT); Staphylococcus species Detected (NOT DETECT); Streptococcus agalactiae Not Detected (NOT DETECT); Streptococcus anginosus group Not Detected (NOT DETECT); Streptococcus pneumoniae Not Detected (NOT DETECT); Streptococcus pyogenes Not Detected (NOT DETECT); Streptococcus species Not Detected (NOT DETECT); mecA Detected (NOT DETECT); mecC Not Detected (NOT DETECT)
[2021-08-24 16:52] LABS: Glucose Point of Care 197 mg/dL (70-110)
[2021-08-24] MEDS: docusate sodium 100 mg Capsule PO (17:30)
[2021-08-24] MEDS: sotalol 80 mg Tablet PO (17:30)
[2021-08-24] MEDS: duloxetine 30 mg Capsule PO (17:30)
[2021-08-24] MEDS: insulin lispro 100 unit/1 mL SUBCUT ×2 (17:37→21:08)
[2021-08-24] MEDS: insulin glargine 100 units/1 mL 32 UNIT SUBCUT (18:48)
[2021-08-24 20:47] LABS: Glucose Point of Care 364 mg/dL (70-110)
[2021-08-24] MEDS: montelukast sodium 10 mg Tablet PO (21:36)
[2021-08-24] MEDS: vancomycin 1,250 MG/250 ML PIGGYBACK 250 MG IV (22:25)
[2021-08-25] VITALS (10 sets, daily range): BP systolic 96–128; BP diastolic 50–74; PULSE 69–97; RESP 14–18; TEMP 36.4–36.9; O2SAT 92–97
[2021-08-25] MEDS: piperacillin-tazobactam 3.375 GM in sodium chloride 0.9% (plus) 100 ML IV ×3 (00:47→20:56)
[2021-08-25] MEDS: ketorolac 30 mg/mL INJ IVP ×2 (00:47→06:03)
[2021-08-25 04:24] LABS: Basophils % 0.1 %; Hematocrit 32.3 % (37.0-47.0); Hemoglobin 10.1 g/dL (11.5-15.3); Lymphocytes # 1.2 10^3/uL (0.8-4.8); Lymphocytes % 7.2 %; Mean Corpuscular HGB Conc 31.3 g/dL (30.0-36.0); Mean Corpuscular Hemoglobin 32.1 pg (28.0-34.0); Mean Corpuscular Volume 102.5 fl (81-99); Mean Platelet Volume 11.7 fL (7.4-10.4); Monocytes # 0.5 10^3/uL (0.2-0.9); Monocytes % 3.2 %; Neutrophils # 14.68 10^3/uL (1.8-7.7); Neutrophils % 88.8 %; Nucleated Red Blood Cells % 0 %; Platelet Count 235 10^3/cmm (130-400); Red Blood Count 3.15 10^6/uL (4.1-5.3); Red Cell Distribution Width 12.7 % (12.1-15.1); White Blood Count 16.5 10^3/uL (4.0-10.0)
[2021-08-25 04:46] LABS: Alanine Aminotransferase 85 U/L (0-33); Albumin Level 3.1 g/dL (3.5-5.2); Alkaline Phosphatase 205 IU/L (35-105); Anion Gap 15.6 (5-19); Aspartate Amino Transferase 57 U/L (0-32); Blood Urea Nitrogen 36 mg/dL (8-23); Calcium 8.7 mg/dL (8.5-10.5); Carbon Dioxide 25 mmol/L (22-29); Chloride 102 mmol/L (98-107); Globulin 2.5 g/dL (1.3-4.6); Glucose 263 mg/dL (65-115); Osmolality Calculated 301 mOsm/kg (285-295); Potassium 5.6 mmol/L (3.5-5.1); Sodium 137 mmol/L (136-145); Total Bilirubin 0.2 mg/dL (0.15-1.2); Total Protein 5.6 g/dL (6.6-8.7)
[2021-08-25] MEDS: FUROsemide 40 mg Tablet PO (06:01)
[2021-08-25] MEDS: sodium chloride 0.9% 1,000 ML 75 ML IV (06:01)
[2021-08-25 06:35] LABS: Glucose Point of Care 224 mg/dL (70-110)
[2021-08-25] MEDS: duloxetine 30 mg Capsule PO ×2 (10:25→17:48)
[2021-08-25] MEDS: oxyCODONE-APAP 10-325 mg Tablet 1 TAB PO ×2 (10:26→17:48)
[2021-08-25] MEDS: docusate sodium 100 mg Capsule PO ×2 (10:26→17:48)
[2021-08-25] MEDS: sennosides-docusate Tablet 1 TAB PO (10:26)
[2021-08-25] MEDS: clopidogrel 75 mg Tablet PO (10:26)
[2021-08-25] MEDS: sotalol 80 mg Tablet PO ×2 (10:26→17:48)
[2021-08-25] MEDS: insulin glargine 100 units/1 mL 32 UNIT SUBCUT ×2 (10:27→17:50)
[2021-08-25] MEDS: apixaban 5 mg Tablet PO ×2 (10:27→17:48)
[2021-08-25] MEDS: atorvastatin 40 mg Tablet PO (10:27)
[2021-08-25] MEDS: lisinopril 10 mg Tablet PO (10:27)
[2021-08-25] MEDS: insulin lispro 100 unit/1 mL SUBCUT ×3 (10:28→20:59)
[2021-08-25] MEDS: vancomycin 1,250 MG/250 ML PIGGYBACK 250 MG IV (10:29)
--- NOTE | 2021-08-25 10:44 | PC.CHAP ---
Pastoral Care Encounter/Spiritual Assessment Type of Contact [] Declined waste disposal leakage tester visit [] Patient/Family/Request visit [] Outpatient visit [] Follow-up visit [] Physician referral [] Code/Alert [x] Routine visit [] Staff referral [] Actively dying [] Patient sleeping [] Family support [] [] Out of room [] Palliative care [] [] Receiving care in room [] Pre-surgical visit [] Trauma [] Long length of stay [] ICU visit [] Other: Relational/Emotional Strength [x] Patient feels connected with others/family/visitors/staff [] Distress [] Loneliness/isolation [] Abandonment Spirituality of Patient [x Person of Mariela [x] Attends Anglican of their Mariela [x] Believes in Prayer [] Reads Bible or Druze materials [] There are Spiritual issues to be addressed Composer Teaching Artist Interventions [x] Prayer [x Active listening [x] Non-anxious presence []x Spiritual/emotional support [] Crisis/trauma care [] Spiritual counseling [] Bereavement support [] Provided bereavement packet [] Provided Bible/devotional materials [] Provided toy/stuffed animal, coloring book to patient or family member [] Provided Communion [] Anointing/[place] [] Salvation [x] Completed spiritual assessment [] Other: Impact on Illness or Injury [] Angry [] Fearful [] Anxious [] Often cries [] Exhaustion [] Unable to work [] Unable to attend faith [] Unable to walk/stand [] Unable to read [] Unable to drive [] Unable to eat/drink [] Unable to sleep [] Unable to be with family [] Patient intubated [] Other: Summary Time spent with patient 10 min
[2021-08-25 11:55] LABS: Glucose Point of Care 394 mg/dL (70-110)
--- NOTE | 2021-08-25 13:00 | P.PN_ITS ---
Subjective Subjective: Mrs. Rubio 76-year-old female status post bilateral Bartholin gland cyst marsupialization postoperative day 1. Refers no pelvic pain. Vitals/I&O/Wt Last Vital Signs Temp 98.4 F 08/25/21 12:00 Pulse 77 08/25/21 12:00 Resp 18 08/25/21 12:00 BP 128/71 08/25/21 12:00 Pulse Ox 97 08/25/21 12:00 08/24/21 08/25/21 08/25/21 22:59 06:59 14:59 Intake Total 440 / 2140 1302.5 / 3442.5 240 / 240 Output Total 750 / 1500 Balance 440 / 1390 552.5 / 1942.5 240 / 240 Weight last 48 hrs Weight 133.265 kg Weight 128.367 kg Physical Exam Narrative: GA: Alert and oriented ?3. HEENT: WNL. Heart: Regular rate and rhythm. Lungs: Clear to auscultation bilaterally. Abdomen: Bowel sounds present, nontender EDUCATIONAL PSYCHOLOGY TEACHER: No bleeding. Extremities: No edema, no cyanosis, no calves pain. Urinary Catheter Management: Arzate: Cath Placed During This Visit: yes Reason for Continuing Indwelling Catheter: Other Urinary Catheter Date of Insertion: 08/24/21 Urinary Catheter Time of Insertion: 22:44 Data : 08/25/21 03:31 08/25/21 03:31 Micro: Microbiology 08/24/21 11:36 Gram Stain - Final Vaginal Anaerobic Culture - Preliminary Abscess Culture - Preliminary 08/23/21 21:40 Blood Culture - Preliminary Blood Staphylococcus epidermidis 08/25/21 03:34 Blood Culture - Preliminary Blood SPECIMEN COLLECTED 08/25/21 03:31 Blood Culture - Preliminary Blood SPECIMEN COLLECTED 08/23/21 23:20 Blood Culture - Preliminary Blood NEGATIVE TO DATE A&P Assessment and plan (1) Bartholin gland cyst: Mrs. Rubio 76-year-old female status post bilateral Bartholin gland cyst marsupialization postoperative day 1. Refers she does not have any pelvic or inguinal pain. She was counseled regarding finding of bilateral Bartholin gland cyst and a small right inguinal caruncle causing the discomfort that she was experiencing. She is afebrile and hemodynamically stable. Cultures from cysts pending. From EDUCATIONAL PSYCHOLOGY TEACHER standpoint the patient may be discharged home. She was instructed to follow-up at the clinic next week, and she was given postop precautions and advised her to be on pelvic rest for the next couple of weeks. She was reminded a good glucose control will improve healing. Status: Acute Attestations Medical Necessity Statement*: In my professional opinion per admitting diagnosis. Coding Level of Care Code Acute Engineering Program Analyst for [facility] Diagnoses Bartholin gland cyst N75.0
--- NOTE | 2021-08-25 13:52 | PM.PN ---
Subjective Subjective: Ms. Rubio was complaining of substernal sternal chest pain, she has extensive history of coronary artery disease, and does have similar kind of substernal chest pain likely secondary to underlying chronic stable angina, which responded well to sublingual nitro. S/p postoperative day 1.: Has remained afebrile, a.m. CBC is pending. Medications: Medication Review Details: Generic Name Dose Route Start Last Admin Trade Name Freq PRN Reason Stop Dose Admin Acetaminophen 500 mg 08/24/21 00:13 08/24/21 01:36 Acetaminophen 50 0 Mg Tablet PO 500 mg Q4H PRN Administration fever Apixaban 5 mg 08/25/21 09:00 08/25/21 10:27 Apixaban 5 Mg Ta blet PO 5 mg BID DIANA Administration Atorvastatin Calci um 40 mg 08/25/21 09:00 08/25/21 10:27 Atorvastatin 40 Mg Tablet PO 40 mg DAILY DIANA Administration Clopidogrel Bisulf ate 75 mg 08/25/21 09:00 08/25/21 10:26 Clopidogrel 75 M g Tablet PO 75 mg DAILY DIANA Administration Docusate Sodium 100 mg 08/24/21 18:00 08/25/21 10:26 Docusate Sodium 100 Mg Capsule PO 100 mg BID DIANA Administration Duloxetine HCl 30 mg 08/25/21 09:00 08/25/21 10:25 Duloxetine 30 Mg Capsule PO 30 mg BID DIANA Administration Furosemide 40 mg 08/25/21 06:00 08/25/21 06:01 Furosemide 40 Mg Tablet PO 40 mg QAM DIANA Administration Hydromorphone HCl 0.4 mg 08/24/21 00:13 08/24/21 10:01 Hydromorphone 1 Mg/Ml Inj 1 Ml IVP 0.4 mg Q4H PRN Administration pain Vancomycin/PEG/NAD A/Lysine/Water 1,250 mg in 250 m ls @ 250 mls/hr 08/24/21 11:00 08/25/21 13:49 Vancocin IV Infused Q12H DIANA Infusion Piperacillin Sod/T azobactam 100 mls @ 25 mls/ hr 08/24/21 09:30 08/25/21 04:53 Sod 3.375 gm/ So dium Chloride IV Infused Q8H DIANA Infusion Protocol Insulin Glargine 32 unit 08/24/21 18:00 08/25/21 10:27 Insulin Glargine 100 Units/1 Ml SUBCUT 32 unit BID DIANA Administration Lisinopril 10 mg 08/25/21 09:00 08/25/21 10:27 Lisinopril 10 Mg Tablet PO 10 mg DAILY DIANA Administration Montelukast Sodium 10 mg 08/24/21 21:15 08/24/21 21:36 Montelukast Sodi um 10 Mg Tablet PO 10 mg BEDTIME DIANA Administration Oxycodone/Acetamin ophen 1 tab 08/24/21 10:21 08/25/21 10:26 Oxycodone-Apap 1 0-325 Mg Tablet PO 1 tab Q4H PRN Administration MODERATE PAIN Fluticasone/Salmet abby 2 puff 08/24/21 20:00 08/25/21 07:54 Fluticasone-Salm eterol 250-50 Disk us INHALATION 2 puff BID.RESPIRATORY S CH Administration Senna/Docusate Sod ium 1 tab 08/24/21 09:00 08/25/21 10:26 Sennosides-Docus ate Tablet PO 1 tab DAILY DIANA Administration Sotalol HCl 80 mg 08/25/21 09:00 08/25/21 10:26 Sotalol 80 Mg Ta blet PO 80 mg BID DIANA Administration Vitals/I&O/Wt Last Vital Signs Temp 98.4 F 08/25/21 12:00 Pulse 77 08/25/21 12:00 Resp 18 08/25/21 12:00 BP 128/71 08/25/21 12:00 Pulse Ox 97 08/25/21 12:00 08/24/21 08/25/21 08/25/21 22:59 06:59 14:59 Intake Total 440 / 2140 1302.5 / 3442.5 1076.25 / 1076.25 Output Total 750 / 1500 Balance 440 / 1390 552.5 / 1942.5 1076.25 / 1076.25 Weight last 48 hrs Weight 133.265 kg Weight 128.367 kg Physical Exam Const: COMMON NORMALS: patient oriented x3 HENMT: COMMON NORMALS: normocephalic, atraumatic and hearing grossly normal bilaterally HEAD & SCALP: normocephalic and atraumatic Chest: COMMONS NORMALS: normal inspection of the chest and normal palpation of entire chest wall CHEST: Yes Symmetrical chest wall rise Resp: COMMON NORMALS: normal respiratory effort, No retractions, No use of accessory muscles and clear to auscultation bilaterally EFFORT & INSPECTION: Yes symmetric chest movement AUSCULTATION: clear to auscultation bilaterally Cardio: COMMON NORMALS: regular rate, regular rhythm, S1 normal heart sound present, S2 normal heart sound present, No gallops present (Cardio), No murmurs present (Cardio), No rub (Cardio) and Peripheral pulses 2+ throughout RATE: regular rate RHYTHM: regular rhythm HEART SOUNDS: S1 normal heart sound present and S2 normal heart sound present PERIPHERAL PULSES: Peripheral pulses 2+ throughout GI: COMMON NORMALS: Normal to inspection, nondistended, normoactive bowel sounds present, Soft to palpation, non-tender, No hepatosplenomegaly present and no masses AUSCULTATION: Yes normoactive bowel sounds PALPATION: Yes Soft to palpation and Yes No hepatosplenomegaly present RECTAL EXAM: deferred Extremity: COMMON NORMALS: no clubbing, cyanosis or edema and no pedal edema Neuro: COMMON NORMALS: patient oriented x3 Urinary Catheter Management: Arzate: Cath Placed During This Visit: yes Reason for Continuing Indwelling Catheter: Other Urinary Catheter Date of Insertion: 08/24/21 Urinary Catheter Time of Insertion: 22:44 Data : 08/25/21 03:31 08/25/21 03:31 Micro: Microbiology 08/24/21 11:36 Gram Stain - Final Vaginal Anaerobic Culture - Preliminary Abscess Culture - Preliminary 08/23/21 21:40 Blood Culture - Preliminary Blood Staphylococcus epidermidis 08/25/21 03:34 Blood Culture - Preliminary Blood SPECIMEN COLLECTED 08/25/21 03:31 Blood Culture - Preliminary Blood SPECIMEN COLLECTED 08/23/21 23:20 Blood Culture - Preliminary Blood NEGATIVE TO DATE A&P Assessment and plan (1) Abscess of groin: Status: Deleted (2) Cellulitis of groin: Status: Acute (3) Autumn infection: Status: Acute (4) Diastolic CHF: Status: Acute Qualifiers: Heart failure chronicity: chronic Qualified Code(s): I50.32 - Chronic diastolic (congestive) heart failure (5) Chronic anticoagulation: Status: Chronic (6) BMI 40.0-44.9, adult: Status: Chronic (7) Atrial fibrillation: Status: Chronic Qualifiers: Atrial fibrillation type: persistent (not longstanding) Qualified Code(s): I48.19 - Other persistent atrial fibrillation (8) Type 2 diabetes mellitus with diabetic polyneuropathy: Status: Chronic Qualifiers: Diabetes mellitus care home insulin use: with local intermodal truck driver use Qualified Code(s): E11.42 - Type 2 diabetes mellitus with diabetic polyneuropathy; Z79.4 - equipment operator intermodal yard (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 of insulin Plan Bilateral Bartholin cyst abscess: Status post I&D Blood cultures: Staph epi:2 Repeat blood culture: Pending GC chlamydia. Continue with vancomycin and Zosyn. History of coronary artery disease: We will resume Plavix, statin, sotalol Sublingual nitro as needed #History of A. fib: Currently in sinus. Continue sotalol We will resume Eliquis #Hyperkalemia: Monitor BMP Continue telemetry monitoring #History of diabetes: Continue Lantus MDSSI Fingerstick glucose CODE STATUS : full code. DVT prophylaxis: SCDs Attestations Medical Necessity Statement*: Patient is in hospital hyperkalemia , IV antibiotics Time Spent in Patient Care: Greater than 35 minutes (>than 50% of time spent in counselling and/or direct pt care on unit). Coding Level of Care Code Acute Fine Grade Bulldozer Operator for [facility] Fwd Exam Detailed Diagnoses Abscess of groin L02.214 Cellulitis of groin L03.314 Autumn infection B37.9 Diastolic CHF I50.32 Heart failure chronicity: chronic Chronic anticoagulation Z79.01 BMI 40.0-44.9, adult Z68.41 Atrial fibrillation I48.19 Atrial fibrillation type: persistent (not longstanding) Type 2 diabetes mellitus with diabetic polyneuropathy E11.42; Z79.4 Diabetes mellitus care home insulin use: with care home use
[2021-08-25 15:12] LABS: Hematocrit 28.8 % (37.0-47.0); Hemoglobin 9.1 g/dL (11.5-15.3); Mean Corpuscular HGB Conc 31.6 g/dL (30.0-36.0); Mean Corpuscular Hemoglobin 32.4 pg (28.0-34.0); Mean Corpuscular Volume 102.5 fl (81-99); Mean Platelet Volume 12.1 fL (7.4-10.4); Platelet Count 220 10^3/cmm (130-400); Red Blood Count 2.81 10^6/uL (4.1-5.3); Red Cell Distribution Width 12.8 % (12.1-15.1)
[2021-08-25 17:10] LABS: Glucose Point of Care 397 mg/dL (70-110)
[2021-08-25 20:39] LABS: Glucose Point of Care 394 mg/dL (70-110)
[2021-08-25] MEDS: montelukast sodium 10 mg Tablet PO (20:56)
[2021-08-25 23:04] LABS: Vancomycin Trough 20.5 ug/mL (10-15)
--- NOTE | 2021-08-25 23:44 | PC.PHAR ---
Vancomycin trough on dosage of 1250mg IVPB every 12 hours is 20.5. Dosage is reduced to 1000mg IVPB every 12 hours with another trough to be obtained before the fourth 1gm dose.
[2021-08-26] VITALS (7 sets, daily range): BP systolic 88–119; BP diastolic 55–77; PULSE 62–88; RESP 16–18; TEMP 36.1–36.4; O2SAT 90–100
[2021-08-26] MEDS: piperacillin-tazobactam 3.375 GM in sodium chloride 0.9% (plus) 100 ML IV (04:11)
[2021-08-26] MEDS: FUROsemide 40 mg Tablet PO (05:13)
[2021-08-26 06:03] LABS: Basophils % 0.3 %; Eosinophils # 0.1 10^3/uL (0.0-0.8); Eosinophils % 0.9 %; Hematocrit 30.7 % (37.0-47.0); Hemoglobin 9.3 g/dL (11.5-15.3); Mean Corpuscular HGB Conc 30.3 g/dL (30.0-36.0); Mean Corpuscular Volume 105.5 fl (81-99); Mean Platelet Volume 12.1 fL (7.4-10.4); Monocytes % 7.9 %; Neutrophils # 8.83 10^3/uL (1.8-7.7); Neutrophils % 67.4 %; Nucleated Red Blood Cells % 0 %; Platelet Count 222 10^3/cmm (130-400); Red Blood Count 2.91 10^6/uL (4.1-5.3); Red Cell Distribution Width 12.9 % (12.1-15.1); White Blood Count 13.1 10^3/uL (4.0-10.0)
[2021-08-26 06:32] LABS: Glucose Point of Care 190 mg/dL (70-110)
[2021-08-26 06:45] LABS: Blood Urea Nitrogen 41 mg/dL (8-23); Calcium 8.1 mg/dL (8.5-10.5); Carbon Dioxide 25 mmol/L (22-29); Chloride 100 mmol/L (98-107); Glucose 197 mg/dL (65-115); Osmolality Calculated 298 mOsm/kg (285-295); Sodium 136 mmol/L (136-145)
[2021-08-26 06:48] LABS: Anion Gap 16.3 (5-19); Potassium 5.3 mmol/L (3.5-5.1)
[2021-08-26] MEDS: insulin glargine 100 units/1 mL 32 UNIT SUBCUT (08:24)
[2021-08-26] MEDS: insulin lispro 100 unit/1 mL SUBCUT ×2 (08:24→12:18)
[2021-08-26] MEDS: atorvastatin 40 mg Tablet PO (08:25)
[2021-08-26] MEDS: apixaban 5 mg Tablet PO (08:25)
[2021-08-26] MEDS: sennosides-docusate Tablet 1 TAB PO (08:25)
[2021-08-26] MEDS: docusate sodium 100 mg Capsule PO (08:25)
[2021-08-26] MEDS: duloxetine 30 mg Capsule PO (08:25)
[2021-08-26] MEDS: sotalol 80 mg Tablet PO (08:25)
[2021-08-26] MEDS: clopidogrel 75 mg Tablet PO (08:25)
[2021-08-26] MEDS: oxyCODONE-APAP 10-325 mg Tablet 1 TAB PO (08:30)
[2021-08-26 09:28] LABS: Bacillus cereus group Not Detected (NOT DETECT); Bacillus subtillis group Not Detected (NOT DETECT); Corynebacterium Not Detected (NOT DETECT); Cutibacterium acnes (P.acnes) Not Detected (NOT DETECT); Enterococcus Not Detected (NOT DETECT); Enterococcus faecalis Not Detected (NOT DETECT); Enterococcus faecium Not Detected (NOT DETECT); Lactobacillus species Not Detected (NOT DETECT); Listeria Not Detected (NOT DETECT); Listeria monocytogenes Not Detected (NOT DETECT); Micrococcus Not Detected (NOT DETECT); Pan Candida Not Detected (NOT DETECT); Pan Gram-Negative Not Detected (NOT DETECT); Staphylococcus epidermidis Detected (NOT DETECT); Staphylococcus lugdunensis Not Detected (NOT DETECT); Staphylococcus species Detected (NOT DETECT); Streptococcus agalactiae Not Detected (NOT DETECT); Streptococcus anginosus group Not Detected (NOT DETECT); Streptococcus pneumoniae Not Detected (NOT DETECT); Streptococcus pyogenes Not Detected (NOT DETECT); Streptococcus species Not Detected (NOT DETECT); mecA Detected (NOT DETECT); mecC Not Detected (NOT DETECT)
--- NOTE | 2021-08-26 10:30 | P.DS_ITS ---
Discharge Providers Date of Admission: 08/23/21 22:13 Date of Discharge: August 26, 2021 Attending Provider at Admission: Jerilyn Milligan MD Attending Provider at Discharge: Conrado Brown MD Primary Care Provider: PORTER Lindsay Diagnoses at Discharge Discharge Diagnosis (1) Abscess of groin: Status: Deleted (2) Cellulitis of groin: Status: Acute (3) Autumn infection: Status: Acute (4) Diastolic CHF: Status: Acute Qualifiers: Heart failure chronicity: chronic Qualified Code(s): I50.32 - Chronic diastolic (congestive) heart failure (5) Chronic anticoagulation: Status: Chronic Permanent problem details: Eliquis (6) BMI 40.0-44.9, adult: Status: Chronic (7) Atrial fibrillation: Status: Chronic Qualifiers: Atrial fibrillation type: persistent (not longstanding) Qualified Code(s): I48.19 - Other persistent atrial fibrillation (8) Type 2 diabetes mellitus with diabetic polyneuropathy: Status: Chronic Qualifiers: Diabetes mellitus terminal makeup operator insulin use: with penitentiary use Qualified Code(s): E11.42 - Type 2 diabetes mellitus with diabetic polyneuropathy; Z79.4 - terminal manager (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 of insulin Reason for Visit Reason for Visit: Abscess on groin Hospital Course Hospital Course HPI:Dr: Jerilyn Milligan MD Pauline Rubio is a 76 year old female who carries history of diabetes, A. fib, diastolic heart failure, chronic anticoagulation with Eliquis, presents to the hospital after 2-day history of perineal pain.? Patient is stating that she was in her usual state of health until 2 days ago when she started noticing pain especially in her sitting posture around her perineal area.? She has not noticed any fever, nausea, vomiting, chest pain, or worsening of shortness of breath.? She is consistent with her medications, her last Eliquis dose was at 8 PM on 08/23.? 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 She is denying abdominal pain, diarrhea, fever. Diagnostics in the ER revealed purulent cellulitis no signs of necrotizing fasciitis, CT scan was requested he has leukocytosis, currently afebrile, Dr. Fields has been notified She received broad-spectrum antibiotics No active signs of sepsis CT/CT pelvis w con* [id number] IMPRESSION: 1. 3.7 x 2.4 x 2.4 cm fluid collection at the vaginal introitus, concerning for abscess. 2. Diverticulosis without diverticulitis. 3. 3.6 x 1.5 by 2.8 cm focus of skin and subcutaneous soft tissue edema in the medial aspect of the right thigh. No definite abscess. Hospital course: Was admitted for the management of bilateral Bartholin cyst abscess: Status post I&D: She was kept on broad-spectrum antibiotics,Blood cultures: Staph epi:05/23, repeat blood culture grew: Staph epi 1 out of 4 Bottles, she has been discharged on cefuroxime p.o. twice daily for additional 7 days, as well as azithromycin p.o. for additional 5 days, she responded well to above medical management and is being discharged in stable condition to home.She will continue to follow primary care physician cardiology as well as Gynecology as outpatient.She will see Dr. Ruggiero in 1 week. Physical Exam Const: COMMON NORMALS: patient oriented x3 HENMT: COMMON NORMALS: normocephalic, atraumatic and hearing grossly normal bilaterally HEAD & SCALP: normocephalic and atraumatic Chest: COMMONS NORMALS: normal inspection of the chest and normal palpation of entire chest wall CHEST: Yes Symmetrical chest wall rise Resp: COMMON NORMALS: normal respiratory effort, No retractions, No use of accessory muscles and clear to auscultation bilaterally EFFORT & INSPECTION: Yes symmetric chest movement AUSCULTATION: clear to auscultation bilaterally Cardio: COMMON NORMALS: regular rate, regular rhythm, S1 normal heart sound present, S2 normal heart sound present, No gallops present (Cardio), No murmurs present (Cardio), No rub (Cardio) and Peripheral pulses 2+ throughout RATE: regular rate RHYTHM: regular rhythm HEART SOUNDS: S1 normal heart sound present and S2 normal heart sound present PERIPHERAL PULSES: Peripheral pulses 2+ throughout GI: COMMON NORMALS: Normal to inspection, nondistended, normoactive bowel sounds present, Soft to palpation, non-tender, No hepatosplenomegaly present and no masses AUSCULTATION: Yes normoactive bowel sounds PALPATION: Yes Soft to palpation and Yes No hepatosplenomegaly present RECTAL EXAM: deferred Extremity: COMMON NORMALS: no clubbing, cyanosis or edema and no pedal edema Neuro: COMMON NORMALS: patient oriented x3 Urinary Catheter Management: Arzate: Cath Placed During This Visit: yes Reason for Continuing Indwelling Catheter: Other Urinary Catheter Date of Insertion: 08/24/21 Urinary Catheter Time of Insertion: 22:44 Discharge Data Studies Completed and Pending Completed Studies During Hospitalization Category Date Time Status CT pelvis w con* [id number] Urgent Cat Scan 08/23/21 21:05 Completed Pending at discharge Category Date Time Status Abscess Culture and Gram Stain Routine Lab 08/24/21 11:36 Results Anaerobic Culture Routine Lab 08/24/21 11:36 Results Blood Culture AM LABS Lab 08/25/21 03:34 Results Blood Culture Stat Lab 08/23/21 23:20 Results Chlamydia / Gonorrhea Panel Routine Lab 08/24/21 14:08 Uncollected Vancomycin Trough Timed Lab 08/27/21 22:00 Ordered Radiology Impressions Pelvis CT 08/23/21 21:05 IMPRESSION: 1. 3.7 x 2.4 x 2.4 cm fluid collection at the vaginal introitus, concerning for abscess. 2. Diverticulosis without diverticulitis. 3. 3.6 x 1.5 by 2.8 cm focus of skin and subcutaneous soft tissue edema in the medial aspect of the right thigh. No definite abscess. Laboratory Results WBC 13.1 10^3/uL (4.0-10.0) H 08/26/21 05:20 RBC 2.91 10^6/uL (4.1-5.3) L 08/26/21 05:20 Hgb 9.3 g/dL (11.5-15.3) L 08/26/21 05:20 Hct 30.7 % (37.0-47.0) L 08/26/21 05:20 MCV 105.5 fl (81-99) H 08/26/21 05:20 MCH 32.0 pg (28.0-34.0) 08/26/21 05:20 MCHC 30.3 g/dL (30.0-36.0) 08/26/21 05:20 RDW 12.9 % (12.1-15.1) 08/26/21 05:20 Plt Count 222 10^3/cmm (130-400) 08/26/21 05:20 MPV 12.1 fL (7.4-10.4) H 08/26/21 05:20 Neut % (Auto) 67.4 % 08/26/21 05:20 Lymph % (Auto) 23.0 % 08/26/21 05:20 [place] % (Auto) 7.9 % 08/26/21 05:20 Eos % (Auto) 0.9 % 08/26/21 05:20 Baso % (Auto) 0.3 % 08/26/21 05:20 Neut # (Auto) 8.83 10^3/uL (1.8-7.7) H 08/26/21 05:20 Lymph # (Auto) 3.0 10^3/uL (0.8-4.8) 08/26/21 05:20 [place]ink[place] # (Auto) 1.0 10^3/uL (0.2-0.9) H 08/26/21 05:20 Eos # (Auto) 0.1 10^3/uL (0.0-0.8) 08/26/21 05:20 Baso # (Auto) 0.0 10^3/uL (0.0-0.1) 08/26/21 05:20 Nucleated RBC % (auto) 0 % 08/26/21 05:20 Nucleated RBCs # 0.0 /100WBC 08/26/21 05:20 ESR 11 mm/hr (0-15) 08/23/21 21:40 PT 16.60 SECONDS (12.1-14.9) H 08/23/21 23:20 INR 1.31 (0.8-1.2) H 08/23/21 23:20 APTT 36.6 SECONDS (23.9-36.7) 08/23/21 23:20 Sodium 136 mmol/L (136-145) 08/26/21 05:03 Potassium 5.3 mmol/L (3.5-5.1) H 08/26/21 05:03 Chloride 100 mmol/L (98-107) 08/26/21 05:03 Carbon Dioxide 25 mmol/L (22-29) 08/26/21 05:03 Anion Gap 16.3 (5-19) 08/26/21 05:03 BUN 41 mg/dL (8-23) H 08/26/21 05:03 Creatinine 1.0 mg/dL (0.5-0.9) H 08/26/21 05:03 GFR Calculation Not Reportable 08/26/21 05:03 Glucose 197 mg/dL (65-115) H 08/26/21 05:03 POC Glucose 190 mg/dL (70-110) H 08/26/21 06:22 Estimat Average Glucose 114 08/24/21 07:25 Hemoglobin A1c 5.6 % (4.0-6.0) 08/24/21 07:25 Calculated Osmolality 298 mOsm/kg (285-295) H 08/26/21 05:03 Lactate 1.4 mmol/L (0.5-2.2) 08/23/21 21:40 Calcium 8.1 mg/dL (8.5-10.5) L 08/26/21 05:03 Magnesium 1.5 mg/dL (1.7-2.3) L 08/24/21 03:29 Total Bilirubin 0.2 mg/dL (0.15-1.2) 08/25/21 03:31 AST 57 U/L (0-32) H 08/25/21 03:31 ALT 85 U/L (0-33) H 08/25/21 03:31 Alkaline Phosphatase 205 IU/L (35-105) H 08/25/21 03:31 C-Reactive Protein 34.4 mg/L (0.0-4.9) H 08/24/21 03:29 Total Protein 5.6 g/dL (6.6-8.7) L 08/25/21 03:31 Albumin 3.1 g/dL (3.5-5.2) L 08/25/21 03:31 Globulin 2.5 g/dL (1.3-4.6) 08/25/21 03:31 Lipase 20 U/L (13-60) 08/23/21 21:40 Procalcitonin 0.06 ng/mL (0-0.5) 08/23/21 21:40 Urine Color Yellow (Yellow) 08/23/21 23:50 Urine Appearance Clear (CLEAR) 08/23/21 23:50 Urine pH 6 (5-7) 08/23/21 23:50 Ur Specific [place] 1.015 (1.005-1.030) 08/23/21 23:50 Urine Protein Neg (Negative) 08/23/21 23:50 Urine Glucose (UA) Norm (Normal) 08/23/21 23:50 Urine Ketones Negative (Negative) 08/23/21 23:50 Urine Blood Neg (Negative) 08/23/21 23:50 Urine Nitrate Negative (Negative) 08/23/21 23:50 Urine Bilirubin Neg (Negative) 08/23/21 23:50 Urine Urobilinogen Norm mg/dL (Negative) 08/23/21 23:50 Ur Leukocyte Esterase Negative (Negative) 08/23/21 23:50 Vancomycin Trough 20.5 ug/mL (10-15) H 08/25/21 22:29 Hepatitis A IgM Ab Non-reactive (Nonreactive) 08/24/21 21:40 Hep Bs Antigen Non-reactive (Nonreactive) 08/24/21 21:40 Hep Bs Antibody < 3.5 (11.5-1000) L 08/24/21 21:40 Hep B Core Total Ab Non-reactive (Nonreactive) 08/24/21 21:40 Hepatitis C Antibody Non-reactive (Nonreactive) 08/24/21 21:40 HIV 1&2 Ab & HIV 1 Ag Non-reactive (Non-Reactiv) 08/24/21 21:40 HIV 1&2 Antibody Non-reactive (Non-Reactiv) 08/24/21 21:40 Vitals Last Vital Signs Temp 97.0 F L 08/26/21 07:37 Pulse 86 08/26/21 08:24 Resp 16 08/26/21 08:30 BP 92/60 08/26/21 07:37 Pulse Ox 90 08/26/21 08:24 Discharge Plan Discharge Patient Disposition: Home Condition: Stable Prescriptions: New cefuroxime axetil 500 mg tablet 500 mg PO BID 7 Days Qty: 14 0RF azithromycin 500 mg tablet 500 mg PO DAILY 5 Days Qty: 5 0RF Continued albuterol sulfate [ProAir HFA] 90 mcg/actuation HFA aerosol inhaler 2 puff INHALATION Q6H PRN (Reason: Shortness Of Breath) 0RF metformin 500 mg tablet 500 mg PO DAILY 0RF duloxetine [Cymbalta] 30 mg capsule,delayed release(DR/EC) 30 mg PO BID Qty: 180 1RF insulin aspart U-100 [Novolog U-100 Insulin aspart] 100 unit/mL solution 12 unit SUBCUT TID 0RF Rx Instructions: Plus sliding scale Victoza 2-Jim 0.6 mg/0.1 mL (18 mg/3 mL) pen injector 0.6 mg SUBCUT DAILY 0RF docusate sodium [Colace] 100 mg capsule 100 mg PO DAILY PRN (Reason: Moderate Pain (Scale Score 5-6)) 0RF Eliquis 5 mg tablet 5 mg PO BID Qty: 180 2RF atorvastatin [Lipitor] 40 mg tablet 40 mg PO DAILY Qty: 90 3RF clopidogrel [Plavix] 75 mg tablet 75 mg PO DAILY Qty: 90 0RF sotalol 80 mg tablet 80 mg PO BID Qty: 180 3RF lisinopril 10 mg tablet 10 mg PO DAILY Qty: 90 2RF furosemide 40 mg tablet 40 mg PO QAM Qty: 90 2RF montelukast 10 mg tablet 10 mg PO BEDTIME Qty: 90 1RF nitroglycerin 0.4 mg tablet, sublingual 0.4 mg sublingual Q5M PRN (Reason: chest pain) Qty: 25 2RF Rx Instructions: do not exceed 3 doses per episode Lantus U-100 Insulin 100 unit/mL solution 32 unit SUBCUT BID 0RF albuterol sulfate 2.5 mg /3 mL (0.083 %) Solution For Nebulization 2.5 mg inhalation PRN 0RF budesonide-formoterol [Symbicort] 160-4.5 mcg/actuation Hfa Aerosol Inhaler 2 puff INHALATION BID 0RF acetaminophen [Tylenol Arthritis Pain] 650 mg Tablet Extended Release 1,300 mg PO Q8H 0RF guaifenesin 400 mg tablet 400 mg PO QAM PRN (Reason: congestion) 0RF Discharge Orders: Discharge Order (Routine); Ordered 08/26/21 Ordered By: Conrado Brown Referrals: Ta Ruggiero MD [Physician] - 09/02/21 10:00 am (DR RUGGIERO OFFICE WILL CALL WITH APPOINTMENT IN [facility] PLEASE BRING YOUR INSURANCE CARDS, ID, AND THEY PLEASE ASK FOR NO CHILDREN TO COME TO THIS APPOINTMENT. ) Anthony Mathew, HR ANALYST-C [Primary Care Provider] - 09/03/21 10:40 am Discharge Diet: Cardiac Patient Instructions: Type 2 Diabetes, A-fib (Atrial Fibrillation) (DC), Bartholin Cyst (GEN), Incision and Drainage (DC), Opioid Safety Discharge Attestations Time Spent in Discharge Care*: less than 30 min Quality Metrics Clinical Quality Measures [ No reported AMI, CVA or VTE this stay] Coding Level of Care Code Acute Chg FW DC note Exam Detailed Diagnoses Abscess of groin L02.214 Cellulitis of groin L03.314 Autumn infection B37.9 Diastolic CHF I50.32 Heart failure chronicity: chronic Chronic anticoagulation Z79.01 BMI 40.0-44.9, adult Z68.41 Atrial fibrillation I48.19 Atrial fibrillation type: persistent (not longstanding) Type 2 diabetes mellitus with diabetic polyneuropathy E11.42; Z79.4 Diabetes mellitus terminal makeup operator insulin use: with terminal makeup operator use
[2021-08-26] MEDS: vancomycin 1,000 MG in sodium chloride 0.9% 250 ML 250 MG IV (10:32)
--- NOTE | 2021-08-26 10:42 | PC.SOCIAL ---
IMM Update pg 2 of IMM updated and reviewed w/ patient. Copy provided and copy placed in chart.
[2021-08-26 11:52] LABS: Glucose Point of Care 232 mg/dL (70-110)
--- NOTE | 2021-08-26 12:15 | PC.NURSE ---
patient verbalized understanding of discharge instructions, home medications, and follow up appointments.
== END 2021-08-26 12:45 | disposition home or self-care (01) | DRG 760 ==
LOC: ER 22:22 → MEDSURG 22:36
PROVIDERS: Obstetrics & Gynecology; Student in an Organized Health Care Education/Training Program; Admitting Provider Internal Medicine; Emergency Provider Emergency Medicine; PCP Nurse Practitioner; Visit Provider Internal Medicine
PROC: 0U9L0ZZ Drainage of Vestibular Gland, Open Approach (ICD-10-PCS; CPT 56740; principal; 2021-08-24 10:25)
DX: N75.0 Cyst of Bartholin's gland (principal); L03.314 Cellulitis of groin; I13.0 Hypertensive heart and chronic kidney disease with heart failure and stage 1 through stage 4 chronic kidney disease, or unspecified chronic kidney disease; I50.32 Chronic diastolic (congestive) heart failure; I48.19 Other persistent atrial fibrillation; Z68.41 Body mass index [BMI] 40.0-44.9, adult; E11.22 Type 2 diabetes mellitus with diabetic chronic kidney disease; N18.2 Chronic kidney disease, stage 2 (mild); Z79.01 Long term (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 of anticoagulants; I25.118 Atherosclerotic heart disease of native coronary artery with other forms of angina pectoris; Z95.5 Presence of coronary angioplasty implant and graft; E78.5 Hyperlipidemia, unspecified; Z86.73 Personal history of transient ischemic attack (TIA), and cerebral infarction without residual deficits; E89.2 Postprocedural hypoparathyroidism; E11.42 Type 2 diabetes mellitus with diabetic polyneuropathy; E66.01 Morbid (severe) obesity due to excess calories; E87.5 Hyperkalemia
CPT/HCPCS: 36415; 36416; 51702; 72193; 80048; 80053; 80202; 81003; 82962; 83036; 83605; 83690; 83735; 84145; 85025; 85027; 85610; 85651; 85730; 86140; 86705; 86706; 86709; 86803; 87040; 87070; 87075; 87077; 87150; 87186; 87205; 87340; 87806; 93005; 94640; 96365; 96367; 96372; 96375; 99285; J0330; J1100; J1170; J1200; J1815 ×2; J1885; J1940; J2405; J2543; J2704; J3010; J3370; J3490; J7030; J7040; J7050; Q9967

== ENCOUNTER → 2021-09-03 11:26 | Outpatient (BNVA) | payer MEDICARE, BC, SELFPAY | PROVIDERS: PCP Nurse Practitioner; Visit Provider Nurse Practitioner | DX: I10 Essential (primary) hypertension (principal) | CPT/HCPCS: 80053; 85025 ==

== ENCOUNTER → 2022-05-12 10:03 | Outpatient (BNVA) | payer MEDICARE, BC, SELFPAY | PROVIDERS: PCP Nurse Practitioner; Visit Provider Nurse Practitioner | DX: M54.2 Cervicalgia (principal); E78.5 Hyperlipidemia, unspecified; E55.9 Vitamin D deficiency, unspecified; E11.42 Type 2 diabetes mellitus with diabetic polyneuropathy; J45.909 Unspecified asthma, uncomplicated; I10 Essential (primary) hypertension; N39.0 Urinary tract infection, site not specified | CPT/HCPCS: 81000; 87077; 87086; 87184 ==

== ENCOUNTER → 2022-06-03 08:59 | Outpatient (BNVA) | payer MEDICARE, BC, SELFPAY | PROVIDERS: PCP Nurse Practitioner; Visit Provider Nurse Practitioner Family | DX: I48.19 Other persistent atrial fibrillation (principal); Z79.01 Long term (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 of anticoagulants; I25.10 Atherosclerotic heart disease of native coronary artery without angina pectoris; I12.9 Hypertensive chronic kidney disease with stage 1 through stage 4 chronic kidney disease, or unspecified chronic kidney disease; E11.22 Type 2 diabetes mellitus with diabetic chronic kidney disease; E11.65 Type 2 diabetes mellitus with hyperglycemia; N18.2 Chronic kidney disease, stage 2 (mild); Z79.4 Long term (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 of insulin | CPT/HCPCS: 93005; 99214 ==

== ENCOUNTER 2022-06-03 09:46 | Outpatient (CLI) | payer MEDICARE, BC, SELFPAY ==
--- NOTE | 2022-06-03 10:18 | XRR_ITS ---
PROCEDURE INFORMATION: Exam: XR Cervical Spine Exam date and time: 06/03/2022 10:20 AM Age: 76 years old Clinical indication: Pain; Cervicalgia; Additional info: M54.2 - cervicalgia TECHNIQUE: Imaging protocol: Radiologic exam of the cervical spine. Views: 2 or 3 views. COMPARISON: CT angio headneck* [id number] 07/29/2015 12:50 PM FINDINGS: Bones/joints: The cervical spine is visible through C6 on the lateral view. C7 and below are obscured. Alignment is normal. No acute fracture. There are anterior vertebral osteophytes at C4-C5 and C5-C6 associated with mild disc narrowing. Mild diffuse bilateral facet spondylosis. Soft tissues: Visible soft tissues are unremarkable. XR/XR cervical spine 3V* [id number] IMPRESSION: Mild cervical disc and facet degeneration.
[2022-06-03 11:08] LABS: 25 Hydroxy Vitamin D 15 ng/mL (30-100); Alanine Aminotransferase 14 U/L (0-33); Albumin Level 3.7 g/dL (3.5-5.2); Alkaline Phosphatase 143 U/L (35-105); Anion Gap 14.7 (5-19); Aspartate Amino Transferase 18 U/L (0-32); Blood Urea Nitrogen 28 mg/dL (8-23); Calcium 9.6 mg/dL (8.5-10.5); Carbon Dioxide 32 mmol/L (22-29); Chloride 97 mmol/L (98-107); Chol HDL Ratio 3.93 mg/dL (0.0-4.40); Cholesterol 161 mg/dL (0-200); Globulin 3.2 g/dL (1.3-4.6); Glucose 193 mg/dL (65-115); HDL Cholesterol 41 mg/dL (60-100); LDL Cholesterol Calculated 88 mg/dL (50-129); Osmolality Calculated 299 mOsm/kg (285-295); Potassium 4.7 mmol/L (3.5-5.1); Sodium 139 mmol/L (136-145); Thyroid Stimulating Hormone 1.79 uIU/mL (0.27-4.20); Total Bilirubin 0.4 mg/dL (0.15-1.2); Total Protein 6.9 g/dL (6.6-8.7); Triglycerides 159 mg/dL (0-150); VLDL Cholestrol Calculation 32 mg/dL (0-30); Vitamin B12 882 pg/mL (232-1245)
== END 2022-06-03 09:47 | disposition home or self-care (01) ==
LOC: LAB 09:49
PROVIDERS: PCP Nurse Practitioner; Visit Provider Nurse Practitioner
DX: E78.5 Hyperlipidemia, unspecified (principal); E55.9 Vitamin D deficiency, unspecified; M50.30 Other cervical disc degeneration, unspecified cervical region
CPT/HCPCS: 36415; 72040; 80053; 80061; 82306; 82607; 84443

== ENCOUNTER → 2022-08-12 11:46 | Outpatient (BNVA) | payer MEDICARE, BC, SELFPAY | PROVIDERS: PCP Nurse Practitioner; Visit Provider Nurse Practitioner | DX: R39.9 Unspecified symptoms and signs involving the genitourinary system (principal) | CPT/HCPCS: 81003; 87077; 87086; 87184 ==

== ENCOUNTER → 2022-12-07 11:24 | Outpatient (BNVA) | payer MEDICARE, BC, SELFPAY | PROVIDERS: PCP Nurse Practitioner; Visit Provider Internal Medicine Cardiovascular Disease | DX: I48.91 Unspecified atrial fibrillation (principal) | CPT/HCPCS: 93005; 99214 ==

== ENCOUNTER → 2022-12-15 10:11 | Outpatient (BNVA) | payer MEDICARE, BC, SELFPAY | PROVIDERS: PCP Nurse Practitioner; Visit Provider Internal Medicine Cardiovascular Disease | DX: I48.91 Unspecified atrial fibrillation (principal) | CPT/HCPCS: 93005 ==

== ENCOUNTER → 2023-04-26 10:32 | Outpatient (BNVA) | payer MEDICARE, BC, SELFPAY | PROVIDERS: PCP Nurse Practitioner; Visit Provider Nurse Practitioner | DX: E55.9 Vitamin D deficiency, unspecified (principal); E11.42 Type 2 diabetes mellitus with diabetic polyneuropathy | CPT/HCPCS: 80053; 82306; 82607; 84443; 85025 ==

== ENCOUNTER → 2023-05-24 09:14 | Outpatient (BNVA) | payer MEDICARE, BC, SELFPAY | PROVIDERS: PCP Nurse Practitioner; Visit Provider Nurse Practitioner | DX: E11.42 Type 2 diabetes mellitus with diabetic polyneuropathy (principal); Z79.4 Long term (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 of insulin; N39.0 Urinary tract infection, site not specified | CPT/HCPCS: 81000; 87077; 87086; 87184 ==

== ENCOUNTER → 2023-06-28 10:04 | Outpatient (BNVA) | payer MEDICARE, BC, SELFPAY | PROVIDERS: PCP Nurse Practitioner; Visit Provider Nurse Practitioner Family | DX: I13.0 Hypertensive heart and chronic kidney disease with heart failure and stage 1 through stage 4 chronic kidney disease, or unspecified chronic kidney disease (principal); I48.19 Other persistent atrial fibrillation; E11.22 Type 2 diabetes mellitus with diabetic chronic kidney disease; I50.31 Acute diastolic (congestive) heart failure; N18.2 Chronic kidney disease, stage 2 (mild); I25.10 Atherosclerotic heart disease of native coronary artery without angina pectoris; Z79.4 Long term (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 of insulin | CPT/HCPCS: 99214 ==

== ENCOUNTER → 2023-11-08 09:14 | Outpatient (BNVA) | payer MEDICARE, BC, SELFPAY | PROVIDERS: PCP Nurse Practitioner; Visit Provider Nurse Practitioner | DX: I10 Essential (primary) hypertension (principal); E78.5 Hyperlipidemia, unspecified | CPT/HCPCS: 80053; 80061; 85025 ==

== ENCOUNTER 2024-02-05 17:41 | Emergency (ER) | payer MEDICARE, BC, SELFPAY ==
[2024-02-05] VITALS (9 sets, daily range): BP systolic 115–164; BP diastolic 70–110; PULSE 87–145; RESP 17–26; TEMP 36.9; O2SAT 93–100; BMI 43.4
--- NOTE | 2024-02-05 17:43 | XRR_ITS ---
PROCEDURE INFORMATION: Exam: XR Right Ankle Exam date and time: 02/05/2024 6:00 PM Age: 78 years old Clinical indication: Injury or trauma; Blunt trauma; Right; Patient HX: EMS arrival from group home for fall. C/O severe RT lower leg pain. ; Additional info: Pain trauma TECHNIQUE: Imaging protocol: Radiologic exam of the right ankle. Views: 3 or more views. COMPARISON: No relevant prior studies available. FINDINGS: Bones/joints: Subjective bony demineralization. Oblique lateral malleolar fracture without significant displacement. There is chronic appearing fragmentation of the medial malleolus without convincing acute fracture. There is widening of the medial ankle mortise implying significant ligamentous injury. There is splaying of the anterior talar crural joint without visible posterior malleolar fracture. Well corticated calcaneal osteophyte. Well corticated Achilles insertion enthesophyte. Soft tissues: Normal. Vasculature: Advanced arterial calcification. XR/XR ankle RT min 3V* [id number] IMPRESSION: 1. Lateral malleolar fracture with abnormal widening of the medial ankle mortise suggesting associated significant ligamentous injury. There is also splaying of the anterior talar crural joint space compatible with ligamentous and/or joint capsular injury. No visible posterior malleolar fracture. 2. Advanced arterial calcification.
--- NOTE | 2024-02-05 17:43 | XRR_ITS ---
PROCEDURE INFORMATION: Exam: XR Right Tibia and Fibula Exam date and time: 02/05/2024 6:03 PM Age: 78 years old Clinical indication: Injury or trauma; Blunt trauma; Right; Patient HX: EMS arrival from alf for fall. C/O severe RT lower leg pain. ; Additional info: Pain trauma fall TECHNIQUE: Imaging protocol: Radiologic exam of the right tibia and fibula. Views: 2 views. COMPARISON: CR XR ankle RT min 3V* [id number] 02/05/2024 6:00 PM FINDINGS: Bones/joints: There is a comminuted transverse fracture through the proximal tibial metaphysis without intra-articular extension. Comminuted minimally displaced fracture of the fibular neck noted. Lateral malleolar fracture is present without significant displacement. Medial malleolus is not well seen. Severe subjective bony demineralization. Moderate arthropathy noted at the knee. Soft tissues: Diffuse soft tissue swelling. XR/XR tibia fibula RT 2V [id number] IMPRESSION: 1. Comminuted fracture of the proximal tibial metaphysis without intra-articular extension. Fractures of the lateral malleolus and fibular neck are noted as well. Ankle joint is not completely characterized on these images. 2. Expected regional soft tissue swelling. 3. Subjective bony demineralization could be quantified with DEXA.
--- NOTE | 2024-02-05 18:31 | CTR_ITS ---
PROCEDURE INFORMATION: Exam: CT Head Without Contrast Exam date and time: 02/05/2024 7:05 PM Age: 78 years old Clinical indication: Injury or trauma; Blunt trauma (contusions or hematomas); Patient HX: EMS arrival from [facility] for [facility]. Patient C/O dizziness. Anticoagulated with history of CVA. ; Additional info: Dizziness, fall, anticoagulated TECHNIQUE: Imaging protocol: Computed tomography of the head without contrast. Radiation optimization: All CT scans at this facility use at least one of these dose optimization techniques: automated exposure control; mA and/or kV adjustment per patient size (includes targeted exams where dose is matched to clinical indication); or iterative reconstruction. COMPARISON: CR XR cervical spine 3V* [id number] 06/03/2022 10:20 AM RADIATION DOSE METRICS: Total DLP (mGy-cm): FINDINGS: Brain: No hemorrhage. Unremarkable white matter. No mass effect. Preserved davis-white interfaces. Cerebral ventricles: No ventriculomegaly. Paranasal sinuses: There is fluid throughout the ethmoid air cells, most prominent on the left. Mastoid air cells: Visualized mastoid air cells are well aerated. Orbital cavities: Changes of prior cataract surgery noted. Bones: Hyperostosis frontalis interna. Soft tissues: Unremarkable. CT/CT head wo con* [id number] IMPRESSION: 1. No evidence of acute intracranial hemorrhage, mass effect, or edema. Normal symmetric internal auditory canals. 2. Ethmoid sinus disease.
--- NOTE | 2024-02-05 18:31 | XRR_ITS ---
PROCEDURE INFORMATION: Exam: XR Chest Exam date and time: 02/05/2024 6:49 PM Age: 78 years old Clinical indication: Other: Dizziness TECHNIQUE: Imaging protocol: Radiologic exam of the chest. Views: 1 view. COMPARISON: CT angio chest w abd pel w con 07/30/2020 11:17 PM FINDINGS: Lungs: Clear, symmetrically inflated lungs. Pleural spaces: No pleural effusion. No pneumothorax. Heart/Mediastinum: Cardiac silhouette is normal in size for technique. Vasculature: Calcified aorta without dilation. Bones/joints: Age appropriate. XR/XR chest 1V portable [id number] IMPRESSION: No acute cardiopulmonary abnormality.
--- NOTE | 2024-02-05 18:36 | CTR_ITS ---
PROCEDURE INFORMATION: Exam: CT Right Lower Extremity, Leg Exam date and time: 02/05/2024 7:00 PM Age: 78 years old Clinical indication: Injury or trauma; Blunt trauma; Right; Patient HX: EMS arrival from assisted for fall. C/O severe RT lower leg pain. ; Additional info: FX TECHNIQUE: Imaging protocol: CT of the right lower extremity without contrast was performed. Exam focused on the lower leg. Radiation optimization: All CT scans at this facility use at least one of these dose optimization techniques: automated exposure control; mA and/or kV adjustment per patient size (includes targeted exams where dose is matched to clinical indication); or iterative reconstruction. COMPARISON: CR (LOW EXM, ) 02/05/2024 6:03 PM RADIATION DOSE METRICS: Total DLP (mGy-cm): 1034.2 FINDINGS: Bones/joints: Significant subjective bony demineralization. Moderate arthropathy of the knee with calcified intra-articular loose body. No knee joint effusion. There is a comminuted fracture of the proximal tibial metaphysis. No intra-articular extension. Comminuted fracture of the fibular neck. Oblique lateral malleolar fracture. Medial malleolar avulsion noted. The fragment adjacent to the medial malleolus appears mostly corticated suggesting chronic injury although an acute on chronic injury is not excluded. Similarly, there is a chronic appearing posterior malleolar fracture which demonstrates corticated margins. Widened medial ankle mortise. Mild splaying of the anterior talar crural joint. Soft tissues: There is a simple appearing fatty mass in the tibialis anterior muscle body. Diffuse subcutaneous edema noted. Vasculature: Advanced arterial calcification. CT/CT lower leg RT wo con* [id number] IMPRESSION: 1. Comminuted fracture of the proximal tibial metaphysis without intra-articular extension. Segmental fractures of the fibula noted with comminuted fracture of the fibular neck an oblique minimally displaced fracture of the lateral malleolus. Acute on chronic appearing medial malleolar avulsion and chronic appearing posterior malleolar fracture, each with corticated margins. Widening of the medial ankle mortise implies significant ligamentous injury. 2. Moderate arthropathy at the knee. Calcified intra-articular loose body. Mild arthropathy at the ankle.
--- NOTE | 2024-02-05 18:39 | CTR_ITS ---
PROCEDURE INFORMATION: Exam: CT Abdomen And Pelvis Without Contrast Exam date and time: 02/05/2024 7:02 PM Age: 78 years old Clinical indication: Injury or trauma; Blunt; Lower; Prior surgery; Surgery date: 6+ months; Surgery type: Coronary stents. Gb. Appy. Hysterectomy. Patient HX: [facility] arrival [place] for [place]. C/O low back and pelvic pain. TECHNIQUE: Imaging protocol: Computed tomography of the abdomen and pelvis without contrast. Radiation optimization: All CT scans at this facility use at least one of these dose optimization techniques: automated exposure control; mA and/or kV adjustment per patient size (includes targeted exams where dose is matched to clinical indication); or iterative reconstruction. COMPARISON: CT pelvis w con* [id number] 08/23/2021 10:29 PM RADIATION DOSE METRICS: Total DLP (mGy-cm): 1539.83 FINDINGS: Lungs: Clear basilar lung parenchyma. Pleural spaces: No pleural fluid. Heart: Normal heart size. Coronary arteries: Extensive coronary artery hyperdensity could be calcification and/or stent material. Liver: Normal configuration. Homogeneous parenchyma. Gallbladder and biliary ducts: Prior cholecystectomy. No biliary tree dilation. 5 mm calcification in the nondilated common bile duct is unchanged from prior exam several years ago. Pancreas: Diffuse pancreatic atrophy without visible edema. Spleen: Normal. No splenomegaly. Adrenal glands: Normal configuration. Kidneys and ureters: Lobulated atrophic kidneys. Staghorn calculus noted on the right. Tiny intrarenal calculi noted on the left. No ureteral calculus. No significant renal contour deformity. Stomach and bowel: Unremarkable. No obstruction. No mural thickening. Appendix: Prior appendectomy. Intraperitoneal space: No free air. No significant fluid collection. Vasculature: Moderate aortoiliac calcific atherosclerosis without aneurysm. No portal venous gas. Lymph nodes: No enlarged lymph nodes. Urinary bladder: Unremarkable as visualized. Reproductive: Prior hysterectomy. No evidence of vaginal cuff or adnexal mass. Bones/joints: Subjective bony demineralization. No fracture the lower ribs, imaged spine, pelvis, or proximal femora. Mild spinal degenerative change with mild spinal canal stenosis at L4-L5. Mild bilateral sacroiliac osteoarthritis. Mild bilateral hip arthropathy. No destructive bony lesions. Soft tissues: Diffuse abdominal wall laxity with changes of prior ventral herniorrhaphy. Tiny fat containing umbilical hernia. No inguinal or femoral hernia. CT/CT abdomen pelvis wo con [id number] IMPRESSION: 1. No acute traumatic change in the abdomen or pelvis. Sensitivity for solid organ injury is limited without intravenous contrast but there is no abnormal fluid collection or visible parenchymal disruption of the liver, spleen, or kidneys. No evidence of acute fracture. 2. Mild spinal stenosis at L4-L5. Correlate with any symptoms of neurogenic claudication. 3. Bilateral intrarenal stones. Kidneys are atrophic. No evidence of obstruction. 4. Subjective bony demineralization could be quantified with DEXA.
--- NOTE | 2024-02-05 18:44 | ECG_ITS ---
[employer] Test Date: 2024-02-05 Pat Name: Pauline Rubio Department: Room: Gender: Female [employer] Agent: : [id number] Requested By: Robe Yeboah Order Number: [id number] Reading MD: NOHEMI GARNETT Measurements Intervals [place] Rate: 153 P: 0 AK: 0 QRS: 245 QRSD: 153 T: 7 QT: 343 QTc: 547 Interpretive Statements ATRIAL FIBRILLATION WITH RAPID VENTRICULAR RESPONSE INDETERMINATE AXIS RIGHT BUNDLE BRANCH BLOCK [120+ ms QRS DURATION, UPRIGHT V1, 40+ ms S IN I/aVL/V4/V5/V6] CRITICAL TEST RESULT Compared to ECG 12/15/2022 10:16:22 Indeterminate axis now present Sinus rhythm no longer present Left anterior fascicular block no longer present Myocardial infarct finding no longer present Electronically Signed On 02-08-2024 21:04:25 CDT by NOHEMI GARNETT [email or web address]
[2024-02-05 19:00] LABS: Basophils # 0.1 10^3/uL (0.0-0.1); Basophils % 0.4 %; Eosinophils # 0.3 10^3/uL (0.0-0.8); Eosinophils % 1.5 %; Hematocrit 33.4 % (36-47); Lymphocytes # 2.6 10^3/uL (0.8-4.8); Lymphocytes % 13.2 %; Mean Corpuscular Hemoglobin 30.7 pg (27-33); Mean Corpuscular Volume 105.7 fl (85-98); Mean Platelet Volume 10.5 fL (7.4-10.4); Monocytes # 2.2 10^3/uL (0.2-0.9); Monocytes % 11.2 %; Neutrophils # 14.35 10^3/uL (1.8-7.7); Neutrophils % 73.2 %; Nucleated Red Blood Cells % 0 %; Platelet Count 363 10^3/cmm (157-399); Red Blood Count 3.16 10^6/uL (3.85-5.65); Red Cell Distribution Width 13.1 % (12.1-15.1)
[2024-02-05 19:15] LABS: INR 1.03 (0.8-1.2)
[2024-02-05 19:20] LABS: Lactic Sepsis W/Reflex 1.8 mmol/L (0.5-2.2); Troponin(5th) Baseline 67 ng/L (0-10)
--- NOTE | 2024-02-05 19:23 | ED_ITS ---
HPI - Extremity Problem 2 General: Chief complaint: Extremity Injury, Lower Stated complaint: right ankle/knee pain s/p fall Time Seen by Provider: 02/05/24 17:43 History of Present Illness: Pauline Rubio is a 78-year-old female that presents to our emergency department department via EMS after a fall from standing. Patient is a morbidly obese, BMI 43.4, chronically ill female that is taking care of by her family. Family was getting her up to standing position to change a depends when she became dizzy and fell. When she fell her leg was awkwardly positioned. She was unable to get up off the floor even with family help and EMS was contacted. Patient arrives in our emergency department with external rotation of the right lower extremity. She has groin pain, knee pain, ankle pain. She has bruising noted to proximal tibia as well as over the ankle. She has a superficial skin tear but no open wounds. No bleeding. Patient was noted being tachycardic. Has a history of atrial fibrillation and SVT. Anticoagulated. Associated symptoms: Deny chest pain, fever(s) or rash Related Data Home Medications Medication Instructions Recorded Confirmed albuterol sulfate 90 mcg/actuation 2 puff inhalation Q6H PRN 05/16/19 11/08/23 aerosol inhaler (ProAir HFA) Shortness Of Breath albuterol sulfate 2.5 mg/3 mL 2.5 mg inhalation PRN 07/31/20 11/08/23 (0.083 %) solution for nebulization liraglutide 0.6 mg/0.1 mL (18 mg/3 0.6 mg SUBCUT DAILY 05/20/21 11/08/23 mL) subcutaneous pen injector (Victoza 2-Jim) metformin 500 mg tablet 500 mg PO DAILY 05/20/21 11/08/23 acetaminophen 650 mg 1,300 mg PO Q8H PRN 09/02/21 11/08/23 tablet,extended release (Tylenol Arthritis Pain) mineral oil ea miscellaneous .at night 10/06/21 11/08/23 cholecalciferol (vitamin D3) 125 125 mcg PO DAILY 12/07/22 11/08/23 mcg (5,000 unit) capsule guaifenesin 600 mg tablet, 600 mg PO Q12H PRN 12/07/22 11/08/23 extended release 12 hr (Mucinex) insulin aspart U-100 100 unit/mL 10 unit SUBCUT TID 04/26/23 11/08/23 subcutaneous solution (Novolog U-100 Insulin aspart) insulin glargine 100 unit/mL 25 unit SUBCUT BID 04/26/23 11/08/23 subcutaneous solution (Lantus U-100 Insulin) Previous Rx's Medication Instructions Recorded aspirin 81 mg tablet,delayed 81 mg PO DAILY #90 tabs 11/18/21 release (Adult Low Dose Aspirin) Wheelchair XL wt 285 #1 ea 05/14/22 nitroglycerin 0.4 mg sublingual See Rx Instructions .Route 02/05/23 tablet .COMPLEX #75 tabs atorvastatin 40 mg tablet (Lipitor) 40 mg PO DAILY #90 tabs 08/23/23 apixaban 5 mg tablet (Eliquis) 5 mg PO BID #180 tabs 09/22/23 sotalol 80 mg tablet 80 mg PO .COMPLEX #225 tabs 10/20/23 duloxetine 20 mg capsule,delayed 20 mg PO BID #180 caps 11/08/23 release (Cymbalta) montelukast 10 mg tablet 10 mg PO BEDTIME #90 tabs 11/08/23 budesonide 0.5 mg/2 mL suspension 0.5 mg (2 mL) inhalation BID #360 11/12/23 for nebulization (Pulmicort) mL formoterol fumarate 20 mcg/2 mL 2 ml inhalation Q12H #360 mL 11/12/23 solution for nebulization (Perforomist) furosemide 40 mg tablet 40 mg PO QAM #90 tabs 12/29/23 Allergies Allergy/AdvReac Type Severity Reaction Status Date / Time hydrocodone AdvReac Vomitting Verified 11/08/23 08:35 Review of Systems 2 General: Reports: 10 or more systems reviewed and unremarkable except in HPI and below Const: Reports: fatigue and malaise; Denies: fever(s), chills, change in appetite or change in weight Eyes: Denies: change in vision, eye discomfort, eye discharge or eye redness ENMT: Denies: throat pain, enlarged tonsils, odynophagia, hoarseness, ear or mastoid pain, ear discharge, change in hearing, tinnitus, nasal discharge, nasal congestion, post nasal drip or sinus pain Card: Reports: irregular heart rhythm, edema, dyspnea on exertion and orthopnea; Denies: chest pain, palpitations or leg pain with exertion Resp: Reports: dyspnea; Denies: productive cough, non-productive cough, wheezing, stridor or chest congestion GI: Reports: diarrhea; Denies: abdominal pain, nausea, vomiting, dysphagia, constipation, bloating, GI cramping or hematochezia : Reports: hematuria; Denies: flank pain, difficulty voiding, dysuria, urinary frequency, urinary urgency, urinary hesitancy or oliguria Musc: Reports: back pain, extremity pain and joint pain; Denies: neck pain, joint swelling, joint redness, joint warmth or muscle weakness Skin/Breast: Denies: rash, pruritus, erythema, photosensitivity or new lesions Neuro: Denies: headache(s), numbness in extremities, weakness in extremities, sensory changes, lack of coordination, difficulty walking, frequent falls, dizziness, confusion, Slurred speech present, difficulty communicating thoughts, seizure-like activity or involuntary movements Endo: Denies: polyuria, polydipsia or tired all the time Ruben/Lymph: Denies: easy bruising or easy bleeding PFSH ED 2 PFSH: Medical History Claudication of both lower extremities H/O drainage of abscess labial Bartholin gland cyst Abscess of labia majora Autumn infection Cellulitis of groin Chronic anticoagulation Eliquis Diastolic CHF Pain of left knee after injury BMI 40.0-44.9, adult CAD (coronary artery disease) Dyslipidemia History of severe acute respiratory syndrome coronavirus 2 (SARS-CoV-2) disease (~01/2020) February 05 Controlled type 2 diabetes mellitus with hyperglycemia, with long-term current use of insulin 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 Templeton at [facility] H/O cataract extraction bilateral H/O angioplasty 7 stents, last stents 07/2020 H/O arthroscopic knee surgery Bilateral History of cholecystectomy History of tonsillectomy and adenoidectomy H/O parathyroidectomy History of arthroscopic surgery of shoulder LEFT History of appendectomy H/O: hysterectomy Family History Father Cancer Family/Other Cancer Colon cancer, Onset Age: 70 paternal uncle Mother Heart disease Stroke Dementia Hypertension Social History Smoking and tobacco/nicotine status: never used tobacco/nicotine Second hand smoke exposure: No Alcohol intake: never Substance/Drug Use: never Adopted: No Caregiver/support person: Yes Lives independently: No Household members: family Housing: House Marital status: Single service: No Current occupational status: retired and disabled Pets and animals: Yes Do you think of yourself as: Straight/Heterosexual Current gender identity: Female Physical Exam 2 Const: COMMON NORMALS: no acute distress, patient oriented x3 and alert G ENERAL APPEARANCE: cooperative ORIENTATION/CONSCIOUSNESS: Yes awake, Yes oriented to person, Yes oriented to place and Yes oriented to time HENMT: COMMON NORMALS: normocephalic and atraumatic HEAD & SCALP: n ormocephalic and atraumatic FACE & SINUS: normal facial exam MOUTH: Normal oral and palatal mucosa present THROAT: posterior oropharynx normal Eye: COMMON NORMALS: Equal, round and reactive pupils present, EOMs intact bilaterally, conjunctivae normal and no scleral icterus GENERAL EYE: a ppearance normal, both eyes and all related structures ALIGNMENT: Yes alignment normal PERIORBITAL: periorbital findings normal CONJUNCTIVA: Yes conjunctivae normal PUPIL: Yes Equal, round and reactive pupils present Neck/C-Spine: COMMON NORMALS: full ROM GENERAL: Yes normal visual inspection Lymph: LYMPHATIC: no lymphadenopathy noted Chest: COMMONS NORMALS: normal inspection of the chest Breast/axilla inspection: Yes no chest deformity, asymmetry, normal contours, no nodules, masses, tenderness Resp: COMMON NORMALS: No retractions and clear to auscultation bilaterally EFFORT & INSPECTION: Yes able to speak in complete sentences, Yes symmetric chest movement and Yes tachypneic AUSCULTATION: clear to auscultation bilaterally and diminished lung sounds Cardio: COMMON NORMALS: Peripheral pulses 2+ throughout JUGULAR VENOUS DISTENTION: no JVD PALPATION: normal PMI RATE: tachycardic RHYTHM: a bnormal rhythm irregularly irregular PERIPHERAL PULSES: Peripheral pulses 2+ throughout GI: COMMON NORMALS: Soft to palpation INSPECTION: Yes normal to inspection AUSCULTATION: Yes normoactive bowel sounds PALPATION: Yes Soft to palpation and Yes Tenderness to palpation present (GI) Details: RLQ RECTAL EXAM: d eferred Back/Pelvis: OTHER: Pelvic pain, right hip pain, right knee pain, right ankle pain. Abnormal rotation below the level of the knee. Ecchymosis and swelling noted to proximal tibia and ankle Patient has limited dorsiflexion due to pain but is able to wiggle toes No open wounds, no bleeding, neurovascularly intact Extremity: COMMON NORMALS: normal to inspection GENERAL: Yes normal exam except as noted Neuro: COMMON NORMALS: patient oriented x3 SENSORIUM/ORIENTATION: Yes alert, Yes oriented to person, Yes oriented to place and Yes oriented to time CRANIAL NERVES: Yes CN normal except as noted Psych: COMMON NORMALS: mental status grossly normal, Normal thought process present, cooperative, activity/motor behavior normal, denies homicidal ideation and denies suicidal ideation THOUGHT PROCESS: Normal thought process present Skin: COMMON NORMALS: no rashes or lesions noted, no wounds and turgor normal GENERAL SKIN EXAM: no rashes or lesions noted and turgor normal Course 2 Vital Signs: Vital signs: Vital Signs Temperature 98.4 F 02/05/24 17:48 Pulse Rate 145 H 02/05/24 21:45 Respiratory Rate 22 H 02/05/24 22:37 Blood Pressure 139/110 02/05/24 21:45 Pulse Oximetry 97 02/05/24 22:37 Oxygen Delivery Me thod Nasal Cannula 02/05/24 21:45 Oxygen Flow Rate 2 02/05/24 21:45 MDM - Extremity (Nontraumatic) Medical Decision Making Patient is a morbidly obese, chronically ill-appearing female that presents to the emergency department after fall from standing. She underwent partial trauma workup without trauma activation. I did a XR ankle and tibia which revealed a proximal tibia fracture with proximal and distal fibula fracture and widening of the ankle mortise Patient did complain of pelvic pain and so she underwent a CT abdomen pelvis. I did speak with Dr. Fay here in [place] but is recommending transfer to a larger center. Once imaging was obtained, these were uploaded to [facility] and [facility] called [facility] transfer. During her ER stay here she did develop atrial fibrillation RVR. She was started on a Cardizem drip and given a bolus. Her heart rate was maintained in low 100s at that point. She has remained normotensive and 100% SpO2 on 2 L. Patient does have a leukocytosis, anemia with a hemoglobin of 9.7 that but this appears to be chronic. She also has hypochloremic and has an elevated BUN. Patient has a normal lactic acid but elevated troponin. Troponin of 67 She has hyperlipidemia, hypertension, cardiovascular disease, 5 stents, SVT and A-fib, diabetes, and likely needs further evaluation. Ankle X-Ray 02/05/24 17:43 IMPRESSION: 1. Lateral malleolar fracture with abnormal widening of the medial ankle mortise suggesting associated significant ligamentous injury. There is also splaying of the anterior talar crural joint space compatible with ligamentous and/or joint capsular injury. No visible posterior malleolar fracture. 2. Advanced arterial calcification. Tibia/Fibula X-Ray 02/05/24 17:43 IMPRESSION: 1. Comminuted fracture of the proximal tibial metaphysis without intra-articular extension. Fractures of the lateral malleolus and fibular neck are noted as well. Ankle joint is not completely characterized on these images. 2. Expected regional soft tissue swelling. 3. Subjective bony demineralization could be quantified with DEXA. Chest X-Ray 02/05/24 18:31 IMPRESSION: No acute cardiopulmonary abnormality. Lower Extremity CT 02/05/24 18:36 IMPRESSION: 1. Comminuted fracture of the proximal tibial metaphysis without intra-articular extension. Segmental fractures of the fibula noted with comminuted fracture of the fibular neck an oblique minimally displaced fracture of the lateral malleolus. Acute on chronic appearing medial malleolar avulsion and chronic appearing posterior malleolar fracture, each with corticated margins. Widening of the medial ankle mortise implies significant ligamentous injury. 2. Moderate arthropathy at the knee. Calcified intra-articular loose body. Mild arthropathy at the ankle. Abdomen/Pelvis CT 02/05/24 18:39 IMPRESSION: 1. No acute traumatic change in the abdomen or pelvis. Sensitivity for solid organ injury is limited without intravenous contrast but there is no abnormal fluid collection or visible parenchymal disruption of the liver, spleen, or kidneys. No evidence of acute fracture. 2. Mild spinal stenosis at L4-L5. Correlate with any symptoms of neurogenic claudication. 3. Bilateral intrarenal stones. Kidneys are atrophic. No evidence of obstruction. 4. Subjective bony demineralization could be quantified with DEXA. Spoke with Dr Overotn at 2030. Would like the patient ER to ER for further evaluation. Patient will require hospitalist admission with likely surgery tomorrow once cleared Admitting/accepting ER physician is Dr. Karan Ty. Patient will transfer by air. We are splinting her leg immobilizing both knee and ankle. We are doing this via short leg splint as well as a knee immobilizer. Lab Data 02/05/24 18:53 02/05/24 18:53 Radiology Impressions Ankle X-Ray 02/05/24 17:43 IMPRESSION: 1. Lateral malleolar fracture with abnormal widening of the medial ankle mortise suggesting associated significant ligamentous injury. There is also splaying of the anterior talar crural joint space compatible with ligamentous and/or joint capsular injury. No visible posterior malleolar fracture. 2. Advanced arterial calcification. Tibia/Fibula X-Ray 02/05/24 17:43 IMPRESSION: 1. Comminuted fracture of the proximal tibial metaphysis without intra-articular extension. Fractures of the lateral malleolus and fibular neck are noted as well. Ankle joint is not completely characterized on these images. 2. Expected regional soft tissue swelling. 3. Subjective bony demineralization could be quantified with DEXA. Chest X-Ray 02/05/24 18:31 IMPRESSION: No acute cardiopulmonary abnormality. Head CT 02/05/24 18:31 IMPRESSION: 1. No evidence of acute intracranial hemorrhage, mass effect, or edema. Normal symmetric internal auditory canals. 2. Ethmoid sinus disease. Lower Extremity CT 02/05/24 18:36 IMPRESSION: 1. Comminuted fracture of the proximal tibial metaphysis without intra-articular extension. Segmental fractures of the fibula noted with comminuted fracture of the fibular neck an oblique minimally displaced fracture of the lateral malleolus. Acute on chronic appearing medial malleolar avulsion and chronic appearing posterior malleolar fracture, each with corticated margins. Widening of the medial ankle mortise implies significant ligamentous injury. 2. Moderate arthropathy at the knee. Calcified intra-articular loose body. Mild arthropathy at the ankle. Abdomen/Pelvis CT 02/05/24 18:39 IMPRESSION: 1. No acute traumatic change in the abdomen or pelvis. Sensitivity for solid organ injury is limited without intravenous contrast but there is no abnormal fluid collection or visible parenchymal disruption of the liver, spleen, or kidneys. No evidence of acute fracture. 2. Mild spinal stenosis at L4-L5. Correlate with any symptoms of neurogenic claudication. 3. Bilateral intrarenal stones. Kidneys are atrophic. No evidence of obstruction. 4. Subjective bony demineralization could be quantified with DEXA. Laboratory Results WBC 19.60 10^3/uL (3.29-11.43) H 02/05/24 18:53 RBC 3.16 10^6/uL (3.85-5.65) L 02/05/24 18:53 Hgb 9.70 g/dL (11.27-16.99) L 02/05/24 18:53 Hct 33.4 % (36-47) L 02/05/24 18:53 MCV 105.7 fl (85-98) H 02/05/24 18:53 MCH 30.7 pg (27-33) 02/05/24 18:53 MCHC 29.0 g/dL (30-55) L 02/05/24 18:53 RDW 13.1 % (12.1-15.1) 02/05/24 18:53 Plt Count 363 10^3/cmm (157-399) 02/05/24 18:53 MPV 10.5 fL (7.4-10.4) H 02/05/24 18:53 Neut % (Auto) 73.2 % 02/05/24 18:53 Lymph % (Auto) 13.2 % 02/05/24 18:53 [place] % (Auto) 11.2 % 02/05/24 18:53 Eos % (Auto) 1.5 % 02/05/24 18:53 Baso % (Auto) 0.4 % 02/05/24 18:53 Neut # (Auto) 14.35 10^3/uL (1.8-7.7) H 02/05/24 18:53 Lymph # (Auto) 2.6 10^3/uL (0.8-4.8) 02/05/24 18:53 [place] # (Auto) 2.2 10^3/uL (0.2-0.9) H 02/05/24 18:53 Eos # (Auto) 0.3 10^3/uL (0.0-0.8) 02/05/24 18:53 Baso # (Auto) 0.1 10^3/uL (0.0-0.1) 02/05/24 18:53 Nucleated RBC % (auto) 0 % 02/05/24 18:53 Nucleated RBCs # 0.0 /100WBC 02/05/24 18:53 PT 13.80 SECONDS (12.1-14.9) 02/05/24 18:53 INR 1.03 (0.8-1.2) 02/05/24 18:53 Sodium 144 mmol/L (136-145) 02/05/24 18:53 Potassium 4.3 mmol/L (3.5-5.1) 02/05/24 18:53 Chloride 96 mmol/L (98-107) L 02/05/24 18:53 Carbon Dioxide 38 mmol/L (22-29) H 02/05/24 18:53 Anion Gap 14.3 (5-19) 02/05/24 18:53 BUN 31 mg/dL (8-23) H 02/05/24 18:53 Creatinine 0.9 mg/dL (0.5-0.9) 02/05/24 18:53 GFR Calculation Not Reportable 02/05/24 18:53 Glucose 95 mg/dL (65-115) 02/05/24 18:53 Calculated Osmolality 304 mOsm/kg (285-295) H 02/05/24 18:53 Lactic Acid 1.8 mmol/L (0.5-2.2) 02/05/24 18:53 Calcium 9.2 mg/dL (8.5-10.5) 02/05/24 18:53 Total Bilirubin 0.2 mg/dL (0.15-1.2) 02/05/24 18:53 AST 19 U/L (0-32) 02/05/24 18:53 ALT 21 U/L (0-33) 02/05/24 18:53 Alkaline Phosphatase 124 U/L (35-105) H 02/05/24 18:53 Troponin T Baseline 67 ng/L (0-10) H 02/05/24 18:53 Troponin T 120 Minute 69.14 ng/L (0-10) H 02/05/24 21:05 Delta Troponin T 2.14 ABS# (0-10) 02/05/24 21:05 NT-Pro-B Natriuret Pep 1022 pg/mL (0-450) H 02/05/24 18:53 Total Protein 6.6 g/dL (6.6-8.7) 02/05/24 18:53 Albumin 3.9 g/dL (3.5-5.2) 02/05/24 18:53 Globulin 2.7 g/dL (1.3-4.6) 02/05/24 18:53 Urine Color Red (Yellow) A 02/05/24 20:48 Urine Appearance Cloudy (CLEAR) A 02/05/24 20:48 Urine pH 6.5 (5-7) 02/05/24 20:48 Ur Specific [place] 1.023 (1.005-1.030) 02/05/24 20:48 Urine Protein 3+ (Negative) A 02/05/24 20:48 Urine Glucose (UA) Negative (Normal) 02/05/24 20:48 Urine Ketones Negative (Negative) 02/05/24 20:48 Urine Blood 3+ (Negative) A 02/05/24 20:48 Urine Nitrate Negative (Negative) 02/05/24 20:48 Urine Bilirubin Negative (Negative) 02/05/24 20:48 Urine Urobilinogen 1.0 mg/dL (Negative) 02/05/24 20:48 Ur Leukocyte Esterase 2+ (Negative) A 02/05/24 20:48 Urine RBC Too numerous to cnt /hpf (0-2) H 02/05/24 20:48 Urine WBC Too numerous to cnt /hpf (0-5) H 02/05/24 20:48 Ur Squamous Epith Cells 0-5 /hpf (0-5) 02/05/24 20:48 Amorphous Sediment Not Reportable 02/05/24 20:48 Urine Bacteria Exceeds /hpf (NONE) 02/05/24 20:48 Hyaline Casts 3.45 /lpf 02/05/24 20:48 All radiology interpretation(s) finalized by discharge Discharge Plan Discharge Patient Disposition: Transfer to ED Clinical Impression: Leukocytosis, Atrial fibrillation, Closed fracture of lower extremity, Ankle instability, Closed tibial fracture Condition: Stable Prescriptions: No Action albuterol sulfate [ProAir HFA] 90 mcg/actuation HFA aerosol inhaler 2 puff INHALATION Q6H PRN (Reason: Shortness Of Breath) metformin 500 mg tablet 500 mg PO DAILY Victoza 2-Jim 0.6 mg/0.1 mL (18 mg/3 mL) pen injector 0.6 mg SUBCUT DAILY insulin aspart U-100 [Novolog U-100 Insulin aspart] 100 unit/mL solution 10 unit SUBCUT TID Patient Comments: SSI Rx Instructions: Plus sliding scale aspirin [Adult Low Dose Aspirin] 81 mg tablet,delayed release (DR/EC) 81 mg PO DAILY Qty: 90 0RF mineral oil Oil miscellaneous .at night Patient Comments: 1 tsp (DME) Wheelchair XL wt 285 See Rx Instructions .Route .MEDSUPPLY Qty: 1 0RF Rx Instructions: As directed guaifenesin [Mucinex] 600 mg tablet extended release 12hr 600 mg PO Q12H PRN cholecalciferol (vitamin D3) 125 mcg (5,000 unit) capsule 125 mcg PO DAILY duloxetine [Cymbalta] 20 mg capsule,delayed release(DR/EC) 20 mg PO BID Qty: 180 1RF montelukast 10 mg tablet 10 mg PO BEDTIME Qty: 90 1RF formoterol fumarate [Perforomist] 20 mcg/2 mL solution for nebulization 2 ml inhalation Q12H Qty: 360 1RF budesonide [Pulmicort] 0.5 mg/2 mL suspension for nebulization 0.5 mg inhalation BID Qty: 360 1RF nitroglycerin 0.4 mg tablet, sublingual See Rx Instructions .ROUTE .COMPLEX Qty: 75 4RF Dose Instruction: DISSOLVE 1 TABLET UNDER THE TONGUE EVERY 5 MINUTES NEEDED FOR CHEST PAIN. MAX OF 3 TABLETS IN 15 MINUTES. CALL 911 IF PAIN PERSISTS. Rx Instructions: DISSOLVE 1 TABLET UNDER THE TONGUE EVERY 5 MINUTES NEEDED FOR CHEST PAIN. MAX OF 3 TABLETS IN 15 MINUTES. CALL 911 IF PAIN PERSISTS. atorvastatin [Lipitor] 40 mg tablet 40 mg PO DAILY Qty: 90 3RF Eliquis 5 mg tablet 5 mg PO BID Qty: 180 3RF sotalol 80 mg tablet 80 mg PO .COMPLEX Qty: 225 3RF Rx Instructions: 80 mg orally Take one and 1/2 tab in morning and 1 tablet in evening; furosemide 40 mg tablet 40 mg PO QAM Qty: 90 2RF albuterol sulfate 2.5 mg /3 mL (0.083 %) Solution For Nebulization 2.5 mg inhalation PRN acetaminophen [Tylenol Arthritis Pain] 650 mg tablet extended release 1,300 mg PO Q8H PRN Lantus U-100 Insulin 100 unit/mL solution 25 unit SUBCUT BID Referrals: Anthony Mathew, STOREHOUSE CLERK-C [Primary Care Provider] - Coding Level of Care Code ED Smoking Tobacco Packer Hand for Griselda Gomez
[2024-02-05 19:28] LABS: Alanine Aminotransferase 21 U/L (0-33); Albumin Level 3.9 g/dL (3.5-5.2); Alkaline Phosphatase 124 U/L (35-105); Anion Gap 14.3 (5-19); Aspartate Amino Transferase 19 U/L (0-32); Blood Urea Nitrogen 31 mg/dL (8-23); Calcium 9.2 mg/dL (8.5-10.5); Carbon Dioxide 38 mmol/L (22-29); Chloride 96 mmol/L (98-107); Creatinine Clr Calc Pharmacy 76.9057; Globulin 2.7 g/dL (1.3-4.6); Glucose 95 mg/dL (65-115); NT Pro B Type Natriuretic Pept 1022 pg/mL (0-450); Osmolality Calculated 304 mOsm/kg (285-295); Potassium 4.3 mmol/L (3.5-5.1); Sodium 144 mmol/L (136-145); Total Bilirubin 0.2 mg/dL (0.15-1.2); Total Protein 6.6 g/dL (6.6-8.7)
[2024-02-05] MEDS: dilTIAZem 5 mg/mL SDV 5 mL 10 MG IVP (20:03)
--- NOTE | 2024-02-05 20:32 | PC.NURSE ---
this nurse assumed pt care from Kusum DAWSON at 2030.
--- NOTE | 2024-02-05 20:34 | ECG_ITS ---
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[id number] Requested By: Robe Yeboah Order Number: [id number] Reading MD: NOHEMI GARNETT Measurements Intervals [place] Rate: 116 P: 0 RI: 0 QRS: 248 QRSD: 136 T: 11 QT: 363 QTc: 506 Interpretive Statements ATRIAL FIBRILLATION WITH RAPID VENTRICULAR RESPONSE INDETERMINATE AXIS RIGHT BUNDLE BRANCH BLOCK [120+ ms QRS DURATION, UPRIGHT V1, 40+ ms S IN I/aVL/V4/V5/V6] Compared to ECG 02/05/2024 18:44:52 No significant changes Electronically Signed On 02-08-2024 21:24:08 CDT by NOHEMI GARNETT [email or web address]
[2024-02-05] MEDS: HYDROmorphone 1 mg/mL INJ 1 mL 0.5 MG IVP ×2 (20:39→22:37)
[2024-02-05 21:00] LABS: Bilirubin Urine Negative (Negative); Blood Urine 3+ (Negative); Glucose Urine UA Negative (Normal); Ketones Urine Negative (Negative); Leukocyte Esterase Urine 2+ (Negative); Nitrate Urine Negative (Negative); Protein Urine 3+ (Negative); Specific Gravity, Urine 1.023 (1.005-1.030); Urine Appearance Cloudy (CLEAR); pH Urine 6.5 (5-7)
[2024-02-05 21:05] LABS: Add Urine Microscopic? YES; Bacteria Urine EXCEEDS /hpf; Hyaline Casts Urine 3.45 /lpf; Squamous Epithelial Cell Urine 0-5 /hpf (0-5); Universal Test for UA Present (0)
[2024-02-05] MEDS: dilTIAZem 100 MG in sodium chloride 0.9% (add-van) 100 ML IV (21:05)
[2024-02-05 21:22] LABS: RBC Urine TOO NUMEROUS TO CNT /hpf (0-2); Urine Color Red (Yellow); WBC Urine TOO NUMEROUS TO CNT /hpf (0-5)
[2024-02-05 21:23] LABS: Add Urine Culture? Yes
[2024-02-05 21:24] LABS: Troponin 5 2HR 69.14 ng/L (0-10); Troponin 5 2HR Delta 2.14 ABS# (0-10)
== END 2024-02-05 22:47 ==
PROVIDERS: Emergency Provider Nurse Practitioner; PCP Nurse Practitioner
DX: D72.829 Elevated white blood cell count, unspecified (principal); I48.91 Unspecified atrial fibrillation; M25.371 Other instability, right ankle; S82.101A Unspecified fracture of upper end of right tibia, initial encounter for closed fracture; S82.451A Displaced comminuted fracture of shaft of right fibula, initial encounter for closed fracture; S82.61XA Displaced fracture of lateral malleolus of right fibula, initial encounter for closed fracture; I48.20 Chronic atrial fibrillation, unspecified; E66.01 Morbid (severe) obesity due to excess calories; Z68.41 Body mass index [BMI] 40.0-44.9, adult; E11.22 Type 2 diabetes mellitus with diabetic chronic kidney disease; I13.0 Hypertensive heart and chronic kidney disease with heart failure and stage 1 through stage 4 chronic kidney disease, or unspecified chronic kidney disease; N18.2 Chronic kidney disease, stage 2 (mild); I50.30 Unspecified diastolic (congestive) heart failure; I25.10 Atherosclerotic heart disease of native coronary artery without angina pectoris; E78.5 Hyperlipidemia, unspecified; Z86.73 Personal history of transient ischemic attack (TIA), and cerebral infarction without residual deficits
CPT/HCPCS: 29515; 29530; 36415; 51702; 70450; 71045; 73590; 73610; 73700; 74176; 80053; 81001; 83605; 83880; 84484; 85025; 85610; 87077; 87086; 87186; 93005; 96365; 96375; 96376; 99285; J1170; J3490

== ENCOUNTER → 2024-03-23 10:46 | Outpatient (BNVA) | payer MEDICARE, BC, SELFPAY | PROVIDERS: PCP Nurse Practitioner; Visit Provider Nurse Practitioner | DX: E11.65 Type 2 diabetes mellitus with hyperglycemia (principal); Z79.4 Long term (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 of insulin | CPT/HCPCS: 80053; 82306; 82607; 83036; 84443; 85025 ==

== ENCOUNTER → 2024-09-04 13:09 | Outpatient (BNVA) | payer MEDICARE, BC, SELFPAY | PROVIDERS: PCP Nurse Practitioner; Visit Provider Nurse Practitioner | DX: R30.0 Dysuria (principal) | CPT/HCPCS: 81003; 87077; 87086; 87184 ==

== ENCOUNTER → 2024-09-29 12:30 | Outpatient (BNVA) | payer MEDICARE, BC, SELFPAY | PROVIDERS: PCP Nurse Practitioner; Visit Provider Nurse Practitioner | DX: E11.9 Type 2 diabetes mellitus without complications (principal); Z79.4 Long term (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 of insulin | CPT/HCPCS: 80053; 80061; 83036; 85025 ==

== ENCOUNTER → 2025-02-23 14:55 | Outpatient (BNVA) | payer MEDICARE, BC, SELFPAY | PROVIDERS: PCP Nurse Practitioner; Visit Provider Nurse Practitioner | DX: E11.65 Type 2 diabetes mellitus with hyperglycemia (principal); Z79.4 Long term (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 of insulin | CPT/HCPCS: 80053; 83036 ==